=== PATIENT | male | born 1940 | race Caucasian/White ===

== ENCOUNTER → 2016-10-22 | Day surgery (SDC) | payer OTHER, BC ==
[2016-09-18 08:44] VITALS: Ht 175.3 cm; Wt 101.4 kg
[~2016-10-22] VITALS: Ht 175.3 cm; Wt 101.4 kg
[~2016-10-22] MED LIST: AMLO-110 PO; ASPI81TA28 PO; ATEN-173 PO; ATOR-24 PO; CLOP1TAB15 PO; CTP1X PO; DEXAMETHASONE SOD INJ 4 MG/ML VIAL ONE; FINA5TAB PO; FURO-85 PO; LIDOCAINE HCL 1% MPF 5 ML VIAL ONE; LORA-741 PO; LOSA50TA6 PO; NEFA150T PO; QUET1TAB30 PO; VNTHFA/IN INH
--- NOTE | 2016-10-22 10:00 | History & Physical Bridge Note ---
H&P Re-Evaluation Bridge Note: I have examined the patient, reviewed the History & Physical and in the interval since the performance of the History & Physical I have noted the following changes of clinical significance: No changes noted
--- NOTE | 2016-10-22 10:22 | Discharge Instructions-SurgCtr ---
Discharge Instructions Date of Service Oct 22, 2016. Visit Reason for Visit: Lumbosacral Spondylosis Without Myelopathy Discharge Discharge Diagnosis / Problem: same Discharge Goals Goal(s): Improve function Medications Stopped Medications Name(s): Pt. d/c'd ASA and Plavix times 7 days. Activity Recommendations Activity Limitations: as noted below Anesthesia . Post Anesthesia Instructions: If you have had General Anesthesia or IV Sedation: * Do not drive today. * Resume driving when surgeon permits. * Do not make important decisions or sign legal documents today. * Call surgeon for: 1. Temperature elevations greater than 101 degrees F. 2. Uncontrollable pain. 3. Excessive bleeding. 4. Persistent nausea and vomiting. 5. Medication intolerance (nausea, vomiting or rash). * For nausea and vomiting use only clear liquids such as: tea, soda, bouillon until nausea subsides, then gradually increase diet as tolerated. * If you have any concerns or questions, call your surgeon's office. If physician is unavailable and it is an emergency, call 911 or go to the nearest emergency room. . Diet Recommendations Home Diet: no limitations Procedures Procedures Performed: FACET INJECTIONS L4-L5, L5-S1, right side Pending Studies Studies pending at discharge: no Medical Emergencies . Who to Call and When: Medical Emergencies: If at any time you feel your situation is an emergency, please call 911 immediately. . Non-Emergent Contact Non-Emergency issues call your: Primary Care Provider . . "Provider Documentation" section prepared by Alcides Adam. .
--- NOTE | 2016-10-22 10:23 | [facility] Post Operative Brief Note ---
Immediate Operative Summary Operative Date Oct 22, 2016. Pre-Operative Diagnosis SPONDYLOSIS Post-Operative Diagnosis SAME Procedure(s) Performed FACET INJECTIONS L4-L5, L5-S1, right side Surgeon DR. Lisette SMITH [employer] Manager Surgeon(s) 0 Estimated Blood Loss 0 Findings spinal arthritis Specimens 0 Complication(s) None Disposition Recovery Room / PACU
[2016-10-22 10:28] VITALS: TEMP 36.7
[2016-10-22 10:37] VITALS: BP 139/73; PULSE 61; O2SAT 94
--- NOTE | 2016-10-22 10:45 | OPERATIVE REPORT ---
DATE OF OPERATION: 10/22/2016 PREOPERATIVE DIAGNOSES: Facet joint arthrosis lumbar spine, spondylosis L4-L5 and L5-S1. POSTOPERATIVE DIAGNOSES: Same. PROCEDURE: Facet joint injections L4-L5 and L5-S1, right-sided. SURGEON: Dr. Adam. DESCRIPTION OF PROCEDURE: The patient was taken to the minor procedure room and placed prone, prepped and draped sterile. Using biplanar fluoroscopy, we evaluated the L4-L5 and L5-S1 facets. We were able to use a 22-gauge Tuohy needle to get into the facet joint. We injected 1 mL of dexamethasone to each area. The patient tolerated well, to PACU stable. I attest to the content of the Intraoperative Record and any orders documented therein. Any exception s are noted below.
== END | disposition home or self-care (01) ==
LOC: X.SURG 08:28
PROVIDERS: ATTEND Orthopaedic Surgery Orthopaedic Surgery of the Spine
DX: M47.817 Spondylosis without myelopathy or radiculopathy, lumbosacral region (principal); I12.9 Hypertensive chronic kidney disease with stage 1 through stage 4 chronic kidney disease, or unspecified chronic kidney disease; N18.9 Chronic kidney disease, unspecified

== ENCOUNTER 2017-11-21 02:21 | Inpatient (IN) | payer OTHER, BC ==
[2017-11-21] VITALS (14 sets, daily range): BP systolic 113–163; BP diastolic 66–76; PULSE 56–87; TEMP 36.7–37.1; O2SAT 88–96; Ht 175.3 cm; Wt 92.0 kg
[~2017-11-21] VITALS: Ht 175.3 cm; Wt 92.0 kg
[~2017-11-21 02:21] MED LIST changes: -AMLO-110 PO; +AMLO5TAB3 PO; -DEXAMETHASONE SOD INJ 4 MG/ML VIAL ONE; -LIDOCAINE HCL 1% MPF 5 ML VIAL ONE
[2017-11-21] MEDS ORDERED: ALBUT/IPRATROP 3MG/0.5MG NEB 3 ML VIAL ONE ×2 (02:31→03:48)
--- NOTE | 2017-11-21 02:34 | EMERGENCY ROOM VISIT NOTE ---
History Report prepared by Mode: Mayito Carrillo Under the Supervision of: Dr. Ricky Greco M.D. First contact with patient: 02:25 Stated Complaint: SOB History of Present Illness The patient is a 77 year old male who presents to the Emergency Room with complaints of persistent shortness of breath that began two weeks ago. The patient states that for the last two weeks has been short of breath and coughing. He reports he has also been nauseous. The patient states he has been drinking fluids when he can but states he has had a loss of appetite. He denies chest pains and fevers. The patient states he had a recent right lobectomy done a week and a half ago due to lung CA. He denies any chemotherapy. The patient states he does not use oxygen at home. He reports a history of neuropathy Source of History: patient Onset: two weeks ago Position: other (generalized) Quality: other (short of breath) Timing: constant Associated Symptoms: + cough, + nausea, No fevers, No chest pain Review of Systems See HPI for pertinent positives & negatives. A total of 10 systems reviewed and were otherwise negative. Past Medical & Surgical Medical Problems: (1) Heart disease (2) HTN (hypertension) (3) Kidney disease (4) Lung cancer Surgical Problems: (1) History of lobectomy of lung Family History FHx: cancer Social History Smoking Status: Former Smoker Marital Status: Housing Status: lives with significant other Occupation Status: retired Current/Historical Medications Scheduled Amiodarone Hcl (Cordarone), 200 MG PO BID Atenolol (Tenormin), 12.5 MG PO QAM Atorvastatin (Lipitor), 40 MG PO DAILY Clonidine HCl (Clonidine HCl), 0.1 MG PO BID Clopidogrel (Plavix), 75 MG PO QAM Finasteride (Proscar), 5 MG PO QAM Furosemide (Lasix), 40 MG PO QAM Gabapentin (Neurontin), 300 MG PO TID Nefazodone (Serzone), 150 MG PO BID Nitroglycerin (Nitrostat), 0.4 MG UT PRN Polyethylene Glycol 3350 (Miralax), 17 GM PO DAILY Quetiapine Fumarate (Seroquel), 25 MG PO BID Rivaroxaban (Xarelto), 15 MG PO DAILY Scheduled PRN Albuterol Sulfate (Proair Respiclick), 2 PUFFS INH [id number] PRN for SOB/ Wheezing Lorazepam (Ativan), 0.5 MG PO DAILY PRN for Anxiety Oxycodone Ir (Roxicodone Ir), 5 MG PO Q4H PRN for Severe Pain Sennosides-Docusate Sodium (Senna Plus), 1 TAB PO DAILY PRN for Constipation Allergies Coded Allergies: Cephalexin (Verified Allergy, Unknown, RASH, 10/22/16) Lisinopril (Verified Allergy, Unknown, COUGH, 10/22/16) Simvastatin (Verified Allergy, Unknown, [id number] INTERACTION WITH NEFAZODONE, 10/22/16) Physical Exam Vital Signs Date Time Temp Pulse Resp B/P (MAP) Pulse Ox O2 Delivery O2 Flow Rate FiO2 11/21/17 04:16 85 20 88 BiPAP/CPAP 60 11/21/17 04:01 158/84 11/21/17 03:59 83 19 90 BiPAP 11/21/17 03:41 84 94 60 11/21/17 03:29 88 23 85 Oxymask 11/21/17 03:01 193/87 11/21/17 02:59 90 20 187/90 88 Oxymask 11/21/17 02:58 90 24 187/90 88 Oxymask 15.0 11/21/17 02:22 74 Room Air 11/21/17 02:22 36.9 89 20 209/94 74 Room Air Physical Exam GENERAL: Patient is chronically unwell appearing and in moderate acute distress. EYES: No scleral icterus, unremarkable pupils. ENT: Mucous membranes moist, no nasal congestion. NECK: No masses appreciated, no meningismus, trachea is midline. RESPIRATORY: Junky cough. Tachypneic. Mildly dyspneic. Decreased breath sounds throughout right lower lobes. Crackles in the right lobe and left upper lobe. No wheeze, no rhonchi. CARDIOVASCULAR: Regular rate and rhythm. No murmurs, rubs, gallops appreciated. GASTROINTESTINAL: Abdomen soft, nontender, no peritonitis. Bowel sounds positive. No masses appreciated. BACK: No midline tenderness, no CVA tenderness EXTREMITIES: Normal motion all extremities, no cyanosis, no edema. NEUROLOGIC: Alert and oriented, no acute motor or sensory deficits, no focal weakness, cranial nerves grossly intact. SKIN: No rash, no jaundice, no diaphoresis. Bruising of the right flank with multiple port sites from surgery on the right chest. Wound dressing of the right anterior lateral chest. Medical Decision & Procedures ER Provider Diagnostic Interpretation: X ray results are stated below per my interpretation: CHEST X-RAY 1 VIEW AP: Right lung effusion. Diffuse infiltrates bilaterally. No pneumothorax. Enlarged heart. No previous for comparison. Laboratory Results 11/21/17 02:12 Red Blood Count 4.04, Mean Corpuscular Volume 91.3, Mean Corpuscular Hemoglobin 29.0, Mean Corpuscular Hemoglobin Concent 31.7, Mean Platelet Volume 10.3, Neutrophils (%) (Auto) 89.4, Lymphocytes (%) (Auto) 3.0, Monocytes (%) (Auto) 6.4, Eosinophils (%) (Auto) 0.8, Basophils (%) (Auto) 0.0, Neutrophils # (Auto) 21.04, Lymphocytes # (Auto) 0.71, Monocytes # (Auto) 1.51, Eosinophils # (Auto) 0.20, Basophils # (Auto) 0.01 11/21/17 02:12 Test 11/21/17 02:12 11/21/17 02:35 11/21/17 03:03 11/21/17 03:23 White Blood Count 23.56 K/uL (4.8-10.8) Red Blood Count 4.04 M/uL (4.7-6.1) Hemoglobin 11.7 g/dL (14.0-18.0) Hematocrit 36.9 % (42-52) Mean Corpuscular Volume 91.3 fL (80-100) Mean Corpuscular Hemoglobin 29.0 pg (25-34) Mean Corpuscular Hemoglobin Concent 31.7 g/dl (32-36) Platelet Count 391 K/uL (130-400) Mean Platelet Volume 10.3 fL (7.4-10.4) Neutrophils (%) (Auto) 89.4 % Lymphocytes (%) (Auto) 3.0 % Monocytes (%) (Auto) 6.4 % Eosinophils (%) (Auto) 0.8 % Basophils (%) (Auto) 0.0 % Neutrophils # (Auto) 21.04 K/uL (1.4-6.5) Lymphocytes # (Auto) 0.71 K/uL (1.2-3.4) Monocytes # (Auto) 1.51 K/uL (0.11-0.59) Eosinophils # (Auto) 0.20 K/uL (0-0.5) Basophils # (Auto) 0.01 K/uL (0-0.2) RDW Standard Deviation 47.7 fL (36.4-46.3) RDW Coefficient of Variation 14.4 % (11.5-14.5) Immature Granulocyte % (Auto) 0.4 % Immature Granulocyte # (Auto) 0.09 K/uL (0.00-0.02) Red Blood Cell Morphology Unremarkable Activated Partial Thromboplast Time 30.7 SECONDS (21.0-31.0) Partial Thromboplastin Ratio 1.2 Est Creatinine Clear Calc Drug Dose 32.0 ml/min Estimated GFR () 30.9 Estimated GFR (Non- 26.7 BUN/Creatinine Ratio 15.3 (10-20) Calcium Level 8.8 mg/dl (8.5-10.1) Magnesium Level 2.1 mg/dl (1.8-2.4) Total Creatine Kinase 34 U/L (39-308) Creatine Kinase MB 1.5 ng/ml (0.5-3.6) Creatine Kinase MB Ratio 4.4 (0-3.0) Pro-B-Type Natriuretic Peptide 87901 pg/ml (0-1800) Bedside Hemoglobin 12.6 g/dl (14.0-18.0) Bedside Hematocrit 37 % (42-52) Bedside Sodium 141 mEq/L (135-144) Bedside Potassium 3.0 mEq/L (3.3-5.0) Bedside Chloride 92 mEq/L (101-112) Bedside Total CO2 > 40 mEq/l (24-31) Anion Gap 12.0 mmol/L (16-25) Bedside Blood Urea Nitrogen 36 mg/dl (7-18) Bedside Creatinine 2.2 mg/dl (0.6-1.3) Bedside Glucose (other) 122 mg/dl (70-99) Bedside Ionized Calcium (Hansel) 1.10 mmol/l (1.12-1.32) Bedside Lactic Acid Venous 1.34 mmol/L (0.90-1.70) Arterial Blood pH 7.46 (7.35-7.45) Arterial Blood Partial Pressure CO2 56 mmHg (35-46) Arterial Blood Partial Pressure O2 51 mm/Hg (80-95) Arterial Blood HCO3 39 mmol/L (19-24) Arterial Blood Oxygen Saturation 82.5 % (90-95) Arterial Blood Base Excess 13.2 mEq/L (-9-1.8) Arterial Blood Gas Delivery 15L Anthony Test POS (POS) Test 11/21/17 03:59 Laboratory results as reviewed by me. Medications Administered Medications (Trade) Dose Ordered Sig/Vicki Route Start Time Stop Time Status Last Admin Dose Admin Piperacillin Sod/ Tazobactam Sod (Zosyn Iv) 4.5 gm NOW STAT IV 11/21/17 03:23 11/21/17 03:24 DC 11/21/17 03:54 4.5 GM Vancomycin HCl 2000 mg/Sodium Chloride 540 ml @ 200 mls/hr ONE STAT IV 11/21/17 03:23 11/21/17 06:04 11/21/17 03:53 200 MLS/HR Albuterol/ Ipratropium (Duoneb) 12 ml STK-MED ONCE .ROUTE 11/21/17 03:48 11/21/17 03:49 DC 11/21/17 04:15 12 ML Methylprednisolone Sodium Succinate (Solu-Medrol IV) 40 mg STK-MED ONCE .ROUTE 11/21/17 03:49 11/21/17 03:50 DC 11/21/17 03:54 40 MG ECG Per My Interpretation Indication: SOB/dyspnea Rate (beats per minute): 91 Rhythm: normal sinus Findings: PAC (periodic), RBBB, ST depression (Anterior, Lateral) Change: No recent ED Course 0227: The patient was evaluated in room B07. A complete history and physical exam was performed. 0241: The patient is 91% on 10L NC. 0323: Ordered Vancomycin HCl 2000 mg/Sodium Chloride 540 ml @ 200 mls/hr IV, Zosyn 4.5 gm IV. 0329: I reevaluated the patient. His oxygen is 84% on 100% mask. His blood pressure is improving. He is agreeable to BIPAP and respiratory is at bedside. 0338: I discussed the patients case with Dr. Cordoba, [facility] Hospitalist. He understands the patients condition and agrees to accept the patient. The patient will be evaluated for further management and care. 0339: Ordered Duoneb 3 ml INH. 0341: I reevaluated the patient and he is breathing comfortably. His oxygen is 94% on CPAP. His states the patient recent had pneumonia due to aspiration. He goes to [facility]. I updated him on his results and treatment plan. 0345: Ordered Methylprednisolone Sodium Succinate 40 mg/ Syringe 0.64 ml @ 1.5 mls/min IV. Medical Decision Differential: Infectious, Reactive Airway Disease, Pneumonia, Pneumothorax, COPD , CHF, ACS, Pulmonary Embolism, MSK, GI, Dissection, amongst other etiologies entertained. 77 yr old male with known lung CA s/p recent resection arrives for evaluation of cough and shob. He is hypoxic on arrival and placed on 10L venturi mask. CXR done with either bilateral infiltrates vs mass, along with right pleural effusion. BP elevated but slowly improving nd apparently he has long history of hypertension. No fever but given hypoxia and infiltrates blood cultures, LA , and ABG obtained. Not septic shock but does have elevated WBC consistent with sepsis. Persistent hypoxia despite max NC thus switched to bipap with vast improvement in his breathing, comfort and resolution of hypoxia. BNP quite elevated which may repressent some congestive failure, but with renal failure on top of it will hold on Lasix given his improvement on bipap, and concern for sepsis. Sent to CT non con chest for better eval which confirms bilateral infiltrates and right effusion. Zosyn/Vanc and hospital acquired. does not he has aspiration history as well, though unfortunately most of history is in Epic as he usually going to [place]. Dr Nicole in to evaluate patient for further management. Medication Reconcilliation Current Medication List: was personally reviewed by me Blood Pressure Screening Patient's blood pressure: Elevated blood pressure Referred to hospitalist Consults Time Called: [phone] Consulting Physician: Dr. Cordoba [facility] Returned Call: [phone] I discussed the patients case with Dr. Cordoba [facility]. He understands the patients condition and agrees to accept the patient. The patient will be evaluated for further management and care. Impression Primary Impression: Pneumonia Additional Impressions: Hypoxia Respiratory failure Pleural effusion, right Acute renal failure Critical Care I have personally spent greater than 45 minutes of critical care time in the direct management of this patient. This was a life/limb threatening event. This includes time spent evaluating patient, direct bedside care, chart review, placing orders, interpretation of diagnostic studies, discussion with consultants, patient, and family members, as well as other required patient management activities. This 45 minutes is in excess of all separately billable procedures. Scribe Attestation The scribe's documentation has been prepared under my direction and personally reviewed by me in its entirety. I confirm that the note above accurately reflects all work, treatment, procedures, and medical decision making performed by me. Departure Information Dispostion Being Evaluated By Hospitalist Jm Dawson M.D. (PCP) Problem Qualifiers
[2017-11-21 02:37] LABS: HEMATOCRIT 36.9 % (42-52); HEMOGLOBIN 11.7 g/dL (14.0-18.0); MEAN CELL VOLUME 91.3 fL (80-100); MEAN CORPUSCULAR HGB CONC 31.7 g/dl (32-36); MEAN PLATELET VOLUME 10.3 fL (7.4-10.4); PLATELET COUNT 391 K/uL (130-400); RED CELL DISTRIBUTION WIDTH CV 14.4 % (11.5-14.5); RED CELL DISTRIBUTION WIDTH SD 47.7 fL (36.4-46.3); WHITE BLOOD COUNT 23.56 K/uL (4.8-10.8)
[2017-11-21 02:50] LABS: ISTAT CREATININE 2.2 mg/dl (0.6-1.3); ISTAT SODIUM 141 mEq/L (135-144)
[2017-11-21 02:56] LABS: BASO ABS # 0.01 K/uL (0-0.2); EOS % 0.8 %; IG# 0.09 K/uL (0.00-0.02); LYMPH ABS # 0.71 K/uL (1.2-3.4); MONO % 6.4 %; MONO ABS # 1.51 K/uL (0.11-0.59); NEUT % 89.4 %; NEUT ABS # 21.04 K/uL (1.4-6.5)
[2017-11-21 03:01] LABS: CALCIUM 8.8 mg/dl (8.5-10.1); CKMB 1.5 ng/ml (0.5-3.6); CREATININE 2.28 mg/dl (0.60-1.40)
[2017-11-21] MEDS ORDERED: VANCOMYCIN IV 2,000 MG in SODIUM CHLORIDE 0.9% 500ML 500 ML IV STA (03:23)
[2017-11-21] MEDS ORDERED: PIPERACILLIN/TAZOBACTAM 4.5 GM/100ML D5W IV STA (03:23)
[2017-11-21] MEDS ORDERED: VANCOMYCIN CONSULT ACTIVE PRN ×2 (03:30→06:15)
[2017-11-21] MEDS ORDERED: ALBUT/IPRATROP 3MG/0.5MG NEB 3 ML VIAL INH STA (03:39)
[2017-11-21] MEDS ORDERED: METHYLPREDNISOLONE IV 40 MG in SYRINGE 0 ML IV ONE (03:45)
[2017-11-21] MEDS ORDERED: LACTATED RINGER'S 1000ML 1,000 ML IV ONE (04:00)
[2017-11-21] MEDS ORDERED: ALBU18002 INH (04:06)
[2017-11-21] MEDS ORDERED: AMIO200T4 PO (04:07)
[2017-11-21 04:11] LABS: PTT PATIENT 30.7 SECONDS (21.0-31.0)
[2017-11-21] MEDS ORDERED: GABA-113 PO (04:13)
[2017-11-21] MEDS ORDERED: NTRGSL/4 UT (04:15)
[2017-11-21] MEDS ORDERED: OXYC-90 PO (04:16)
[2017-11-21] MEDS ORDERED: POLY335019 PO (04:17)
[2017-11-21] MEDS ORDERED: RIVA1.5T PO (04:20)
[2017-11-21] MEDS ORDERED: SENN1TAB65 PO (04:24)
[2017-11-21] MEDS ORDERED: ACET-1311 PO (04:42)
[2017-11-21] MEDS ORDERED: AMOX875T PO (04:44)
[2017-11-21] MEDS ORDERED: APIX1TAB PO (04:46)
[2017-11-21] MEDS ORDERED: DILT120C51 PO (04:48)
[2017-11-21] MEDS ORDERED: DOCU100C31 PO (04:49)
[2017-11-21] MEDS ORDERED: FAMO20TA11 PO (04:50)
[2017-11-21] MEDS ORDERED: METO5TAB2 PO (04:52)
[2017-11-21] MEDS ORDERED: METO25TA56 PO (04:53)
[2017-11-21] MEDS ORDERED: PARO1TAB27 PO (04:54)
[2017-11-21] MEDS ORDERED: NITROGLYCERIN 0.4 MG SL PER TAB CHARGE SL PRN (05:00)
[2017-11-21] MEDS ORDERED: ACETAMINOPHEN 325 MG TAB PO PRN (05:00)
[2017-11-21] MEDS ORDERED: PROCHLORPERAZINE INJ 5 MG in SYRINGE 4 ML IV PRN (05:00)
[2017-11-21] MEDS ORDERED: LEVALBUTEROL/IPRATROPIUM NEB INH PRN (05:00)
[2017-11-21] MEDS ORDERED: TAMS0.4C38 PO (05:00)
[2017-11-21] MEDS ORDERED: HYDROmorphone INJ 0.5 MG/0.5 ML SYR IV PRN (05:00)
[2017-11-21] MEDS ORDERED: OXYCODONE/ACETAMINOPHEN 5-325 TAB PO PRN (05:00)
[2017-11-21] MEDS ORDERED: INSULIN GLARGINE SOLOSTAR 100 UNITS/ML 3 ML PEN SC ONE (06:00)
[2017-11-21] MEDS ORDERED: IPRATROPIUM BROMIDE NEB SOLN 0.02% 2.5 ML VIAL INH PRN (06:15)
[2017-11-21] MEDS ORDERED: LEVALBUTEROL 1.25MG/0.5ML NEB INH PRN (06:15)
[2017-11-21] MEDS ORDERED: PANTOprazole INJ 40 MG in SYRINGE 0 ML IV ONE (06:15)
[2017-11-21] MEDS ORDERED: POTASSIUM CHLORIDE 10 MEQ TABCR PO ONE (06:30)
[2017-11-21] MEDS: LEVALBUTEROL 1.25MG/0.5ML NEB INH SCH ×3 (07:07→19:19)
[2017-11-21] MEDS: IPRATROPIUM BROMIDE NEB SOLN 0.02% 2.5 ML VIAL INH SCH ×3 (07:08→19:18)
[2017-11-21] MEDS ORDERED: HEPARIN IV LOW DOSE NO BOLUS STA (07:44)
[2017-11-21] MEDS ORDERED: HEPARIN IV LOW DOSE NO BOLUS SCH (08:00)
[2017-11-21] MEDS ORDERED: METOPROLOL TARTRATE 1 MG/ML VIAL IV ONE (08:00)
--- NOTE | 2017-11-21 08:18 | DIAGNOSTIC IMAGING REPORT ---
CT CHEST WITHOUT CONTRAST, ABDOMEN AND PELVIS CT WITHOUT CONTRAST CT DOSE: 1557.14 mGy.cm (accession [id number]), 584.06 mGy.cm (accession [id number]) HISTORY: Acute shortness of breath with generalized abdominal pain, nausea and vomiting. History of prior right lobectomy. Acute renal failure. abd pain, nv TECHNIQUE: Multiaxial CT images of the chest, abdomen and pelvis were performed without contrast. A dose lowering technique was utilized adhering to the principles of ALARA. COMPARISON STUDY: Chest radiograph of same day. FINDINGS: CT CHEST: Study is mildly motion degraded. The thyroid is homogeneous. There are scattered mildly prominent nonenlarged mediastinal lymph nodes are likely reactive with paratracheal lymph nodes measuring up to 8 mm in short axis. Heart is within the upper limits of normal in size. Mural fibrofatty changes of the left ventricular apex suggest prior infarction. Coronary arterial and aortic annular calcifications are noted. No thoracic aortic aneurysm identified. Unopacified pulmonary arterial tree is unremarkable. There is no pneumothorax identified. Postoperative changes from prior right upper lobectomy. Multifocal consolidative and groundglass opacities are noted within all lobes bilaterally within a bibasilar and centrally predominant distribution with air bronchograms. No definite evidence of pulmonary edema. Secretions are noted within the tracheobronchial tree. There is a moderate sized pleural effusion which is mildly loculated. No left-sided pleural effusion. There is circumferential wall thickening of the esophagus. Fluid-filled esophagus is noted containing hyperattenuating material. Mild esophageal distention. No acute process of the imaged upper abdomen. The soft tissues are within normal limits. The bones appear to be intact. Bilateral gynecomastia. Multilevel spondylitic spurring about the spine. CT ABDOMEN/PELVIS: No pneumatosis or pneumoperitoneum identified. Liver appears to be within normal limits. Cholelithiasis without CT evidence of acute cholecystitis. Spleen, pancreas and right adrenal gland are unremarkable. Moderate thickening about the left adrenal gland. Mild nonspecific bilateral perinephric stranding. 7 mm hypodense lesions about the anterior interpolar right kidney suggests proteinaceous or hemorrhagic cyst. Mild cortical thinning about the left kidney. No ureteral calculi or obstructive uropathy. Bladder and prostate appear unremarkable. Extensive calcification of the aorta. Mild ectasia of the infrarenal abdominal aorta, 2.5 x 2.3 cm. No pathologically enlarged lymph nodes. No bowel obstruction. Oral contrast is noted within the colon. Wall thickening of the distal colon is likely secondary to partial distention. Prior appendectomy. The terminal ileum appears unremarkable. No ascites or mesenteric inflammatory changes. 2.2 cm hypodense lesion of the subcutaneous left lower paraspinal tissues is indeterminate however may reflect a sebaceous cyst. The bones appear to be intact. Multilevel facet arthropathy with intervertebral disc space narrowing. IMPRESSION: 1. Multifocal multisegmental consolidative and groundglass opacities within all lobes bilaterally within a bibasilar and centrally predominant distribution with air bronchograms suggests multifocal pneumonia. 2. Moderate sized mildly loculated right pleural effusion. 3. Postoperative changes from prior right upper lobectomy. 4. Fluid-filled and distended esophagus demonstrates circumferential wall thickening. Findings could be correlated with endoscopy. 5. No acute intra-abdominal or intrapelvic abnormality identified. 6. Cholelithiasis without CT evidence of acute cholecystitis. 7. Additional findings as above. Electronically signed by: Eugene Bueno M.D. 11/21/2017 8:17 AM Dictated Date/Time: 11/21/2017 8:00 AM
[2017-11-21 08:22] LABS: HEMOGLOBIN 10.2 g/dL (14.0-18.0); MEAN CELL VOLUME 90.4 fL (80-100); MEAN CORPUSCULAR HEMOGLOBIN 28.8 pg (25-34); MEAN PLATELET VOLUME 9.8 fL (7.4-10.4); PLATELET COUNT 327 K/uL (130-400); RED CELL DISTRIBUTION WIDTH CV 14.3 % (11.5-14.5); RED CELL DISTRIBUTION WIDTH SD 47.2 fL (36.4-46.3); WHITE BLOOD COUNT 24.51 K/uL (4.8-10.8)
--- NOTE | 2017-11-21 08:22 | Pharmacy Progress Note ---
Pharmacy Abx Initial Consult Date of Service Nov 21, 2017. Pharmacy Dosing Scope Date of Consult: 11/21/17 Consultation requested by: Dr. Cordoba Pharmacy is consulted to initiate Vancomycin & Zosyn IV dosing therapy, order appropriate labs and adjust drug dose/frequency. Subjective The patient is a 77 year old male admitted on Nov 21, 2017 at 04:44. Objective Height (Feet): 5 Height (Inches): 9.00 Weight (Kilograms): 102.600 (BMI 33.4) Vital Signs (Past 12Hrs) Vital Signs Past 12 Hours Date Time Temp Pulse Resp B/P (MAP) Pulse Ox O2 Delivery O2 Flow Rate FiO2 11/21/17 06:15 36.9 87 16 163/75 90 CPAP 70 11/21/17 05:16 79 19 146/69 92 11/21/17 05:01 146/69 11/21/17 04:59 81 93 70 11/21/17 04:41 79 19 92 BiPAP 11/21/17 04:36 82 21 94 BiPAP 11/21/17 04:16 85 20 88 BiPAP/CPAP 60 11/21/17 04:06 85 19 86 BiPAP 11/21/17 04:01 158/84 11/21/17 03:59 83 19 90 BiPAP 11/21/17 03:41 84 94 60 11/21/17 03:29 88 23 85 Oxymask 11/21/17 03:01 193/87 11/21/17 02:59 90 20 187/90 88 Oxymask 11/21/17 02:58 90 24 187/90 88 Oxymask 15.0 11/21/17 02:22 74 Room Air 11/21/17 02:22 36.9 89 20 209/94 74 Room Air Lab Results (24Hrs) Laboratory Tests (24 Hours) Test 11/21/17 02:12 11/21/17 08:10 White Blood Count 23.56 K/uL (4.8-10.8) H Red Blood Count 4.04 M/uL (4.7-6.1) L Hemoglobin 11.7 g/dL (14.0-18.0) L Hematocrit 36.9 % (42-52) L Mean Corpuscular Volume 91.3 fL (80-100) Mean Corpuscular Hemoglobin 29.0 pg (25-34) Mean Corpuscular Hemoglobin Concent 31.7 g/dl (32-36) L Platelet Count 391 K/uL (130-400) Mean Platelet Volume 10.3 fL (7.4-10.4) Neutrophils (%) (Auto) 89.4 % Lymphocytes (%) (Auto) 3.0 % Monocytes (%) (Auto) 6.4 % Eosinophils (%) (Auto) 0.8 % Basophils (%) (Auto) 0.0 % Neutrophils # (Auto) 21.04 K/uL (1.4-6.5) H Lymphocytes # (Auto) 0.71 K/uL (1.2-3.4) L Monocytes # (Auto) 1.51 K/uL (0.11-0.59) H Eosinophils # (Auto) 0.20 K/uL (0-0.5) Basophils # (Auto) 0.01 K/uL (0-0.2) Total Creatine Kinase 34 U/L (39-308) L Item Value Date Time Creatinine 2.28 mg/dl H 11/21/17211 Est Creatinine Clear Calc Drug Dose 32.0 ml/min 11/21/17211 Micro Results Date/Time Source Procedure Growth Status 11/21/17 02:58 Blood Blood Culture Pending Received 11/21/17 02:40 Blood Blood Culture Pending Received Risk Factors for Resistance * Hospitalization for 48 hours or more within the past 90 days Assessment & Plan Assessment 77 year old male admitted due to persistent SOB/coughing x 2 weeks. Patient is s /p right lobectomy due to lung CA. Is not receiving chemotherapy per patient. He is having decreased breath sound throughout the right lower lobe and crackles in the R lower lobe and Left upper lobe. CT of chest confirms bilateral infiltrate and right effusion. Breathing improves when patient is placed on bipap. Plan Vancomycin and Zosyn for treatment of pneumonia Vancomycin IV * Estimated Pkinetic parameters: Vd 0.6 L/kg; Ben ~0.031 hr-1; T1/2 ~22.4 hrs; CrCl 32 * Loading dose: 2000 mg (~19.5 mg/kg) * Maintenance dose: 1500 mg IV (~14.7 mg/kg) every 24 hours * Goal trough level for pneumonia : 15 to 20 mcg/mL * Trough level ordered for 11/24/17 * Do not have baseline Cr for patient. Will monitor renal function and make adjustments as necessary Piperacillin/tazobactam * 4.5 g bolus administered over 30 minutes, then 3.375 g IV extended infusion every 8 hours for CrCl greater than 20 mL/min Pharmacy will continue to follow and will adjust dose/frequency as necessary. Thank you.
--- NOTE | 2017-11-21 08:24 | DIAGNOSTIC IMAGING REPORT ---
CHEST ONE VIEW PORTABLE HISTORY: 77 years-old Male Chest Pain acute atypical chest pain with acute shortness of breath COMPARISON: Chest CT of same day, chest radiograph 02/07/2008 TECHNIQUE: Portable AP view of the chest FINDINGS: Cardiac silhouette is mildly enlarged. Coronary arterial stent graft is noted. Postoperative changes about the right lung. Mild pulmonary vascular congestion without overt pulmonary edema. Multifocal bilateral alveolar opacities. Moderate loculated right pleural effusion. No pneumothorax or left pleural effusion. Degenerative changes of the shoulders and spine. IMPRESSION: 1. Multifocal bilateral alveolar opacities suggest multifocal pneumonia. Please see separately dictated CT chest of same day for further details. 2. Loculated moderate right pleural effusion. 3. Cardiomegaly. The above report was generated using voice recognition software. It may contain grammatical, syntax or spelling errors. Electronically signed by: Eugene Bueno M.D. 11/21/2017 8:23 AM Dictated Date/Time: 11/21/2017 8:20 AM
[2017-11-21] MEDS ORDERED: HEPARIN 25,000 UNIT/500ML D5W 500 ML IV SCH (08:30)
[2017-11-21 08:36] LABS: INR 1.2 (0.9-1.1); PTT PATIENT 31.8 SECONDS (21.0-31.0)
[2017-11-21 08:46] LABS: MEAN CORPUSCULAR HGB CONC 31.9 g/dl (32-36)
[2017-11-21] MEDS: POTASSIUM CHLR 10 MEQ / WTR 100 ML IV SCH ×5 (08:54→14:28)
[2017-11-21] MEDS: NEFAZODONE HCL 100 MG PO SCH ×2 (08:56→21:04)
[2017-11-21] MEDS: QUETIAPINE FUMARATE 25 MG TAB PO SCH ×2 (08:56→21:02)
[2017-11-21] MEDS: FAMOTIDINE 20 MG TAB PO SCH (08:56)
[2017-11-21] MEDS: FINASTERIDE 5 MG TAB PO SCH (08:56)
[2017-11-21] MEDS: DILTIAZEM HCL 120 MG CAPCR PO SCH (08:56)
[2017-11-21] MEDS: CLONIDINE HCL 0.1 MG TAB PO SCH ×2 (08:57→21:00)
[2017-11-21] MEDS: DOCUSATE SODIUM/SENNA 50/8.6MG TAB PO PRN (08:57)
[2017-11-21] MEDS: CLOPIDOGREL BISULFATE 75 MG TAB PO SCH (08:57)
[2017-11-21] MEDS: ATORVASTATIN 40 MG TAB PO SCH (08:57)
[2017-11-21] MEDS: AMIODARONE 200 MG TAB PO SCH ×2 (08:57→21:01)
[2017-11-21] MEDS: GABAPENTIN 100 MG CAP PO SCH ×4 (08:57→21:02)
[2017-11-21 08:58] LABS: IG# 0.07 K/uL (0.00-0.02); LYMPH % 1.1 %; LYMPH ABS # 0.26 K/uL (1.2-3.4); MONO % 3.8 %; MONO ABS # 0.94 K/uL (0.11-0.59); NEUT % 94.8 %; NEUT ABS # 23.24 K/uL (1.4-6.5)
[2017-11-21] MEDS: TAMSULOSIN HCL 0.4 MG CAP PO SCH (08:58)
[2017-11-21] MEDS ORDERED: PIPERACILL/TAZOBAC CONSULT ACTIVE PRN (09:00)
[2017-11-21] MEDS ORDERED: METOPROLOL TARTRATE 25 MG TAB PO SCH (09:00)
[2017-11-21] MEDS ORDERED: APIXABAN 2.5 MG TAB PO SCH (09:00)
[2017-11-21] MEDS ORDERED: LEVALBUTEROL/IPRATROPIUM NEB INH SCH (09:00)
--- NOTE | 2017-11-21 11:01 | HISTORY & PHYSICAL EXAMINATION ---
DATE OF ADMISSION: 11/21/2017 PRIMARY CARE PHYSICIAN: Dr. Coronel. CHIEF COMPLAINT: Shortness of breath and hypoxemia. HISTORY OF PRESENT ILLNESS: History obtained from patient, and records. Medical history significant for chronic diastolic heart failure (EF of 55% on TTE 10/2017), CAD status post stenting, PAF on Eliquis, moderate aortic stenosis, HTN COPD, past tobacco abuse, sleep apnea on CPAP, history of seizures as per records, chronic anemia (baseline preop hemoglobin 12 -13), lung mass R (possible malignancy) status post recent lobectomy ([place], 2017), recent bout of aspiration pneumonitis on Augmentin, esophageal achalasia/diverticula as per records. Patient admitted at [facility] from 11/02-01/2018 for a right upper lobe pulmonary nodule (possible malignancy) malignancy and esophageal diverticula sp right video-assisted thorascopic lung resection as well as endoscopy for a possible diverticular resection. Esophageal procedure deferred as per secondary to length of surgery - to be done at a later date as per . Postop, patient went into atrial fibrillation. Discharged on Amiodarone and Xarelto. Patient subsequently discharged home to [place], [place] w/ scheduled follow-up with surgeon last week of the month. Poor appetite upon returning to home from [place]. [facility] ER visit for possible prostatitis/epididymitis sp antibiotic Rx. Patient admitted at [facility] from 11/12- for cough symptoms productive of brown sputum. CT of the chest without contrast showed right upper lobe lobectomy, bilateral consolidation, predominantly each lobe, also right middle lobe, right upper lobe. Seen by Pulmonology. Concern for reflux aspiration. Patient underwent bronchoscopy which showed copious mucopurulent secretions found throughout the tracheobronchial tree, bronchial toileting done. Patient also referred to GI for swallowing/dysphagia -mostly to pills as per records and choking with liquids on occasion. UGI series showed extensive esophageal diverticular disease with absent reverse peristalsis, large diverticulum measuring approximately 5 cm located at junction of middle and lower thirds of the esophagus, appears to be pulsion diverticulum. No esophageal stricture seen on UGI series. Stomach, duodenum, and proximal bowel appeared normal. Ultrasound showed cholelithiasis, intraabdominal sludge. Symptoms attributed by GI to known history of esophageal diverticulum and motility disorder for which patient refused resection in 2007 as per note. Patient encouraged to eat slowly, chew his food well. As per note, patient did not want invasive testing. Surgery not recommended/conservative management of functional swallowing issues as per GI recommendations. Patient discharged to [facility] 2 days ago on Augmentin prescription for aspiration pneumonia. Patient Xarelto for A. fib also switched to Eliquis prior to discharge due to renal function. Poor appetite, loose nonbloody stools, some achy abdominal discomfort, persistent nausea at [facility] . Last night, patient had an episode of emesis, subsequently noted to be hypoxemic, 80s, on nasal cannula, coughing up large amount of clear sputum. Increased shortness of breath. Patient denies chest pain. Patient brought to the Emergency Room. O2 sats noted to be 70s. BiPAP started. Given Vancomycin and Zosyn at the ER. MEDICAL HISTORY: As above. SURGICAL HISTORY: He has had a lung surgery, appendectomy, back surgery. MEDICATIONS: Home medications include Tylenol, Augmentin, docusate sodium, furosemide, lorazepam, Reglan, oxycodone, albuterol, polyethylene glycol, amiodarone, apixaban, atenolol, atorvastatin, clonidine, Plavix, diltiazem, famotidine, finasteride, gabapentin, metoprolol, Serzone, Paxil, quetiapine, tamsulosin ALLERGIES: KEFLEX, LISINOPRIL, SIMVASTATIN. FAMILY HISTORY: Lung cancer, breast cancer. PERSONAL/SOCIAL HISTORY: Past tobacco abuse. No chronic intake of alcoholic beverages. 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 REVIEW OF SYSTEMS: As per HPI. All 10 systems reviewed, all other ROS negative. PHYSICAL EXAMINATION: VITAL SIGNS: Blood pressure 209/94, later 150/84, pulse rate 83, RR 23, temperature 36.9, saturation 70% on room air, later 86%, 90% on BiPAP. GENERAL: Noted to be comfortable, hard of hearing, obese, minimal respiratory distress. SKIN: Pallor, warm. HEENT: Pale palpebral conjunctivae. No ptosis. Dry oral mucosa. BiPAP in place. NECK: Supple, nontender. CHEST: Expiratory wheeze, rhonchi. No chest wall tenderness. HEART: Regular rate and rhythm. Systolic murmur. ABDOMEN: Some distention, central abdominal tenderness. EXTREMITIES: No LE edema/tenderness. No other gross deformity. NEUROLOGIC: No gross focality except for mild hearing impairment. LABORATORY DATA: Hemoglobin was noted to be 11.7, white cell count 20.5, platelets 391. Sodium noted to be 141, potassium 3, chloride 94, CO2 of 40, BUN 30, creatinine 2.28, glucose noted to be 119. Troponin 0.117. ABG shows pH 7.6, PCO2 of 56, PO2 of 51, 82% on [address] of chest initial read multifocal areas of consolidation, right greater than left, representing multifocal pneumonia, aspiration, moderate right loculated pleural effusion. Esophageal wall thickening, mid segment, about the GE junction, may represent esophagitis. CT of abdomen and pelvis, initial read, large right pleural effusion, large right lower lobe consolidation, patchy left lobe infiltrate, cardiomegaly, esophageal wall thickening, esophagitis, cholelithiasis without evidence of cholecystitis. EKG as per my interpretation, normal sinus rhythm, right bundle-branch block, T wave inversion in inferior leads. ASSESSMENT: 1. Acute hypoxemic respiratory failure secondary to COPD exacerbation 2 to health care associated pneumonia likely recurrent aspiration after emesis symptoms. Ongoing course of Augmentin Rx following recent confinement for aspiration pneumonia at [facility] Patient predisposed by esophagitis hx esophageal diverticulum/esophageal motility disorder. possible sepsis. 2. Recent right lung mass surgery (11/02/17, [place]) probable malignancy 3. Chronic diastolic heart failure, EF 55% Patient on the dry side 4. Coronary artery disease status post stenting. 5. hx postop PAF NSR, on Eliquis. 6. HTN, BP elevated 7. hx moderate aortic stenosis on recent TTE 8. diarrhea/loose stools rule out Clostridium difficile. 7. Chronic renal insufficiency. Creatinine at baseline. 8. Anemia. History chronic preop anemia secondary to CKD (Hg 12-13) Hemoglobin better than postop Hg of 9 (11/11/17) 9. past tobacco abuse.GAURANG on home O2 at night. 10. History of seizure disorder, well controlled not on maintenance medications. 11. hx GAURANG on CPAP 12. Hypokalemia secondary to emesis, loose stools PLAN: PCU. Continue BiPAP CS, Zosyn, Vancomycin. Steroid, nebs tx IVF, hold home diuretics for now until patient euvolemic Swallow evaluation. Aspiration precautions. Pulmonary consult, respiratory failure, , complicated pneumonia PPI for esophagitis GI consult RE esophagitis, persistent dysphagia. Stool C. difficile Replace potassium. PT/OT eval DVT prophylaxis. Eliquis. Full code. Patient's requesting for updates from providers. Mrs. Katey Juárez thru [phone]. Total critical care time was 60 minutes. Addendum : Made aware by RN of patient difficulty with swallowing pills upon arrival at the floor. Clear liquids for now. Change oral beta-domingo to IV for now, low dose IV heparin in place of Eliquis until patient swallowing improved. MTDD
[2017-11-21] MEDS: PIPERACILL/TAZOBAC IV 3.375 GM in D5W 100ML IV SCH ×2 (11:09→16:59)
[2017-11-21] MEDS ORDERED: METOPROLOL TARTRATE 1 MG/ML VIAL IV. SCH (12:00)
--- NOTE | 2017-11-21 12:12 | Medical Consult ---
Consultation Note Date of Service Nov 21, 2017. Consultation Note Reason for consult: abnormal appearing esophagus on CT HISTORY OF PRESENT ILLNESS: 77 yo M with PMH sig for advanced COPD on home O2 recent lobectomy for lung cancer, s/p recent admission to [facility] for multilobar pneumonia. He now is admitted to hospital for hypoxia, resp insuff. Initially on BIPAP last night, now on 4 L NC. He has a h/o esophageal dysmotility. EGD and esophagram in 2007 showed mult large esophageal diverticula; he had a motility study in 2007 that was incomplete, but suggestive of achalasia. Outpt notes suggest that he was not very symptomatic from this, and was lost to f/u. More recently, he underwent EGD during his lung cancer surgery which again showed esophageal tics. He also underwent dysphagia w/u during recent hosp at , including CT which largeamount of fluid in esophagus, UGIS which showed dysmotility and large esophageal diverticula with retention of contrast, and speech path eval which showed no cause of oropharyngeal dysphagia. CT on admission here again shows large amt of fluid in esophagus. PAST MEDICAL HISTORY: COPD, sleep apnea, CAD s/p DELMA, aortic stenosis, sz disorder PAST SURGICAL HISTORY: He has had a lung surgery, appendectomy as well as back surgery. MEDICATIONS: Home medications include Tylenol, Augmentin, docusate sodium, furosemide, lorazepam, Reglan, oxycodone, albuterol, polyethylene glycol, amiodarone, apixaban, atenolol, atorvastatin, clonidine, Plavix, diltiazem, famotidine, finasteride, gabapentin, metoprolol, Serzone, Paxil, quetiapine, tamsulosin. ALLERGIES: KEFLEX, LISINOPRIL, SIMVASTATIN. FAMILY HISTORY: Lung cancer, breast cancer. PERSONAL/SOCIAL HISTORY: Past tobacco abuse. No chronic intake of alcoholic beverages. 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 REVIEW OF SYSTEMS: As per HPI. All others negative. PHYSICAL EXAMINATION: Date Time Temp Pulse Resp B/P (MAP) Pulse Ox O2 Delivery O2 Flow Rate FiO2 11/21/17 08:56 87 163/75 11/21/17 08:00 Nasal Cannula 4.0 11/21/17 06:58 81 93 70 11/21/17 06:15 36.9 87 16 163/75 90 CPAP 70 11/21/17 05:16 79 19 146/69 92 11/21/17 05:01 146/69 11/21/17 04:59 81 93 70 11/21/17 04:41 79 19 92 BiPAP 11/21/17 04:36 82 21 94 BiPAP 11/21/17 04:16 85 20 88 BiPAP/CPAP 60 11/21/17 04:06 85 19 86 BiPAP 11/21/17 04:01 158/84 11/21/17 03:59 83 19 90 BiPAP 11/21/17 03:41 84 94 60 11/21/17 03:29 88 23 85 Oxymask 11/21/17 03:01 193/87 11/21/17 02:59 90 20 187/90 88 Oxymask 11/21/17 02:58 90 24 187/90 88 Oxymask 15.0 11/21/17 02:22 74 Room Air 11/21/17 02:22 36.9 89 20 209/94 74 Room Air Appears comfortable. Has eaten his lunch tray of clear liquids, but there are several tissues on the table from where he has spit his lunch up HEENT: no thrush, mmm CV: RRR Resp: Diffuse wheezing. He has mild incr WOB, but is able to comfortably speak Abd: soft NT Extrem: no edema Last 24 Hours Test 11/21/17 02:12 11/21/17 02:35 11/21/17 03:03 11/21/17 03:23 White Blood Count 23.56 K/uL Red Blood Count 4.04 M/uL Hemoglobin 11.7 g/dL Hematocrit 36.9 % Mean Corpuscular Volume 91.3 fL Mean Corpuscular Hemoglobin 29.0 pg Mean Corpuscular Hemoglobin Concent 31.7 g/dl Platelet Count 391 K/uL Mean Platelet Volume 10.3 fL Neutrophils (%) (Auto) 89.4 % Lymphocytes (%) (Auto) 3.0 % Monocytes (%) (Auto) 6.4 % Eosinophils (%) (Auto) 0.8 % Basophils (%) (Auto) 0.0 % Neutrophils # (Auto) 21.04 K/uL Lymphocytes # (Auto) 0.71 K/uL Monocytes # (Auto) 1.51 K/uL Eosinophils # (Auto) 0.20 K/uL Basophils # (Auto) 0.01 K/uL RDW Standard Deviation 47.7 fL RDW Coefficient of Variation 14.4 % Immature Granulocyte % (Auto) 0.4 % Immature Granulocyte # (Auto) 0.09 K/uL Red Blood Cell Morphology Unremarkable Activated Partial Thromboplast Time 30.7 SECONDS Partial Thromboplastin Ratio 1.2 Sodium Level 141 mmol/L Potassium Level 3.0 mmol/L Chloride Level 94 mmol/L Carbon Dioxide Level 40 mmol/L Anion Gap 7.0 mmol/L 12.0 mmol/L Blood Urea Nitrogen 35 mg/dl Creatinine 2.28 mg/dl Est Creatinine Clear Calc Drug Dose 32.0 ml/min Estimated GFR () 30.9 Estimated GFR (Non- 26.7 BUN/Creatinine Ratio 15.3 Random Glucose 119 mg/dl Calcium Level 8.8 mg/dl Magnesium Level 2.1 mg/dl Total Creatine Kinase 34 U/L Creatine Kinase MB 1.5 ng/ml Creatine Kinase MB Ratio 4.4 Troponin I 0.117 ng/ml Pro-B-Type Natriuretic Peptide 03572 pg/ml Bedside Hemoglobin 12.6 g/dl Bedside Hematocrit 37 % Bedside Sodium 141 mEq/L Bedside Potassium 3.0 mEq/L Bedside Chloride 92 mEq/L Bedside Total CO2 > 40 mEq/l Bedside Blood Urea Nitrogen 36 mg/dl Bedside Creatinine 2.2 mg/dl Bedside Glucose (other) 122 mg/dl Bedside Ionized Calcium (Hansel) 1.10 mmol/l Bedside Lactic Acid Venous 1.34 mmol/L Arterial Blood pH 7.46 Arterial Blood Partial Pressure CO2 56 mmHg Arterial Blood Partial Pressure O2 51 mm/Hg Arterial Blood HCO3 39 mmol/L Arterial Blood Oxygen Saturation 82.5 % Arterial Blood Base Excess 13.2 mEq/L Arterial Blood Gas Delivery 15L Anthony Test POS Test 11/21/17 04:48 11/21/17 07:19 11/21/17 07:36 11/21/17 08:10 Troponin I 0.112 ng/ml Arterial Blood pH 7.47 Arterial Blood Partial Pressure CO2 53 mmHg Arterial Blood Partial Pressure O2 73 mm/Hg Arterial Blood HCO3 38 mmol/L Arterial Blood Oxygen Saturation 93.4 % Arterial Blood Base Excess 12.5 mEq/L Arterial Blood Gas Delivery 70% Anthony Test POS Bedside Glucose 134 mg/dl White Blood Count 24.51 K/uL Red Blood Count 3.54 M/uL Hemoglobin 10.2 g/dL Hematocrit 32.0 % Mean Corpuscular Volume 90.4 fL Mean Corpuscular Hemoglobin 28.8 pg Mean Corpuscular Hemoglobin Concent 31.9 g/dl Platelet Count 327 K/uL Mean Platelet Volume 9.8 fL Neutrophils (%) (Auto) 94.8 % Lymphocytes (%) (Auto) 1.1 % Monocytes (%) (Auto) 3.8 % Eosinophils (%) (Auto) 0.0 % Basophils (%) (Auto) 0.0 % Neutrophils # (Auto) 23.24 K/uL Lymphocytes # (Auto) 0.26 K/uL Monocytes # (Auto) 0.94 K/uL Eosinophils # (Auto) 0.00 K/uL Basophils # (Auto) 0.00 K/uL RDW Standard Deviation 47.2 fL RDW Coefficient of Variation 14.3 % Immature Granulocyte % (Auto) 0.3 % Immature Granulocyte # (Auto) 0.07 K/uL Prothrombin Time 12.2 SECONDS Prothromb Time International Ratio 1.2 Activated Partial Thromboplast Time 31.8 SECONDS Partial Thromboplastin Ratio 1.2 ASSESSMENT: H/o esophageal diverticulum and probable esophageal dysmotility Recent hosp for pneumonia now re-admit for resp failure due to pneumonia, possibly aspiration - It seems likely that his esophageal disease is contributing to aspiration - he likely has food retention in diverticulum, as suggested by contrast imaging; he may also, despite his lack of dysphagia, have regurgitation related to possible esopahageal dysmotility. I discussed the possiblity of PEG tube placement, which he adamantly opposed; I have little else to offer him.
[2017-11-21] MEDS: PAROXETINE 20 MG TAB PO SCH (12:25)
--- NOTE | 2017-11-21 12:41 | PULMONARY CONSULTATION ---
DATE OF CONSULTATION: 11/21/2017 TIME: 11:25 a.m. REPORT OF CONSULTATION: The patient was seen in room 239, bed 2. He is a 77-year-old male who was transferred to the ER from [facility]. He presented with severe shortness of breath, coughing and vomiting. His history is that this past winter while in [place], he had cardiac stenting done. An x-ray at that time was abnormal showing a nodule in the lung. He ultimately was referred to [facility] near [place]. He states they initially evaluated him over 3 days. He then had surgery at [facility] several weeks ago. The patient really had no idea when the surgery was done. Apparently, a right upper lobectomy was done. He believes he was in the hospital for 5 or 6 days. He was not exactly certain. He was discharged to his home. Subsequently, he developed increasing breathing problems and was admitted at [facility]. He was told there that he had pneumonia. He could not tell us how many days he was in [place]. From [place], he was transferred to [facility]. He states he has been there only 3 or 4 days. He has had a hard time eating anything. He states he has had persistent vomiting numerous times per day. At [facility], he was told of some type of esophageal problem. They were thinking of perhaps doing a procedure of some type on the esophagus at that time. The patient has no idea if it was a stricture. We did hear that it might have been a diverticulum. These are all one confirmed. The patient was brought to the ER early this morning with quite a bit of respiratory distress. Initial saturation on room air was only 74%. He was placed on a high flow OxyMask. Subsequently, when he was not improving, they put him on BiPAP and he did much better. He feels the BiPAP helped his breathing a lot. Reportedly, the pressures were 15/5. This morning, he is much more comfortable. He is not coughing a lot. He did cough up some discolored sputum earlier today that had a little blood in it. This was sent for Gram stain and culture. He has not had any chest pains. He has had no chills, fevers or sweats. His appetite has been poor. He has not had heartburn. As noted, the patient is not the best historian. I am assuming he may have a history of atrial fibrillation in light of the fact he is on amiodarone. As noted, he does have a history of coronary artery disease and he states he has had a total of 7 stents. His past pulmonary history includes COPD, sleep apnea as noted, and the recent history of lung cancer. I am assuming it was nonsmall cell. He states he was told he does not need any chemo or radiation and that everything was removed. PAST SURGICAL HISTORY: 1. Spermatocele, 2003. 2. Right upper lobectomy done recently. 3. Cardiac stent x7. PAST MEDICAL HISTORY: 1. Hypertension. 2. BPH. 3. Chronic kidney disease. 4. Hearing loss. SOCIAL HISTORY: Tobacco, none for 14 years. Previously 1 pack per day for 45 years. ETOH - none. ALLERGIES: 1. CEPHALEXIN. 2. LISINOPRIL. 3. SIMVASTATIN. FAMILY HISTORY: There is a strong family history for cancer. The patient believes that his mother of lung cancer in her 40s. He believes a brother also of lung cancer. A sister of breast cancer. He does not know what medical illnesses his father had, but he is . 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 He does not have any significant asbestos exposure. REVIEW OF SYSTEMS: In addition to the above-mentioned complaints, the patient has significant hearing loss. He denies visual complaints. Denies headache or dizziness. Denies chest pains. Denies significant urinary complaints even though he gives a history of BPH. The patient may have some psychiatric issues as he is on some psych meds. The remainder of the review of systems is negative except as noted above. Ten systems reviewed. MEDICATIONS AT HOME: 1. Amiodarone 200 mg b.i.d. 2. Tenormin 12.5 mg daily. 3. Lipitor 40 mg daily. 4. Clonidine 0.1 mg b.i.d. 5. Plavix 75 mg daily. 6. Proscar 5 mg daily. 7. Lasix 40 mg daily. 8. Gabapentin 300 mg t.i.d. 9. Serzone 150 mg b.i.d. 10. Nitro p.r.n. 11. MiraLax. 12. Seroquel 25 mg b.i.d. 13. Rivaroxaban 15 mg daily. 14. Albuterol inhaler p.r.n. 15. Ativan 0.5 p.r.n. 16. Oxycodone IR 5 mg q. 4 hours p.r.n. 17. Senna p.r.n. PHYSICAL EXAMINATION: GENERAL: The patient is a 77-year-old male who looks appropriate for his age. He was cooperative, alert and oriented. He was in no distress. He is clearly hard of hearing. HEENT: Eye exam showed cataracts bilaterally. Nares were clear. Mouth exam was unremarkable. NECK: Palpation of the neck reveals no lymph nodes. CHEST: Inspection of the chest reveals some scars on the right side from his prior surgery. There is a large area of ecchymosis posterolaterally. I am assuming this is related to his surgery. He has a dressing over what probably was a chest tube site. Apparently, this has had persistent drainage of liquid as per the patient. The dressings typically happen getting changed every day or so. Cardiac rate is 87 per minute. Rhythm is regular. Blood pressure 163/75. Systolic murmur grade 2/6 heard. Percussion of the chest reveals dullness in the right lower one-third. LUNGS: Auscultation revealed absent breath sounds at the right base. There are mild scattered rhonchi elsewhere. Respiratory rate was 16 and not labored. Saturation was 90%. ABDOMEN: Soft. Bowel sounds are present. There was no tenderness to palpation or mass. EXTREMITIES: Showed no cyanosis, clubbing or edema. The patient does have a prominent sun chavarria. LABORATORY DATA: CAT scan of the chest shows multifocal bilateral consolidation and ground-glass opacities in all lobes. There are air bronchograms bilaterally, mainly central. This would suggest bilateral pneumonia. There is a moderate size somewhat loculated right pleural effusion with some fluid in the fissures. The esophagus is fluid filled and distended. White blood cell count is 24.51. Hemoglobin 10.2. Platelets are 327,000. Differential did show 94.8, neutrophils. INR is 1.2 and PTT is 31.8. Blood gas done at 03:23 a.m. showed a pH of 7.46, pCO2 of 56, and pO2 of 51 done presumably on a 15-liter OxyMask. Blood gas done at 07:19 a.m. showed a pH 7.47, pCO2 of 53, pO2 of 73 done on BiPAP 15/5+70%. Electrolytes show sodium 141, potassium 3.0, chloride 92, bicarbonate 40. The BUN is 35 with a creatinine of 2.28. Troponin was 0.117 and repeat was 0.112. ProBNP was 15,775. EKG showed evidence of a sinus rhythm. PACs were noted. Right bundle-branch block was present. Diffuse nonspecific ST and T-wave changes seen. Cannot entirely exclude ischemia. IMPRESSION: 1. Respiratory failure - acute with hypoxia and hypercarbia. 2. Bilateral pneumonia, most likely secondary to aspiration of GI contents. 3. Lung cancer - status post right upper lobectomy. 4. Chronic obstructive pulmonary disease. 5. Obstructive sleep apnea. 6. Rule out congestive heart failure. 7. Pleural effusion. 8. Chronic kidney disease. COMMENTS AND RECOMMENDATIONS: The patient clinically seems better than expected considering how ill he was in the Emergency Room. It would seem that BiPAP has helped a lot. Unfortunately, we do not know what his exact history is. We do need to obtain records from [facility] and from [place]. I spoke with Dr. Lowe regarding this. The patient is on prednisone 40 mg daily. As long as he is stable, I am fine with that. If he would worsen, would consider Solu-Medrol. He is on vancomycin and Zosyn. I would suggest an echocardiogram. I do not believe we know if he is in congestive heart failure or not. The ProBNP is extremely elevated. I believe liver function tests should be checked. I would suggest a consult with Dr. Cole for an evaluation for possible thoracentesis. This could not be done at present because he has had rivaroxaban fairly recently. We need to verify for sure when his last dosage was. The patient is on levalbuterol and ipratropium every 6 hours and I agree with that. I suspect he will need a thoracentesis ultimately. I did discuss the case with Dr. Cole and Dr. Lowe. A decision about diuretic therapy may be easier to make after the echo was reviewed. Consideration could be given to cardiology consult as well. Thank you very much for asking me to assist in his care. DAYNA
[2017-11-21] MEDS ORDERED: NURSING VERBAL MED ORDER ONE (14:15)
[2017-11-21 15:55] LABS: PTT PATIENT 38.7 SECONDS (21.0-31.0)
[2017-11-21] MEDS ORDERED: FUROSEMIDE INJ 40 MG in SYRINGE 0 ML IV ONE (17:45)
--- NOTE | 2017-11-21 18:49 | Progress Note ---
Subjective Date of Service: Nov 21, 2017. Subjective Pt evaluation today including: conversation w/ patient, physical exam, lab review, review of studies, review of inpatient medication list Saw/examined the patient in room 239 He's doing okay; states he has been in and out of hospitals recently for pneumonia He has esophageal issues and chokes on a lot of his food. States he had diarrhea/vomiting at [facility] - after vomiting, he became hypoxic. Problem List Medical Problems: (1) Acute renal failure Status: Acute (2) Hypoxia Status: Acute (3) Pleural effusion, right Status: Acute (4) Pneumonia Status: Acute (5) Respiratory failure Status: Acute Review of Systems Constitutional: No fever, No chills ENT: + trouble swallowing, No dental problems Respiratory: + cough, + sputum, + wheezing, + shortness of breath, + dyspnea on exertion, + dyspnea at rest, No hemoptysis Cardiac: No chest pain, No edema, No palpitations Abdomen: + nausea, + vomiting, + diarrhea, No pain, No constipation, No GI bleeding Musculoskeletal: No joint pain Male : No dysuria, No urinary frequency Psychiatric: No depression symptoms, No anxiety, No insomnia Heme: No abnormal bleeding/bruising Medications Current Inpatient Medications Medications (Trade) Dose Ordered Sig/Vicki Route Start Time Stop Time Status Last Admin Dose Admin Acetaminophen (Tylenol Tab) 650 mg Q4H PRN PO 11/21/17 05:00 12/21/17 04:59 Nitroglycerin (Nitrostat Tab) 0.4 mg UD PRN SL 11/21/17 05:00 12/21/17 04:59 Hydromorphone HCl (Dilaudid Inj) 0.5 mg Q3H PRN IV 11/21/17 05:00 12/05/17 04:59 Oxycodone/ Acetaminophen (Percocet 5-325mg Tab) 1 tab Q6H PRN PO 11/21/17 05:00 12/05/17 04:59 Prochlorperazine Edisylate 5 mg/ Syringe 5 ml @ 5 mls/min Q6H PRN IV 11/21/17 05:00 12/21/17 04:59 Miscellaneous Information (Consult) 1 ea UD PRN N/A 11/21/17 09:00 12/21/17 08:59 Prednisone (PredniSONE TAB) 40 mg DAILY PO 11/22/17 09:00 11/27/17 08:59 Amiodarone HCl (Cordarone Tab) 200 mg BID PO 11/21/17 09:00 12/21/17 08:59 11/21/17 08:57 200 MG Atenolol (Tenormin Tab) 12.5 mg QAM PO 11/21/17 09:00 12/21/17 08:59 11/21/17 08:57 12.5 MG Atorvastatin Calcium (Lipitor Tab) 40 mg DAILY PO 11/21/17 09:00 12/21/17 08:59 11/21/17 08:57 40 MG Clonidine HCl (Catapres Tab) 0.1 mg BID PO 11/21/17 09:00 12/21/17 08:59 11/21/17 08:57 0.1 MG Diltiazem HCl (Cardizem Cd Cap) 120 mg DAILY PO 11/21/17 09:00 12/21/17 08:59 11/21/17 08:56 120 MG Famotidine (Pepcid Tab) 20 mg DAILY PO 11/21/17 09:00 12/21/17 08:59 11/21/17 08:56 20 MG Finasteride (Proscar Tab) 5 mg QAM PO 11/21/17 09:00 12/21/17 08:59 11/21/17 08:56 5 MG Gabapentin (Neurontin Cap) 200 mg TID PO 11/21/17 09:00 12/21/17 08:59 Nefazodone HCl (serZONE TAB) 150 mg BID PO 11/21/17 09:00 12/21/17 08:59 11/21/17 08:56 150 MG Quetiapine Fumarate (seroQUEL TAB) 25 mg BID PO 11/21/17 09:00 12/21/17 08:59 11/21/17 08:56 25 MG Senna/Docusate Sodium (Senokot S Tab) 1 tab DAILY PRN PO 11/21/17 05:00 12/21/17 04:59 11/21/17 08:57 1 TAB Insulin Glargine (Lantus Solostar Pen) 5 units DAILY SC 11/22/17 09:00 12/22/17 08:59 Pantoprazole Sodium (Protonix Tab) 40 mg QAM PO 11/22/17 09:00 11/25/17 09:01 Clopidogrel Bisulfate (plAVix TAB) 75 mg QAM PO 11/21/17 09:00 12/21/17 08:59 11/21/17 08:57 75 MG Paroxetine HCl (pAXil TAB) 20 mg DAILY PO 11/21/17 09:00 12/21/17 08:59 11/21/17 12:25 20 MG Tamsulosin HCl (Flomax Cap) 0.4 mg DAILY PO 11/21/17 09:00 12/21/17 08:59 11/21/17 08:58 0.4 MG Ipratropium [place] (Atrovent 0.02% 0.5MG/2.5ML Neb) 0.5 mg Q6R INH 11/21/17 09:00 12/21/17 08:59 11/21/17 13:50 0.5 MG Levalbuterol (Xopenex 1.25MG/ 0.5ML Neb) 1.25 mg Q6R INH 11/21/17 09:00 12/21/17 08:59 11/21/17 13:50 1.25 MG Ipratropium [place] (Atrovent 0.02% 0.5MG/2.5ML Neb) 0.5 mg Q4H PRN INH 11/21/17 06:15 12/21/17 06:14 Levalbuterol (Xopenex 1.25MG/ 0.5ML Neb) 1.25 mg Q4H PRN INH 11/21/17 06:15 12/21/17 06:14 Vancomycin HCl (Consult) 1 ea UD PRN N/A 11/21/17 06:15 12/21/17 06:14 Piperacillin Sod/ Tazobactam Sod 3.375 gm/Dextrose 115 ml @ 28.75 mls/ hr Q8H IV 11/21/17 10:00 11/28/17 09:59 11/21/17 16:59 28.75 MLS/HR Heparin Sodium/ Dextrose 500 ml @ 20 mls/hr Q24H IV 11/21/17 08:30 12/21/17 08:14 Future Hold 11/21/17 09:28 20 MLS/HR Vancomycin HCl 1500 mg/Sodium Chloride 530 ml @ 200 mls/hr Q24H IV 11/22/17 04:00 11/29/17 03:59 Objective Vital Signs Date Time Temp Pulse Resp B/P (MAP) Pulse Ox O2 Delivery O2 Flow Rate FiO2 11/21/17 15:19 36.7 68 18 113/68 (83) 94 11/21/17 13:50 64 20 96 Nasal Cannula 6.0 11/21/17 12:03 37.1 71 16 137/76 (96) 95 Nasal Cannula 2.0 11/21/17 08:56 87 163/75 11/21/17 08:00 Nasal Cannula 4.0 11/21/17 08:00 36.9 87 16 163/75 (104) 90 BiPAP 70 11/21/17 06:58 81 93 70 11/21/17 06:55 74 20 95 BiPAP/CPAP 70 11/21/17 06:15 36.9 87 16 163/75 90 CPAP 70 11/21/17 05:16 79 19 146/69 92 11/21/17 05:01 146/69 11/21/17 04:59 81 93 70 11/21/17 04:41 79 19 92 BiPAP 11/21/17 04:36 82 21 94 BiPAP 11/21/17 04:16 85 20 88 BiPAP/CPAP 60 11/21/17 04:06 85 19 86 BiPAP 11/21/17 04:01 158/84 11/21/17 03:59 83 19 90 BiPAP 11/21/17 03:41 84 94 60 11/21/17 03:29 88 23 85 Oxymask 11/21/17 03:01 193/87 11/21/17 02:59 90 20 187/90 88 Oxymask 11/21/17 02:58 90 24 187/90 88 Oxymask 15.0 11/21/17 02:22 74 Room Air 11/21/17 02:22 36.9 89 20 209/94 74 Room Air Physical Exam General Appearance: + mild distress, + pertinent finding (chronically ill appearing) Respiratory/Chest: no respiratory distress, no accessory muscle use Cardiovascular: regular rate, rhythm, no edema, no murmur Extremities: normal inspection, no pedal edema Neurologic/Psychiatric: no motor/sensory deficits, alert, normal mood/affect Laboratory Results Last 24 Hours Test 11/21/17 02:12 11/21/17 02:35 11/21/17 03:03 11/21/17 03:23 White Blood Count 23.56 K/uL Red Blood Count 4.04 M/uL Hemoglobin 11.7 g/dL Hematocrit 36.9 % Mean Corpuscular Volume 91.3 fL Mean Corpuscular Hemoglobin 29.0 pg Mean Corpuscular Hemoglobin Concent 31.7 g/dl Platelet Count 391 K/uL Mean Platelet Volume 10.3 fL Neutrophils (%) (Auto) 89.4 % Lymphocytes (%) (Auto) 3.0 % Monocytes (%) (Auto) 6.4 % Eosinophils (%) (Auto) 0.8 % Basophils (%) (Auto) 0.0 % Neutrophils # (Auto) 21.04 K/uL Lymphocytes # (Auto) 0.71 K/uL Monocytes # (Auto) 1.51 K/uL Eosinophils # (Auto) 0.20 K/uL Basophils # (Auto) 0.01 K/uL RDW Standard Deviation 47.7 fL RDW Coefficient of Variation 14.4 % Immature Granulocyte % (Auto) 0.4 % Immature Granulocyte # (Auto) 0.09 K/uL Red Blood Cell Morphology Unremarkable Activated Partial Thromboplast Time 30.7 SECONDS Partial Thromboplastin Ratio 1.2 Sodium Level 141 mmol/L Potassium Level 3.0 mmol/L Chloride Level 94 mmol/L Carbon Dioxide Level 40 mmol/L Anion Gap 7.0 mmol/L 12.0 mmol/L Blood Urea Nitrogen 35 mg/dl Creatinine 2.28 mg/dl Est Creatinine Clear Calc Drug Dose 32.0 ml/min Estimated GFR () 30.9 Estimated GFR (Non- 26.7 BUN/Creatinine Ratio 15.3 Random Glucose 119 mg/dl Calcium Level 8.8 mg/dl Magnesium Level 2.1 mg/dl Total Creatine Kinase 34 U/L Creatine Kinase MB 1.5 ng/ml Creatine Kinase MB Ratio 4.4 Troponin I 0.117 ng/ml Pro-B-Type Natriuretic Peptide 93197 pg/ml Bedside Hemoglobin 12.6 g/dl Bedside Hematocrit 37 % Bedside Sodium 141 mEq/L Bedside Potassium 3.0 mEq/L Bedside Chloride 92 mEq/L Bedside Total CO2 > 40 mEq/l Bedside Blood Urea Nitrogen 36 mg/dl Bedside Creatinine 2.2 mg/dl Bedside Glucose (other) 122 mg/dl Bedside Ionized Calcium (Hansel) 1.10 mmol/l Bedside Lactic Acid Venous 1.34 mmol/L Arterial Blood pH 7.46 Arterial Blood Partial Pressure CO2 56 mmHg Arterial Blood Partial Pressure O2 51 mm/Hg Arterial Blood HCO3 39 mmol/L Arterial Blood Oxygen Saturation 82.5 % Arterial Blood Base Excess 13.2 mEq/L Arterial Blood Gas Delivery 15L Anthony Test POS Test 11/21/17 04:48 11/21/17 07:19 11/21/17 07:36 11/21/17 08:10 Troponin I 0.112 ng/ml Arterial Blood pH 7.47 Arterial Blood Partial Pressure CO2 53 mmHg Arterial Blood Partial Pressure O2 73 mm/Hg Arterial Blood HCO3 38 mmol/L Arterial Blood Oxygen Saturation 93.4 % Arterial Blood Base Excess 12.5 mEq/L Arterial Blood Gas Delivery 70% Anthony Test POS Bedside Glucose 134 mg/dl White Blood Count 24.51 K/uL Red Blood Count 3.54 M/uL Hemoglobin 10.2 g/dL Hematocrit 32.0 % Mean Corpuscular Volume 90.4 fL Mean Corpuscular Hemoglobin 28.8 pg Mean Corpuscular Hemoglobin Concent 31.9 g/dl Platelet Count 327 K/uL Mean Platelet Volume 9.8 fL Neutrophils (%) (Auto) 94.8 % Lymphocytes (%) (Auto) 1.1 % Monocytes (%) (Auto) 3.8 % Eosinophils (%) (Auto) 0.0 % Basophils (%) (Auto) 0.0 % Neutrophils # (Auto) 23.24 K/uL Lymphocytes # (Auto) 0.26 K/uL Monocytes # (Auto) 0.94 K/uL Eosinophils # (Auto) 0.00 K/uL Basophils # (Auto) 0.00 K/uL RDW Standard Deviation 47.2 fL RDW Coefficient of Variation 14.3 % Immature Granulocyte % (Auto) 0.3 % Immature Granulocyte # (Auto) 0.07 K/uL Prothrombin Time 12.2 SECONDS Prothromb Time International Ratio 1.2 Activated Partial Thromboplast Time 31.8 SECONDS Partial Thromboplastin Ratio 1.2 Test 11/21/17 11:24 11/21/17 15:33 11/21/17 16:05 Bedside Glucose 231 mg/dl 174 mg/dl Activated Partial Thromboplast Time 38.7 SECONDS Partial Thromboplastin Ratio 1.5 Assessment and Plan This is a 77 year old male with a past medical history chronic diastolic CHF, CAD s/p stents (x3 in June 2017), moderate aortic stenosis, HTN, COPD, GAURANG on CPAP, recent lobectomy secondary to adenocarcinoma of the lung, post- operative transient atrial fibrillation on long-term anticoagulation, esophageal diverticulum with recurrent aspiration and aspiration pneumonia, CKD stage 3 - presents with aspiration/hypoxia, pneumonia and pleural effusion. Acute Hypoxic Respiratory Failure secondary to Acute COPD Exacerbation secondary to Acute Aspiration Pneumonia - recurrent aspiration due to esophageal diverticulum - appreciate GI input, unfortunately, no good answer for this - speech evaluation ordered - Vancomycin + Zosyn ordered due to multiple recent hospitalizations - prednisone 40mg ordered for the COPD exacerbation, nebs as needed R Loculated Pleural Effusion - likely secondary to aspiration as well as parapneumonic effusion - thoracic surgery consulted, appreciate input - will hold IV heparin, possible thoracentesis in AM - NPO after midnight GAURANG on CPAP CAD - s/p multiple stents, had three stents placed in June 2017; total of 7 stents - currently on Plavix, which we will attempt to continue uninterrupted for a total of 1 year - thoracic surgery okay with plan to continue medication - continue b-domingo and Lipitor Paroxysmal A. Fib - hold Eliquis - continue Diltiazem, Atenolol, and Amiodarone - currently NSR Recent R Lung Adenocarcinoma - s/p resection of R upper lobe Chronic Diastolic CHF - stopped IVFs - give one dose of IV Lasix, then likely will need to continue oral Lasix in AM CKD stage 3 - creatinine at baseline - hold IV fluids, given one dose of Lasix HTN - clonidine 0.1mg BID DVT ppx - Hold IV heparin, Hold Eliquis - SCDs FULL CODE
[2017-11-22] VITALS (15 sets, daily range): BP systolic 124–157; BP diastolic 64–77; PULSE 57–69; TEMP 36.3–37.3; O2SAT 84–97
[2017-11-22] MEDS: LEVALBUTEROL 1.25MG/0.5ML NEB INH SCH ×4 (02:07→19:47)
[2017-11-22] MEDS: IPRATROPIUM BROMIDE NEB SOLN 0.02% 2.5 ML VIAL INH SCH ×4 (02:07→19:46)
[2017-11-22] MEDS: PIPERACILL/TAZOBAC IV 3.375 GM in D5W 100ML IV SCH ×3 (02:57→17:44)
[2017-11-22] MEDS: VANCOMYCIN IV 1,500 MG in SODIUM CHLORIDE 0.9% 500ML 500 ML IV SCH (04:21)
[2017-11-22 08:04] LABS: HEMATOCRIT 29.7 % (42-52); HEMOGLOBIN 9.4 g/dL (14.0-18.0); MEAN CELL VOLUME 89.7 fL (80-100); MEAN CORPUSCULAR HEMOGLOBIN 28.4 pg (25-34); MEAN CORPUSCULAR HGB CONC 31.6 g/dl (32-36); MEAN PLATELET VOLUME 10.3 fL (7.4-10.4); PLATELET COUNT 306 K/uL (130-400); RED CELL DISTRIBUTION WIDTH CV 14.7 % (11.5-14.5); WHITE BLOOD COUNT 24.08 K/uL (4.8-10.8)
[2017-11-22] MEDS ORDERED: LORAZEPAM 0.5 MG TAB PO STA (08:04)
[2017-11-22 08:13] LABS: PTT PATIENT 34.2 SECONDS (21.0-31.0)
[2017-11-22] MEDS ORDERED: LORAZEPAM 0.5 MG TAB PO PRN (08:15)
[2017-11-22] MEDS: FINASTERIDE 5 MG TAB PO SCH (08:17)
[2017-11-22] MEDS: FAMOTIDINE 20 MG TAB PO SCH (08:17)
[2017-11-22] MEDS: PAROXETINE 20 MG TAB PO SCH (08:20)
[2017-11-22] MEDS: DILTIAZEM HCL 120 MG CAPCR PO SCH (08:20)
[2017-11-22] MEDS: TAMSULOSIN HCL 0.4 MG CAP PO SCH (08:20)
[2017-11-22] MEDS: ATORVASTATIN 40 MG TAB PO SCH (08:20)
[2017-11-22] MEDS: QUETIAPINE FUMARATE 25 MG TAB PO SCH ×2 (08:21→19:41)
[2017-11-22] MEDS: GABAPENTIN 100 MG CAP PO SCH ×3 (08:21→19:41)
[2017-11-22] MEDS: CLOPIDOGREL BISULFATE 75 MG TAB PO SCH (08:22)
[2017-11-22] MEDS: CLONIDINE HCL 0.1 MG TAB PO SCH ×2 (08:22→19:41)
[2017-11-22] MEDS: AMIODARONE 200 MG TAB PO SCH ×2 (08:22→19:41)
[2017-11-22] MEDS: DOCUSATE SODIUM/SENNA 50/8.6MG TAB PO PRN (08:23)
[2017-11-22 08:31] LABS: EOS ABS # 0.01 K/uL (0-0.5); IG# 0.08 K/uL (0.00-0.02); LYMPH % 3.2 %; LYMPH ABS # 0.77 K/uL (1.2-3.4); MONO % 6.1 %; MONO ABS # 1.48 K/uL (0.11-0.59); NEUT % 90.4 %; NEUT ABS # 21.74 K/uL (1.4-6.5)
[2017-11-22 08:37] LABS: CALCIUM 8.5 mg/dl (8.5-10.1); CREATININE 2.45 mg/dl (0.60-1.40); POTASSIUM 3.2 mmol/L (3.5-5.1)
[2017-11-22] MEDS ORDERED: PANTOprazole SOD 40 MG TAB PO SCH (09:00)
[2017-11-22] MEDS: NEFAZODONE HCL 100 MG PO SCH ×2 (09:34→19:41)
[2017-11-22] MEDS: INSULIN GLARGINE SOLOSTAR 100 UNITS/ML 3 ML PEN SC SCH (09:35)
[2017-11-22] MEDS ORDERED: FAMOTIDINE IV INJ 20 MG in DEXTROSE 5% 100ML 100 ML IV SCH (10:45)
[2017-11-22] MEDS: FAMOTIDINE IV INJ 20 MG in SYRINGE 3 ML IV SCH ×2 (11:00→19:41)
[2017-11-22] MEDS: PANTOprazole INJ 40 MG in SYRINGE 0 ML IV SCH (11:00)
--- NOTE | 2017-11-22 11:48 | PULMONARY PROGRESS NOTE ---
DATE: 11/22/2017 TIME: 10:55 a.m. SUBJECTIVE: The patient has had increasing shortness of breath today. His saturations were low on 6 liter nasal cannula. He is now on 10 liter OxyMask. He feels somewhat better. He is coughing up more phlegm. He says he is coughing up a fairly good size amount of phlegm every couple of hours. He denies chest pains. The patient was seen by Dr. Qiu. He offered the patient a PEG tube placement, which the patient has refused. The patient apparently has some degree of achalasia. Clearly, the patient's aspiration seems to be a major contributor to his problem at present. He has not been seen by Dr. Cole yet, but I am anticipating that he may do a thoracentesis later today. The patient's was present during this evaluation. OBJECTIVE: GENERAL: The patient did not appear in distress. VITAL SIGNS: Temperature is 36.5. He has had no significant fevers. Heart rate is 67 per minute. The rhythm is regular. Blood pressure 131/66. CHEST: There are severely diminished breath sounds in the right chest. Mild scattered rhonchi were heard elsewhere. Respiratory rate currently 18 breaths per minute. Saturation on 10 liter OxyMask is 88%. ABDOMEN: Soft. EXTREMITIES: Showed no cyanosis, clubbing or edema. LABORATORY DATA: White count today was 24.08, which is no significant change. Hemoglobin is down to 9.4. It was 11.7 on admission. Platelets are 306,000. Electrolytes show sodium 140, potassium 3.2, chloride 98, bicarbonate 36. BUN is 37 with a creatinine of 2.45. IMPRESSIONS: 1. Respiratory failure - acute - with hypoxia and hypercarbia. 2. Bilateral aspiration pneumonia. 3. Lung cancer - status post left upper lobectomy. 4. Chronic obstructive pulmonary disease. 5. Pleural effusion. 6. Obstructive sleep apnea. 7. Chronic kidney disease. 8. Questionable congestive heart failure. COMMENTS AND RECOMMENDATIONS: The patient is not doing well. We are going to put him back on BiPAP intermittently during the day. He is asking for higher pressures. He has been at 15/5 and we will change that to 15/8. We will await Dr. Cole's thoracentesis. I discussed with the patient that he needs to strongly consider a PEG tube. I explained to him that I am not certain if that would be permanent or not, but perhaps it might not be. He could always have it pulled out if he decides he does not want it. We obviously cannot let him eat at present. He may need to have hyperalimentation at least temporarily until his lungs recover. I explained to him the hope would be that if he got well enough for the esophageal surgery, perhaps fixing the diverticulum might substantially improve his swallowing. We are awaiting the results of echocardiogram.
[2017-11-22] MEDS: METOPROLOL TARTRATE 1 MG/ML VIAL IV. SCH ×2 (12:00→17:49)
[2017-11-22] MEDS: POTASSIUM CHLR 10 MEQ / WTR 100 ML IV SCH ×4 (12:47→17:24)
--- NOTE | 2017-11-22 13:25 | Progress Note ---
Subjective Date of Service: Nov 22, 2017. Subjective Pt evaluation today including: conversation w/ patient, physical exam, lab review, review of studies, review of inpatient medication list Saw/examined the patient in room 239 He has been aspirating on most types of foods becoming more hypoxic today is at bedside and she states that patient is refusing PEG/feeding tube She is okay with the plan for thoracentesis and treating his pneumonia, but unsure of what patient's goals are. Patient wants to breathe better in the short term, but he's unsure what to do in the long-term. Problem List Medical Problems: (1) Acute renal failure Status: Acute (2) Hypoxia Status: Acute (3) Pleural effusion, right Status: Acute (4) Pneumonia Status: Acute (5) Respiratory failure Status: Acute Review of Systems Constitutional: No fever, No chills ENT: + trouble swallowing Respiratory: + cough, + sputum, + wheezing, + shortness of breath, + dyspnea on exertion, + dyspnea at rest, No hemoptysis Cardiac: No chest pain, No edema, No palpitations Medications Current Inpatient Medications Medications (Trade) Dose Ordered Sig/Vicki Route Start Time Stop Time Status Last Admin Dose Admin Acetaminophen (Tylenol Tab) 650 mg Q4H PRN PO 11/21/17 05:00 12/21/17 04:59 Nitroglycerin (Nitrostat Tab) 0.4 mg UD PRN SL 11/21/17 05:00 12/21/17 04:59 Hydromorphone HCl (Dilaudid Inj) 0.5 mg Q3H PRN IV 11/21/17 05:00 12/05/17 04:59 Oxycodone/ Acetaminophen (Percocet 5-325mg Tab) 1 tab Q6H PRN PO 11/21/17 05:00 12/05/17 04:59 Prochlorperazine Edisylate 5 mg/ Syringe 5 ml @ 5 mls/min Q6H PRN IV 11/21/17 05:00 12/21/17 04:59 11/22/17 04:18 5 MLS/MIN Miscellaneous Information (Consult) 1 ea UD PRN N/A 11/21/17 09:00 12/21/17 08:59 Amiodarone HCl (Cordarone Tab) 200 mg BID PO 11/21/17 09:00 8/21/18 08:59 11/22/17 08:22 200 MG Atorvastatin Calcium (Lipitor Tab) 40 mg DAILY PO 11/21/17 09:00 12/21/17 08:59 11/22/17 08:20 40 MG Clonidine HCl (Catapres Tab) 0.1 mg BID PO 11/21/17 09:00 12/21/17 08:59 11/22/17 08:22 0.1 MG Diltiazem HCl (Cardizem Cd Cap) 120 mg DAILY PO 11/21/17 09:00 12/21/17 08:59 11/22/17 08:20 120 MG Finasteride (Proscar Tab) 5 mg QAM PO 11/21/17 09:00 12/21/17 08:59 11/22/17 08:17 5 MG Gabapentin (Neurontin Cap) 200 mg TID PO 11/21/17 09:00 12/21/17 08:59 11/21/17 21:02 200 MG Nefazodone HCl (serZONE TAB) 150 mg BID PO 11/21/17 09:00 12/21/17 08:59 11/22/17 09:34 150 MG Quetiapine Fumarate (seroQUEL TAB) 25 mg BID PO 11/21/17 09:00 12/21/17 08:59 11/22/17 08:21 25 MG Senna/Docusate Sodium (Senokot S Tab) 1 tab DAILY PRN PO 11/21/17 05:00 12/21/17 04:59 11/22/17 08:23 1 TAB Insulin Glargine (Lantus Solostar Pen) 5 units DAILY SC 11/22/17 09:00 12/22/17 08:59 11/22/17 09:35 5 UNITS Clopidogrel Bisulfate (plAVix TAB) 75 mg QAM PO 11/21/17 09:00 12/21/17 08:59 11/22/17 08:22 75 MG Paroxetine HCl (pAXil TAB) 20 mg DAILY PO 11/21/17 09:00 12/21/17 08:59 11/22/17 08:20 20 MG Tamsulosin HCl (Flomax Cap) 0.4 mg DAILY PO 11/21/17 09:00 8/21/18 08:59 11/22/17 08:20 0.4 MG Ipratropium [place] (Atrovent 0.02% 0.5MG/2.5ML Neb) 0.5 mg Q6R INH 11/21/17 09:00 12/21/17 08:59 11/22/17 07:35 0.5 MG Levalbuterol (Xopenex 1.25MG/ 0.5ML Neb) 1.25 mg Q6R INH 11/21/17 09:00 12/21/17 08:59 11/22/17 07:35 1.25 MG Ipratropium [place] (Atrovent 0.02% 0.5MG/2.5ML Neb) 0.5 mg Q4H PRN INH 11/21/17 06:15 12/21/17 06:14 Levalbuterol (Xopenex 1.25MG/ 0.5ML Neb) 1.25 mg Q4H PRN INH 11/21/17 06:15 12/21/17 06:14 Vancomycin HCl (Consult) 1 ea UD PRN N/A 11/21/17 06:15 12/21/17 06:14 Piperacillin Sod/ Tazobactam Sod 3.375 gm/Dextrose 115 ml @ 28.75 mls/ hr Q8H IV 11/21/17 10:00 11/28/17 09:59 11/22/17 09:35 28.75 MLS/HR Heparin Sodium/ Dextrose 500 ml @ 20 mls/hr Q24H IV 11/21/17 08:30 12/21/17 08:14 Future Hold 11/21/17 09:28 20 MLS/HR Vancomycin HCl 1500 mg/Sodium Chloride 530 ml @ 200 mls/hr Q24H IV 11/22/17 04:00 11/29/17 03:59 11/22/17 04:21 200 MLS/HR Lorazepam (Ativan Inj) 1 mg Q4H PRN IV 11/22/17 10:45 12/22/17 10:44 Pantoprazole Sodium 40 mg/ Syringe 10 ml @ 5 mls/min DAILY@11 IV 11/22/17 11:00 12/22/17 10:59 Methylprednisolone Sodium Succinate 40 mg/Syringe 0.64 ml @ 1.5 mls/min DAILY IV 11/23/17 09:00 12/23/17 08:59 Metoprolol Tartrate (Lopressor Iv) 5 mg Q6 IV. 11/22/17 12:00 12/22/17 11:59 Potassium Chloride 100 ml @ 100 mls/hr Q1H IV 11/22/17 11:00 11/22/17 14:59 11/22/17 12:47 100 MLS/HR Famotidine 20 mg/ Syringe 5 ml @ 2.5 mls/min Q12 IV 11/22/17 11:00 12/22/17 10:59 Objective Vital Signs Date Time Temp Pulse Resp B/P (MAP) Pulse Ox O2 Delivery O2 Flow Rate FiO2 11/22/17 12:00 36.3 58 18 124/64 (84) 89 Oxymask 10.0 11/22/17 12:00 58 11/22/17 08:00 Oxymask 10.0 11/22/17 07:44 36.5 67 18 131/66 (87) 87 Oxymask 10.0 11/22/17 07:35 69 20 84 Nasal Cannula 6.0 11/22/17 05:22 61 91 60 11/22/17 03:43 36.4 61 18 128/67 (87) 92 CPAP 60 11/22/17 02:11 59 93 60 11/22/17 02:10 59 22 93 BiPAP/CPAP 60 11/22/17 01:19 93 CPAP 6.0 11/21/17 23:35 36.7 59 16 125/67 (86) 91 CPAP 60 11/21/17 21:29 68 93 60 11/21/17 19:21 56 16 92 Nasal Cannula 6.0 11/21/17 19:16 36.8 58 18 115/66 (82) 93 11/21/17 15:19 36.7 68 18 113/68 (83) 94 11/21/17 13:50 64 20 96 Nasal Cannula 6.0 Physical Exam General Appearance: + mild distress ENT: + pertinent finding (hard of hearing, +hearing aids) Respiratory/Chest: no respiratory distress, no accessory muscle use, + decreased breath sounds, + rhonchi Cardiovascular: regular rate, rhythm, no edema, no murmur Extremities: normal range of motion, non-tender, normal inspection, no pedal edema, no calf tenderness Neurologic/Psychiatric: + depressed affect, + pertinent finding (+anxious, depressed affect, tearful at times) Laboratory Results Last 24 Hours Test 11/21/17 15:33 11/21/17 16:05 11/21/17 20:02 11/22/17 07:26 Activated Partial Thromboplast Time 38.7 SECONDS 34.2 SECONDS Partial Thromboplastin Ratio 1.5 1.3 Bedside Glucose 174 mg/dl 159 mg/dl 128 mg/dl White Blood Count 24.08 K/uL Red Blood Count 3.31 M/uL Hemoglobin 9.4 g/dL Hematocrit 29.7 % Mean Corpuscular Volume 89.7 fL Mean Corpuscular Hemoglobin 28.4 pg Mean Corpuscular Hemoglobin Concent 31.6 g/dl Platelet Count 306 K/uL Mean Platelet Volume 10.3 fL Neutrophils (%) (Auto) 90.4 % Lymphocytes (%) (Auto) 3.2 % Monocytes (%) (Auto) 6.1 % Eosinophils (%) (Auto) 0.0 % Basophils (%) (Auto) 0.0 % Neutrophils # (Auto) 21.74 K/uL Lymphocytes # (Auto) 0.77 K/uL Monocytes # (Auto) 1.48 K/uL Eosinophils # (Auto) 0.01 K/uL Basophils # (Auto) 0.00 K/uL RDW Standard Deviation 48.0 fL RDW Coefficient of Variation 14.7 % Immature Granulocyte % (Auto) 0.3 % Immature Granulocyte # (Auto) 0.08 K/uL Sodium Level 140 mmol/L Potassium Level 3.2 mmol/L Chloride Level 98 mmol/L Carbon Dioxide Level 36 mmol/L Anion Gap 6.0 mmol/L Blood Urea Nitrogen 37 mg/dl Creatinine 2.45 mg/dl Est Creatinine Clear Calc Drug Dose 29.9 ml/min Estimated GFR () 28.4 Estimated GFR (Non- 24.5 BUN/Creatinine Ratio 15.0 Random Glucose 118 mg/dl Calcium Level 8.5 mg/dl Assessment and Plan This is a 77 year old male with a past medical history chronic diastolic CHF, CAD s/p stents (x3 in June 2017), moderate aortic stenosis, HTN, COPD, GAURANG on CPAP, recent lobectomy secondary to adenocarcinoma of the lung, post- operative transient atrial fibrillation on long-term anticoagulation, esophageal diverticulum with recurrent aspiration and aspiration pneumonia, CKD stage 3 - presents with aspiration/hypoxia, pneumonia and pleural effusion. Acute Hypoxic Respiratory Failure secondary to Acute COPD Exacerbation secondary to Acute Aspiration Pneumonia 11/22 - becoming more hypoxic today - will continue prednisone, nebs, O2 support for COPD - will continue Vancomycin + Zosyn for pneumonia - may improve after thoracentesis 11/21 - recurrent aspiration due to esophageal diverticulum - appreciate GI input, unfortunately, no good answer for this - speech evaluation ordered - Vancomycin + Zosyn ordered due to multiple recent hospitalizations - prednisone 40mg ordered for the COPD exacerbation, nebs as needed] Esophageal Diverticulum Esophageal Dysmotility Hiatal Hernia Gross Aspiration - patient with gross aspiration - switching what we can to IV medications - speech consulted - appreciate GI input - options included PEG, which patient is refusing; possible transfer to tertiary care center if they can perform myomectomy of the diverticulum - as of 11/22 - plan is to improve his oxygenation, await thoracentesis -- once he is off of his oxymask, consider NG tube if patient agreeable - will eventually need to discuss with surgical GI at [facility] if there are any surgical options for esophageal diverticulum - spoke with family regarding palliative care and hospice options and they are considering this R Loculated Pleural Effusion 11/22 - thoracentesis this AM (11/22) - may need diuretics - echo ordered and pending 11/21 - likely secondary to aspiration as well as parapneumonic effusion - thoracic surgery consulted, appreciate input - will hold IV heparin, possible thoracentesis in AM - NPO after midnight GAURANG on CPAP CAD - s/p multiple stents, had three stents placed in June 2017; total of 7 stents - currently on Plavix, which we will attempt to continue uninterrupted for a total of 1 year - thoracic surgery okay with plan to continue medication - continue b-domingo and Lipitor Paroxysmal A. Fib - hold Eliquis - continue Diltiazem, Atenolol, and Amiodarone - currently NSR - continue Eliquis after thoracentesis Recent R Lung Adenocarcinoma - s/p resection of R upper lobe Chronic Diastolic CHF - stopped IVFs - give one dose of IV Lasix, then likely will need to continue oral Lasix in AM CKD stage 3 - creatinine at baseline - hold IV fluids, given one dose of Lasix HTN - clonidine 0.1mg BID DVT ppx - Hold IV heparin, Hold Eliquis - SCDs FULL CODE
--- NOTE | 2017-11-22 15:13 | DIAGNOSTIC IMAGING REPORT ---
CHEST ONE VIEW PORTABLE HISTORY: 77 years-old Male effusion acute respirator distress with pleural effusion. Prior right lobectomy with renal failure COMPARISON: Chest CT 11/21/2017, chest radiograph 11/21/2017 TECHNIQUE: Portable AP view of the chest FINDINGS: Postoperative changes with chronic volume loss of the right lung. Loculated right pleural effusion redemonstrated with progressively worsened airspace opacities throughout the right lung. Airspace opacities throughout the left lung are redemonstrated. No pneumothorax. Cardiac silhouette appears enlarged. Degenerative changes of the shoulders and spine. IMPRESSION: 1. Right greater than left bilateral patchy alveolar opacities have progressively worsened on the right. Findings suggest ongoing pneumonia. 2. Loculated right pleural effusion redemonstrated. The above report was generated using voice recognition software. It may contain grammatical, syntax or spelling errors. Electronically signed by: Eugene Buneo M.D. 11/22/2017 3:11 PM Dictated Date/Time: 11/22/2017 3:09 PM
[2017-11-22 16:00] LABS: PLEURAL FLUID TOTAL PROTEIN 2.7 g/dl
--- NOTE | 2017-11-22 17:26 | SURGICAL CONSULTATION ---
DATE OF CONSULTATION: 11/22/2017 Mr. Juárez underwent an apparent robot-assisted thoracoscopic right upper lobectomy at [facility] in [place] 20 days ago on 11/02/2017. The patient and his tell me that this was an early stage cancer. He will require no chemotherapy or radiation. Patient has run into some difficulties postoperatively. He developed an effusion. He is quite short of breath. His biggest problem is he is unable to swallow. He has a long-standing history of apparent achalasia. Patient states he has a large "diverticulum" in his mid esophagus however I reviewed his CT scan very closely and I do not see it. Apparently had a barium swallow that clearly demonstrates it but I do not have access to that. He has evidence of aspiration. He also has a right pleural effusion for which we have been consulted. He has multiple other issues but currently he is short of breath has marked dyspnea and has a loculated effusion on the right but has a large basilar homogenous collection. I been asked to comment on this. He denies fevers or chills. He has not felt well and has been really unable to swallow since his surgery. He had difficulties preoperatively and was told years ago to have surgery done but he refused. Dr. Qiu has seen him today and recommended a PEG tube. This particular juncture I would agree with that. Most important thing is to prevent him from aspiration. Quite concerned about consolidation of the CT scan of the medial right lung and also has some areas of airspace opacities in the left. We are going to address this pleural effusion today. Past Medical History: 1. Right pleural effusion. 2. Status post robot-assisted thoracoscopic right upper lobectomy at [place] earlier this month. 3. Probable achalasia with questionable pulsion diverticulum. 4. Atrial fibrillation postop. 5. Lumbosacral disk disease. 6. Hypercholesterolemia. 7. Diastolic dysfunction. 8. Coronary artery disease. 9. Hypertension. 10. Moderate aortic stenosis. 11. Renal insufficiency. 12. History of cigarette smoking in the past. 13. Obstructive sleep apnea. 14. History of seizure disorder. PAST SURGICAL HISTORY: 1. Coronary artery bypass grafting. 2. Percutaneous transluminal angioplasty and stents. 3. Apparent robot-assisted thoracoscopic right upper lobectomy. 4. Appendectomy. 5. Lumbar diskectomy. MEDICATIONS: (at home): 1. Augmentin. 2. Colace. 3. Flomax. 4. Quetiapine. 5. Paxil. 6. Serzone. 7. Gabapentin. 8. Finasteride. 9. Metoprolol. 10. Pepcid. 11. Diltiazem. 12. Plavix. 13. Clonidine. 14. Atorvastatin. 15. Amiodarone. 16. Apixaban. 17. Atenolol. 18. Albuterol. 19. Reglan. 20. Lorazepam. 21. Lasix. ALLERGIES: 1. KEFLEX. 2. LISINOPRIL. 3. SIMVASTATIN. FAMILY MEDICAL HISTORY: The patient's mother at 40 from "lung cancer." He was not very clear on this and it may have been a breast cancer with metastases to the lung. He also had a sister who at 41 from breast cancer. His children and grandchildren are healthy. SOCIAL HISTORY: The patient smoked for many years. He quit smoking at time of his myocardial infarction in 2002. He does not use alcohol regularly. He lives at home with his . 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 REVIEW OF SYSTEMS: The patient has had quite a hard time since his surgery. On 11/02/2017, the patient underwent an apparent robot-assisted right upper lobectomy for a stage I lung cancer. Apparently, they are going to perform an esophageal diverticulectomy at the same time, but the surgery went longer than expected, so they postponed that. He went into atrial fibrillation after surgery. Discharged home on amiodarone and Xarelto. He has not eaten well and now is having trouble eating at all. He denies nausea or vomiting, but he has had chronic problems with swallowing. He apparently was offered a surgery at [facility] 10 years ago but refused for his esophageal diverticulum. He has chest pain inside of his chest where he had surgery. He denies palpitations. He has had no neurologic events such as amaurosis fugax, transient ischemic attacks. He has diarrhea on occasion associated with antibiotics but his Clostridium difficile colitis is negative. He has healed his incisions well. Has no real skin breakdown. He denies any visual or auditory problems that are new, although he does suffer from decreased hearing acuity. PHYSICAL EXAMINATION: GENERAL: This is a 5 feet 9 inch, 227 pound male who is awake, alert, and oriented. He wears glasses. HEENT: His sclerae are a bit injected. Pupils are small but equally reactive. He has no nasolabial flattening. His tongue is midline. Oral mucosa is dry. He has upper denture plates and no teeth on the bottom. He has no obvious oral mucosal lesions. NECK: I palpated his neck carefully and I detect really no supraclavicular or cervical lymphadenopathy. He has no carotid bruits. He has no neck vein distention. He also has no tracheal deviation or thyroid nodules. CHEST: He has decreased breath sounds on the right. He has a well-healed thoracoscopic port incisions on the right. He has a well-healed sternotomy incision with no click. HEART: Currently, he is in a regular rate and rhythm, the rate in the 60s. ABDOMEN: His abdomen is soft and flat, nontender. He has no evidence of abdominal aortic aneurysm. EXTREMITIES: He has good femoral pulses. I detect no peripheral edema. He has no joint effusions. His feet are warm and well perfused, although it was a bit difficult to palpate his pulses. NEUROLOGIC: He is awake, alert, and oriented. He does not feel well. ASSESSMENT AND PLAN: I reviewed his CT scan. Patient came with a history of a large mid esophageal diverticulum. However, I really do not see that on his CT scan. I will talk to Dr. Qiu. Apparently the barium swallow, which I do not have access to, showed an obvious mid esophageal or distal esophageal diverticulum. More importantly, the patient has a large right pleural effusion. He is quite hypoxic actually. He also has consolidation may well be from aspiration. I am going to perform a thoracentesis of his right basilar pleural effusion later today. DAYNA
[2017-11-22] MEDS: LORAZEPAM 2 MG/ML 1 ML VIAL IV PRN (17:44)
--- NOTE | 2017-11-22 17:53 | OPERATIVE REPORT ---
DATE OF OPERATION: 11/22/2017 PREOPERATIVE DIAGNOSIS: Right pleural effusion status post minimally invasive right upper lobectomy. POSTOPERATIVE DIAGNOSIS: Right pleural effusion status post minimally invasive right upper lobectomy. PROCEDURE: Right thoracentesis under ultrasound guidance. SURGEON: Alec Cole MD [employer] MANAGER: JAMES Jang ANESTHESIA: Local. SPECIFICS OF PROCEDURE: With the patient in a seated position, I evaluated his right chest with an ultrasound and marked in appropriate window. Has a fairly large pleural effusion but most of it is subpulmonic. He has some loculations superiorly. This is homogenous. There is no air. After prepping and draping in usual sterile fashion, calling appropriate timeout, a skin wheal was raised with a 25 gauge needle with 1% Xylocaine. A large bore needle was used to go above the rib into the pleural cavity. We got free flowing rust-colored fluid. A guidewire was inserted from needle and needle removed. Introducer sheath was slid over to enlarge insertion tract, then removed and triple lumen catheter was slid over the guidewire and the guidewire removed. Approximately 1100 mL of a rust-colored fluid was drained. The patient symptomatically felt better but it hurt him when it reexpanded, so we stopped after 1100 mL and I felt like we could have gotten more. The pH is 7.37. LDH is 547. His chest x-ray showed no evidence of pneumothorax, although he still had the upper consolidation and looked like we had some shift of his mediastinum to the right. The patient has infiltrates in both sides. There are patchy infiltrates on the left and more medial consolidation on the right. We will check a chest x-ray and see how he looks in the morning. Pulmonary toilet is going to be extremely important. It should also be noted the patient underwent a bronchoscopy, apparently had a large amount of purulent sputum. I attest to the content of the Intraoperative Record and any orders documented therein. Any exceptions are noted below. BELLED
[2017-11-23] VITALS (13 sets, daily range): BP systolic 151–190; BP diastolic 69–86; PULSE 59–120; TEMP 36.6–37.3; O2SAT 87–98
[2017-11-23] MEDS: METOPROLOL TARTRATE 1 MG/ML VIAL IV. SCH ×5 (00:18→23:41)
[2017-11-23] MEDS: PIPERACILL/TAZOBAC IV 3.375 GM in D5W 100ML IV SCH ×3 (01:40→17:42)
[2017-11-23] MEDS: IPRATROPIUM BROMIDE NEB SOLN 0.02% 2.5 ML VIAL INH SCH ×4 (01:55→19:29)
[2017-11-23] MEDS: LEVALBUTEROL 1.25MG/0.5ML NEB INH SCH ×4 (01:56→19:28)
[2017-11-23] MEDS ORDERED: VANCOMYCIN TROUGH ONE (03:30)
[2017-11-23 04:09] LABS: CREATININE 2.55 mg/dl (0.60-1.40); POTASSIUM 3.4 mmol/L (3.5-5.1)
[2017-11-23] MEDS: VANCOMYCIN IV 1,500 MG in SODIUM CHLORIDE 0.9% 500ML 500 ML IV SCH (04:49)
--- NOTE | 2017-11-23 07:05 | DIAGNOSTIC IMAGING REPORT ---
CHEST ONE VIEW PORTABLE CLINICAL HISTORY: effusion RESPIRATORY FAILURE COMPARISON STUDY: 11/22/2017 FINDINGS: There is progressive opacification of the right hemithorax likely secondary to a combination of right pleural fluid and right lung consolidation/volume loss. Minimal left lower lung zone airspace opacities are suspected as well.[ IMPRESSION: 1. Significant progression in the opacification the right hemithorax, likely secondary to a combination of right pleural fluid and right lung consolidation/volume loss. Minimal left basilar airspace opacities are again suspected. Electronically signed by: Ruben Cox M.D. 11/23/2017 7:04 AM Dictated Date/Time: 11/23/2017 7:01 AM
[2017-11-23 08:22] LABS: HEMATOCRIT 29.3 % (42-52); HEMOGLOBIN 9.2 g/dL (14.0-18.0); MEAN CELL VOLUME 89.6 fL (80-100); MEAN CORPUSCULAR HEMOGLOBIN 28.1 pg (25-34); MEAN CORPUSCULAR HGB CONC 31.4 g/dl (32-36); MEAN PLATELET VOLUME 10.2 fL (7.4-10.4); PLATELET COUNT 283 K/uL (130-400); RED CELL DISTRIBUTION WIDTH CV 14.4 % (11.5-14.5); RED CELL DISTRIBUTION WIDTH SD 47.4 fL (36.4-46.3); WHITE BLOOD COUNT 20.84 K/uL (4.8-10.8)
[2017-11-23] MEDS: METHYLPREDNISOLONE IV 40 MG in SYRINGE 0 ML IV SCH (08:24)
[2017-11-23] MEDS: DILTIAZEM HCL 120 MG CAPCR PO SCH (08:25)
[2017-11-23] MEDS: CLONIDINE HCL 0.1 MG TAB PO SCH (08:26)
[2017-11-23] MEDS: AMIODARONE 200 MG TAB PO SCH (08:26)
[2017-11-23] MEDS: TAMSULOSIN HCL 0.4 MG CAP PO SCH (08:26)
[2017-11-23] MEDS: ATORVASTATIN 40 MG TAB PO SCH (08:26)
[2017-11-23] MEDS: QUETIAPINE FUMARATE 25 MG TAB PO SCH ×2 (08:27→20:06)
[2017-11-23] MEDS: CLOPIDOGREL BISULFATE 75 MG TAB PO SCH (08:27)
[2017-11-23] MEDS: GABAPENTIN 100 MG CAP PO SCH ×3 (08:27→20:06)
[2017-11-23] MEDS: FINASTERIDE 5 MG TAB PO SCH (08:27)
[2017-11-23] MEDS: NEFAZODONE HCL 100 MG PO SCH ×2 (08:27→20:06)
[2017-11-23] MEDS: PAROXETINE 20 MG TAB PO SCH (08:27)
[2017-11-23] MEDS: INSULIN GLARGINE SOLOSTAR 100 UNITS/ML 3 ML PEN SC SCH (08:28)
[2017-11-23] MEDS: FAMOTIDINE IV INJ 20 MG in SYRINGE 3 ML IV SCH ×2 (08:31→20:06)
--- NOTE | 2017-11-23 09:40 | DIAGNOSTIC IMAGING REPORT ---
CT OF THE CHEST WITHOUT IV CONTRAST CLINICAL HISTORY: Acute respiratory failure. Effusion. COMPARISON STUDY: Chest CT November 21, 2017 and chest radiograph performed earlier today. CT DOSE: 539.43 mGy.cm TECHNIQUE: Axial images of the chest were obtained without IV contrast. Images were reviewed in the axial, sagittal, and coronal planes. IV contrast was not administered for this examination. A dose lowering technique was utilized adhering to the principles of ALARA. FINDINGS: No enlarged axillary, mediastinal or hilar lymph nodes are present. The heart is moderately enlarged. Extensive coronary artery calcification is noted. The patient is status post right upper lobectomy. Suspected secretions within the right mainstem bronchus are noted. A moderate sized loculated right pleural effusion is noted has mildly decreased in size since exam of November 21, 2017. A small amount of pleural gas is noted. A small amount of hyperdense material within the right lower hemithorax suggests clot. There is a trace left pleural effusion. Multifocal consolidation within the lungs is similar to exam of November 21, 2017. Bony thorax is unremarkable. Mild esophageal dilatation is noted. The amount of fluid within the esophagus has decreased since exam of November 21, 2017. There are suspected gallstones within the gallbladder. Upper abdomen is otherwise unremarkable. IMPRESSION: 1. Right hydropneumothorax. Mild interval decrease in size of a moderate loculated right pleural effusion with small amount of pleural gas. Small amount of hemorrhage within the right inferior pleural space. Discussed with Lon Hauser at time of dictation. 2. No significant change in extensive multifocal bilateral airspace opacities since prior chest CT. This is consistent with multifocal pneumonia. 3. Probable secretions within the right mainstem bronchus. 4. Moderate cardiomegaly and extensive coronary artery calcification. Electronically signed by: Marcelo Mittal M.D. 11/23/2017 9:38 AM Dictated Date/Time: 11/23/2017 9:01 AM
[2017-11-23] MEDS ORDERED: ACETAMINOPHEN 650 MG SUPP PR PRN (09:45)
[2017-11-23] MEDS: POTASSIUM CHLR 10 MEQ / WTR 100 ML IV SCH ×4 (09:58→15:20)
[2017-11-23 11:03] LABS: HEMOGLOBIN A1C 5.9 % (4.5-5.6)
--- NOTE | 2017-11-23 11:48 | Gastroenterology Progress Note ---
Progress Note Date of Service: Nov 23, 2017 Subjective Pt evaluation today including: conversation w/ patient, physical exam, chart review, lab review, review of inpatient medication list Pt had thoracentesis of R hydrothorax yesterday w 1.1L fluid removed. He is still having cough w phlegm. I was asked to see him again today as he's now agreeable to consider PEG tube placement for feeding. Had been NPO Review of Systems Constitutional: No fever, No chills Respiratory: + cough, + sputum, + shortness of breath Abdomen: No pain, No nausea, No vomiting Medications Current Inpatient Medications Medications (Trade) Dose Ordered Sig/Vicki Route Start Time Stop Time Status Last Admin Dose Admin Nitroglycerin (Nitrostat Tab) 0.4 mg UD PRN SL 11/21/17 05:00 12/21/17 04:59 Hydromorphone HCl (Dilaudid Inj) 0.5 mg Q3H PRN IV 11/21/17 05:00 12/05/17 04:59 Oxycodone/ Acetaminophen (Percocet 5-325mg Tab) 1 tab Q6H PRN PO 11/21/17 05:00 12/05/17 04:59 Prochlorperazine Edisylate 5 mg/ Syringe 5 ml @ 5 mls/min Q6H PRN IV 11/21/17 05:00 12/21/17 04:59 11/22/17 04:18 5 MLS/MIN Miscellaneous Information (Consult) 1 ea UD PRN N/A 11/21/17 09:00 12/21/17 08:59 Atorvastatin Calcium (Lipitor Tab) 40 mg DAILY PO 11/21/17 09:00 12/21/17 08:59 11/22/17 08:20 40 MG Finasteride (Proscar Tab) 5 mg QAM PO 11/21/17 09:00 12/21/17 08:59 11/22/17 08:17 5 MG Gabapentin (Neurontin Cap) 200 mg TID PO 11/21/17 09:00 12/21/17 08:59 11/21/17 21:02 200 MG Nefazodone HCl (serZONE TAB) 150 mg BID PO 11/21/17 09:00 12/21/17 08:59 11/22/17 09:34 150 MG Quetiapine Fumarate (seroQUEL TAB) 25 mg BID PO 11/21/17 09:00 12/21/17 08:59 11/22/17 08:21 25 MG Senna/Docusate Sodium (Senokot S Tab) 1 tab DAILY PRN PO 11/21/17 05:00 12/21/17 04:59 11/22/17 08:23 1 TAB Insulin Glargine (Lantus Solostar Pen) 5 units DAILY SC 11/22/17 09:00 12/22/17 08:59 11/22/17 09:35 5 UNITS Clopidogrel Bisulfate (plAVix TAB) 75 mg QAM PO 11/21/17 09:00 12/21/17 08:59 11/22/17 08:22 75 MG Paroxetine HCl (pAXil TAB) 20 mg DAILY PO 11/21/17 09:00 12/21/17 08:59 11/22/17 08:20 20 MG Tamsulosin HCl (Flomax Cap) 0.4 mg DAILY PO 11/21/17 09:00 12/21/17 08:59 11/22/17 08:20 0.4 MG Ipratropium [place] (Atrovent 0.02% 0.5MG/2.5ML Neb) 0.5 mg Q6R INH 11/21/17 09:00 12/21/17 08:59 11/23/17 06:57 0.5 MG Levalbuterol (Xopenex 1.25MG/ 0.5ML Neb) 1.25 mg Q6R INH 11/21/17 09:00 12/21/17 08:59 11/23/17 06:57 1.25 MG Ipratropium [place] (Atrovent 0.02% 0.5MG/2.5ML Neb) 0.5 mg Q4H PRN INH 11/21/17 06:15 12/21/17 06:14 Levalbuterol (Xopenex 1.25MG/ 0.5ML Neb) 1.25 mg Q4H PRN INH 11/21/17 06:15 12/21/17 06:14 Piperacillin Sod/ Tazobactam Sod 3.375 gm/Dextrose 115 ml @ 28.75 mls/ hr Q8H IV 11/21/17 10:00 11/28/17 09:59 11/23/17 09:40 28.75 MLS/HR Heparin Sodium/ Dextrose 500 ml @ 20 mls/hr Q24H IV 11/21/17 08:30 12/21/17 08:14 Future Hold 11/21/17 09:28 20 MLS/HR Lorazepam (Ativan Inj) 1 mg Q4H PRN IV 11/22/17 10:45 12/22/17 10:44 11/22/17 17:44 1 MG Pantoprazole Sodium 40 mg/ Syringe 10 ml @ 5 mls/min DAILY@11 IV 11/22/17 11:00 12/22/17 10:59 Methylprednisolone Sodium Succinate 40 mg/Syringe 0.64 ml @ 1.5 mls/min DAILY IV 11/23/17 09:00 12/23/17 08:59 11/23/17 08:24 1.5 MLS/MIN Metoprolol Tartrate (Lopressor Iv) 5 mg Q6 IV. 11/22/17 12:00 12/22/17 11:59 11/23/17 05:47 5 MG Famotidine 20 mg/ Syringe 5 ml @ 2.5 mls/min Q12 IV 11/22/17 11:00 12/22/17 10:59 11/23/17 08:31 2.5 MLS/MIN Potassium Chloride 100 ml @ 100 mls/hr Q1H IV 11/23/17 10:00 11/23/17 13:59 11/23/17 09:58 100 MLS/HR Acetaminophen (Tylenol Supp) 650 mg Q4H PRN [place] 11/23/17 09:45 12/23/17 09:44 Clonidine HCl (Tutlobco-Cbw-2 0.2mg/24hr Patch) 1 patch Q7D@0900 TD 11/23/17 12:00 12/23/17 11:59 Miscellaneous (Remove Clonidine Patch) 1 ea Q7D@0859 N/A 11/30/17 08:59 12/30/17 08:58 Miscellaneous Information (Check Clonidine Patch Placement) 1 ea QS N/A 11/23/17 16:00 12/23/17 15:59 Metoprolol Tartrate (Lopressor Iv) 2.5 mg Q6H PRN IV 11/23/17 11:00 12/23/17 10:59 Objective Vital Signs Date Time Temp Pulse Resp B/P (MAP) Pulse Ox O2 Delivery O2 Flow Rate FiO2 11/23/17 08:00 94 Oxymask 5.0 40 11/23/17 07:11 36.9 59 17 183/69 (107) 94 Oxymask 5.0 11/23/17 06:57 68 18 93 Mask 5.0 11/23/17 06:00 Oxymask 5.0 11/23/17 05:47 67 168/75 11/23/17 03:35 37.1 70 18 151/70 (97) 92 Oxymask 5.0 11/23/17 01:58 60 18 95 BiPAP/CPAP 40 11/23/17 01:57 60 95 40 11/23/17 00:18 64 157/77 11/23/17 00:01 BiPAP 40 11/22/17 23:38 36.9 62 16 157/77 (103) 93 CPAP 40 11/22/17 22:12 60 95 50 11/22/17 20:00 BiPAP 60 11/22/17 19:50 57 96 60 11/22/17 19:49 57 21 96 BiPAP/CPAP 60 11/22/17 19:30 36.9 58 20 138/69 (92) 97 BiPAP 11/22/17 17:49 57 11/22/17 16:00 Oxymask 10.0 11/22/17 15:03 37.3 69 18 133/69 (90) 89 Oxymask 10.0 11/22/17 14:10 62 20 93 Mask 9.0 11/22/17 12:00 36.3 58 18 124/64 (84) 89 Oxymask 10.0 11/22/17 12:00 58 Physical Exam General Appearance: WD/WN, no apparent distress Eyes: normal inspection, PERRL, EOMI Neck: supple, no JVD, trachea midline Respiratory/Chest: no respiratory distress, no accessory muscle use, + decreased breath sounds (on R lobes) Cardiovascular: regular rate, rhythm, no gallop, no murmur Abdomen: normal bowel sounds, non tender, soft Extremities: normal inspection, no pedal edema, no calf tenderness Neurologic/Psych: alert, normal mood/affect, oriented x 3 Skin: normal color, no jaundice, no rash Laboratory Results Last 24 Hours Test 11/22/17 14:35 11/23/17 03:25 11/23/17 08:03 Pleural Fluid pH 7.37 Activated Partial Thromboplast Time 33.0 SECONDS Partial Thromboplastin Ratio 1.3 Sodium Level 141 mmol/L Potassium Level 3.4 mmol/L Chloride Level 100 mmol/L Carbon Dioxide Level 34 mmol/L Anion Gap 7.0 mmol/L Blood Urea Nitrogen 37 mg/dl Creatinine 2.55 mg/dl Est Creatinine Clear Calc Drug Dose 28.7 ml/min Estimated GFR () 27.0 Estimated GFR (Non- 23.3 BUN/Creatinine Ratio 14.4 Random Glucose 108 mg/dl Calcium Level 8.0 mg/dl Vancomycin Level Trough 16.2 mcg/ml White Blood Count 20.84 K/uL Red Blood Count 3.27 M/uL Hemoglobin 9.2 g/dL Hematocrit 29.3 % Mean Corpuscular Volume 89.6 fL Mean Corpuscular Hemoglobin 28.1 pg Mean Corpuscular Hemoglobin Concent 31.4 g/dl RDW Standard Deviation 47.4 fL RDW Coefficient of Variation 14.4 % Platelet Count 283 K/uL Mean Platelet Volume 10.2 fL Estimated Average Glucose 123 mg/dl Hemoglobin A1c 5.9 % Phosphorus Level 3.0 mg/dl Magnesium Level 2.2 mg/dl Assessment and Plan Pt is a 77 y/o male admitted currently with respiratory failure due to pneumonia (suspected from aspiration). Hx of COPD, recently R lobectomy on 11/04 for lung cancer, s/p thoracentesis for hydrothorax most recently yesterday w 1.1L fluid removal. GI (Dr. Qiu) had seen him over the weekend for abnormal esophageal appearance in CT. UGI series and CT scan at [facility] when he was admitted there last week showed large amt of fluid in esophagus and large esophageal diverticulum w contrast retention, dysmotility. Repeat CT chest here again showed fluid filled esophagus w circumfrential thickening. He was offered possible PEG placement for nutritional support but he refused. Now he had changed his mind and wants to consider this. I had discussed with him benefits vs risks of PEG tube placement including cardiopulmonary complications which can arise from anesthesia event, bleeding, infection, recurrence of aspiration even when PEG tube is in place, peritonitis. I also reminded him that PEG tube may need to be in place for 12 weeks minimum even if not in use as pulling it out too soon may cause fistula development. I will discuss pt's case with Dr. Samano. Some factors which may hinder us from placing PEG now include him being on Eliquis up till 2 dyas ago, current pneumonia and respiratory issues, and also recurrence of Afib Addendum: Discussed case with Dr. Samano. He has to be off Eliquis for at least 3 days, thus if doing PEG we have to wait till 11/25. Meanwhile we will have anesthesia eval him for risks during PEG placement procedure given his respiratory issues. Pls make sure he's sitting up well instead of laying in bed most of the day. ATTESTATION: I have performed a history and physical examination of this patient and reviewed the electronic record. Specifically on physical examination there are no abdominal findings. I discussed his history of esophageal dysmotility and large diverticulum with Dr. Qiu who had evaluated him in the past. The diagnosis of achalasia is probable, but not fully established as his prior motility study was inadequate. Given his present comorbidity, our judgement is to proceed with PEG placement and evaluate his esophageal dysmotility with consideration of POEM or other definitive treatment after full recovery and restaging of his lung cancer. I have discussed the case with YANA Castañeda. The above note reflects my findings, conclusions, and recommendations. Chadwick Samano MD
[2017-11-23] MEDS: PANTOprazole INJ 40 MG in SYRINGE 0 ML IV SCH (12:25)
--- NOTE | 2017-11-23 13:06 | Hospitalist Progress Note ---
Hospitalist Progress Note Date of Service Nov 23, 2017. (Lizette Escalante PA-C) Subjective Pt evaluation today including: conversation w/ patient, chart review, lab review PO Intake: NPO Patient seen and evaluated at bedside 239-2. "I do not feel well." He complains of continued shortness of breath, productive cough with purulent sputum, diarrhea 1. He elicits that he has decided to have PEG tube placed. Spoke with nursing, Nell, who states he has had decreased O2 requirements in which overnight he required BiPAP, as well as 15 L via mask. Currently he is on 5 L via mask ranging from 87-90%. She also reports, low blood sugar at 110 and held Lantus. He denies f/c/s, light headed, dizziness, chest pain, n/v, abdominal pain. Additional Comments: As noted per HPI, 10 systems reviewed and negative unless noted above. All Other Systems: Reviewed and Negative (Lizette Escalante PA-C) Objective Vital Signs Date Time Temp Pulse Resp B/P (MAP) Pulse Ox O2 Delivery O2 Flow Rate FiO2 11/23/17 08:00 94 Oxymask 5.0 40 11/23/17 07:11 36.9 59 17 183/69 (107) 94 Oxymask 5.0 11/23/17 06:57 68 18 93 Mask 5.0 11/23/17 06:00 Oxymask 5.0 11/23/17 05:47 67 168/75 11/23/17 03:35 37.1 70 18 151/70 (97) 92 Oxymask 5.0 11/23/17 01:58 60 18 95 BiPAP/CPAP 40 11/23/17 01:57 60 95 40 11/23/17 00:18 64 157/77 11/23/17 00:01 BiPAP 40 11/22/17 23:38 36.9 62 16 157/77 (103) 93 CPAP 40 11/22/17 22:12 60 95 50 11/22/17 20:00 BiPAP 60 11/22/17 19:50 57 96 60 11/22/17 19:49 57 21 96 BiPAP/CPAP 60 11/22/17 19:30 36.9 58 20 138/69 (92) 97 BiPAP 11/22/17 17:49 57 11/22/17 16:00 Oxymask 10.0 11/22/17 15:03 37.3 69 18 133/69 (90) 89 Oxymask 10.0 11/22/17 14:10 62 20 93 Mask 9.0 11/22/17 12:00 36.3 58 18 124/64 (84) 89 Oxymask 10.0 11/22/17 12:00 58 (Lizette Escalante PA-C) Physical Exam General Appearance: WD/WN, no apparent distress Eyes: normal inspection, sclerae normal ENT: normal ENT inspection, + pertinent finding (mucus membranes moist) Neck: supple, no adenopathy Respiratory/Chest: chest non-tender, lungs clear, no respiratory distress, + decreased breath sounds (at bases R >L), + pertinent finding (on O2 via Mask 5L) Cardiovascular: regular rate, rhythm, no edema, no JVD, no murmur Abdomen: normal bowel sounds, non tender, soft, no organomegaly Neurologic/Psychiatric: alert, normal mood/affect, oriented x 3 Skin: normal color, no rash (Lizette Escalante, JAMES-C) Laboratory Results Item Value Date Time White Blood Count 20.84 K/uL H 11/23/17 0803 Hemoglobin 9.2 g/dL L 11/23/17 0803 Hematocrit 29.3 % L 11/23/17 0803 Platelet Count 283 K/uL 11/23/17 0803 Sodium Level 141 mmol/L 11/23/17 0325 Potassium Level 3.4 mmol/L L 11/23/17 0325 Chloride Level 100 mmol/L 11/23/17 0325 Blood Urea Nitrogen 37 mg/dl H 11/23/17 0325 Creatinine 2.55 mg/dl H 11/23/17 0325 Random Glucose 108 mg/dl H 11/23/17 0325 Hemoglobin A1c 5.9 % H 11/23/17 0803 Estimated Average Glucose 123 mg/dl 11/23/17 0803 Pleural Fluid Total Protein 2.7 g/dl 11/22/17 0000 Pleural Fluid LDH 547 IU 11/22/17 0000 Pleural Fluid Glucose 103 mg/dl 11/22/17 0000 Pleural Fluid Amylase 76 U/L 11/22/17 0000 Pleural Fluid pH 7.37 11/22/17 1435 Activated Partial Thromboplast Time 33.0 SECONDS H 11/23/17 0325 Partial Thromboplastin Ratio 1.3 11/23/17 0325 (Lizette Escalante PA-C) Diagnostic Results .1. Right hydropneumothorax. Mild interval decrease in size of a moderate loculated right pleural effusion with small amount of pleural gas. Small amount of hemorrhage within the right inferior pleural space. Discussed with Lon Hauser at time of dictation. 2. No significant change in extensive multifocal bilateral airspace opacities since prior chest CT. This is consistent with multifocal pneumonia. 3. Probable secretions within the right mainstem bronchus. 4. Moderate cardiomegaly and extensive coronary artery calcification. (Lizette Escalante PA-C) Assessment and Plan Assessment and Plan 77-year-old male with significant past medical history of CAD status post stents ( x3 in 06/2017), chronic diastolic CHF, moderate aortic stenosis, hypertension, COPD, GAURANG on CPAP, right lung mass status post lobectomy secondary to adenocarcinoma of the lung at [facility], postoperative paroxysmal atrial fibrillation on oral anticoagulation, esophageal diverticulum with recurrent aspiration pneumonia, CKD stage III who presented to [facility] with hypoxia suspicious for bilateral PNA secondary to aspiration , right pleural effusion. Acute Hypoxic Respiratory Failure -[place] to be multifactorial secondary to bilateral PNA, DHF, COPD exacerbation Acute Aspiration Pneumonia - Continue IV Zosyn for broad spectrum/aspiration coverage; Vanco discontinued at this time due to MRSA swab negative and suspicion of MRSA PNA low. - Continue IV solumedrol, nebulizer, O2 - Repeat CXR/ CT Scan Chest reviewed. Mild improvement of pleural effusion; however B/L PNA unchanged. - GI planning PEG placement due to recurrent aspiration and esophageal diverticulum, patient in agreement - Of significance patient did have bronchoscopy of his recent hospitalization in [facility] in which culture grew greater than 100 K yeast. Esophageal Diverticulum with Esophageal Dysmotility -Danial Aspiration -Continue NPO, necessary meds converted to IV. -GI on board, planning for PEG tube as patient now agreeable. R Loculated Pleural Effusion - s/p thoracentesis 11/22 1100cc removed, fluid analysis reviewed appears transudative. - Echo is still pending. - Will hold off on diuretics at this time as patient is NPO. - appreciate thoracic surgery input. COPD Exacerbation - Continue O2, prednisone, nebulizer treatments GAURANG on CPAP CAD - s/p multiple stents, most recent 05/2017 had three stents placed; total of 7 stents. - continue medical management of plavix, metoprolol, lipitor. Plavix to continue 1 year uninterrupted. - Given NPO status plavix and lipitor on hold until peg placed. - thoracic surgery okay with plan to continue medication Paroxysmal A. Fib Patient developed PAF status post right lung lobectomy at [facility] in which he was placed on amiodarone and Xarelto. He then presented to [facility] in which cardiology was consulted, Dr. Madrid, who recommended continuing amiodarone; however decreasing to daily at discharge. Further she recommended discontinuing atenolol and switching it to metoprolol as well as continuing CCB. Xarelto was transitioned to Eliquis secondary to renal dysfunction. -Currently in Afibb. on IV Lopressor. Diltiazem, Amio, eliquis on hold due to NPO status. Once NPO status lifted will need to re-initate amiodarone, diltiazem. -Will consult cardiology for further management, and to determine if patient requires IV heparin for bridging while n.p.o. Recent R Lung Adenocarcinoma - s/p resection of R upper lobe at [facility] Chronic Diastolic CHF -Currently patient appears euvolemic. Continue IV metoprolol. Will hold off on further diuretics at this time due to n.p.o. status. CKD stage 3 - creatinine at baseline, 2.55, repeat BMP in a.m. and monitor Hypokalemia -Replete with 10 mEq IV 4, repeat BMP in a.m. Hyperglycemia due to steroids - A1c 5.9 - Continue Levemir 5 units subq daily - Monitor blood sugars HTN -Patient's blood pressure is uncontrolled today most likely secondary to n.p.o. status and unable to take meds -We will hold clonidine, Cardizem. * note patient is to be on losartan 50mg 2 tabs po daily. Will add to home med list as this was not on current list. -Continue IV Lopressor -Place on clonidine patch 0.2 mg, discussed with pharmacy -We will continue to monitor patient's blood pressure closely Anemia -Hemoglobin hematocrit 9.4, 29.7 respectively today. H&H on 11/22 was 11.7/ 36.9. - s/p thoracentesis. Will repeat CBC in the a.m. and monitor H&H closely DVT ppx - Hold IV heparin, Hold Eliquis, await cardiology input - SCDs FULL CODE (Lizette Escalante, PABriannaC)
--- NOTE | 2017-11-23 14:01 | Cardiology Consultation ---
Cardiology Consultation Date of Service Nov 23, 2017. Cardiology Consultation Indication: Consultation for preoperative risk assessment History: This is a 77-year-old male patient who has a recent complex past medical history. The patient spends his time split between [place] in [place]. He has a history of coronary artery disease with multiple coronary interventions both at [facility] in [place] and more recently at a hospital in [place] in May of this year. He has multiple drug-eluting stents and I believe he may have presented to the [facility] with a non-STEMI. Sometime either during or after that admission he was noted to have an abnormal chest x-ray followed by a CT of the chest which was very suggestive of a right upper lobe malignancy. He was referred to [facility] in [place] where he underwent a right upper lobe resection. He had been seen by [place] cardiology who provided preoperative cardiovascular exam and risk stratification. Sometime between that office visit and his surgery, most likely immediately postop, he developed atrial fibrillation which was treated with amiodarone and diltiazem. From [place] he was discharged home where he developed respiratory distress and was transferred to [facility] emergency department where he was eventually admitted with pneumonia. Patient eventually was sent to [facility]. While at [facility] he developed respiratory distress and was transferred to this hospital. He was found to have a large right loculated effusion and has been tapped by thoracic surgery. Apparently the patient has a diverticulum of the esophagus which may be causing him to have chronic aspiration. The GI service has seen him and recommended a PEG tube. Earlier during this admission he had atrial fibrillation but he has since converted to normal sinus after restarting his medications. He has no current cardiac complaints. He is comfortable after his thoracentesis and less short of breath. He has had no chest pain. Allergies: Cephalexin, lisinopril and simvastatin Reported Home Medications Medications Dose Route/Sig Max Daily Dose Days Date Category Dose Instructions Flomax (Tamsulosin Hcl) 0.4 Mg Cap 0.4 Mg PO DAILY 11/21/17 Reported Paxil (Paroxetine HCl) 20 Mg Tab 20 Mg PO DAILY 11/21/17 Reported Lopressor (Metoprolol Tartrate) 25 Mg Tab 25 Mg PO BID 11/21/17 Reported Metoclopramide Hcl 5 Mg Tab 5 Mg PO ACHS 11/21/17 Reported Pepcid (Famotidine) 20 Mg Tab 20 Mg PO DAILY 11/21/17 Reported Docusate Sodium 100 Mg Cap 100 Mg PO BID 11/21/17 Reported Cardizem Cd (Diltiazem Hcl Coated Beads) 120 Mg Cap 120 Mg PO DAILY 11/21/17 Reported Eliquis (Apixaban) 2.5 Mg Tab 2.5 Mg PO BID 11/21/17 Reported Augmentin 875-125 mg (Amoxicillin & Pot Clavulanate) 1 Tab Tab 1 Tab PO BID 5 11/21/17 Reported BEGIN 11/18/17, END 11/23/17. Tylenol (Acetaminophen) 325 Mg Tab 650 Mg PO Q6H PRN 11/21/17 Reported Senna Plus (Sennosides-Docusate Sodium) 1 Tab Tab 1 Tab PO DAILY PRN 11/21/17 Reported Miralax (Polyethylene Glycol 3350) 1 Pow Pow 17 Gm PO DAILY 11/21/17 Reported Roxicodone Ir (Oxycodone HCl) 5 Mg Tab 5 Mg PO Q4H PRN 11/21/17 Reported Nitrostat (Nitroglycerin) 0.4 Mg Tab 0.4 Mg UT PRN 11/21/17 Reported NEEDED FOR CHEST PAIN : ONE TABLET UNDER THE TONGUE EVERY 5 MINUTES UP TO 3 DOSES. Neurontin (Gabapentin) 300 Mg Cap 300 Mg PO TID 11/21/17 Reported Cordarone (Amiodarone Hcl) 200 Mg Tab 200 Mg PO BID 11/21/17 Reported Proair Respiclick (Albuterol Sulfate) 108 Mcg/Act Aer 2 Puffs INH [id number] PRN 11/21/17 Reported Plavix (Clopidogrel Bisulfate) 75 Mg Tab 75 Mg PO QAM 09/18/16 Reported Proscar (Finasteride) 5 Mg Tab 5 Mg PO QAM 09/18/16 Reported Lipitor (Atorvastatin Calcium) 40 Mg Tab 40 Mg PO DAILY 09/18/16 Reported Clonidine HCl 0.1 Mg Tab 0.1 Mg PO BID 09/18/16 Reported Lasix (Furosemide) 20 Mg Tab 40 Mg PO QAM 09/18/16 Reported Tenormin (Atenolol) 25 Mg Tab 12.5 Mg PO QAM 09/18/16 Reported 1/2 TABLET DOSE Ativan (Lorazepam) 0.5 Mg Tab 0.5 Mg PO BID PRN 09/18/16 Reported Serzone (Nefazodone HCl) 150 Mg Tab 150 Mg PO BID 02/07/08 Reported Seroquel (Quetiapine Fumarate) 25 Mg Tab 25 Mg PO BID 02/07/08 Reported Past medical history: As outlined in history of chief complaint. Social history: Patient is currently and lives with his . He is a current non-smoker. Family history: Noncontributory Review of systems: The 10 point review of systems is negative except for the history of chief complaint Vital Signs Past 12 Hours Date Time Temp Pulse Resp B/P (MAP) Pulse Ox O2 Delivery O2 Flow Rate FiO2 11/23/17 12:49 Oxyhood 5.0 11/23/17 12:26 120 11/23/17 10:52 37.3 120 20 160/69 (99) 87 Oxymask 5.0 11/23/17 08:00 94 Oxymask 5.0 40 11/23/17 07:11 36.9 59 17 183/69 (107) 94 Oxymask 5.0 11/23/17 06:57 68 18 93 Mask 5.0 11/23/17 06:00 Oxymask 5.0 11/23/17 05:47 67 168/75 11/23/17 03:35 37.1 70 18 151/70 (97) 92 Oxymask 5.0 11/23/17 01:58 60 18 95 BiPAP/CPAP 40 11/23/17 01:57 60 95 40 General Appearance: Alert and Oriented x3. NAD. Head: Normocephalic Atraumatic. Eyes: PERRLA, EOMI, conjunctiva and sclera clear Neck: Supple. No carotid bruits noted. No JVD. No HJD. Respiratory: Breath sounds clear to auscultation bilaterally. No w/r/r. Cardiovascular: Reg rate and rhythm. S1 and S2 noted. No murmurs, rubs, gallops. PMI non displace. Abdomen: Normal bowel sounds, soft nontender. no abdominal bruits. Extremities: No edema, no clubbing or cyanosis. distal pulses 2/4 bilaterally. Neuro: No focal deficits. Psychiatric: Normal affect. Last 24 Hours Test 11/22/17 14:35 11/23/17 03:25 11/23/17 08:03 11/23/17 11:28 Pleural Fluid pH 7.37 Activated Partial Thromboplast Time 33.0 SECONDS Partial Thromboplastin Ratio 1.3 Sodium Level 141 mmol/L Potassium Level 3.4 mmol/L Chloride Level 100 mmol/L Carbon Dioxide Level 34 mmol/L Anion Gap 7.0 mmol/L Blood Urea Nitrogen 37 mg/dl Creatinine 2.55 mg/dl Est Creatinine Clear Calc Drug Dose 28.7 ml/min Estimated GFR () 27.0 Estimated GFR (Non- 23.3 BUN/Creatinine Ratio 14.4 Random Glucose 108 mg/dl Calcium Level 8.0 mg/dl Vancomycin Level Trough 16.2 mcg/ml White Blood Count 20.84 K/uL Red Blood Count 3.27 M/uL Hemoglobin 9.2 g/dL Hematocrit 29.3 % Mean Corpuscular Volume 89.6 fL Mean Corpuscular Hemoglobin 28.1 pg Mean Corpuscular Hemoglobin Concent 31.4 g/dl RDW Standard Deviation 47.4 fL RDW Coefficient of Variation 14.4 % Platelet Count 283 K/uL Mean Platelet Volume 10.2 fL Estimated Average Glucose 123 mg/dl Hemoglobin A1c 5.9 % Phosphorus Level 3.0 mg/dl Magnesium Level 2.2 mg/dl Bedside Glucose 116 mg/dl Impression: 1. Paroxysmal atrial fibrillation 2. Coronary artery disease with multiple previous coronary interventions with the last being in May of this year when he received coronary stents. 3. Lung cancer status post right upper lobe resection 4. Esophageal diverticulum 5. Chronic aspiration with right pleural effusion Recommendations: The patient is currently in sinus rhythm. He converted after he was started on IV Lopressor. He has not been receiving his amiodarone, if he continues to have recurrence of atrial fibrillation, he can be placed on intravenous amiodarone. Due to upcoming procedures he is not fully anticoagulated. He is currently hemodynamically stable and should be able to tolerate a PEG tube placement.
[2017-11-23] MEDS: CLONIDINE HCL 0.2 MG/24 HR TRANSDERM SYS TD SCH (14:21)
[2017-11-23] MEDS ORDERED: LOSA50TA6 PO (14:21)
--- NOTE | 2017-11-23 15:55 | SURGERY PROGRESS NOTE ---
DATE: 11/23/2017 Mr. Juárez was seen today. I am concerned about him. He has a lot of issues. We repeated a CT scan today. He is still requiring a lot of oxygen. He states he feels better. He would atrial fibrillation today but was converted back. I reviewed a CT scan and I had to disagree a bit with the interpretation. The subpulmonic component of the pleural fluid has diminished noticeably. He also has a dense infiltrate on both sides. This may be due to aspiration. He actually sounds a bit better even though his x-ray is concerning. At this point, I have discussed his case with Sharron Richter from gastroenterology. The patient should be held strictly n.p.o. now. His aspiration is his biggest problem. He also needs nutrition. I agree wholeheartedly with a PEG tube. We will be glad to address his esophageal issues after this is done. I would not do anything further in his right chest at this point. We will continue to follow him up.
[2017-11-23] MEDS: CHECK CLONIDINE PATCH PLACEMENT SCH ×2 (16:00→23:44)
--- NOTE | 2017-11-23 17:16 | PULMONARY PROGRESS NOTE ---
DATE: 11/23/2017 PULMONARY PROGRESS NOTE TIME: 4:45 p.m. SUBJECTIVE: The patient feels less short of breath since he has had his thoracentesis yesterday. There was 1100 mL of fluid removed. The fluid reportedly was rust colored. He does have residual fluid, some of which is certainly loculated. He still has some fluid at the base. He persists with infiltrates that are significant in the mid and lower lung peck especially and to a lesser degree in the upper lung peck. These are likely related to aspiration. The patient does complain of back pain. He was inquiring about medications. I told him he would need to speak to his hospitalist for this. OBJECTIVE: GENERAL: The patient looked definitely more comfortable than prior. VITAL SIGNS: Temperature is 36.7. This morning, he had a temperature of 37.3. CARDIOVASCULAR: The cardiac rate is 73 per minute. The rhythm is regular. Blood pressure is elevated at 183/79. Oxygen saturation is 94% on OxyMask with 5 liters. LABORATORY DATA: Patient's white count today was 20.84. Yesterday it had been 24.08. Hemoglobin is 9.2. Platelets are 283,000. Pleural fluid analysis showed the pleural LDH at 547. This would be an exudate by Light's criteria. Pleural fluid protein was 2.7. Pleural pH was 7.37. RBC count was 79,000. Electrolytes showed sodium 141, potassium 3.4, chloride 100, bicarbonate 34. BUN is 37 with a creatinine of 2.55. IMPRESSIONS: 1. Respiratory failure -- acute with hypercarbia and hypoxia. 2. Bilateral pneumonia secondary to aspiration. 3. Lung cancer -- status post left upper lobectomy. 4. Chronic obstructive pulmonary disease. 5. Obstructive sleep apnea. 6. Pleural effusion - exudative. 7. Chronic kidney disease. COMMENTS AND RECOMMENDATIONS: The patient is improved. He is now reconsidered and is agreeable to a PEG tube. We will do a blood gas tomorrow morning to reassess his breathing status with the thought that he may be getting a PEG tube. Would continue other medications as present.
--- NOTE | 2017-11-23 18:20 | Progress Note ---
Progress Note Date of Service Nov 23, 2017. Progress Note ATTENDING ADDENDUM care coordinated with JAMES Yadav and YANA Pandey please refer to her notes for full details, I agree with her notes patient seen and examined, records reviewed by myself as well on exam, patient seen resting in bed, on 3L face mask, comfortable, not in distress states he feels improved after the thoracentesis denies chest pain no other symptoms VS noted and reviewed oriented x 2, not in distress, speaks in sentences with no effort nor accessory muscle use normal rate, regular rhythm, no murmurs diminished breath sounds bilaterally non distended, soft, nontender no bipedal edema, erythema, warmth no neuro deficits Hg 9.2 Crea 2.55 ASSESSMENT/PLAN> ACUTE HYPOXIC RESPIRATORY FAILURE MULTIFACTORIAL: Pleural effusion, recurrent aspiration pneumonia, COPD exacerbation Status post thoracentesis, follow-up pleural fluid studies and cultures continue empiric Zosyn, nebs, steroids Appreciate pulmonary and thoracic surgery input RECURRENT ASPIRATION IN THE SETTING OF ESOPHAGEAL DIVERTICULUM AND DYSFUNCTION GI consulted Patient agreeable with PEG tube until definitive treatment of esophageal diverticulum and dysfunction patient has taken Eliquis, will need to wait until before the procedure PAROXYSMAL ATRIAL FIBRILLATION Usual amiodarone, diltiazem on hold Metoprolol IV Eliquis on hold for possible procedures Cardiology consulted other diagnoses and plan of care as per JAMES Bauer and MIGUEL Forman MD
--- NOTE | 2017-11-23 18:47 | Anesthesiology Progress Note ---
Anesthesia Progress Note Date of Service Nov 23, 2017. Progress Notes The patient is a 77M scheduled for PEG tube placement on 11/25/17. The patient has a complicated medical history which includes [place] x 3, stents x 7, mod , chronic heart failure, COPD, aspiration PNA on antibiotics, GAURANG with CPAP, esophageal motility disorder, h/o seizures, chronic back pain, CKD, lung cancer , anemia, anxiety, depression, obesity, and a former smoker. The patient recently underwent a right upper lobe lung resection on 11/02/17. The patient subsequently developed worsening aspiration PNA. The patient has received antibiotics and underwent a thoracentesis. The patient states improved breathing. I spoke to the patient about receiving MAC anesthesia vs. general anesthesia due to his compromised respiratory status. The patient and agreed. The patient's procedure will be on 11/25/17 due to his eliquis, so the patient will need to be re-assessed prior to receiving anesthesia. All questions and concerns were addressed.
[2017-11-24] VITALS (18 sets, daily range): BP systolic 145–204; BP diastolic 78–127; PULSE 67–131; TEMP 36.6–37.2; O2SAT 84–99
[2017-11-24] MEDS: IPRATROPIUM BROMIDE NEB SOLN 0.02% 2.5 ML VIAL INH SCH ×4 (01:50→19:30)
[2017-11-24] MEDS: LEVALBUTEROL 1.25MG/0.5ML NEB INH SCH ×4 (01:50→19:30)
[2017-11-24] MEDS: PIPERACILL/TAZOBAC IV 3.375 GM in D5W 100ML IV SCH ×3 (02:33→17:36)
[2017-11-24] MEDS ORDERED: HydrALAZINE HCL 20 MG/ML VIAL IV. PRN (03:30)
[2017-11-24] MEDS ORDERED: VANCOMYCIN TROUGH ONE (03:30)
[2017-11-24] MEDS: METOPROLOL TARTRATE 1 MG/ML VIAL IV. SCH ×4 (06:18→23:18)
[2017-11-24 06:59] LABS: HEMOGLOBIN 10.2 g/dL (14.0-18.0); MEAN CELL VOLUME 90.1 fL (80-100); MEAN CORPUSCULAR HEMOGLOBIN 28.7 pg (25-34); MEAN CORPUSCULAR HGB CONC 31.9 g/dl (32-36); MEAN PLATELET VOLUME 10.8 fL (7.4-10.4); PLATELET COUNT 302 K/uL (130-400); RED CELL DISTRIBUTION WIDTH CV 14.5 % (11.5-14.5); RED CELL DISTRIBUTION WIDTH SD 47.6 fL (36.4-46.3); WHITE BLOOD COUNT 20.65 K/uL (4.8-10.8)
[2017-11-24 07:13] LABS: PTT PATIENT 35.9 SECONDS (21.0-31.0)
[2017-11-24] MEDS: TAMSULOSIN HCL 0.4 MG CAP PO SCH (07:21)
[2017-11-24] MEDS: ATORVASTATIN 40 MG TAB PO SCH (07:22)
[2017-11-24] MEDS: FINASTERIDE 5 MG TAB PO SCH (07:22)
[2017-11-24] MEDS: GABAPENTIN 100 MG CAP PO SCH ×3 (07:22→21:00)
[2017-11-24] MEDS: CLOPIDOGREL BISULFATE 75 MG TAB PO SCH (07:22)
[2017-11-24] MEDS: NEFAZODONE HCL 100 MG PO SCH ×2 (07:22→21:00)
[2017-11-24] MEDS: PAROXETINE 20 MG TAB PO SCH (07:22)
[2017-11-24] MEDS: QUETIAPINE FUMARATE 25 MG TAB PO SCH ×2 (07:22→21:00)
[2017-11-24 07:33] LABS: CALCIUM 8.4 mg/dl (8.5-10.1); CREATININE 2.34 mg/dl (0.60-1.40); PHOSPHORUS 2.9 mg/dl (2.5-4.9); POTASSIUM 3.7 mmol/L (3.5-5.1)
[2017-11-24] MEDS ORDERED: LIDOCAINE HCL 1% 20 ML VIAL ONE (07:37)
[2017-11-24] MEDS: CHECK CLONIDINE PATCH PLACEMENT SCH ×3 (07:38→23:18)
[2017-11-24] MEDS: METOPROLOL TARTRATE 1 MG/ML VIAL IV PRN ×2 (07:39→18:24)
--- NOTE | 2017-11-24 07:41 | DIAGNOSTIC IMAGING REPORT ---
CHEST ONE VIEW PORTABLE CLINICAL HISTORY: hypoxia COMPARISON STUDY: 11/23/2017 FINDINGS: There is complete opacification of the right hemithorax. There is minor tracheal shift to the right. Minor left basilar airspace opacities persist.[ IMPRESSION: 1. Complete opacification right hemithorax, likely secondary to a combination of right pleural fluid and right lung atelectasis/consolidation 2. Persistent minimal left basilar airspace opacities Electronically signed by: Ruben Cox M.D. 11/24/2017 7:40 AM Dictated Date/Time: 11/24/2017 7:32 AM
[2017-11-24] MEDS: METHYLPREDNISOLONE IV 40 MG in SYRINGE 0 ML IV SCH (07:45)
[2017-11-24] MEDS: INSULIN GLARGINE SOLOSTAR 100 UNITS/ML 3 ML PEN SC SCH (07:46)
[2017-11-24] MEDS ORDERED: NURSING VERBAL MED ORDER ONE (08:30)
[2017-11-24] MEDS: LORAZEPAM 2 MG/ML 1 ML VIAL IV PRN ×2 (08:32→16:29)
[2017-11-24] MEDS: FAMOTIDINE IV INJ 20 MG in SYRINGE 3 ML IV SCH ×2 (09:00→21:26)
[2017-11-24] MEDS ORDERED: DIGOXIN IV ONE (09:00)
--- NOTE | 2017-11-24 09:05 | ECHOCARDIOGRAM REPORT ---
*NOTICE TO RECEIVING CONSTITUTION PARTY AGENCY This information is strictly Confidential and protected under [place] law. [place] law prohibits you from making any further disclosure of this information unless further disclosure is expressly permitted by the written consent of the person to whom it pertains or is authorized by law. A general authorization for the release of medical or other information is not sufficient for this purpose. Hospital accepts no responsibility if the information is made available to any other person, INCLUDING THE PATIENT. Interpretation Summary * Name: JED ZHENG Study Date: 11/22/2017 10:48 AM BP: 124/64 mmHg * Patient Location: C.2T\S\S239\S\2 HR: 62 * : 1940 (M/d/yyyy) Gender: Male Height: 69 in * Age: 77 yrs Ethnicity: [place] Weight: 226 lb * Ordering Physician: Jayne Lowe * Referring Physician: Kirby Mayberry * Performed By: Bartolo Burkett [facility] * * Reason For Study: CHF * BSA: 2.2 m2 * -- Conclusions -- * The aortic valve is moderately calcified. * Moderate valvular aortic stenosis. * Mild aortic regurgitation. * There is moderate concentric left ventricular hypertrophy. * Ejection Fraction = 50-55%. * The left ventricular wall motion is normal. * The right ventricular systolic function is normal. * There is trace mitral regurgitation. * There is mild to moderate tricuspid regurgitation. Procedure Details * A complete two-dimensional transthoracic echocardiogram was performed (2D, M-mode, Doppler and color flow Doppler). Left Ventricle * The left ventricle is normal in size. * There is moderate concentric left ventricular hypertrophy. * Ejection Fraction = 50-55%. * The left ventricular wall motion is normal. Right Ventricle * The right ventricle is grossly normal size. * The right ventricular systolic function is normal. Atria * The left atrial size is normal. * Right atrial size is normal. Mitral Valve * The mitral valve is grossly normal. * There is trace mitral regurgitation. Tricuspid Valve * The tricuspid valve is not well visualized, but is grossly normal. * There is mild to moderate tricuspid regurgitation. Aortic Valve * The aortic valve is moderately calcified. * Moderate valvular aortic stenosis. * Mild aortic regurgitation. Pulmonic Valve * The pulmonic valve is not well visualized. * Trace pulmonic valvular regurgitation. Great Vessels * The aortic root is not well visualized. Pericardium/Pleural * There is no pericardial effusion. MMode 2D Measurements and Calculations IVSd 1.1 cm IVSs 1.5 cm LVIDd 5.3 cm LVIDs 3.7 cm LVPWd 1.0 cm LVPWs 1.5 cm IVS/LVPW 1.1 FS 30.8 % EDV(Teich) 136.0 ml ESV(Teich) 57.3 ml EF(Teich) 57.9 % EDV(cubed) 149.8 ml ESV(cubed) 49.7 ml EF(cubed) 66.8 % % IVS thick 31.3 % % LVPW thick 41.7 % LV mass(C)d 223.5 grams LV mass(C)dI 102.7 grams/m\S\2 LV mass(C)s 201.5 grams LV mass(C)sI 92.6 grams/m\S\2 SV(Teich) 78.7 ml SI(Teich) 36.2 ml/m\S\2 SV(cubed) 100.1 ml SI(cubed) 46.0 ml/m\S\2 Ao root diam 3.6 cm Ao root area 10.2 cm\S\2 LA dimension 3.7 cm asc Aorta Diam 2.8 cm LA/Ao 1.0 LVOT diam 2.1 cm LVOT area 3.6 cm\S\2 EDV(MOD-sp4) 75.0 ml ESV(MOD-sp4) 38.6 ml EF(MOD-sp4) 48.6 % EDV(MOD-sp2) 80.6 ml ESV(MOD-sp2) 40.0 ml EF(MOD-sp2) 50.4 % SV(MOD-sp4) 36.5 ml SI(MOD-sp4) 16.8 ml/m\S\2 SV(MOD-sp2) 40.6 ml SI(MOD-sp2) 18.7 ml/m\S\2 Doppler Measurements and Calculations MV E max will 91.4 cm/sec MV A max will 80.6 cm/sec MV E/A 1.1 MV P1/2t max will 111.6 cm/sec MV P1/2t 69.1 msec MVA(P1/2t) 3.2 cm\S\2 MV dec slope 472.9 cm/sec\S\2 MV dec time 0.25 sec Ao V2 max 332.2 cm/sec Ao max PG 44.1 mmHg Ao max PG (full) 38.4 mmHg Ao V2 mean 211.5 cm/sec Ao mean PG 21.2 mmHg Ao mean PG (full) 18.1 mmHg Ao V2 VTI 68.5 cm CL(I,A) 1.5 cm\S\2 CL(I,D) 1.5 cm\S\2 CL(V,A) 1.3 cm\S\2 CL(V,D) 1.3 cm\S\2 LV V1 max PG 5.8 mmHg LV V1 mean PG 3.1 mmHg LV V1 max 120.0 cm/sec LV V1 mean 82.6 cm/sec LV V1 VTI 29.1 cm SV(Ao) 697.6 ml SI(Ao) 320.6 ml/m\S\2 SV(LVOT) 104.3 ml SI(LVOT) 47.9 ml/m\S\2 PA V2 max 121.9 cm/sec PA max PG 6.2 mmHg PI max will 291.6 cm/sec PI max PG 38.4 mmHg PI dec slope 238.9 cm/sec\S\2 PI P1/2t 357.5 msec TR max will 345.8 cm/sec
[2017-11-24] MEDS: PANTOprazole INJ 40 MG in SYRINGE 0 ML IV SCH (09:24)
--- NOTE | 2017-11-24 12:26 | Hospitalist Progress Note ---
Hospitalist Progress Note Date of Service Nov 24, 2017 at ~ 8:45am (Lizette Escalante, JOSE ALBERTO) Subjective Pt evaluation today including: conversation w/ patient, chart review, lab review Patient seen and evaluated at bedside in room 239-2 They are going to put a catheter in me. Patient currently on bipap, complains of SOB, dry cough. Denies f/c/s, chest pain, n/v/d. No BM today, but I havent eaten anything. Spoke with RN Ruth, states patient now requiring bipap 50% to main oxygenation, Afibb with RVR rates in 110s 130s with occasional spikes to 150s. Per RN plan is for patient to receive pleurx cath secondary to recurrent pleural effusion, also IV dig for Afibb with RVR. Additional Comments: As noted per HPI, 10 systems reviewed and negative unless noted above. (Lizette Escalante PA-C) Medications Medications (Trade) Dose Ordered Sig/Vicki Route Start Time Stop Time Status Last Admin Dose Admin Miscellaneous Information (Check Clonidine Patch Placement) 1 ea QS N/A 11/23/17 16:00 12/23/17 15:59 11/24/17 07:38 1 EA Hydralazine HCl (HydrALAZINE INJ) 10 mg Q6 PRN IV. 11/24/17 03:30 11/24/17 06:21 DC 11/24/17 03:42 10 MG Digoxin 500 mcg/ Syringe 20 ml @ 2 mls/min NOW ONCE IV 11/24/17 09:00 11/24/17 09:09 DC 11/24/17 09:00 2 MLS/MIN (Lizette Escalante, HOLLIEC) Objective Vital Signs Date Time Temp Pulse Resp B/P (MAP) Pulse Ox O2 Delivery O2 Flow Rate FiO2 11/24/17 09:00 135 11/24/17 08:00 90 BiPAP 50 11/24/17 07:39 132 11/24/17 07:15 36.6 80 20 145/83 (103) 91 BiPAP 50.0 11/24/17 07:11 120 84 40 11/24/17 07:09 120 20 84 Mask 4.0 11/24/17 06:18 137 174/92 11/24/17 04:35 178/78 (111) 11/24/17 03:59 36.8 71 23 204/82 (122) 91 Oxymask 5.0 11/24/17 01:50 67 18 93 Mask 5.0 11/23/17 23:59 Oxymask 5.0 11/23/17 23:41 69 190/84 11/23/17 23:38 36.6 69 22 189/85 (119) 98 Oxymask 5.0 190/84 (119) 11/23/17 20:23 67 95 40 11/23/17 20:00 BiPAP 40 11/23/17 19:29 74 18 93 Mask 5.0 11/23/17 19:07 37.1 69 18 179/86 (117) 96 Oxymask 5.0 11/23/17 17:43 78 11/23/17 15:27 36.7 73 18 183/79 (113) 94 Oxymask 5.0 11/23/17 14:12 72 18 91 Mask 5.0 11/23/17 12:49 Oxyhood 5.0 11/23/17 12:26 120 (Lizette Escalante, PA-C) Physical Exam Notes: Gen: Chronically ill-appearing male, lying in bed, well-developed, NAD, A&O x3 HEENT: Normocephalic, atraumatic, conjunctivae moist, sclera anicteric, mucous membranes moist Lung: Currently on BiPAP 50%, no respiratory distress, no accessory muscle use, absent breath sounds on the right throughout, breath sounds diminished on the left without rales or rhonchi Heart: Irregularly, irregular rhythm, soft 1/6 MIYA or RUSB, no rubs, or gallops. Abdomen: Soft, NT, ND +BS x 4 Extremities: No edema Skin: Warm, no rash, negative turgor (Lizette Escalante, PA-C) Laboratory Results Item Value Date Time White Blood Count 20.65 K/uL H 11/24/17 0625 Hemoglobin 10.2 g/dL L 11/24/17 0625 Hematocrit 32.0 % L 11/24/17 0625 Platelet Count 302 K/uL 11/24/17 0625 Sodium Level 141 mmol/L 11/24/17 0625 Potassium Level 3.7 mmol/L 11/24/17 0625 Carbon Dioxide Level 33 mmol/L H 11/24/17624 Chloride Level 101 mmol/L 11/24/17624 Blood Urea Nitrogen 36 mg/dl H 11/24/17624 Creatinine 2.34 mg/dl H 11/24/17624 Random Glucose 100 mg/dl H 11/24/17624 Pro-B-Type Natriuretic Peptide 79060 pg/ml H 11/24/17624 Activated Partial Thromboplast Time 35.9 SECONDS H 11/24/17624 Partial Thromboplastin Ratio 1.4 11/24/17624 Item Value Date Time Arterial Blood pH 7.50 H 11/24/17818 Arterial Blood Partial Pressure CO2 41 mmHg 11/24/17818 Arterial Blood Partial Pressure O2 65 mm/Hg L 11/24/17818 Arterial Blood HCO3 31 mmol/L H 11/24/17 08 (Lizette Escalante, PA-C) Diagnostic Results CXR: 1. Complete opacification right hemithorax, likely secondary to a combination of right pleural fluid and right lung atelectasis/consolidation 2. Persistent minimal left basilar airspace opacities Echo 2D The aortic valve is moderately calcified. * Moderate valvular aortic stenosis. * Mild aortic regurgitation. * There is moderate concentric left ventricular hypertrophy. * Ejection Fraction = 50-55%. * The left ventricular wall motion is normal. * The right ventricular systolic function is normal. * There is trace mitral regurgitation. * There is mild to moderate tricuspid regurgitation. (Lizette Escalante, PA-C) Assessment and Plan Assessment and Plan 77-year-old male with significant past medical history of CAD status post stents ( x3 in 05/2017), chronic diastolic CHF, moderate aortic stenosis, hypertension, COPD, GAURANG on CPAP, right lung mass status post lobectomy secondary to adenocarcinoma of the lung at [facility], postoperative paroxysmal atrial fibrillation, esophageal diverticulum with recurrent aspiration pneumonia , CKD stage III who presented to [facility] with hypoxia suspicious for bilateral PNA secondary to aspiration, right pleural effusion. Acute Hypoxic Respiratory Failure with respiratory Alkalosis -[place] to be multifactorial secondary to bilateral PNA, DHF, COPD exacerbation Acute Aspiration Pneumonia - Continue IV Zosyn for broad spectrum/aspiration coverage; Vanco discontinued on 11/23 due to MRSA swab negative and suspicion of MRSA PNA low. - Continue IV solumedrol, nebulizer, O2 - Repeat CXR showed complete opacifacation of R. lobe, per nursing Pleurx cath to be placed today, will await further recommendations from Dr. Cole. - GI planning PEG placement due to recurrent aspiration and esophageal diverticulum, patient in agreement - Of significance patient did have bronchoscopy of his recent hospitalization in [facility] in which culture grew greater than 100 K yeast. Esophageal Diverticulum with Esophageal Dysmotility -Danial Aspiration -Continue NPO, necessary meds converted to IV. -GI on board, planning for PEG tube as patient now agreeable. R Loculated Pleural Effusion - s/p thoracentesis 11/22 1100cc removed, fluid analysis reviewed appears transudative. - Echo reviewed - Will hold off on diuretics at this time as patient is NPO. - appreciate thoracic surgery input. COPD Exacerbation - Continue O2, prednisone, nebulizer treatments GAURANG on CPAP CAD - s/p multiple stents, most recent 05/2017 had three stents placed; total of 7 stents. - continue medical management of plavix, metoprolol, lipitor. Plavix to continue 1 year uninterrupted. - Given NPO status plavix and lipitor on hold until peg placed. - thoracic surgery okay with plan to continue medication Paroxysmal A. Fib Patient developed PAF status post right lung lobectomy at [facility] in which he was placed on amiodarone and Xarelto. He then presented to [facility] in which cardiology was consulted, Dr. Madrid, who recommended continuing amiodarone; however decreasing to daily at discharge. Further she recommended discontinuing atenolol and switching it to metoprolol as well as continuing CCB. Xarelto was transitioned to Eliquis secondary to renal dysfunction. -Currently in Afibb. on IV Lopressor. Cardiology ordered IV digoxin this a.m, now placed on Amio gtt. (Diltiazem, Amio, eliquis on hold due to NPO status.) Once NPO status lifted will need to re-initiate amiodarone, diltiazem. -Currently not on IV heparin due to planned procedures Recent R Lung Adenocarcinoma - s/p resection of R upper lobe at [facility] Chronic Diastolic CHF -Currently patient appears euvolemic. Continue IV metoprolol. Will hold off on further diuretics at this time due to n.p.o. status. -Echo done and noted EF 50-55% -Weight 102kg CKD stage 3 - creatinine appears to be at baseline, 36/2.34, repeat BMP in a.m. and monitor Hypokalemia -patient received 10 mEq IV 4, K now with in range. Hyperglycemia due to steroids - A1c 5.9 - Continue Levemir 5 units subq daily - Monitor blood sugars HTN -Patient's blood pressure is better this morning, he did require IV hydralazine 10mg over night with SBP Max 204/82, currently 145/82 -Continue to hold oral clonidine, Cardizem. * note patient is to be on losartan 50mg 2 tabs po daily. Will add to home med list as this was not on current list. -Continue IV Lopressor -Clonidine patch 0.2 mg -We will continue to monitor patient's blood pressure closely addendum: Patient with elevated bp this afternoon. Spoke with Dr. Rhoades. Will go ahead and give dose of lopressor now. If elevated bp continues he recommends nitropaste. Anemia -Hemoglobin hematocrit 10.2/32.0 respectively today. -Currently stable DVT ppx - Hold IV heparin, Hold Eliquis - SCDs FULL CODE (Lizette Escalante, JOSE ALBERTO) ATTENDING ADDENDUM care coordinated with JAMES but need PT notes please refer to her notes for full details, I agree with her notes patient seen and examined, records reviewed by myself as well on exam, patient seen with at the bedside Has mild dyspnea, but not in distress on the facemask Denies chest pain No abdominal pain no other symptoms VS noted and reviewed oriented 2, not in distress, speaks in sentences with no effort nor accessory muscle use normal rate, regular rhythm, no murmurs Decreased breath sounds on the right, clear on the left, no wheezing non distended, soft, nontender no bipedal edema, erythema, warmth no neuro deficits Labs noted as well as repeat chest x-ray ASSESSMENT/PLAN> Acute Hypoxic Respiratory Failure with respiratory Alkalosis -[place] to be multifactorial secondary to bilateral PNA, pleural effusion, COPD exacerbation Acute Aspiration Pneumonia Continue Zosyn follow-up follow-up cultures For PEG tube placement is actively on Wednesday R Loculated Pleural Effusion - s/p thoracentesis 11/22 1100cc removed, fluid analysis reviewed appears transudative. - Echo reviewed -Repeat chest x-ray showing recurrence of pleural effusion Pleurx cath placed Patient may need bronchoscopy -Lasix 20 mg IV daily started COPD Exacerbation - Continue O2, prednisone, nebulizer treatments Paroxysmal A. Fib On metoprolol IV Heart rate uncontrolled, amiodarone started HTN IV Lopressor increased Nitropaste ordered Continue to monitor other diagnoses and plan of care as per JAMES Yadav notes New Forman MD (New Forman MD)
--- NOTE | 2017-11-24 13:10 | DIAGNOSTIC IMAGING REPORT ---
CHEST ONE VIEW PORTABLE CLINICAL HISTORY: pleurex insertion tube position COMPARISON STUDY: 11/24/2017 7:24 AM FINDINGS: Improved aeration right mid to lower lung posterior right basilar Pleurx drainage catheter placement. Residual apical pleural thickening. Left lung is clear. IMPRESSION: Improved aeration right mid to lower lung post Pleurx catheter insertion. No evidence for pneumothorax. The above report was generated using voice recognition software. It may contain grammatical, syntax or spelling errors. Electronically signed by: Jam Calabrese M.D. 11/24/2017 1:09 PM Dictated Date/Time: 11/24/2017 1:08 PM
--- NOTE | 2017-11-24 14:03 | PULMONARY PROGRESS NOTE ---
DATE: 11/24/2017 TIME: 1:30 p.m. SUBJECTIVE: The patient denies complaints. He states he is not noticing any significant shortness of breath. He did have some chest pain on the right. Within the past hour, Dr. Cole was in and inserted a PleurX catheter. This apparently was done because this morning's chest x-ray showed a dramatic worsening of his x-ray with a complete opacification on the right. Reportedly, 1.9 liters of fluid was removed. The patient is not having any problems post procedure. OBJECTIVE: GENERAL: The patient appears comfortable. VITAL SIGNS: His temperature is 36.7. He has not had any significant fevers. His heart rate today has been elevated. Current heart rate is 132. I cannot exclude flutter. It does look regular. P waves are not obvious. Blood pressure was 187/94. CHEST: Auscultation of the lung peck reveals decreased aeration on the right compared with the left. Mild rhonchi were heard. Saturation is 92% on 7-liter OxyMask. EXTREMITIES: Revealed mild edema bilaterally. LABORATORY DATA: White count today is 20.65. Hemoglobin 10.2. Platelets 302,000. Blood gas this morning showed a pH of 7.50 with a pCO2 of 41 and a pO2 of 65. This was done reportedly on 50% oxygen, but we do not know if he had BiPAP on or not. The pCO2 level has decreased. Initially, it had been 56 and it is down to 41. Electrolytes show sodium 141, potassium 3.7, chloride 101, bicarbonate 33. BUN is 36 with a creatinine of 2.34. ProBNP today is 20,723. Prior on the , it had been 15,775. Pleural fluid cytology from the 1st tap done 11/22 showed no malignant cells. Echocardiogram done today shows ejection fraction 50-55%. There was moderate concentric LVH. Right ventricular systolic function was normal. There was moderate aortic stenosis. IMPRESSIONS: 1. Respiratory failure - acute - with hypoxia and hypercarbia. 2. Bilateral pneumonia secondary to aspiration. 3. Lung CA - status post right upper lobectomy. 4. Chronic obstructive pulmonary disease. 5. Obstructive sleep apnea. 6. Recurrent exudative pleural effusion. 7. Chronic kidney disease. 8. Questionable congestive heart failure. COMMENTS: The patient now has a PleurX catheter in place. He has been having large quantities of output as noted. The case was discussed with the GI team. They are planning on doing a PEG tube on Wednesday. He currently is tachycardic. The reason for that is not clear. He will need to have regular removal of fluid through the PleurX which I am sure Dr. Cole and his team will take care of. He remains on methylprednisolone, which has been decreased to 40 mg daily and I believe we can decrease that further down to 20 mg per day. He remains on Zosyn. He is on levalbuterol and ipratropium. He is receiving IV metoprolol. He is a very complex case. We will continue to follow closely.
[2017-11-24] MEDS ORDERED: AMIODARONE IV BOLUS / DRIP IV STA (14:15)
[2017-11-24] MEDS ORDERED: AMIODARONE 150MG / 100ML D5W ONE (14:23)
[2017-11-24] MEDS ORDERED: AMIODARONE 360MG / 200ML D5W ONE (14:23)
--- NOTE | 2017-11-24 14:24 | Cardiology Follow-Up ---
Subjective Subjective Date of Service: Nov 24, 2017. Pt evaluation today including: conversation w/ patient, physical exam, chart review, lab review, review of studies, review of inpatient medication list Problem List The patient is currently sitting in a chair. He has been in atrial fibrillation with RVR through most of the day. He was given 1 dose of IV digoxin which broke him for short period of time. His home amiodarone was not started at admission. Review of Systems Constitutional: No fever, No chills ENT: + trouble swallowing Respiratory: + cough, + sputum, + shortness of breath Cardiac: No chest pain, No edema, No palpitations Abdomen: + nausea, + vomiting, + diarrhea, No pain, No constipation, No GI bleeding Musculoskeletal: No joint pain Male : No dysuria, No urinary frequency Psychiatric: No depression symptoms, No anxiety, No insomnia Heme: No abnormal bleeding/bruising Objective Vital Signs Last Vital Signs Documentation Date Time Temp Pulse Resp B/P (MAP) Pulse Ox O2 Delivery O2 Flow Rate FiO2 11/24/17 12:00 92 Oxymask 7.0 11/24/17 11:59 128 11/24/17 11:52 36.7 20 187/94 (125) 11/24/17 08:00 50 Physical Exam: General Appearance: WD/WN, no apparent distress ENT: normal ENT inspection, + pertinent finding (mucus membranes moist) Neck: supple, no adenopathy Respiratory/Chest: chest non-tender, lungs clear, no respiratory distress, + decreased breath sounds (at bases R >L), + pertinent finding (on O2 via Mask 5L) Cardiovascular: regular rate, rhythm, no edema, no JVD, no murmur Abdomen: normal bowel sounds, non tender, soft, no organomegaly Extremities: normal range of motion, non-tender, normal inspection, no pedal edema, no calf tenderness Neurologic/Psychiatric: alert, normal mood/affect, oriented x 3 Skin: normal color, no rash Assessment and Plan Impression: 1. Paroxysmal atrial fibrillation 2. Coronary artery disease with multiple previous coronary interventions with the last being in May of this year when he received coronary stents. 3. Lung cancer status post right upper lobe resection 4. Esophageal diverticulum 5. Chronic aspiration with right pleural effusion Recommendations: I will restart the patient on amiodarone intravenously to control his atrial fibrillation. I would recommend also daily diuretic. Uncertain as to when he may receive his PEG tube. The patient's heparin has been on hold in anticipation of procedures. At some point the patient will have to be re- anticoagulated. Medications: Current Inpatient Medications Medications (Trade) Dose Ordered Sig/Vicki Route Start Time Stop Time Status Last Admin Dose Admin Nitroglycerin (Nitrostat Tab) 0.4 mg UD PRN SL 11/21/17 05:00 12/21/17 04:59 Hydromorphone HCl (Dilaudid Inj) 0.5 mg Q3H PRN IV 11/21/17 05:00 12/05/17 04:59 11/23/17 17:42 0.5 MG Oxycodone/ Acetaminophen (Percocet 5-325mg Tab) 1 tab Q6H PRN PO 11/21/17 05:00 12/05/17 04:59 Prochlorperazine Edisylate 5 mg/ Syringe 5 ml @ 5 mls/min Q6H PRN IV 11/21/17 05:00 12/21/17 04:59 11/22/17 04:18 5 MLS/MIN Miscellaneous Information (Consult) 1 ea UD PRN N/A 11/21/17 09:00 12/21/17 08:59 Atorvastatin Calcium (Lipitor Tab) 40 mg DAILY PO 11/21/17 09:00 12/21/17 08:59 11/22/17 08:20 40 MG Finasteride (Proscar Tab) 5 mg QAM PO 11/21/17 09:00 12/21/17 08:59 11/22/17 08:17 5 MG Gabapentin (Neurontin Cap) 200 mg TID PO 11/21/17 09:00 12/21/17 08:59 11/21/17 21:02 200 MG Nefazodone HCl (serZONE TAB) 150 mg BID PO 11/21/17 09:00 12/21/17 08:59 11/22/17 09:34 150 MG Quetiapine Fumarate (seroQUEL TAB) 25 mg BID PO 11/21/17 09:00 12/21/17 08:59 11/22/17 08:21 25 MG Senna/Docusate Sodium (Senokot S Tab) 1 tab DAILY PRN PO 11/21/17 05:00 12/21/17 04:59 7/23/18 08:23 1 TAB Insulin Glargine (Lantus Solostar Pen) 5 units DAILY SC 11/22/17 09:00 12/22/17 08:59 11/22/17 09:35 5 UNITS Clopidogrel Bisulfate (plAVix TAB) 75 mg QAM PO 11/21/17 09:00 12/21/17 08:59 11/22/17 08:22 75 MG Paroxetine HCl (pAXil TAB) 20 mg DAILY PO 11/21/17 09:00 12/21/17 08:59 11/22/17 08:20 20 MG Tamsulosin HCl (Flomax Cap) 0.4 mg DAILY PO 11/21/17 09:00 12/21/17 08:59 11/22/17 08:20 0.4 MG Ipratropium [place] (Atrovent 0.02% 0.5MG/2.5ML Neb) 0.5 mg Q6R INH 11/21/17 09:00 12/21/17 08:59 11/24/17 07:07 0.5 MG Levalbuterol (Xopenex 1.25MG/ 0.5ML Neb) 1.25 mg Q6R INH 11/21/17 09:00 12/21/17 08:59 11/24/17 07:07 1.25 MG Ipratropium [place] (Atrovent 0.02% 0.5MG/2.5ML Neb) 0.5 mg Q4H PRN INH 11/21/17 06:15 12/21/17 06:14 Levalbuterol (Xopenex 1.25MG/ 0.5ML Neb) 1.25 mg Q4H PRN INH 11/21/17 06:15 12/21/17 06:14 Piperacillin Sod/ Tazobactam Sod 3.375 gm/Dextrose 115 ml @ 28.75 mls/ hr Q8H IV 11/21/17 10:00 11/28/17 09:59 11/24/17 09:00 28.75 MLS/HR Heparin Sodium/ Dextrose 500 ml @ 20 mls/hr Q24H IV 11/21/17 08:30 12/21/17 08:14 Future Hold 11/21/17 09:28 20 MLS/HR Lorazepam (Ativan Inj) 1 mg Q4H PRN IV 11/22/17 10:45 12/22/17 10:44 11/24/17 08:32 1 MG Pantoprazole Sodium 40 mg/ Syringe 10 ml @ 5 mls/min DAILY@11 IV 11/22/17 11:00 12/22/17 10:59 11/24/17 09:24 5 MLS/MIN Methylprednisolone Sodium Succinate 40 mg/Syringe 0.64 ml @ 1.5 mls/min DAILY IV 11/23/17 09:00 12/23/17 08:59 11/24/17 07:45 1.5 MLS/MIN Metoprolol Tartrate (Lopressor Iv) 5 mg Q6 IV. 11/22/17 12:00 12/22/17 11:59 11/24/17 11:59 5 MG Famotidine 20 mg/ Syringe 5 ml @ 2.5 mls/min Q12 IV 11/22/17 11:00 12/22/17 10:59 11/24/17 09:00 2.5 MLS/MIN Acetaminophen (Tylenol Supp) 650 mg Q4H PRN [place] 11/23/17 09:45 12/23/17 09:44 Clonidine HCl (Cpbiofyc-Vha-7 0.2mg/24hr Patch) 1 patch Q7D@0900 TD 11/23/17 12:00 12/23/17 11:59 11/23/17 14:21 1 PATCH Miscellaneous (Remove Clonidine Patch) 1 ea Q7D@0859 N/A 11/30/17 08:59 12/30/17 08:58 Miscellaneous Information (Check Clonidine Patch Placement) 1 ea QS N/A 11/23/17 16:00 12/23/17 15:59 11/24/17 07:38 1 EA Metoprolol Tartrate (Lopressor Iv) 2.5 mg Q6H PRN IV 11/23/17 11:00 12/23/17 10:59 11/24/17 07:39 2.5 MG Amiodarone HCl (Cordarone IV Bolus / Drip) 1 ea NOW STAT IV 11/24/17 14:15 11/24/17 14:16 UNV Lab Results: Last 24 Hours Test 11/23/17 16:46 11/23/17 17:26 11/23/17 20:24 11/24/17 00:00 Bedside Glucose 129 mg/dl 133 mg/dl Potassium Level 4.0 mmol/L Pleural Fluid Glucose 80 mg/dl Test 11/24/17 06:25 11/24/17 07:04 11/24/17 08:19 11/24/17 11:26 White Blood Count 20.65 K/uL Red Blood Count 3.55 M/uL Hemoglobin 10.2 g/dL Hematocrit 32.0 % Mean Corpuscular Volume 90.1 fL Mean Corpuscular Hemoglobin 28.7 pg Mean Corpuscular Hemoglobin Concent 31.9 g/dl RDW Standard Deviation 47.6 fL RDW Coefficient of Variation 14.5 % Platelet Count 302 K/uL Mean Platelet Volume 10.8 fL Activated Partial Thromboplast Time 35.9 SECONDS Partial Thromboplastin Ratio 1.4 Sodium Level 141 mmol/L Potassium Level 3.7 mmol/L Chloride Level 101 mmol/L Carbon Dioxide Level 33 mmol/L Anion Gap 7.0 mmol/L Blood Urea Nitrogen 36 mg/dl Creatinine 2.34 mg/dl Est Creatinine Clear Calc Drug Dose 31.1 ml/min Estimated GFR () 30.0 Estimated GFR (Non- 25.9 BUN/Creatinine Ratio 15.4 Random Glucose 100 mg/dl Calcium Level 8.4 mg/dl Phosphorus Level 2.9 mg/dl Magnesium Level 2.4 mg/dl Pro-B-Type Natriuretic Peptide 08681 pg/ml Bedside Glucose 103 mg/dl 125 mg/dl Arterial Blood pH 7.50 Arterial Blood Partial Pressure CO2 41 mmHg Arterial Blood Partial Pressure O2 65 mm/Hg Arterial Blood HCO3 31 mmol/L Arterial Blood Oxygen Saturation 91.8 % Arterial Blood Base Excess 7.3 mEq/L Arterial Blood Gas Delivery 50% Anthony Test POS
[2017-11-24] MEDS ORDERED: FUROSEMIDE INJ 20 MG in SYRINGE 0 ML IV ONE (14:30)
[2017-11-24] MEDS ORDERED: 0.2 MICRON FILTER SET 1 EA IV STA (14:36)
--- NOTE | 2017-11-24 15:00 | Progress Note ---
Progress Note Date of Service Nov 24, 2017. Progress Note GI short note: Pt going to have Pleurex catheter placement on R lung today. He is still NPO. We will plan on PEG tube placement endoscopically done by Dr. Samano on 11/26/17. Case were discussed with Dr. Linton who initially had seen pt over the weekend. ? achalasia, his prior motility study was inadequate. We will proceed with PEG placement and after he's stable pulmonary standpoint we can plan on f/ u with Dr. Qiu for evaluation to have motility study done (may need manometry catheter placed endoscopically); and for future consideration for POEM procedure.
--- NOTE | 2017-11-24 16:44 | SURGERY PROGRESS NOTE ---
DATE: 11/24/2017 SUBJECTIVE: Mr. Juárez was seen today. I am quite concerned about him. He is requiring more oxygen. He has decreased breath sounds on the left. A chest x-ray was obtained and he has complete opacification of the right pleural cavity. Needless to say, I am quite concerned about him. We had a long talk about this. He has multiple problems including the followin. Status post right upper lobectomy 3 weeks ago for an early stage lung cancer: 2. Renal insufficiency. 3. Atrial fibrillation (acute). 4. Probable achalasia with aspiration. 5. Increasing hypoxemia. After a long talk, I have elected to proceed with a PleurX catheter. We are going to do this under ultrasound guidance. I had a long talk with the patient and his . I am quite concerned about him. I have explained that we are also probably going to need to do a bronchoscopy on him. I see how he responds to the PleurX first.
[2017-11-24] MEDS ORDERED: NITROGLYCERIN 2% OINTMENT 30GM TUBE EXT SCH (18:15)
--- NOTE | 2017-11-24 18:24 | OPERATIVE REPORT ---
DATE OF OPERATION: 11/24/2017 PROCEDURE: Insertion of a right PleurX catheter. SURGEON: Alec Cole MD PUBLIC [employer]OUSING MANAGER: JAMES Jang ANESTHESIA: Local. SPECIFICS OF PROCEDURE: Mr. Juárez and I had a long discussion of his opacification of his right hemithorax. I am quite concerned about it. We elected to proceed with an ultrasound-guided insertion of a PleurX catheter. On 11/24/2017, the patient was placed in the left lateral decubitus position and the right chest was prepped and draped in usual sterile fashion. Under the use of ultrasound guidance, we were able to find a window which was a bit posterior to the midaxillary line and at the eighth interspace. A skin wheal was raised with 25 gauge needle with 1% Xylocaine. A large bore needle was used to anesthetize the deeper tissues and pleura. We got free flowing rust-colored fluid. A guidewire was inserted through the needle and needle removed. The 1 cm incision was made and about 10 cm anterior to this, another skin wheal was raised with a 25 gauge needle with 1% Xylocaine and a #11 blade was used to create a 1 cm incision. Subcutaneous tissues between the 2 was anesthetized with a long needle and 1% Xylocaine. A tunneler was attached to PleurX catheter and dragged from the anterior to the posterior incision. Tunneler was then removed. The introducer sheath with the inner cannula was slid over the guidewire in the posterior incision and the inner cannula guidewire removed and PleurX catheter was able to be inserted through the peel away sheath which was removed. Sutured in place with 2 separate 3-0 silk sutures distally and 3-0 silk suture was used to anchor the catheter to the patient's skin at the insertion site. About 900 mL of a rust-colored fluid was drained. He had no air leak. He tolerated it well. His x-ray was greatly improved. It appeared that his A-a gradient appears to be improved. I attest to the content of the Intraoperative Record and any orders documented therein. Any exceptions are noted below. MTDD
--- NOTE | 2017-11-24 19:02 | DIAGNOSTIC IMAGING REPORT ---
HEAD WITHOUT CONTRAST (CT) CLINICAL HISTORY: 77 years-old Male with r/o cva. Acute strokelike symptoms TECHNIQUE: Multiple axial CT images of the head were obtained without contrast. A dose lowering technique was utilized adhering to the principles of ALARA. CT DOSE: 537.48 mGy.cm COMPARISON: None. FINDINGS: No acute intracranial hemorrhage, midline shift, intracranial mass, hydrocephalus, territorial ischemia or abnormal extra-axial collection. Age-related atrophy with ex vacuo ventriculomegaly. Ill-defined low-attenuation about the white matter suggests chronic microvascular ischemic changes. Cerebral vascular calcifications are noted. The calvarium is intact. The paranasal sinuses, mastoid air cells, and middle ear cavities are clear. IMPRESSION: No acute intracranial abnormality. The above report was generated using voice recognition software. It may contain grammatical, syntax or spelling errors. Electronically signed by: Eugene Bueno M.D. 11/24/2017 7:00 PM Dictated Date/Time: 11/24/2017 6:58 PM
[2017-11-24] MEDS: AMIODARONE / D5W 200 ML IV SCH (20:46)
[2017-11-24] MEDS ORDERED: HydrALAZINE HCL 20 MG/ML VIAL IV. ONE (21:00)
[2017-11-24] MEDS: NITROGLYCERIN 2% OINTMENT 30GM TUBE EXT SCH ×2 (21:21→23:17)
[2017-11-25] VITALS (16 sets, daily range): BP systolic 158–198; BP diastolic 76–99; PULSE 69–110; TEMP 36.5–37; O2SAT 94–99
[2017-11-25] MEDS: PIPERACILL/TAZOBAC IV 3.375 GM in D5W 100ML IV SCH ×3 (01:51→17:29)
[2017-11-25] MEDS: LEVALBUTEROL 1.25MG/0.5ML NEB INH SCH ×4 (02:07→19:28)
[2017-11-25] MEDS: IPRATROPIUM BROMIDE NEB SOLN 0.02% 2.5 ML VIAL INH SCH ×4 (02:07→19:30)
[2017-11-25] MEDS: METOPROLOL TARTRATE 1 MG/ML VIAL IV. SCH ×3 (05:49→17:24)
[2017-11-25] MEDS: NITROGLYCERIN 2% OINTMENT 30GM TUBE EXT SCH ×4 (05:50→23:56)
[2017-11-25 06:43] LABS: HEMATOCRIT 33.1 % (42-52); HEMOGLOBIN 10.5 g/dL (14.0-18.0); MEAN CELL VOLUME 89.5 fL (80-100); MEAN CORPUSCULAR HEMOGLOBIN 28.4 pg (25-34); MEAN CORPUSCULAR HGB CONC 31.7 g/dl (32-36); MEAN PLATELET VOLUME 10.4 fL (7.4-10.4); PLATELET COUNT 298 K/uL (130-400); RED CELL DISTRIBUTION WIDTH CV 14.6 % (11.5-14.5); RED CELL DISTRIBUTION WIDTH SD 47.4 fL (36.4-46.3); WHITE BLOOD COUNT 16.62 K/uL (4.8-10.8)
[2017-11-25 06:54] LABS: PTT PATIENT 36.7 SECONDS (21.0-31.0)
[2017-11-25 07:11] LABS: CALCIUM 8.6 mg/dl (8.5-10.1); CREATININE 2.39 mg/dl (0.60-1.40); POTASSIUM 3.5 mmol/L (3.5-5.1)
[2017-11-25 07:21] LABS: BASO % 0.1 %; BASO ABS # 0.01 K/uL (0-0.2); EOS % 0.1 %; EOS ABS # 0.01 K/uL (0-0.5); IG# 0.05 K/uL (0.00-0.02); LYMPH % 12.2 %; LYMPH ABS # 2.02 K/uL (1.2-3.4); MONO % 4.3 %; MONO ABS # 0.71 K/uL (0.11-0.59); NEUT ABS # 13.82 K/uL (1.4-6.5)
[2017-11-25] MEDS: ATORVASTATIN 40 MG TAB PO SCH (07:30)
[2017-11-25] MEDS: NEFAZODONE HCL 100 MG PO SCH ×3 (07:30→21:25)
[2017-11-25] MEDS: PAROXETINE 20 MG TAB PO SCH (07:30)
[2017-11-25] MEDS: CLOPIDOGREL BISULFATE 75 MG TAB PO SCH (07:30)
[2017-11-25] MEDS: FINASTERIDE 5 MG TAB PO SCH (07:30)
[2017-11-25] MEDS: QUETIAPINE FUMARATE 25 MG TAB PO SCH ×3 (07:30→21:24)
[2017-11-25] MEDS: GABAPENTIN 100 MG CAP PO SCH ×3 (07:30→21:00)
[2017-11-25] MEDS: TAMSULOSIN HCL 0.4 MG CAP PO SCH (07:30)
[2017-11-25] MEDS: INSULIN GLARGINE SOLOSTAR 100 UNITS/ML 3 ML PEN SC SCH (07:31)
[2017-11-25] MEDS: FAMOTIDINE IV INJ 20 MG in SYRINGE 3 ML IV SCH ×2 (07:53→21:24)
[2017-11-25] MEDS: AMIODARONE / D5W 200 ML IV SCH ×2 (07:55→21:04)
[2017-11-25] MEDS: METHYLPREDNISOLONE IV 40 MG in SYRINGE 0 ML IV SCH (07:55)
[2017-11-25] MEDS: FUROSEMIDE INJ 20 MG in SYRINGE 0 ML IV SCH (07:56)
[2017-11-25] MEDS: PANTOprazole INJ 40 MG in SYRINGE 0 ML IV SCH (07:56)
[2017-11-25] MEDS: CHECK CLONIDINE PATCH PLACEMENT SCH ×2 (07:57→15:03)
[2017-11-25] MEDS: LORAZEPAM 2 MG/ML 1 ML VIAL IV PRN ×2 (08:00→21:24)
--- NOTE | 2017-11-25 09:03 | DIAGNOSTIC IMAGING REPORT ---
CHEST ONE VIEW PORTABLE CLINICAL HISTORY: effusion catheter placement COMPARISON STUDY: 11/24/2017 FINDINGS: Mildly progressive improvement in aeration right hemithorax. Volume of right effusion is diminished. Right basilar drainage catheter is unchanged in position. No evidence pneumothorax. Unchanging opacification right pulmonary apex. Left lung remains grossly clear. IMPRESSION: Improved exam with improved aeration right mid to lower lung. No evidence for pneumothorax. The above report was generated using voice recognition software. It may contain grammatical, syntax or spelling errors. Electronically signed by: Jam Calabrese M.D. 11/25/2017 7:20 AM Dictated Date/Time: 11/25/2017 7:19 AM
--- NOTE | 2017-11-25 09:13 | Cardiology Follow-Up ---
Subjective Subjective Date of Service: Nov 25, 2017. Pt evaluation today including: conversation w/ patient, conversation w/ family , physical exam, chart review, lab review, review of studies, review of inpatient medication list Additional Details: The patient converted to normal sinus rhythm. He also had a large diuresis after given Lasix yesterday and actually feels improved. Review of Systems Constitutional: No fever, No chills ENT: + trouble swallowing Respiratory: + cough, + sputum, + shortness of breath Cardiac: No chest pain, No edema, No palpitations Abdomen: + nausea, + vomiting, + diarrhea, No pain, No constipation, No GI bleeding Musculoskeletal: No joint pain Male : No dysuria, No urinary frequency Psychiatric: No depression symptoms, No anxiety, No insomnia Heme: No abnormal bleeding/bruising Objective Vital Signs Last Vital Signs Documentation Date Time Temp Pulse Resp B/P (MAP) Pulse Ox O2 Delivery O2 Flow Rate FiO2 11/25/17 07:23 75 16 98 Mask 8.0 11/25/17 07:10 36.5 177/92 (120) 11/24/17 23:41 40 Physical Exam: General Appearance: WD/WN, no apparent distress ENT: normal ENT inspection, + pertinent finding (mucus membranes moist) Neck: supple, no adenopathy Respiratory/Chest: chest non-tender, lungs clear, no respiratory distress, + decreased breath sounds (at bases R >L), + pertinent finding (on O2 via Mask 5L) Cardiovascular: regular rate, rhythm, no edema, no JVD, no murmur Abdomen: normal bowel sounds, non tender, soft, no organomegaly Extremities: normal range of motion, non-tender, normal inspection, no pedal edema, no calf tenderness Neurologic/Psychiatric: alert, normal mood/affect, oriented x 3 Skin: normal color, no rash Assessment and Plan Impression: 1. Paroxysmal atrial fibrillation 2. Coronary artery disease with multiple previous coronary interventions with the last being in May of this year when he received coronary stents. 3. Lung cancer status post right upper lobe resection 4. Esophageal diverticulum 5. Chronic aspiration with right pleural effusion Recommendations: I the patient will have a PEG tube placed tomorrow. In the meantime he needs to be anticoagulated not only for the atrial fibrillation but also for deep laxatives. I will start IV heparin without bolus. The GI service can discontinue the heparin after midnight for the procedure. Otherwise the patient seems to be doing well. I believe he is clinically stable enough to undergo the PEG tube placement. Medications: Current Inpatient Medications Medications (Trade) Dose Ordered Sig/Vicki Route Start Time Stop Time Status Last Admin Dose Admin Nitroglycerin (Nitrostat Tab) 0.4 mg UD PRN SL 11/21/17 05:00 12/21/17 04:59 Hydromorphone HCl (Dilaudid Inj) 0.5 mg Q3H PRN IV 11/21/17 05:00 12/05/17 04:59 11/23/17 17:42 0.5 MG Oxycodone/ Acetaminophen (Percocet 5-325mg Tab) 1 tab Q6H PRN PO 11/21/17 05:00 12/05/17 04:59 Prochlorperazine Edisylate 5 mg/ Syringe 5 ml @ 5 mls/min Q6H PRN IV 11/21/17 05:00 12/21/17 04:59 11/22/17 04:18 5 MLS/MIN Miscellaneous Information (Consult) 1 ea UD PRN N/A 11/21/17 09:00 12/21/17 08:59 Atorvastatin Calcium (Lipitor Tab) 40 mg DAILY PO 11/21/17 09:00 12/21/17 08:59 11/22/17 08:20 40 MG Finasteride (Proscar Tab) 5 mg QAM PO 11/21/17 09:00 12/21/17 08:59 11/22/17 08:17 5 MG Gabapentin (Neurontin Cap) 200 mg TID PO 11/21/17 09:00 12/21/17 08:59 11/21/17 21:02 200 MG Nefazodone HCl (serZONE TAB) 150 mg BID PO 11/21/17 09:00 12/21/17 08:59 11/22/17 09:34 150 MG Quetiapine Fumarate (seroQUEL TAB) 25 mg BID PO 11/21/17 09:00 12/21/17 08:59 11/22/17 08:21 25 MG Senna/Docusate Sodium (Senokot S Tab) 1 tab DAILY PRN PO 11/21/17 05:00 12/21/17 04:59 11/22/17 08:23 1 TAB Insulin Glargine (Lantus Solostar Pen) 5 units DAILY SC 11/22/17 09:00 12/22/17 08:59 11/22/17 09:35 5 UNITS Clopidogrel Bisulfate (plAVix TAB) 75 mg QAM PO 11/21/17 09:00 12/21/17 08:59 11/22/17 08:22 75 MG Paroxetine HCl (pAXil TAB) 20 mg DAILY PO 11/21/17 09:00 12/21/17 08:59 11/22/17 08:20 20 MG Tamsulosin HCl (Flomax Cap) 0.4 mg DAILY PO 11/21/17 09:00 12/21/17 08:59 11/22/17 08:20 0.4 MG Ipratropium [place] (Atrovent 0.02% 0.5MG/2.5ML Neb) 0.5 mg Q6R INH 11/21/17 09:00 12/21/17 08:59 11/25/17 07:02 0.5 MG Levalbuterol (Xopenex 1.25MG/ 0.5ML Neb) 1.25 mg Q6R INH 11/21/17 09:00 12/21/17 08:59 11/25/17 07:02 1.25 MG Ipratropium [place] (Atrovent 0.02% 0.5MG/2.5ML Neb) 0.5 mg Q4H PRN INH 11/21/17 06:15 12/21/17 06:14 Levalbuterol (Xopenex 1.25MG/ 0.5ML Neb) 1.25 mg Q4H PRN INH 11/21/17 06:15 12/21/17 06:14 Piperacillin Sod/ Tazobactam Sod 3.375 gm/Dextrose 115 ml @ 28.75 mls/ hr Q8H IV 11/21/17 10:00 11/28/17 09:59 11/25/17 07:55 28.75 MLS/HR Heparin Sodium/ Dextrose 500 ml @ 20 mls/hr Q24H IV 11/21/17 08:30 12/21/17 08:14 Future Hold 11/21/17 09:28 20 MLS/HR Lorazepam (Ativan Inj) 1 mg Q4H PRN IV 11/22/17 10:45 12/22/17 10:44 11/25/17 08:00 0.5 MG Pantoprazole Sodium 40 mg/ Syringe 10 ml @ 5 mls/min DAILY@11 IV 11/22/17 11:00 12/22/17 10:59 11/25/17 07:56 5 MLS/MIN Methylprednisolone Sodium Succinate 40 mg/Syringe 0.64 ml @ 1.5 mls/min DAILY IV 11/23/17 09:00 12/23/17 08:59 11/25/17 07:55 1.5 MLS/MIN Famotidine 20 mg/ Syringe 5 ml @ 2.5 mls/min Q12 IV 11/22/17 11:00 12/22/17 10:59 11/25/17 07:53 2.5 MLS/MIN Acetaminophen (Tylenol Supp) 650 mg Q4H PRN [place] 11/23/17 09:45 12/23/17 09:44 Clonidine HCl (Olzjmufz-Spd-5 0.2mg/24hr Patch) 1 patch Q7D@0900 TD 11/23/17 12:00 12/23/17 11:59 11/23/17 14:21 1 PATCH Miscellaneous (Remove Clonidine Patch) 1 ea Q7D@0859 N/A 11/30/17 08:59 12/30/17 08:58 Miscellaneous Information (Check Clonidine Patch Placement) 1 ea QS N/A 11/23/17 16:00 12/23/17 15:59 11/25/17 07:57 1 EA Metoprolol Tartrate (Lopressor Iv) 2.5 mg Q6H PRN IV 11/23/17 11:00 12/23/17 10:59 11/24/17 18:24 2.5 MG Furosemide 20 mg/ Syringe 2 ml @ 4 mls/min DAILY IV 11/25/17 09:00 12/25/17 08:59 11/25/17 07:56 4 MLS/MIN Amiodarone HCL/ Dextrose 200 ml @ 16.7 mls/hr [id number] IV 11/24/17 20:43 12/24/17 20:42 11/25/17 07:55 16.7 MLS/HR Metoprolol Tartrate (Lopressor Iv) 7.5 mg Q6 IV. 11/24/17 16:00 12/24/17 15:59 11/25/17 05:49 7.5 MG Nitroglycerin (Nitroglycerin 2% Oint) 1 inch Q6H EXT 11/25/17 00:00 12/25/17 00:00 11/25/17 05:50 1 INCH Lab Results: Last 24 Hours Test 11/24/17 11:26 11/24/17 18:37 11/24/17 23:55 11/25/17 06:31 Bedside Glucose 125 mg/dl 127 mg/dl 111 mg/dl White Blood Count 16.62 K/uL Red Blood Count 3.70 M/uL Hemoglobin 10.5 g/dL Hematocrit 33.1 % Mean Corpuscular Volume 89.5 fL Mean Corpuscular Hemoglobin 28.4 pg Mean Corpuscular Hemoglobin Concent 31.7 g/dl Platelet Count 298 K/uL Mean Platelet Volume 10.4 fL Neutrophils (%) (Auto) 83.0 % Lymphocytes (%) (Auto) 12.2 % Monocytes (%) (Auto) 4.3 % Eosinophils (%) (Auto) 0.1 % Basophils (%) (Auto) 0.1 % Neutrophils # (Auto) 13.82 K/uL Lymphocytes # (Auto) 2.02 K/uL Monocytes # (Auto) 0.71 K/uL Eosinophils # (Auto) 0.01 K/uL Basophils # (Auto) 0.01 K/uL RDW Standard Deviation 47.4 fL RDW Coefficient of Variation 14.6 % Immature Granulocyte % (Auto) 0.3 % Immature Granulocyte # (Auto) 0.05 K/uL Activated Partial Thromboplast Time 36.7 SECONDS Partial Thromboplastin Ratio 1.4 Sodium Level 142 mmol/L Potassium Level 3.5 mmol/L Chloride Level 101 mmol/L Carbon Dioxide Level 34 mmol/L Anion Gap 7.0 mmol/L Blood Urea Nitrogen 37 mg/dl Creatinine 2.39 mg/dl Est Creatinine Clear Calc Drug Dose 29.2 ml/min Estimated GFR () 29.2 Estimated GFR (Non- 25.2 BUN/Creatinine Ratio 15.6 Random Glucose 108 mg/dl Calcium Level 8.6 mg/dl
[2017-11-25] MEDS ORDERED: POTASSIUM CHLORIDE 10 MEQ TABCR PO ONE (09:30)
[2017-11-25] MEDS ORDERED: FUROSEMIDE INJ 20 MG in SYRINGE 0 ML IV ONE (09:30)
--- NOTE | 2017-11-25 09:39 | Hospitalist Progress Note ---
Hospitalist Progress Note Date of Service Nov 25, 2017 ~8:00. (Lizette Escalante PA-C) Subjective Pt evaluation today including: conversation w/ patient, chart review Patient was seen and evaluated sitting up in chair in room 239-2 with RN present. He continues n.p.o. status. "I feel pretty good today." "My breathing is much better." Patient continues to have mild shortness of breath, much improved, productive cough, purulent sputum. Overall he slept well last night. He denies headache, lightheadedness , dizziness, fever, chills, sweats, nausea, vomiting, abdominal pain. He is urinating adequately. "He is tearful during history, stating he gets work up easily over his current condition." Per nursing patient converted to normal sinus rhythm around 5 AM, 350 cc of brown pleural fluid was drained from Pleurx cath, and blood pressure continues to be elevated; however seems to be improving with new order Nitropaste, increased Lopressor. Additional Comments: As noted per HPI, 10 systems reviewed and negative unless noted above. (Lizette Escalante, HOLLIEC) Medications Medications (Trade) Dose Ordered Sig/Vicki Route Start Time Stop Time Status Last Admin Dose Admin Furosemide 20 mg/ Syringe 2 ml @ 4 mls/min NOW ONCE IV 11/24/17 14:30 11/24/17 14:38 DC 11/24/17 14:51 4 MLS/MIN Furosemide 20 mg/ Syringe 2 ml @ 4 mls/min DAILY IV 11/25/17 09:00 12/25/17 08:59 11/25/17 07:56 4 MLS/MIN Amiodarone HCL/ Dextrose (Nexterone / D5w) 150 mg STK-MED ONCE .ROUTE 11/24/17 14:23 11/24/17 14:24 DC 11/24/17 14:49 150 MG Amiodarone HCL/ Dextrose (Nexterone / D5w) 360 mg STK-MED ONCE .ROUTE 11/24/17 14:23 11/24/17 14:24 DC 11/24/17 14:50 360 MG Amiodarone HCL/ Dextrose 200 ml @ 16.7 mls/hr [id number] IV 11/24/17 20:43 12/24/17 20:42 11/25/17 07:55 16.7 MLS/HR Metoprolol Tartrate (Lopressor Iv) 7.5 mg Q6 IV. 11/24/17 16:00 12/24/17 15:59 11/25/17 05:49 7.5 MG Nitroglycerin (Nitroglycerin 2% Oint) 0.5 inch Q6H EXT 11/24/17 18:15 11/24/17 20:59 DC 11/24/17 18:24 0.5 INCH Nitroglycerin (Nitroglycerin 2% Oint) 1 inch Q6H EXT 11/25/17 00:00 12/25/17 00:00 11/25/17 05:50 1 INCH Hydralazine HCl (HydrALAZINE INJ) 5 mg NOW ONCE IV. 11/24/17 21:00 11/24/17 21:04 DC 11/24/17 21:27 5 MG (Lizette Escalante, PA-C) Objective Vital Signs Vital Signs Label Value Date Time Patient Temperature 36.5 C. 11/25/17 0710 Temperature Source Oral 11/25/17 0710 Pulse 74 11/25/17 0710 Location Apical Blood Pressure Assessment 177/92 (120) 11/25/17 0710 Location Right Arm Source NIBP Position Supine Bedside Pulse Oximetry 98 % 11/25/17 0710 Blood Pressure Assessment 158/88 11/25/17 0549 Blood Pressure Assessment 158/88 (111) 11/25/17 0527 Location Left Arm Source NIBP Position Supine Item Value Date Time Oxygen Delivery Method Oxymask 11/25/17 0710 Oxygen Flow Rate 8.0 L/min 11/25/17 0710 (Lizette Escalante PA-C) Physical Exam General Appearance: WD/WN, no apparent distress, + pertinent finding (Sitting up in chair with oxygen mask in place, able to converse at ease) Eyes: normal inspection, PERRL, sclerae normal ENT: normal ENT inspection, hearing grossly normal, + pertinent finding ( Mucous membranes moist) Neck: supple, no adenopathy, no JVD Respiratory/Chest: chest non-tender, lungs clear, + decreased breath sounds (R> L), + pertinent finding (Pleurx cath noted on right posterior thorax, dressing clean dry and intact, O2 mask 5L) Cardiovascular: regular rate, rhythm, + systolic murmur (2/6 MIYA RUSB) Abdomen: normal bowel sounds, non tender, soft Neurologic/Psychiatric: alert, normal mood/affect, oriented x 3 Skin: normal color, no rash (Lizette Escalante, HOLLIEC) Laboratory Results Last 24 Hours Item Value Date Time White Blood Count 16.62 K/uL H 11/25/17630 Hemoglobin 10.5 g/dL L 11/25/17630 Hematocrit 33.1 % L 11/25/17630 Platelet Count 298 K/uL 11/25/17630 Sodium Level 142 mmol/L 11/25/17630 Potassium Level 3.5 mmol/L 11/25/17630 Chloride Level 101 mmol/L 11/25/17630 Blood Urea Nitrogen 37 mg/dl H 11/25/17630 Creatinine 2.39 mg/dl H 11/25/17630 Random Glucose 108 mg/dl H 11/25/17630 (Lizette Escalante, JAMES-C) Diagnostic Results CXR: IMPRESSION: Improved exam with improved aeration right mid to lower lung. No evidence for pneumothorax. CT Scan: FINDINGS: No acute intracranial hemorrhage, midline shift, intracranial mass, hydrocephalus, territorial ischemia or abnormal extra-axial collection. Age-related atrophy with ex vacuo ventriculomegaly. Ill-defined low-attenuation about the white matter suggests chronic microvascular ischemic changes. Cerebral vascular calcifications are noted. The calvarium is intact. The paranasal sinuses, mastoid air cells, and middle ear cavities are clear. IMPRESSION: No acute intracranial abnormality. (Lizette Escalante, JAMES-C) Assessment and Plan Assessment and Plan 77-year-old male with significant past medical history of CAD status post stents ( x3 in 05/2017), chronic diastolic CHF, moderate aortic stenosis, hypertension, COPD, GAURANG on CPAP, right lung mass status post lobectomy secondary to adenocarcinoma of the lung at [place], postoperative paroxysmal atrial fibrillation, esophageal diverticulum with recurrent aspiration pneumonia , CKD stage III who presented to [facility] with hypoxia suspicious for bilateral PNA secondary to aspiration, right pleural effusion. Acute Hypoxic Respiratory Failure with respiratory Alkalosis -[place] to be multifactorial secondary to bilateral PNA, DHF, COPD exacerbation Acute Aspiration Pneumonia - Continue IV Zosyn for broad spectrum/aspiration coverage - Continue IV solumedrol, nebulizer, O2 - GI planning PEG placement tomorrow - WBC trending down to 16.6k Esophageal Diverticulum with Esophageal Dysmotility -Danial Aspiration -Continue NPO, necessary meds converted to IV. -GI on board, planning for PEG tube tomorrow. R Loculated Pleural Effusion - s/p thoracentesis 11/22 1100cc removed, fluid analysis reviewed appears transudative. - Echo reviewed -s/p PleurX cath placed on 11/24 due to recurrent effusion, 350cc drained this a.m. - appreciate thoracic surgery input. COPD Exacerbation - Continue O2, prednisone, nebulizer treatments GAURANG on CPAP CAD - s/p multiple stents, most recent 05/2017 had three stents placed; total of 7 stents. - continue medical management of plavix, metoprolol, lipitor. Plavix to continue 1 year uninterrupted. - Given NPO status plavix and lipitor on hold until peg placed. Paroxysmal A. Fib Patient developed PAF status post right lung lobectomy at [facility] in which he was placed on amiodarone and Xarelto. He then presented to [facility] in which cardiology was consulted, Dr. Madrid, who recommended continuing amiodarone; however decreasing to daily at discharge. Further she recommended discontinuing atenolol and switching it to metoprolol as well as continuing CCB. Xarelto was transitioned to Eliquis secondary to renal dysfunction. -Converted to NSR this a.m. On Amio gtt, IV lopressor -IV heparin initiated. To be d/c after midnight due to upcoming procedure. Recent R Lung Adenocarcinoma - s/p resection of R upper lobe at [facility] Chronic Diastolic CHF -Currently patient appears euvolemic. Continue IV metoprolol. IV Lasix initated. Will monitor renal function while n.p.o. -Echo done and noted EF 50-55% -Weight 93.3kg today CKD stage 3 -Renal function at baseline Hypokalemia -Repleted, K 3.5 today, Potassium 40meq ordered by Dr. Rhoades for today. -repeat bmp in am. Hyperglycemia due to steroids - A1c 5.9 - Continue Levemir 5 units subq daily - Monitor blood sugars HTN -Patient's blood pressure still elevated. -Started on Nitropaste, continue IV Lopressor, clonidine patch, Lasix, received additional dose of hydralazine overnight. -Hold oral clonidine, Cardizem. * note patient is to be on losartan 50mg 2 tabs po daily. Will add to home med list as this was not on current list. -Monitor patient's blood pressure closely Anemia -Hemoglobin hematocrit 10.5/33.1 respectively today. Anxiety -prn lorazepam DVT ppx - IV Heparin - SCDs FULL CODE (Lizette Escalante, JOSE ALBERTO) ATTENDING ADDENDUM delayed entry, date of service noted above care coordinated with PA but need PT notes please refer to her notes for full details, I agree with her notes patient seen and examined, records reviewed by myself as well on exam,patient comfortable, breathing is improving no other complaints VS noted and reviewed oriented 2, not in distress, speaks in sentences with no effort nor accessory muscle use normal rate, regular rhythm, no murmurs mild rales on the right base, clear on the right non distended, soft, nontender no bipedal edema, erythema, warmth no neuro deficits Labs noted as well as repeat chest x-ray ASSESSMENT/PLAN> Acute Hypoxic Respiratory Failure with respiratory Alkalosis -[place] to be multifactorial secondary to bilateral PNA, pleural effusion, COPD exacerbation Acute Aspiration Pneumonia Continue Zosyn follow-up follow-up cultures For PEG tube placement R Loculated Pleural Effusion - s/p thoracentesis 11/22 1100cc removed, fluid analysis reviewed appears transudative. -Lasix 20 mg IV daily started COPD Exacerbation - Continue O2, prednisone, nebulizer treatments Paroxysmal A. Fib On metoprolol IV Amiodarone IV other diagnoses and plan of care as per JAMES Yadav notes New Forman MD (New Forman MD) (New Forman MD)
[2017-11-25] MEDS ORDERED: POTASSIUM CHLR 20 MEQ / WTR 20 MEQ IV STA (09:45)
--- NOTE | 2017-11-25 09:46 | PULMONARY PROGRESS NOTE ---
DATE: 11/25/2017 TIME: 9:00 a.m. SUBJECTIVE: The patient denies shortness of breath. He states he had a good night sleep. His cough is loose. He states about 6 times he has coughed up some thick yellow sputum, about the size of a quarter. The patient states that his PleurX was drained this morning for over 400 mL of fluid. I could not find that documented as yet, however. OBJECTIVE: GENERAL: The patient appears very comfortable. He is sitting in a chair. VITAL SIGNS: Temperature is 36.5. Current heart rate is 82 per minute. The rhythm is regular and it is normal sinus on the telemetry. This is much better controlled than yesterday. Systolic murmur grade 2/6 is heard. Blood pressure is elevated at 177/92. RESPIRATORY: Auscultation of the lung peck reveals generally improved aeration on the right. He also has less rhonchi and rales. This is the best he has sounded. Saturation is 98% on 8 L Oxymask. MUSCULOSKELETAL: Extremities showed no edema. There was no cyanosis or clubbing. Yesterday, the patient had a urine output of 1775 mL, most of which came after receiving Lasix. Today thus far he has had 1000 mL of output. He was started on furosemide. LABORATORY DATA: White count today is 16.62, which is the lowest since admission. Hemoglobin is 10.5. Platelets 298,000. Electrolytes show sodium 142, potassium 3.5, chloride 101, bicarbonate 34. BUN is 37, with a creatinine of 2.39. These are similar to yesterday. Pleural fluid study from yesterday reported bloody fluid with 266,000 RBCs. It appears there was no LDH done. A pleural fluid cytology was ordered and is pending. IMAGING: Chest x-ray done today shows overall improved aeration of both the right and left lungs compared with x-rays done earlier in this hospital stay. IMPRESSION: 1. Respiratory failure, acute, with hypoxia and hypercarbia. 2. Bilateral pneumonia, likely secondary to aspiration. 3. Lung carcinoma, status post right upper lobectomy. 4. Chronic obstructive pulmonary disease. 5. Sleep apnea. 6. Massive right pleural effusion. 7. Chronic kidney disease. 8. Paroxysmal atrial fibrillation/flutter. COMMENTS AND RECOMMENDATIONS: The patient is much improved. GI apparently is planning to do a PEG tube tomorrow. Case was discussed with Dr. Rhoades. He is concerned about the patient being off anticoagulation. He indicated if the scope would be done tomorrow, he thought that IV heparin may need to be started today. From a pulmonary perspective, would decrease the methylprednisolone to 20 mg daily. Would continue with his breathing treatments including levalbuterol and ipratropium. Would continue with the Zosyn.
[2017-11-25] MEDS: HEPARIN 25,000 UNIT/500ML D5W 500 ML IV SCH (09:54)
[2017-11-25] MEDS ORDERED: NURSING VERBAL MED ORDER ONE (10:00)
[2017-11-25 10:08] LABS: INR 2.1 (0.9-1.1)
--- NOTE | 2017-11-25 10:23 | SURGERY PROGRESS NOTE ---
DATE: 11/25/2017 Mr. Juárez looks great. His oxygen saturation has greatly improved. At 6 L this morning on the OxyMask, he has 100% saturation while I was talking to him. He was sitting up in bed. He has been kept n.p.o. His x-ray today I think looks very good from a pleural fluid standpoint on the right. He is improving his aeration on both sides actually I think. He does have some pleural fluid as a cap on the right, but I would not address that at this point. Mr. Juárez is most immediate problem currently. He is scheduled to undergo PEG placement tomorrow by Dr. Samano.
[2017-11-25] MEDS: POTASSIUM CHLR 10 MEQ / WTR 100 ML IV SCH ×4 (10:29→13:42)
--- NOTE | 2017-11-25 13:13 | Progress Note ---
Progress Note Date of Service Nov 25, 2017. Progress Note GI note: Pt scheduled to undergo PEG placement tomorrow. Chart reviewed. INR 2.1. Will give him Vit K 10mg IV x 1 dose, recheck PT/INR tomorrow AM. He is on Heparin gtt for DVT prophylaxis. Heparin gtt should be stopped at midnight. Keep pt NPO.
[2017-11-25] MEDS ORDERED: PHYTONADIONE INJ 10 MG in SODIUM CHLORIDE 0.9% 50ML 50 ML IV ONE (13:30)
[2017-11-25] MEDS ORDERED: LORAZEPAM INJ 0.5 MG in SYRINGE 0.75 ML IV PRN (20:15)
[2017-11-25 21:28] LABS: INR 1.2 (0.9-1.1)
[2017-11-26] VITALS (17 sets, daily range): BP systolic 132–211; BP diastolic 67–88; PULSE 65–120; TEMP 36.3–36.9; O2SAT 91–98
[2017-11-26] MEDS: CHECK CLONIDINE PATCH PLACEMENT SCH ×3 (00:01→15:27)
[2017-11-26] MEDS: METOPROLOL TARTRATE 1 MG/ML VIAL IV. SCH ×4 (00:01→17:47)
[2017-11-26] MEDS ORDERED: NURSING VERBAL MED ORDER ONE (00:15)
[2017-11-26] MEDS: LEVALBUTEROL 1.25MG/0.5ML NEB INH SCH ×4 (02:08→19:09)
[2017-11-26] MEDS: IPRATROPIUM BROMIDE NEB SOLN 0.02% 2.5 ML VIAL INH SCH ×4 (02:08→19:09)
[2017-11-26] MEDS: PIPERACILL/TAZOBAC IV 3.375 GM in D5W 100ML IV SCH ×3 (02:27→17:43)
[2017-11-26] MEDS: METOPROLOL TARTRATE 1 MG/ML VIAL IV PRN (03:57)
[2017-11-26] MEDS: NITROGLYCERIN 2% OINTMENT 30GM TUBE EXT SCH ×3 (06:09→17:43)
[2017-11-26 07:12] LABS: HEMATOCRIT 31.3 % (42-52); HEMOGLOBIN 9.7 g/dL (14.0-18.0); MEAN CELL VOLUME 88.7 fL (80-100); MEAN CORPUSCULAR HEMOGLOBIN 27.5 pg (25-34); MEAN PLATELET VOLUME 10.9 fL (7.4-10.4); PLATELET COUNT 247 K/uL (130-400); RED CELL DISTRIBUTION WIDTH CV 14.4 % (11.5-14.5); RED CELL DISTRIBUTION WIDTH SD 46.5 fL (36.4-46.3); WHITE BLOOD COUNT 12.46 K/uL (4.8-10.8)
[2017-11-26 07:21] LABS: INR 1.1 (0.9-1.1); PTT PATIENT 28.1 SECONDS (21.0-31.0)
[2017-11-26] MEDS: AMIODARONE / D5W 200 ML IV SCH ×2 (07:46→21:05)
[2017-11-26 07:48] LABS: CALCIUM 8.3 mg/dl (8.5-10.1); CREATININE 2.38 mg/dl (0.60-1.40); POTASSIUM 3.1 mmol/L (3.5-5.1)
[2017-11-26] MEDS: FAMOTIDINE IV INJ 20 MG in SYRINGE 3 ML IV SCH ×2 (07:49→21:30)
[2017-11-26] MEDS: FUROSEMIDE INJ 20 MG in SYRINGE 0 ML IV SCH (07:49)
[2017-11-26] MEDS: METHYLPREDNISOLONE IV 40 MG in SYRINGE 0 ML IV SCH (07:50)
[2017-11-26] MEDS: INSULIN GLARGINE SOLOSTAR 100 UNITS/ML 3 ML PEN SC SCH (08:04)
[2017-11-26] MEDS: LORAZEPAM 2 MG/ML 1 ML VIAL IV PRN ×2 (08:56→21:29)
[2017-11-26] MEDS: ATORVASTATIN 40 MG TAB PO SCH (09:00)
[2017-11-26] MEDS: GABAPENTIN 100 MG CAP PO SCH ×3 (09:00→21:00)
[2017-11-26] MEDS: PAROXETINE 20 MG TAB PO SCH (09:00)
[2017-11-26] MEDS: NEFAZODONE HCL 100 MG PO SCH ×2 (09:00→21:00)
[2017-11-26] MEDS: TAMSULOSIN HCL 0.4 MG CAP PO SCH (09:00)
[2017-11-26] MEDS: CLOPIDOGREL BISULFATE 75 MG TAB PO SCH (09:00)
--- NOTE | 2017-11-26 09:44 | Cardiology Follow-Up ---
Subjective Subjective Date of Service: Nov 26, 2017. Pt evaluation today including: conversation w/ patient, conversation w/ family , physical exam, chart review, lab review, review of studies, review of inpatient medication list Additional Details: The patient has had an uneventful night except that he remains markedly hypertensive. His is in the room during my exam and indicates that he has had difficult to control hypertension as an outpatient. He typically takes 4 antihypertensives. He is still n.p.o. the PEG tube will be placed today. Review of Systems Constitutional: No fever, No chills ENT: + trouble swallowing Respiratory: + cough, + sputum, + shortness of breath Cardiac: No chest pain, No edema, No palpitations Abdomen: + nausea, + vomiting, + diarrhea, No pain, No constipation, No GI bleeding Musculoskeletal: No joint pain Male : No dysuria, No urinary frequency Psychiatric: No depression symptoms, No anxiety, No insomnia Heme: No abnormal bleeding/bruising Objective Vital Signs Last Vital Signs Documentation Date Time Temp Pulse Resp B/P (MAP) Pulse Ox O2 Delivery O2 Flow Rate FiO2 11/26/17 09:24 211/88 (129) 191/84 (119) 11/26/17 07:14 36.3 66 18 94 Nasal Cannula 2.0 11/25/17 17:30 40 Physical Exam: General Appearance: WD/WN, no apparent distress, + pertinent finding (Sitting up in chair with oxygen mask in place, able to converse at ease) ENT: normal ENT inspection, hearing grossly normal, + pertinent finding ( Mucous membranes moist) Neck: supple, no adenopathy, no JVD Respiratory/Chest: chest non-tender, lungs clear, + decreased breath sounds (R> L), + pertinent finding (Pleurx cath noted on right posterior thorax, dressing clean dry and intact, O2 mask 5L) Cardiovascular: regular rate, rhythm, + systolic murmur (2/6 MIYA RUSB) Abdomen: normal bowel sounds, non tender, soft Extremities: normal range of motion, non-tender, normal inspection, no pedal edema, no calf tenderness Neurologic/Psychiatric: alert, normal mood/affect, oriented x 3 Skin: normal color, no rash Assessment and Plan Impression: 1. Paroxysmal atrial fibrillation 2. Coronary artery disease with multiple previous coronary interventions with the last being in May of this year when he received coronary stents. 3. Lung cancer status post right upper lobe resection 4. Esophageal diverticulum 5. Chronic aspiration with right pleural effusion Recommendations: I will increase the patient's Lopressor and add hydralazine to better control his hypertension. After he has a PEG tube placed will have more options to treat his hypertension. He remains in sinus rhythm Medications: Current Inpatient Medications Medications (Trade) Dose Ordered Sig/Vicki Route Start Time Stop Time Status Last Admin Dose Admin Nitroglycerin (Nitrostat Tab) 0.4 mg UD PRN SL 11/21/17 05:00 12/21/17 04:59 Hydromorphone HCl (Dilaudid Inj) 0.5 mg Q3H PRN IV 11/21/17 05:00 12/05/17 04:59 11/23/17 17:42 0.5 MG Oxycodone/ Acetaminophen (Percocet 5-325mg Tab) 1 tab Q6H PRN PO 11/21/17 05:00 12/05/17 04:59 Prochlorperazine Edisylate 5 mg/ Syringe 5 ml @ 5 mls/min Q6H PRN IV 11/21/17 05:00 12/21/17 04:59 11/22/17 04:18 5 MLS/MIN Miscellaneous Information (Consult) 1 ea UD PRN N/A 11/21/17 09:00 12/21/17 08:59 Atorvastatin Calcium (Lipitor Tab) 40 mg DAILY PO 11/21/17 09:00 12/21/17 08:59 11/22/17 08:20 40 MG Finasteride (Proscar Tab) 5 mg QAM PO 11/21/17 09:00 12/21/17 08:59 11/22/17 08:17 5 MG Gabapentin (Neurontin Cap) 200 mg TID PO 11/21/17 09:00 12/21/17 08:59 11/21/17 21:02 200 MG Nefazodone HCl (serZONE TAB) 150 mg BID PO 11/21/17 09:00 12/21/17 08:59 11/22/17 09:34 150 MG Quetiapine Fumarate (seroQUEL TAB) 25 mg BID PO 11/21/17 09:00 12/21/17 08:59 11/22/17 08:21 25 MG Senna/Docusate Sodium (Senokot S Tab) 1 tab DAILY PRN PO 11/21/17 05:00 12/21/17 04:59 11/22/17 08:23 1 TAB Insulin Glargine (Lantus Solostar Pen) 5 units DAILY SC 11/22/17 09:00 12/22/17 08:59 11/22/17 09:35 5 UNITS Clopidogrel Bisulfate (plAVix TAB) 75 mg QAM PO 11/21/17 09:00 12/21/17 08:59 11/22/17 08:22 75 MG Paroxetine HCl (pAXil TAB) 20 mg DAILY PO 11/21/17 09:00 12/21/17 08:59 11/22/17 08:20 20 MG Tamsulosin HCl (Flomax Cap) 0.4 mg DAILY PO 11/21/17 09:00 12/21/17 08:59 11/22/17 08:20 0.4 MG Ipratropium [place] (Atrovent 0.02% 0.5MG/2.5ML Neb) 0.5 mg Q6R INH 11/21/17 09:00 12/21/17 08:59 11/26/17 07:05 0.5 MG Levalbuterol (Xopenex 1.25MG/ 0.5ML Neb) 1.25 mg Q6R INH 11/21/17 09:00 12/21/17 08:59 11/26/17 07:05 1.25 MG Ipratropium [place] (Atrovent 0.02% 0.5MG/2.5ML Neb) 0.5 mg Q4H PRN INH 11/21/17 06:15 12/21/17 06:14 Levalbuterol (Xopenex 1.25MG/ 0.5ML Neb) 1.25 mg Q4H PRN INH 11/21/17 06:15 12/21/17 06:14 Piperacillin Sod/ Tazobactam Sod 3.375 gm/Dextrose 115 ml @ 28.75 mls/ hr Q8H IV 11/21/17 10:00 11/28/17 09:59 11/26/17 02:27 28.75 MLS/HR Pantoprazole Sodium 40 mg/ Syringe 10 ml @ 5 mls/min DAILY@11 IV 11/22/17 11:00 12/22/17 10:59 11/25/17 07:56 5 MLS/MIN Methylprednisolone Sodium Succinate 40 mg/Syringe 0.64 ml @ 1.5 mls/min DAILY IV 11/23/17 09:00 12/23/17 08:59 11/26/17 07:50 1.5 MLS/MIN Famotidine 20 mg/ Syringe 5 ml @ 2.5 mls/min Q12 IV 11/22/17 11:00 12/22/17 10:59 11/26/17 07:49 2.5 MLS/MIN Acetaminophen (Tylenol Supp) 650 mg Q4H PRN OK 11/23/17 09:45 12/23/17 09:44 Clonidine HCl (Vhbyeoll-Gny-9 0.2mg/24hr Patch) 1 patch Q7D@0900 TD 11/23/17 12:00 12/23/17 11:59 11/23/17 14:21 1 PATCH Miscellaneous (Remove Clonidine Patch) 1 ea Q7D@0859 N/A 11/30/17 08:59 12/30/17 08:58 Miscellaneous Information (Check Clonidine Patch Placement) 1 ea QS N/A 11/23/17 16:00 12/23/17 15:59 11/26/17 07:54 1 EA Metoprolol Tartrate (Lopressor Iv) 2.5 mg Q6H PRN IV 11/23/17 11:00 12/23/17 10:59 11/26/17 03:57 2.5 MG Furosemide 20 mg/ Syringe 2 ml @ 4 mls/min DAILY IV 11/25/17 09:00 12/25/17 08:59 11/26/17 07:49 4 MLS/MIN Amiodarone HCL/ Dextrose 200 ml @ 16.7 mls/hr [id number] IV 11/24/17 20:43 12/24/17 20:42 11/26/17 07:46 16.7 MLS/HR Nitroglycerin (Nitroglycerin 2% Oint) 1 inch Q6H EXT 11/25/17 00:00 12/25/17 00:00 11/26/17 06:09 1 INCH Heparin Sodium/ Dextrose 500 ml @ 29 mls/hr [id number] IV 11/25/17 09:45 12/25/17 09:44 Future Hold 11/25/17 09:54 29 MLS/HR Lorazepam (Ativan Inj) 0.5 mg Q12H PRN IV 11/25/17 20:00 12/22/17 10:44 11/26/17 08:56 0.5 MG Lorazepam 0.5 mg/ Syringe 1 ml @ 1 mls/min Q12H PRN IV 11/25/17 20:15 12/25/17 20:14 Metoprolol Tartrate (Lopressor Iv) 10 mg Q6 IV. 11/26/17 12:00 12/24/17 15:59 UNV Hydralazine HCl (HydrALAZINE INJ) 10 mg NOW ONCE IV. 11/26/17 09:45 11/26/17 09:46 UNV Lab Results: Last 24 Hours Test 11/25/17 09:43 11/25/17 16:12 11/25/17 16:36 11/25/17 20:58 Prothrombin Time 21.5 SECONDS Prothromb Time International Ratio 2.1 Activated Partial Thromboplast Time 55.0 SECONDS Partial Thromboplastin Ratio 2.1 Bedside Glucose 146 mg/dl 137 mg/dl Test 11/25/17 21:00 11/25/17 23:50 11/26/17 06:04 11/26/17 06:44 Prothrombin Time 12.7 SECONDS 11.5 SECONDS Prothromb Time International Ratio 1.2 1.1 Bedside Glucose 109 mg/dl 102 mg/dl White Blood Count 12.46 K/uL Red Blood Count 3.53 M/uL Hemoglobin 9.7 g/dL Hematocrit 31.3 % Mean Corpuscular Volume 88.7 fL Mean Corpuscular Hemoglobin 27.5 pg Mean Corpuscular Hemoglobin Concent 31.0 g/dl RDW Standard Deviation 46.5 fL RDW Coefficient of Variation 14.4 % Platelet Count 247 K/uL Mean Platelet Volume 10.9 fL Activated Partial Thromboplast Time 28.1 SECONDS Partial Thromboplastin Ratio 1.1 Sodium Level 141 mmol/L Potassium Level 3.1 mmol/L Chloride Level 101 mmol/L Carbon Dioxide Level 33 mmol/L Anion Gap 7.0 mmol/L Blood Urea Nitrogen 35 mg/dl Creatinine 2.38 mg/dl Est Creatinine Clear Calc Drug Dose 29.4 ml/min Estimated GFR () 29.4 Estimated GFR (Non- 25.3 BUN/Creatinine Ratio 14.7 Random Glucose 94 mg/dl Calcium Level 8.3 mg/dl
[2017-11-26] MEDS ORDERED: HydrALAZINE HCL 20 MG/ML VIAL IV. ONE (09:45)
[2017-11-26] MEDS ORDERED: POTASSIUM CHLR 20 MEQ / WTR 20 MEQ IV STA (09:49)
--- NOTE | 2017-11-26 09:52 | DIAGNOSTIC IMAGING REPORT ---
CHEST ONE VIEW PORTABLE HISTORY: effusion COMPARISON: Chest 11/25/2017. FINDINGS: Right basilar pleural catheter is unchanged in position. Small to moderate partially loculated right pleural effusion remains unchanged in size. No definite pneumothorax. Suture material within the right hilum. Mild interstitial thickening within the right lung persists. The heart remains mildly enlarged. No new focal lung consolidations. IMPRESSION: No change compared to the prior study. The right basilar pleural catheter is unchanged in position. [id number] partially loculated right pleural effusion persists. Electronically signed by: Nilesh Horvath M.D. 11/26/2017 9:51 AM Dictated Date/Time: 11/26/2017 9:45 AM
--- NOTE | 2017-11-26 10:01 | PULMONARY PROGRESS NOTE ---
DATE: 11/26/2017 TIME: 9:30 a.m. SUBJECTIVE: The patient feels well. He denies shortness of breath. He is anxious to get his PEG tube done. The patient did not wear his BiPAP last night. He complains about the mask being on too tight. I explained to him we need him to wear it nightly. I suggested that he have his family bring in his own mask from home. I explained to him that when he does not wear it, he has sleep apnea which is not good. He also needs it for his respiratory status. He did have his fluid drained this morning by thoracic surgery through the PleurX catheter. The volume was close to 200 mL and it was very bloody. The exact etiology of this bloody effusion is not clear. OBJECTIVE: GENERAL: The patient is comfortable. VITAL SIGNS: Temperature is 36.3. CARDIAC: Rate is 71 per minute. Rhythm is regular. Blood pressure is elevated at 211/88. LUNGS: Auscultation of the lung peck reveals some inspiratory wheeze on the right greater than the left. Respiratory rate was 18 and not labored. There was no accessory muscle use. Saturation was 94% on 2 liters. EXTREMITIES: Showed no edema. LABORATORY DATA: Electrolytes show sodium 141, potassium 3.1, chloride 101, bicarbonate 33. BUN is 35 with a creatinine of 2.38. White count is down to 12.46. Four days ago, it had been 24. Hemoglobin is 9.7. Platelets are 247,000. IMPRESSIONS: 1. Respiratory failure -- acute with hypoxia and hypercarbia -- improved. 2. Bilateral aspiration pneumonia. 3. Lung carcinoma -- status post right upper lobectomy. 4. Chronic obstructive pulmonary disease. 5. Sleep apnea. 6. Massive pleural effusion. 7. Chronic kidney disease. COMMENTS: The patient has been fairly stable the last few days from a pulmonary perspective. I encouraged him to wear the BiPAP every night and if our mask is uncomfortable, his family should bring in his own mask from home. I am concerned about the rapidly recurring pleural effusions. This is currently being managed with a PleurX. The etiology of that is unclear. I did review the records from [facility]. There was no evidence of any spread of tumor as best as I could see. All lymph nodes were negative and the margins were clear. I am going to decrease the methylprednisolone to 20 mg daily. He remains on the Zosyn. He remains on the nebulizer treatments. Dr. Schultz will be picking up the pulmonary followup as of tomorrow.
[2017-11-26] MEDS: POTASSIUM CHLR 10 MEQ / WTR 100 ML IV SCH ×2 (10:21→11:48)
[2017-11-26] MEDS: PANTOprazole INJ 40 MG in SYRINGE 0 ML IV SCH (10:22)
--- NOTE | 2017-11-26 10:56 | Hospitalist Progress Note ---
Hospitalist Progress Note Date of Service Nov 26, 2017. (Lizette Escalante, JOSE ALBERTO) ATTENDING ADDENDUM care coordinated with PA but need PT notes please refer to her notes for full details, I agree with her notes patient seen and examined, records reviewed by myself as well on exam, patient seen comfortable states he feels better denies dyspnea, chest pain no other symptoms VS noted and reviewed oriented 2, not in distress, speaks in sentences with no effort nor accessory muscle use normal rate, regular rhythm, no murmurs clear BS BL non distended, soft, nontender no bipedal edema, erythema, warmth no neuro deficits Labs noted ASSESSMENT/PLAN> Acute Hypoxic Respiratory Failure with respiratory Alkalosis -[place] to be multifactorial secondary to bilateral PNA, pleural effusion, COPD exacerbation Acute Aspiration Pneumonia Continue Zosyn For PEG tube placement on Wednesday Will need PPN starting tomorrow R Loculated Pleural Effusion - s/p thoracentesis 11/22 1100cc removed, fluid analysis reviewed appears transudative. - Echo reviewed -Repeat chest x-ray showing recurrence of pleural effusion Pleurx cath placed -Lasix 20 mg IV daily COPD Exacerbation - Continue O2, tapering Solu-Medrol, nebulizer treatments Paroxysmal A. Fib On metoprolol IV and amiodarone, heparin drip HTN IV Lopressor , Hydralazine, Nitropaste Continue to monitor other diagnoses and plan of care as per JAMES Yadav notes New Forman MD (New Forman MD) Subjective Pt evaluation today including: conversation w/ patient, chart review Patient was seen and evaluated at bedside in room 239-2 He is anxiously awaiting his PEG tube, "can't they just come and do it already. " Overall he is feeling much better. Currently on O2 via nasal cannula, denies active shortness of breath, fever, chills, sweats, chest pain, headache, dizziness, lightheadedness, change in vision or hearing, chest pain, nausea, vomiting, diarrhea. He continues to have productive cough with purulent sputum but feel this has improved. Remains n.p.o. for upcoming PEG procedure today. Nursing was at bedside, reports markedly elevated blood pressure overnight and this morning at 204/88, attending notified, Dr. Rhoades notified and new orders were given. Additional Comments: As noted per HPI, 10 systems reviewed and negative unless noted above. (Lizette Escalante PA-C) Medications Medications reviewed (Lizette Escalante PA-C) Objective Vital Signs Date Time Temp Pulse Resp B/P (MAP) Pulse Ox O2 Delivery O2 Flow Rate FiO2 11/26/17 10:20 152/72 (98) 11/26/17 09:24 211/88 (129) 191/84 (119) 11/26/17 07:14 36.3 66 18 204/88 (126) 94 Nasal Cannula 2.0 11/26/17 07:05 65 18 97 Nasal Cannula 2.0 11/26/17 06:10 69 191/71 11/26/17 06:07 69 191/71 (111) 11/26/17 03:57 73 183/78 11/26/17 03:55 73 183/78 (113) 11/26/17 03:40 36.7 76 20 92 Nasal Cannula 2.0 11/26/17 02:08 68 18 98 Nasal Cannula 2.0 11/26/17 00:01 70 165/85 11/25/17 23:35 37.0 73 17 162/76 (104) 94 Nasal Cannula 2.0 11/25/17 20:13 36.9 69 21 165/85 (111) 94 Nasal Cannula 3.0 11/25/17 20:00 94 Nasal Cannula 2.0 11/25/17 19:30 70 18 94 Nasal Cannula 2.0 11/25/17 17:30 75 16 196/94 (128) 95 Nasal Cannula 2.0 40 11/25/17 17:24 76 196/94 11/25/17 16:00 98 Nasal Cannula 2.0 11/25/17 16:00 36.7 77 19 198/91 (126) 95 Nasal Cannula 2.0 11/25/17 14:14 75 16 94 Nasal Cannula 2.0 11/25/17 12:00 96 Nasal Cannula 3.0 11/25/17 11:54 36.5 80 16 194/84 (120) 96 Nasal Cannula 3.0 80 11/25/17 11:49 80 194/ (Lizette Escalante PA-C) Physical Exam Notes: Gen: WD/WN, male, lying in bed, NAD, A&O x3 HEENT: Normocephalic, atraumatic, conjunctivae moist, sclerae anicteric, mucous membranes moist. Lung: Clear to Auscultation bilaterally with decreased breath sounds at bases right greater than left, bilateral expiratory wheezes noted, no rales/rhonchi. On 2 L O2 via NC. Pleurx cath in place draining approximately 200 mL's of bloody pleural fluid this a.m. Heart: Regular rate, regular rhythm,2/6SEM best RUSB, no rubs, or gallops Abdomen: Soft, NT, ND +BS x 4 Extremities: No edema Skin: Warm, no rash, negative turgor. (Lizette Escalante, JAMES-C) Laboratory Results Last 24 Hours Item Value Date Time White Blood Count 12.46 K/uL H 11/26/17643 Hemoglobin 9.7 g/dL L 11/26/17643 Hematocrit 31.3 % L 11/26/17643 Platelet Count 247 K/uL 11/26/1744 Sodium Level 141 mmol/L 11/26/1744 Potassium Level 3.1 mmol/L L 11/26/1744 Carbon Dioxide Level 33 mmol/L H 11/26/17 0644 Blood Urea Nitrogen 35 mg/dl H 11/26/17 0644 Creatinine 2.38 mg/dl H 11/26/1744 Random Glucose 94 mg/dl 11/26/17 06 (Lizette Escalante, PA-C) Diagnostic Results CXR 11/26: No change compared to the prior study. The right basilar pleural catheter is unchanged in position. [id number] partially loculated right pleural effusion persists. (Lizette Escalante, PA-C) Assessment and Plan Assessment and Plan 77-year-old male with significant past medical history of CAD status post stents ( x3 in 05/2017), chronic diastolic CHF, moderate aortic stenosis, hypertension, COPD, GAURANG on CPAP, right lung mass status post lobectomy secondary to adenocarcinoma of the lung at [place], postoperative paroxysmal atrial fibrillation, esophageal diverticulum with recurrent aspiration pneumonia , CKD stage III who presented to [facility] with hypoxia suspicious for bilateral PNA secondary to aspiration, right pleural effusion. Acute Hypoxic Respiratory Failure with respiratory Alkalosis -[place] to be multifactorial secondary to bilateral PNA, DHF, COPD exacerbation -Encouraged use of BiPAP at at bedtime, patient did not use last evening Acute Aspiration Pneumonia - Continue IV Zosyn for broad spectrum/aspiration coverage - IV solumedrol decreased to 20mg, nebulizer, O2 - GI planning PEG today. - WBC trending down to 12.46k Esophageal Diverticulum with Esophageal Dysmotility -Danial Aspiration -Continue NPO, necessary meds converted to IV. -To have PEG placed today, at that time will be able to reinitiate meds via PEG. R Loculated Pleural Effusion - s/p thoracentesis 11/22 1100cc removed, fluid analysis reviewed appears transudative. - Pulmonary uncertain as to source of recurrent effusion - Echo reviewed -s/p PleurX cath placed on 11/24 due to recurrent effusion, 200 bloody pleural fluid drained this a.m. - appreciate thoracic surgery/pulm input. COPD Exacerbation - Continue O2, IV methylprednisone decreased today, nebulizer treatments GAURANG on CPAP CAD - s/p multiple stents, most recent 05/2017 had three stents placed; total of 7 stents. - continue medical management of plavix, metoprolol, lipitor. Plavix to continue 1 year uninterrupted. - Given NPO status plavix and lipitor on hold until peg placed. Paroxysmal A. Fib Patient developed PAF status post right lung lobectomy at [facility] in which he was placed on amiodarone and Xarelto. He then presented to [facility] in which cardiology was consulted, Dr. Madrid, who recommended continuing amiodarone; however decreasing to daily at discharge. Further she recommended discontinuing atenolol and switching it to metoprolol as well as continuing CCB. Xarelto was transitioned to Eliquis secondary to renal dysfunction. - On Amio gtt, IV lopressor increased secondary to hypertension - IV heparin stopped at midnight due to upcoming procedure. Recent R Lung Adenocarcinoma - s/p resection of R upper lobe at [facility] Chronic Diastolic CHF -Currently patient appears euvolemic. Continue IV metoprolol, lasix. Will monitor renal function while n.p.o. -Echo done and noted EF 50-55% CKD stage 3 -Renal function at baseline Hypokalemia -K 3.1 this a.m. -IV K 20 meq ordered by GI. -Repeat K at 1400 and replete as needed Hyperglycemia due to steroids - A1c 5.9 - Continue Levemir 5 units subq daily - Monitor blood sugars HTN -Patient's blood pressure still markedly elevated. -This morning cardiology increased IV Lopressor to 10 mg every 6, initiated IV hydralazine 10 mg every 6. -Continue Nitropaste and clonidine patch -Hold oral clonidine, Cardizem. * note patient is to be on losartan 50mg 2 tabs po daily. -Monitor patient's blood pressure closely -After PEG is placed consider reinitiating p.o. meds via PEG Anemia -Hemoglobin hematocrit 9.7/31.3 respectively today. Anxiety -prn lorazepam DVT ppx - IV Heparin on hold due to PEG procedure - SCDs FULL CODE ADDENDUM: Patient developed rapid A. fib therefore PEG placement was canceled until 11/29/17. He is now n.p.o. day 5. Spoke with [facility] dietitian and we agreed to initiate PPN until PEG is placed. She recommends checking mag , phosphorus now. Potassium needs to be within range prior to starting. Will repeat potassium in a.m. (Lizette Escalante PA-C)
[2017-11-26] MEDS: HydrALAZINE HCL 20 MG/ML VIAL IV. SCH ×2 (11:48→16:21)
[2017-11-26] MEDS: QUETIAPINE FUMARATE 25 MG TAB PO SCH ×2 (12:01→21:00)
[2017-11-26] MEDS: FINASTERIDE 5 MG TAB PO SCH (12:01)
--- NOTE | 2017-11-26 13:37 | Progress Note ---
Progress Note Date of Service Nov 26, 2017. Progress Note Patient was on heparin drip in anticipation of a PEG tube placement today. Overnight, the patient was markedly hypertensive and this was managed with IV medication. However, later this morning, he resumed AFib with RVR, most recent recorded HRs were 120s-130s. Given his numerous risk factors, I spoke with Dr Rhoadse to see if he felt we could achieve better HR control by medically managing this over the weekend. He agreed to assist with this and we will plan to delay his procedure until most likely Wednesday.
--- NOTE | 2017-11-26 14:09 | Progress Note ---
Progress Note Date of Service Nov 26, 2017. Progress Note Pt was scheduled for PEG placement today but developed Afib. Evaluated by Anesthesia (Dr. Wallis); PEG placement cancelled. We will tenatively placed on our scheduled for PEG placement on Wednesday. Pls keep him NPO, and if Heparin is restarted, please hold at midnight (0000 11/29)
[2017-11-26] MEDS ORDERED: HEPARIN IV BOLUS 6,000 UNIT in SYRINGE 0 ML IV ONE (14:45)
[2017-11-26] MEDS: HEPARIN 25,000 UNIT/500ML D5W 500 ML IV SCH (15:24)
[2017-11-26 16:14] LABS: PHOSPHORUS 3.2 mg/dl (2.5-4.9)
[2017-11-26] MEDS ORDERED: LORAZEPAM INJ 0.5 MG in SYRINGE 0.75 ML IV PRN (16:30)
--- NOTE | 2017-11-26 17:06 | SURGERY PROGRESS NOTE ---
DATE: 11/26/2017 Mr. Juárez was seen today on 11/26/2017. His white count continued to come down, is now 12,460. In addition, his creatinine is stable at approximately 2.38. PleurX catheter drained about 200 mL of bloody fluid. Urine output has been good. We have grown no organisms out of our fluid. It is also not malignant. Unfortunately, he has developed atrial fibrillation and was canceled for his PEG tube today. I am hopeful, Wednesday, we will get that done.
[2017-11-26 22:13] LABS: PTT PATIENT 89.8 SECONDS (21.0-31.0)
[2017-11-27] VITALS (13 sets, daily range): BP systolic 155–177; BP diastolic 70–77; PULSE 64–72; TEMP 36.4–36.9; O2SAT 92–99
[2017-11-27] MEDS: METOPROLOL TARTRATE 1 MG/ML VIAL IV. SCH ×4 (00:33→18:18)
[2017-11-27] MEDS: NITROGLYCERIN 2% OINTMENT 30GM TUBE EXT SCH ×4 (00:33→18:16)
[2017-11-27] MEDS: HydrALAZINE HCL 20 MG/ML VIAL IV. SCH ×4 (00:34→18:17)
[2017-11-27] MEDS: LEVALBUTEROL 1.25MG/0.5ML NEB INH SCH ×4 (01:35→19:01)
[2017-11-27] MEDS: IPRATROPIUM BROMIDE NEB SOLN 0.02% 2.5 ML VIAL INH SCH ×4 (01:35→19:02)
[2017-11-27] MEDS: PIPERACILL/TAZOBAC IV 3.375 GM in D5W 100ML IV SCH ×3 (02:10→18:16)
[2017-11-27 05:41] LABS: PTT PATIENT 77.6 SECONDS (21.0-31.0)
[2017-11-27 05:45] LABS: ALBUMIN 2.4 gm/dl (3.4-5.0); CALCIUM 8.3 mg/dl (8.5-10.1); CREATININE 2.49 mg/dl (0.60-1.40); POTASSIUM 2.9 mmol/L (3.5-5.1)
[2017-11-27 05:47] LABS: PHOSPHORUS 3.2 mg/dl (2.5-4.9)
--- NOTE | 2017-11-27 07:14 | DIAGNOSTIC IMAGING REPORT ---
CHEST ONE VIEW PORTABLE CLINICAL HISTORY: effusion COMPARISON STUDY: 11/26/2017 FINDINGS: The heart remains mildly enlarged. There is tenting right hemidiaphragm. A right basilar chest tube is again visualized. There is right apical pleural capping unchanged the prior study. There is no lobar consolidation.[ There is scattered bilateral interstitial opacities which remain stable. IMPRESSION: No change in the position of the right-sided chest tube. Stable loculated right pleural effusion. Electronically signed by: Ruben Cox M.D. 11/27/2017 7:12 AM Dictated Date/Time: 11/27/2017 7:11 AM
--- NOTE | 2017-11-27 08:09 | Surgery Progress Note ---
Subjective Date of Service: Nov 27, 2017. Pt. resting in bed. He denies worsening SOB. No N/V. Objective Vitals Date Time Temp Pulse Resp B/P (MAP) Pulse Ox O2 Delivery O2 Flow Rate FiO2 11/27/17 07:07 68 14 96 Nasal Cannula 2.0 11/27/17 06:30 71 175/77 11/27/17 03:50 36.5 69 20 162/70 (100) 95 Nasal Cannula 2.0 11/27/17 01:40 68 99 40 11/27/17 01:39 68 14 99 BiPAP/CPAP 40.0 11/27/17 00:33 76 159/67 11/26/17 23:40 36.9 75 20 157/68 (97) 95 Room Air 11/26/17 20:00 Nasal Cannula 2.0 11/26/17 19:57 36.8 76 18 159/67 (97) 93 Room Air 11/26/17 19:09 73 18 95 Nasal Cannula 2.0 11/26/17 17:47 78 11/26/17 17:23 68 18 97 Nasal Cannula 2.0 11/26/17 16:58 83 132/72 (92) 11/26/17 16:14 36.6 76 21 180/76 (110) 95 Nasal Cannula 2.0 11/26/17 14:15 79 97 Nasal Cannula 2.0 11/26/17 13:43 85 153/75 (101) 11/26/17 12:12 36.5 120 20 156/82 (106) 91 Nasal Cannula 2.0 11/26/17 11:47 132 11/26/17 10:20 152/72 (98) 11/26/17 09:24 211/88 (129) 191/84 (119) Physical Exam General: + well developed, + well nourished CV: + RRR Pulmonary: + accessory muscle use, + respiratory distress, + pertinent finding (BS have slight decrease, but air movemetn has improved since pleural fluid drained) Abdomen: + non tender, + soft Extremities: No calf tenderness Neurologic: + alert & oriented x 3 Assessment & Plan 77 year old male with right pleural effusion -pt. has undergone thoracentesis followed by pleurex catheter placement: -all culture are (-) -cytology (-) for malignancy -continue daily drainage of pleurex catheter -concern noted for aspiration with esophageal diverticulum as a potential contributing factor: -pt. to have PEG placed (was not done yesterday due to rapid a-fib -will address esophageal issues after PEG placed and pt. has improved from current issues (a-fib, pneumonia)
[2017-11-27] MEDS: AMIODARONE / D5W 200 ML IV SCH ×2 (08:30→18:35)
[2017-11-27] MEDS: CHECK CLONIDINE PATCH PLACEMENT SCH ×3 (08:34→15:19)
[2017-11-27] MEDS: FAMOTIDINE IV INJ 20 MG in SYRINGE 3 ML IV SCH ×2 (08:34→20:53)
[2017-11-27] MEDS: TAMSULOSIN HCL 0.4 MG CAP PO SCH (08:35)
[2017-11-27] MEDS: FUROSEMIDE INJ 20 MG in SYRINGE 0 ML IV SCH (08:35)
[2017-11-27] MEDS: METHYLPREDNISOLONE IV 20 MG in SYRINGE 0 ML IV SCH (08:35)
[2017-11-27] MEDS: ATORVASTATIN 40 MG TAB PO SCH (08:35)
[2017-11-27] MEDS: FINASTERIDE 5 MG TAB PO SCH (08:36)
[2017-11-27] MEDS: QUETIAPINE FUMARATE 25 MG TAB PO SCH ×2 (08:36→20:51)
[2017-11-27] MEDS: NEFAZODONE HCL 100 MG PO SCH ×2 (08:36→20:51)
[2017-11-27] MEDS: GABAPENTIN 100 MG CAP PO SCH ×3 (08:36→20:51)
[2017-11-27] MEDS: CLOPIDOGREL BISULFATE 75 MG TAB PO SCH (08:36)
[2017-11-27] MEDS: PAROXETINE 20 MG TAB PO SCH (08:36)
[2017-11-27] MEDS: INSULIN GLARGINE SOLOSTAR 100 UNITS/ML 3 ML PEN SC SCH (09:00)
[2017-11-27] MEDS: POTASSIUM CHLR 10 MEQ / WTR 100 ML IV SCH ×4 (10:01→15:19)
[2017-11-27] MEDS: PANTOprazole INJ 40 MG in SYRINGE 0 ML IV SCH (11:34)
[2017-11-27] MEDS: LORAZEPAM 2 MG/ML 1 ML VIAL IV PRN ×2 (11:49→21:02)
[2017-11-27 12:26] LABS: PTT PATIENT 54.8 SECONDS (21.0-31.0)
[2017-11-27] MEDS ORDERED: TPN/PPN CONSULT PHARMACY PRN (16:00)
[2017-11-27] MEDS ORDERED: CUSTOM PERIPHERAL PN 1 BAG IV SCH (16:00)
[2017-11-27] MEDS ORDERED: DEXTROSE 10% 1,000 ML IV PRN (16:00)
[2017-11-27] MEDS ORDERED: DEXTROSE 50% 50 ML SYR IV PRN (16:15)
[2017-11-27] MEDS ORDERED: GLUCAGON FOR INJ 1 MG VIAL SQ PRN (16:15)
[2017-11-27] MEDS ORDERED: GLUCOSE 10 TABS/TUBE PO PRN (16:15)
[2017-11-27] MEDS ORDERED: CARBOHYDRATES FOR HYPOGLYCEMIA PO PRN (16:15)
[2017-11-27] MEDS ORDERED: GLUCOSE 40% GEL 15 GM TUBE PO PRN (16:15)
--- NOTE | 2017-11-27 16:16 | Cardiology Follow-Up ---
Subjective General Date of Service: Nov 27, 2017. Chief Complaint: Follow-up, atrial fibrillation Pt evaluation today including: conversation w/ patient, conversation w/ family , physical exam History of Present Illness The patient is a 77 year old male seen in cardiology follow-up having been followed by Dr. Rhoades earlier this hospital stay. Patient is comfortable. Amiodarone is infusing. He remains in sinus rhythm overnight last night and today on an amiodarone infusion. Allergies Coded Allergies: Cephalexin (Verified Allergy, Intermediate, RASH, 11/25/17) Simvastatin (Verified Allergy, Unknown, [id number] INTERACTION WITH NEFAZODONE, 10/22/16) Lisinopril (Verified Adverse Reaction, Mild, COUGH, 11/25/17) Social History Smoking Status: Former Smoker Hx Tobacco Use In Past Year?: No (QUIT 10 YEARS AGO) Hx Alcohol Use - Type And Amou: No Hx Substance Use - Type And Am: No Physical Exam Vital Signs Last Vital Signs Documentation Date Time Temp Pulse Resp B/P (MAP) Pulse Ox O2 Delivery O2 Flow Rate FiO2 11/27/17 15:33 36.8 66 16 173/77 (109) 93 Room Air 11/27/17 15:10 1.0 11/27/17 01:40 40 Physical Exam Constitutional: Level of Distress: chronically ill ENMT: normal ENT inspection Neck: supple, trachea midline Lungs: Auscultation: pertinent finding (Lungs clear to auscultation) Cardiovascular: Heart Auscultation: RRR, II/ MIYA Abdomen: Inspection & Palpation: soft, non-distended Extremities: no edema Neurologic: Gait & Station: pertinent finding (No focal deficit) Assessment and Plan Assessment and Plan Impression: 77-year-old male 1. Paroxysmal atrial fibrillation with rapid ventricular response 2. Coronary heart disease, multiple percutaneous coronary interventions with at [facility] more recently in [place] within the last year 3. Stage IV chronic kidney disease, GFR in the range of 20 mL/min/m 4. Lung carcinoma status post right upper lobectomy, postop pleural effusion for which patient underwent thoracentesis and chest tube placement this admission 5. Bilateral aspiration pneumonia 6. Difficult to control hypertension 7. Moderate aortic valve stenosis Plan: At baseline, the patient appears to be on metoprolol 25 mg twice daily and amiodarone 200 mg twice daily for rhythm control. He is also on Eliquis 2.5 mg twice daily for stroke prophylaxis. His GFR of course is in the range where it needs to be followed closely to allow ongoing Eliquis administration in the future. Heparin bridge is on board for now pending procedure of anticipated PEG tube placement early next week. He is being bridged with an IV amiodarone infusion to help maintain sinus rhythm. Given the cardiac strain post by his pleural effusion, I think ongoing amiodarone treatment IV is a good prophylactic strategy in order to maintain sinus rhythm and allow endoscopy, PEG tube placement. Regarding his refractory hypertension. His systolic blood pressure readings have been in the range of 177 mmHg. At baseline he is on diltiazem CD 120 mg daily, metoprolol tartrate 25 mg twice daily, losartan 50 mg daily, clonidine 0.1 mg twice daily. At present he is receiving a clonidine patch and IV metoprolol and IV hydralazine, IV furosemide 20 mg daily, and topical nitroglycerin ointment. He is not receiving any of his oral medications to aspiration. Plavix as noted is on hold. We will increase hydralazine to 20 mg IV every 6 hours. Laboratory Results Last 24 Hours Test 11/26/17 18:30 11/26/17 21:33 11/27/17 00:10 11/27/17 04:28 Bedside Glucose 140 mg/dl 111 mg/dl Activated Partial Thromboplast Time 89.8 SECONDS 77.6 SECONDS Partial Thromboplastin Ratio 3.5 3.0 Sodium Level 141 mmol/L Potassium Level 2.9 mmol/L Chloride Level 101 mmol/L Carbon Dioxide Level 34 mmol/L Anion Gap 6.0 mmol/L Blood Urea Nitrogen 31 mg/dl Creatinine 2.49 mg/dl Est Creatinine Clear Calc Drug Dose 28.1 ml/min Estimated GFR () 27.8 Estimated GFR (Non- 24.0 BUN/Creatinine Ratio 12.5 Random Glucose 103 mg/dl Calcium Level 8.3 mg/dl Phosphorus Level 3.2 mg/dl Magnesium Level 2.3 mg/dl Total Bilirubin 0.6 mg/dl Aspartate Amino Transf (AST/SGOT) 37 U/L Alanine Aminotransferase (ALT/SGPT) 76 U/L Alkaline Phosphatase 62 U/L C-Reactive Protein 4.10 mg/dl Albumin 2.4 gm/dl Prealbumin 25.6 mg/dl Triglycerides Level 132 mg/dl Test 7/28/18 06:29 11/27/17 11:26 11/27/17 11:55 11/27/17 13:55 Bedside Glucose 107 mg/dl 138 mg/dl Activated Partial Thromboplast Time 54.8 SECONDS Partial Thromboplastin Ratio 2.1 Potassium Level 3.3 mmol/L
--- NOTE | 2017-11-27 16:56 | Progress Note ---
Medicine Progress Note Date & Time of Visit: Nov 27, 2017 at 16:46. Subjective resting in bedside chair, comfortable on 3 liters of nasal cannula denies shortness of breath, chest pain, palpitations no abdominal pain, nausea reports pain on the lower back, buttock area no other symptoms Objective Last 8 Hrs Date Time Temp Pulse Resp B/P (MAP) Pulse Ox O2 Delivery O2 Flow Rate FiO2 11/27/17 15:33 36.8 66 16 173/77 (109) 93 Room Air 11/27/17 15:10 36.5 72 19 169/75 (106) 92 Nasal Cannula 1.0 11/27/17 14:14 66 14 95 Nasal Cannula 2.0 11/27/17 12:13 36.6 70 19 177/76 (109) 94 Nasal Cannula 1.0 11/27/17 11:40 83 11/27/17 10:08 70 177/77 (110) Physical Exam: General- oriented x 3, not in distress, speaks in sentences, no effort Eyes- anicteric Neck- supple, no JVD Lungs- mild rales right base, clear on the left, no wheezing Heart- normal rate, irregularly irregular rhythm; no murmurs Abdomen- normal bowel sounds, soft, nontender Extremities- no pretibial edema, no calf tenderness; peripheral pulses intact Neuro- alert, oriented x 3; no gross focal deficits Skin- warm & dry Laboratory Results: Last 24 Hours Test 11/26/17 18:30 11/26/17 21:33 11/27/17 00:10 11/27/17 04:28 Bedside Glucose 140 mg/dl 111 mg/dl Activated Partial Thromboplast Time 89.8 SECONDS 77.6 SECONDS Partial Thromboplastin Ratio 3.5 3.0 Sodium Level 141 mmol/L Potassium Level 2.9 mmol/L Chloride Level 101 mmol/L Carbon Dioxide Level 34 mmol/L Anion Gap 6.0 mmol/L Blood Urea Nitrogen 31 mg/dl Creatinine 2.49 mg/dl Est Creatinine Clear Calc Drug Dose 28.1 ml/min Estimated GFR () 27.8 Estimated GFR (Non- 24.0 BUN/Creatinine Ratio 12.5 Random Glucose 103 mg/dl Calcium Level 8.3 mg/dl Phosphorus Level 3.2 mg/dl Magnesium Level 2.3 mg/dl Total Bilirubin 0.6 mg/dl Aspartate Amino Transf (AST/SGOT) 37 U/L Alanine Aminotransferase (ALT/SGPT) 76 U/L Alkaline Phosphatase 62 U/L C-Reactive Protein 4.10 mg/dl Albumin 2.4 gm/dl Prealbumin 25.6 mg/dl Triglycerides Level 132 mg/dl Test 11/27/17 06:29 11/27/17 11:26 11/27/17 11:55 11/27/17 13:55 Bedside Glucose 107 mg/dl 138 mg/dl Activated Partial Thromboplast Time 54.8 SECONDS Partial Thromboplastin Ratio 2.1 Potassium Level 3.3 mmol/L Assessment & Plan Assessment and Plan 77-year-old male with significant past medical history of CAD status post stents ( x3 in 05/2017), chronic diastolic CHF, moderate aortic stenosis, hypertension, COPD, GAURANG on CPAP, right lung mass status post lobectomy secondary to adenocarcinoma of the lung at [place], postoperative paroxysmal atrial fibrillation, esophageal diverticulum with recurrent aspiration pneumonia , CKD stage III who presented to [facility] with hypoxia suspicious for bilateral PNA secondary to aspiration, right pleural effusion. Acute Hypoxic Respiratory Failure multifactorial secondary to bilateral PNA,Pleural Effusion, DHF, COPD exacerbation - Continue IV Zosyn - IV solumedrol decreased to 20mg, nebulizer, O2 - Lasix 20mg iV daily Esophageal Diverticulum with Esophageal Dysmotility -Danial Aspiration -Continue NPO, necessary meds converted to IV. -To have PEG placed on Wednesday - PPN ordered R Loculated Pleural Effusion - s/p thoracentesis 11/22 1100cc removed, fluid analysis reviewed appears transudative. - Echo reviewed -s/p PleurX cath placed on 11/24 due to recurrent effusion - appreciate thoracic surgery/pulm input. COPD Exacerbation - Continue O2, IV methylprednisone, nebulizer treatments GAURANG on CPAP CAD - s/p multiple stents, most recent 05/2017 had three stents placed; total of 7 stents. - Given NPO status plavix and lipitor on hold until peg placed. - continue medical management of plavix, metoprolol, lipitor. Plavix to continue 1 year uninterrupted. Paroxysmal A. Fib Patient developed PAF status post right lung lobectomy at [facility] in which he was placed on amiodarone and Xarelto. He then presented to [facility] in which cardiology was consulted, Dr. Madrid, who recommended continuing amiodarone; however decreasing to daily at discharge. Further she recommended discontinuing atenolol and switching it to metoprolol as well as continuing CCB. Xarelto was transitioned to Eliquis secondary to renal dysfunction. - On Amio gtt, IV lopressor increased secondary to hypertension - IV heparin HTN - may need to increase Metoprolol or Hydralazine IV -Continue Nitropaste and clonidine patch - will discuss with Cardiology Recent R Lung Adenocarcinoma - s/p resection of R upper lobe at [facility] CKD stage 3 -Renal function at baseline Hypokalemia -replace , monitor Hyperglycemia due to steroids - A1c 5.9 start ISS Glycemic control consult Anemia -Hemoglobin stable Anxiety -prn lorazepam DVT ppx - IV Heparin - SCDs FULL CODE Dispo pending will need SNF/Rehab Current Inpatient Medications: Current Inpatient Medications Medications (Trade) Dose Ordered Sig/Vicki Route Start Time Stop Time Status Last Admin Dose Admin Nitroglycerin (Nitrostat Tab) 0.4 mg UD PRN SL 11/21/17 05:00 12/21/17 04:59 Hydromorphone HCl (Dilaudid Inj) 0.5 mg Q3H PRN IV 11/21/17 05:00 12/05/17 04:59 11/23/17 17:42 0.5 MG Oxycodone/ Acetaminophen (Percocet 5-325mg Tab) 1 tab Q6H PRN PO 11/21/17 05:00 12/05/17 04:59 Prochlorperazine Edisylate 5 mg/ Syringe 5 ml @ 5 mls/min Q6H PRN IV 11/21/17 05:00 12/21/17 04:59 11/22/17 04:18 5 MLS/MIN Miscellaneous Information (Consult) 1 ea UD PRN N/A 11/21/17 09:00 12/21/17 08:59 Atorvastatin Calcium (Lipitor Tab) 40 mg DAILY PO 11/21/17 09:00 12/21/17 08:59 11/22/17 08:20 40 MG Finasteride (Proscar Tab) 5 mg QAM PO 11/21/17 09:00 12/21/17 08:59 11/22/17 08:17 5 MG Gabapentin (Neurontin Cap) 200 mg TID PO 11/21/17 09:00 12/21/17 08:59 11/21/17 21:02 200 MG Nefazodone HCl (serZONE TAB) 150 mg BID PO 11/21/17 09:00 12/21/17 08:59 11/22/17 09:34 150 MG Quetiapine Fumarate (seroQUEL TAB) 25 mg BID PO 11/21/17 09:00 12/21/17 08:59 11/22/17 08:21 25 MG Senna/Docusate Sodium (Senokot S Tab) 1 tab DAILY PRN PO 11/21/17 05:00 12/21/17 04:59 11/22/17 08:23 1 TAB Clopidogrel Bisulfate (plAVix TAB) 75 mg QAM PO 11/21/17 09:00 12/21/17 08:59 11/22/17 08:22 75 MG Paroxetine HCl (pAXil TAB) 20 mg DAILY PO 11/21/17 09:00 12/21/17 08:59 11/22/17 08:20 20 MG Tamsulosin HCl (Flomax Cap) 0.4 mg DAILY PO 11/21/17 09:00 12/21/17 08:59 11/22/17 08:20 0.4 MG Ipratropium [place] (Atrovent 0.02% 0.5MG/2.5ML Neb) 0.5 mg Q6R INH 11/21/17 09:00 12/21/17 08:59 11/27/17 14:13 0.5 MG Levalbuterol (Xopenex 1.25MG/ 0.5ML Neb) 1.25 mg Q6R INH 11/21/17 09:00 12/21/17 08:59 11/27/17 14:13 1.25 MG Ipratropium [place] (Atrovent 0.02% 0.5MG/2.5ML Neb) 0.5 mg Q4H PRN INH 11/21/17 06:15 12/21/17 06:14 11/26/17 17:20 0.5 MG Levalbuterol (Xopenex 1.25MG/ 0.5ML Neb) 1.25 mg Q4H PRN INH 11/21/17 06:15 12/21/17 06:14 11/26/17 17:20 1.25 MG Piperacillin Sod/ Tazobactam Sod 3.375 gm/Dextrose 115 ml @ 28.75 mls/ hr Q8H IV 11/21/17 10:00 11/28/17 09:59 11/27/17 10:01 28.75 MLS/HR Pantoprazole Sodium 40 mg/ Syringe 10 ml @ 5 mls/min DAILY@11 IV 11/22/17 11:00 12/22/17 10:59 11/27/17 11:34 5 MLS/MIN Famotidine 20 mg/ Syringe 5 ml @ 2.5 mls/min Q12 IV 11/22/17 11:00 12/22/17 10:59 11/27/17 08:34 2.5 MLS/MIN Acetaminophen (Tylenol Supp) 650 mg Q4H PRN [place] 11/23/17 09:45 12/23/17 09:44 Clonidine HCl (Mfdumaym-Jir-3 0.2mg/24hr Patch) 1 patch Q7D@0900 TD 11/23/17 12:00 12/23/17 11:59 11/23/17 14:21 1 PATCH Miscellaneous (Remove Clonidine Patch) 1 ea Q7D@0859 N/A 11/30/17 08:59 12/30/17 08:58 Miscellaneous Information (Check Clonidine Patch Placement) 1 ea QS N/A 11/23/17 16:00 12/23/17 15:59 11/27/17 15:19 1 EA Metoprolol Tartrate (Lopressor Iv) 2.5 mg Q6H PRN IV 11/23/17 11:00 12/23/17 10:59 11/26/17 03:57 2.5 MG Furosemide 20 mg/ Syringe 2 ml @ 4 mls/min DAILY IV 11/25/17 09:00 12/25/17 08:59 11/27/17 08:35 4 MLS/MIN Amiodarone HCL/ Dextrose 200 ml @ 16.7 mls/hr [id number] IV 11/24/17 20:43 12/24/17 20:42 11/27/17 08:30 16.7 MLS/HR Nitroglycerin (Nitroglycerin 2% Oint) 1 inch Q6H EXT 11/25/17 00:00 12/25/17 00:00 11/27/17 11:37 1 INCH Heparin Sodium/ Dextrose 500 ml @ 23 mls/hr [id number] IV 11/25/17 09:45 12/25/17 09:44 Future hold 11/26/17 15:24 29 MLS/HR Metoprolol Tartrate (Lopressor Iv) 10 mg Q6 IV. 11/26/17 12:00 12/24/17 15:59 11/27/17 11:40 10 MG Hydralazine HCl (HydrALAZINE INJ) 10 mg Q6 IV. 11/26/17 12:00 12/26/17 11:59 11/27/17 11:41 10 MG Methylprednisolone Sodium Succinate 20 mg/Syringe 0.32 ml @ 1.5 mls/min DAILY IV 11/27/17 09:00 12/23/17 08:59 11/27/17 08:35 1.5 MLS/MIN Miscellaneous Information (Pharmacy Tpn/ Ppn Consult Active) 1 ea UD PRN N/A 11/27/17 16:00 12/27/17 15:59 Lorazepam 0.5 mg/ Syringe 1 ml @ 1 mls/min Q8H PRN IV 11/26/17 16:30 12/25/17 20:14 Lorazepam (Ativan Inj) 0.5 mg Q8H PRN IV 11/26/17 17:00 12/25/17 19:59 11/27/17 11:49 0.5 MG Nutrition (Parenteral) 0 ml @ 0 mls/hr TODAY@1600 IV 11/27/17 16:00 11/28/17 15:59 Dextrose 1,000 ml @ 0 mls/hr Q0M PRN IV 11/27/17 16:00 12/27/17 15:59 Insulin Aspart (novoLOG ASPART) SLIDING SCALE If C... ACHS SC 11/27/17 16:15 12/27/17 16:14 UNV Glucose (Glucose 40% Gel) 15-30 GRAMS 15 GRAMS... UD PRN PO 11/27/17 16:15 12/27/17 16:14 UNV Glucose (Glucose Chew Tab) 4-8 Tablets 4 Tabl... UD PRN PO 11/27/17 16:15 12/27/17 16:14 UNV Dextrose (Dextrose 50% 50ML Syringe) 25-50ML 25ML FOR ... UD PRN IV 11/27/17 16:15 12/27/17 16:14 UNV Glucagon (Glucagon Inj) 1 mg UD PRN SQ 11/27/17 16:15 12/27/17 16:14 UNV Carbohydrates (Carbohydrates For Hypoglycemia) 15-30 GRAMS 15 grams if BSG 54-69... UD PRN PO 11/27/17 16:15 12/27/17 16:14 UNV Miscellaneous Information (Consult Glycemic Management Pharmacy) 1 ea ONE STAT N/A 11/27/17 16:08 11/27/17 16:09 UNV
[2017-11-27] MEDS ORDERED: PHARMACY GLYCEMIC MGMT CONSULT PRN (17:49)
[2017-11-27] MEDS: INSULIN ASPART 100 UNITS/ML 3 ML PEN SC SCH (18:00)
[2017-11-27] MEDS ORDERED: HydrALAZINE HCL 20 MG/ML VIAL IV. STA (18:55)
[2017-11-27] MEDS: NYSTATIN POWDER 15GM BTL EXT SCH (20:53)
[2017-11-28] VITALS (10 sets, daily range): BP systolic 159–184; BP diastolic 64–86; PULSE 60–70; TEMP 36.4–36.8; O2SAT 94–99
[2017-11-28] MEDS: METOPROLOL TARTRATE 1 MG/ML VIAL IV. SCH ×5 (00:26→22:08)
[2017-11-28] MEDS: NITROGLYCERIN 2% OINTMENT 30GM TUBE EXT SCH ×2 (00:27→05:46)
[2017-11-28] MEDS: HydrALAZINE HCL 20 MG/ML VIAL IV. SCH ×5 (00:27→22:06)
[2017-11-28] MEDS: CHECK CLONIDINE PATCH PLACEMENT SCH ×4 (00:28→22:20)
[2017-11-28] MEDS: PIPERACILL/TAZOBAC IV 3.375 GM in D5W 100ML IV SCH ×3 (02:16→22:06)
[2017-11-28] MEDS: IPRATROPIUM BROMIDE NEB SOLN 0.02% 2.5 ML VIAL INH SCH ×4 (02:33→19:28)
[2017-11-28] MEDS: LEVALBUTEROL 1.25MG/0.5ML NEB INH SCH ×4 (02:33→19:27)
[2017-11-28 04:47] LABS: EOS % 1.3 %; EOS ABS # 0.16 K/uL (0-0.5); HEMOGLOBIN 9.8 g/dL (14.0-18.0); IG# 0.07 K/uL (0.00-0.02); LYMPH % 10.1 %; LYMPH ABS # 1.22 K/uL (1.2-3.4); MEAN CELL VOLUME 88.1 fL (80-100); MEAN CORPUSCULAR HEMOGLOBIN 27.8 pg (25-34); MEAN CORPUSCULAR HGB CONC 31.6 g/dl (32-36); MEAN PLATELET VOLUME 11.2 fL (7.4-10.4); MONO ABS # 1.21 K/uL (0.11-0.59); NEUT ABS # 9.46 K/uL (1.4-6.5); PLATELET COUNT 243 K/uL (130-400); RED CELL DISTRIBUTION WIDTH CV 14.9 % (11.5-14.5); RED CELL DISTRIBUTION WIDTH SD 47.7 fL (36.4-46.3); WHITE BLOOD COUNT 12.12 K/uL (4.8-10.8)
[2017-11-28 05:13] LABS: CALCIUM 7.8 mg/dl (8.5-10.1); CREATININE 2.4 mg/dl (0.60-1.40); PHOSPHORUS 3.3 mg/dl (2.5-4.9); POTASSIUM 2.8 mmol/L (3.5-5.1)
[2017-11-28 05:25] LABS: PTT PATIENT 64.6 SECONDS (21.0-31.0)
[2017-11-28] MEDS: AMIODARONE / D5W 200 ML IV SCH ×2 (05:48→17:51)
[2017-11-28] MEDS: INSULIN ASPART 100 UNITS/ML 3 ML PEN SC SCH ×5 (06:00→23:46)
[2017-11-28] MEDS: NYSTATIN POWDER 15GM BTL EXT SCH ×2 (07:43→20:08)
[2017-11-28] MEDS: METHYLPREDNISOLONE IV 20 MG in SYRINGE 0 ML IV SCH (07:44)
[2017-11-28] MEDS: FUROSEMIDE INJ 20 MG in SYRINGE 0 ML IV SCH (07:44)
[2017-11-28] MEDS: PAROXETINE 20 MG TAB PO SCH (07:46)
[2017-11-28] MEDS: TAMSULOSIN HCL 0.4 MG CAP PO SCH (07:46)
[2017-11-28] MEDS: GABAPENTIN 100 MG CAP PO SCH ×3 (07:46→19:54)
[2017-11-28] MEDS: CLOPIDOGREL BISULFATE 75 MG TAB PO SCH (07:46)
[2017-11-28] MEDS: ATORVASTATIN 40 MG TAB PO SCH (07:46)
[2017-11-28] MEDS: NEFAZODONE HCL 100 MG PO SCH ×2 (07:47→19:54)
[2017-11-28] MEDS: FINASTERIDE 5 MG TAB PO SCH (07:47)
[2017-11-28] MEDS: QUETIAPINE FUMARATE 25 MG TAB PO SCH ×2 (07:47→19:54)
[2017-11-28] MEDS: FAMOTIDINE IV INJ 20 MG in SYRINGE 3 ML IV SCH ×2 (08:27→20:01)
[2017-11-28] MEDS: POTASSIUM CHLR 10 MEQ / WTR 100 ML IV SCH ×4 (08:30→11:55)
[2017-11-28] MEDS: HEPARIN 25,000 UNIT/500ML D5W 500 ML IV SCH (08:31)
--- NOTE | 2017-11-28 08:46 | Surgery Progress Note ---
Subjective Date of Service: Nov 28, 2017. Pt. denies SOB. No pain with drainage of Pleurx. Objective Vitals Date Time Temp Pulse Resp B/P (MAP) Pulse Ox O2 Delivery O2 Flow Rate FiO2 11/28/17 07:15 36.6 67 20 159/74 (102) 96 Ambu-Bag 2.0 11/28/17 07:10 68 16 97 Nasal Cannula 2.0 11/28/17 05:46 70 170/75 11/28/17 04:33 36.7 70 16 170/75 (106) 95 Nasal Cannula 2.0 11/28/17 00:26 65 155/71 11/27/17 23:41 36.6 64 17 155/71 (99) 97 CPAP 11/27/17 20:08 36.9 72 20 161/76 (104) 95 Nasal Cannula 1.0 11/27/17 20:00 Nasal Cannula 2.0 11/27/17 19:03 68 14 96 Nasal Cannula 2.0 11/27/17 15:33 36.8 66 16 173/77 (109) 93 Room Air 11/27/17 15:10 36.5 72 19 169/75 (106) 92 Nasal Cannula 1.0 11/27/17 14:14 66 14 95 Nasal Cannula 2.0 11/27/17 12:13 36.6 70 19 177/76 (109) 94 Nasal Cannula 1.0 11/27/17 11:40 83 11/27/17 10:08 70 177/77 (110) Physical Exam General: + well developed, + well nourished, No distress CV: + RRR Pulmonary: + pertinent finding (BS are decreased at bases R>L), No accessory muscle use, No respiratory distress Extremities: No calf tenderness Neurologic: + alert & oriented x 3 Drains / Tubes pleurex (drained for 50 cc today ) Assessment & Plan 77 year old male with right pleural effusion -pt. has undergone thoracentesis followed by pleurex catheter placement: -all culture are (-) -cytology (-) for malignancy -continue daily drainage of pleurex catheter -concern noted for aspiration with esophageal diverticulum as a potential contributing factor: -pt. to have PEG placed--tent. for 11/29/17 -will address esophageal issues after PEG placed and pt. has improved from current issues (a-fib, pneumonia)
--- NOTE | 2017-11-28 09:35 | Pharmacy Progress Note ---
Glycemic Control Intl Consult Date of Service Nov 28, 2017. Scope Glycemic Pharmacist consulted by Dr Forman on 11/27/17 for glycemic control and to write orders per [facility] inpatient glycemic control protocol Objective Weight (Kilograms): 91.600 Accuchecks BSG (last 24hrs): Test 11/27/17 11:26 11/27/17 18:20 11/28/17 00:37 11/28/17 04:16 Bedside Glucose 138 mg/dl (70-99) 140 mg/dl (70-99) 117 mg/dl (70-99) Random Glucose 109 mg/dl (70-99) Test 11/28/17 06:03 Bedside Glucose 117 mg/dl (70-99) Laboratory Data (last 24hrs) Test 11/27/17 13:55 11/27/17 16:58 11/28/17 04:16 Potassium Level 3.3 mmol/L 3.6 mmol/L 2.8 mmol/L Anion Gap 6.0 mmol/L BUN/Creatinine Ratio 11.6 Blood Urea Nitrogen 28 mg/dl Creatinine 2.40 mg/dl Sodium Level 137 mmol/L White Blood Count 12.12 K/uL Red Blood Count 3.52 M/uL Hemoglobin 9.8 g/dL Hematocrit 31.0 % Mean Corpuscular Volume 88.1 fL Mean Corpuscular Hemoglobin 27.8 pg Mean Corpuscular Hemoglobin Concent 31.6 g/dl Platelet Count 243 K/uL Mean Platelet Volume 11.2 fL Neutrophils (%) (Auto) 78.0 % Lymphocytes (%) (Auto) 10.1 % Monocytes (%) (Auto) 10.0 % Eosinophils (%) (Auto) 1.3 % Basophils (%) (Auto) 0.0 % Neutrophils # (Auto) 9.46 K/uL Lymphocytes # (Auto) 1.22 K/uL Monocytes # (Auto) 1.21 K/uL Eosinophils # (Auto) 0.16 K/uL Basophils # (Auto) 0.00 K/uL HbA1c Test 11/23/17 08:03 Hemoglobin A1c 5.9 % (4.5-5.6) H Recent Pertinent Medications Outpatient Anti-diabetic Regimen: * n/a * A1c = 5.9 % 11/23/17 The patient is currently receiving: * Basal insulin: Lantus 5 units every 24 hours - dose has been held , last dose was on 11/22 Risk Factors for Insulin Resistance: * Steroids: Solu-medrol 20mg IV daily * Infection: Zosyn - B/L Pneumonia * IVF: Heparin and Amiodarone drips * Recent Surgery: Thoracentesis and PleurX Cath placement * Diet: TPN, PEG Placement scheduled fro 11/29/17 Assessment & Plan ASSESSMENT: * 77 year old male admitted with respiratory failure, B/L Pneumonia, pleural effusion, s/p thoracentesis and PleurX Catheter * Started patient on Novolog CF and CR yesterday, patient has required 0 units of insulin, will discontinue carb ratio at this time as patient is not requiring any insulin, even with 100g dextrose/day in TPN * Will continue accuchecks as patient is under stress with B/L Pneumonia, AFib, TPN, and daily IV Solu-medrol PLAN FOR INPATIENT GLYCEMIC CONTROL: * No Basal insulin at this time * Correctional Insulin with NOVOLOG per scale ACHS or Q6hrs while NPO * Goal Range: Low 140 mg/dL - High 180 mg/dL * Correction Factor: 50 mg/dL/unit * Nutritional / Prandial insulin - None at this time * Please note that the plan above was derived based on current level of insulin resistance and hospital stress. These recommendations are appropriate for inpatient admission only. Plan of care upon discharge will need to be reassessed to avoid potential outpatient hypo/hyperglycemia. Thank you.
--- NOTE | 2017-11-28 11:43 | Cardiology Follow-Up ---
Subjective General Date of Service: Nov 28, 2017. Chief Complaint: Follow-up, atrial fibrillation Pt evaluation today including: conversation w/ patient, physical exam History of Present Illness The patient is a 77 year old male seen in follow up. Patient without complaints. Remains in SR on amiodarone gtt. BP has trended toward improvement with increase in IV hydralazine dose. Allergies Coded Allergies: Cephalexin (Verified Allergy, Intermediate, RASH, 11/25/17) Simvastatin (Verified Allergy, Unknown, [id number]-YE-LOHP INTERACTION WITH NEFAZODONE, 10/22/16) Lisinopril (Verified Adverse Reaction, Mild, COUGH, 11/25/17) Social History Smoking Status: Former Smoker Hx Tobacco Use In Past Year?: No (QUIT 10 YEARS AGO) Hx Alcohol Use - Type And Amou: No Hx Substance Use - Type And Am: No Physical Exam Vital Signs Last Vital Signs Documentation Date Time Temp Pulse Resp B/P (MAP) Pulse Ox O2 Delivery O2 Flow Rate FiO2 11/28/17 08:00 Nasal Cannula 2.0 11/28/17 07:15 36.6 67 20 159/74 (102) 96 11/27/17 01:40 40 Physical Exam Constitutional: Level of Distress: chronically ill ENMT: normal ENT inspection Neck: supple, trachea midline Lungs: Auscultation: pertinent finding (Lungs clear to auscultation) Cardiovascular: Heart Auscultation: RRR, II/ MIYA Abdomen: Inspection & Palpation: soft, non-distended Extremities: no edema Neurologic: Gait & Station: pertinent finding (No focal deficit) Assessment and Plan Assessment and Plan Impression: 77-year-old male 1. Paroxysmal atrial fibrillation with rapid ventricular response 2. Coronary heart disease, multiple percutaneous coronary interventions with at [facility] more recently in [place] within the last year 3. Stage IV chronic kidney disease, GFR in the range of 20 mL/min/m 4. Lung carcinoma status post right upper lobectomy, postop pleural effusion for which patient underwent thoracentesis and chest tube placement this admission 5. Bilateral aspiration pneumonia 6. Difficult to control hypertension 7. Moderate aortic valve stenosis 8. hypokalemia Plan: Continue IV metoprolol and IV amiodarone for rate/rhythm control. Continue unfractionated heparin infusion. Will defer timing of stopping the heparin infusion to GI prior to PEG tube. Most recent PTT this morning was at goal at 64.6. He is receiving his blood pressure medications intravenously as his oral medications are on hold due to aspiration. Continue clonidine patch, IV metoprolol, IV hydralazine, IV furosemide 20 mg daily. Discontinue nitroglycerin ointment in favor of nitroglycerin patch. He typically follows with [facility] cardiology/[place] and will plan outpatient follow-up accordingly. Laboratory Results Last 24 Hours Test 11/27/17 11:55 11/27/17 13:55 11/27/17 16:58 11/27/17 18:20 Activated Partial Thromboplast Time 54.8 SECONDS Partial Thromboplastin Ratio 2.1 Potassium Level 3.3 mmol/L 3.6 mmol/L Bedside Glucose 140 mg/dl Test 11/28/17 00:37 11/28/17 04:16 11/28/17 06:03 Bedside Glucose 117 mg/dl 117 mg/dl White Blood Count 12.12 K/uL Red Blood Count 3.52 M/uL Hemoglobin 9.8 g/dL Hematocrit 31.0 % Mean Corpuscular Volume 88.1 fL Mean Corpuscular Hemoglobin 27.8 pg Mean Corpuscular Hemoglobin Concent 31.6 g/dl Platelet Count 243 K/uL Mean Platelet Volume 11.2 fL Neutrophils (%) (Auto) 78.0 % Lymphocytes (%) (Auto) 10.1 % Monocytes (%) (Auto) 10.0 % Eosinophils (%) (Auto) 1.3 % Basophils (%) (Auto) 0.0 % Neutrophils # (Auto) 9.46 K/uL Lymphocytes # (Auto) 1.22 K/uL Monocytes # (Auto) 1.21 K/uL Eosinophils # (Auto) 0.16 K/uL Basophils # (Auto) 0.00 K/uL RDW Standard Deviation 47.7 fL RDW Coefficient of Variation 14.9 % Immature Granulocyte % (Auto) 0.6 % Immature Granulocyte # (Auto) 0.07 K/uL Activated Partial Thromboplast Time 64.6 SECONDS Partial Thromboplastin Ratio 2.5 Sodium Level 137 mmol/L Potassium Level 2.8 mmol/L Chloride Level 98 mmol/L Carbon Dioxide Level 33 mmol/L Anion Gap 6.0 mmol/L Blood Urea Nitrogen 28 mg/dl Creatinine 2.40 mg/dl Est Creatinine Clear Calc Drug Dose 28.9 ml/min Estimated GFR () 29.1 Estimated GFR (Non- 25.1 BUN/Creatinine Ratio 11.6 Random Glucose 109 mg/dl Calcium Level 7.8 mg/dl Phosphorus Level 3.3 mg/dl Magnesium Level 2.0 mg/dl
[2017-11-28] MEDS: PANTOprazole INJ 40 MG in SYRINGE 0 ML IV SCH (12:26)
[2017-11-28] MEDS: LORAZEPAM 2 MG/ML 1 ML VIAL IV PRN ×2 (13:18→22:06)
[2017-11-28] MEDS ORDERED: NURSING VERBAL MED ORDER ONE (14:00)
--- NOTE | 2017-11-28 15:24 | Pulmonology Progress Note ---
Pulmonary Progress Note Date of Service Nov 28, 2017. Attending Dr. Schultz Subjective Patient notes continued improvement and has minimal dyspnea with exertion at this time and notes none at rest Objective Patient is able sit up in bed interacting with family and myself with long conversation showing no signs of respiratory insufficiency such as tachypnea or accessory muscle use: PmHx: Reflux, adenocarcinoma of the lung/stage 1A (pTab, pN0,M0), aortic stenosis, BPH, CAD/mi/STENTS, colonic cancer, COPD/asthma, DJD, hematuria, hypercholesterolemia, hypertension, chronic kidney disease stage 5, GAURANG, osteoarthritis, panic disorder, seizure history, subacute bacterial endocarditis , Paroxysmal atrial fibrillation with RVR, CAD/multiple- PTCI (Stents), CKD )GFR : 20), aspiration pneumonia, moderate aortic valve stenosis PsHx: Right upper lobe lobectomy, appendectomy, colonoscopy, PTCA with stents, EGD, CABG Social history: Former smoker 40 pack-year history quit 2003, 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 Physical exam: Stable on 2 liters Respiratory: Mild rhonchi of the right hemithorax Cardiac: S1-S2 distant heart sounds but regular rate Abdomen: Positive bowel sounds soft nontender Extremities: Minimal pitting edema bilateral lower extremities/gravity dependent region Pleural Effusion: Thoracentesis right-sided 11/22/2017 o Transudative based off LDH criteria/pH: 7.37 o Volume: 1100ml of rust-colored fluid o Microbiology: Negative to date Right-sided IPC placement 11/24/17 o RBCs 266,000 o Microbiology: No significant growth to date o Volume: 900mL Right-sided IPC drainage 11/25/2017: 350 mL 11/26/2017: 200 mL 11/27/2017: 120 5 mL Labs ProBNP: [id number] CRP: >4.10 EKG performed 11/26/2017: Probable junction tachycardia with ectopic B, right bundle-branch block, abnormal T-wave consider in inferior infarction when compared to EKG 11/22/2017 Lung Cancer History: First diagnosed during a cardiac CT performed in [place] the patient had 2 DELMA placed 06/2017 CT chest 08/02/2017: Interval development 1.4 cm spiculated right upper lobe nodule, interval development of a left apical noncalcified 5 mm nodule previously 2 mm, stable 5 mm noncalcified RML, redemonstration of possible stricture in the distal esophagus with malignant etiology not excluded and proximal to the stricture there is eccentric dilation of the esophagus suggesting right lateral wall diverticulum, possible left lateral esophageal diverticulum at the thoracic inlet PET/CT: Hypermetabolic right upper lobe nodule, mildly FDG avid sub centimeter left apical nodule, small hypermetabolic left paratracheal lymph node nodule, there is uptake within the right hilum which corresponds to area of calcification on CT portion of the exam, increased FDG uptake with multiple left-sided ribs with no definite correspondence on CT abnormality--he has areas of uptake could represent prior trauma or possible malignancy, moderate wall thickening within the distal esophagus with dilation of the mid to distal esophagus--suggest direct visualization, Orders placed: Esophagram, MRI brain/noncontrast, bone scan, nuclear cardiac stress testing, PFTs Thoracic surgery notes: Procedure: Flexible bronchoscopy, EGD, right VATS (RUL wedge resection to lobectomy, RML-pneumoplexy, mediastinal lymphadenectomy) o Mediastinal lymph node stations: 7, 8, 9, 2, 3, 4, 11, 12, 13 o Bronchoscopy: Noted to have normal endoluminal anatomy o Right upper lobe: Invasive lung adenocarcinoma, moderately differentiated , acinar/cribriform patterns 1.6 cm, carcinoma does not invade visceral pleura, lymphovascular invasion not identified, parenchymal surgical margin is negative for carcinoma, lymphoid excisions all negative for tumor o Total number lymph nodes examined: 31 o Primary tumor 1A (pTab, pN0,M0) Pulmonary Medications 1. Zosyn IV: Day #8 2. Methylprednisolone 20 mg IV daily 3. Pantoprazole 40 mg daily 4. Famotidine 20 mg b.i.d. 5. Xopenex/Atrovent nebulizer Q 6 Assessment & Plan 77-year-old with complex PmHx: Recently diagnosed with stage I adenocarcinoma of the lung and admitted on 11/21/2017 for progressive respiratory insufficiency /hypoxemia: 1. Hypoxemia: Most likely combination of heart disease, primary lung disease/ COPD, deconditioning, renal insufficiency, aortic valve stenosis and aspiration. 2. COPD: Patient is responding well to current therapy and will decrease his steroid intake to 20 mg of prednisone daily. 3. Aspiration: Patient continues to be aspiration risk and should be continued on aspiration precautions. There is evaluation for possible esophageal intervention after patient is stable by Dr. Alec Cole. 4. Adenocarcinoma of the lung: Patient recently went under right upper lobe lobectomy for stage I adenocarcinoma for curative intent/resection. Patient will require follow-up based off NCCN guidelines requiring q.3 months imaging for the 1st year Q 6 month imaging for the 2nd year in yearly imaging after that. 5. Pleural effusion: Patient has gone under right-sided thoracentesis as well as right-sided IPC placement with approximately 2,680cc removed today. Patient' s daily evacuation 7 notably decreased with today's evacuation currently not reported but previous days only at 125 cc. This suggests the patient might be reaching his baseline fluid status and we could start switching him to every other day or every 3rd day evacuation. I will leave this up to CTS at this time. Data Medications: Current Inpatient Medications Medications (Trade) Dose Ordered Sig/Vicki Route Start Time Stop Time Status Last Admin Dose Admin Nitroglycerin (Nitrostat Tab) 0.4 mg UD PRN SL 11/21/17 05:00 12/21/17 04:59 Hydromorphone HCl (Dilaudid Inj) 0.5 mg Q3H PRN IV 11/21/17 05:00 12/05/17 04:59 11/23/17 17:42 0.5 MG Oxycodone/ Acetaminophen (Percocet 5-325mg Tab) 1 tab Q6H PRN PO 11/21/17 05:00 12/05/17 04:59 Prochlorperazine Edisylate 5 mg/ Syringe 5 ml @ 5 mls/min Q6H PRN IV 11/21/17 05:00 12/21/17 04:59 11/22/17 04:18 5 MLS/MIN Miscellaneous Information (Consult) 1 ea UD PRN N/A 11/21/17 09:00 12/21/17 08:59 Atorvastatin Calcium (Lipitor Tab) 40 mg DAILY PO 11/21/17 09:00 12/21/17 08:59 11/22/17 08:20 40 MG Finasteride (Proscar Tab) 5 mg QAM PO 11/21/17 09:00 12/21/17 08:59 11/22/17 08:17 5 MG Gabapentin (Neurontin Cap) 200 mg TID PO 11/21/17 09:00 12/21/17 08:59 11/21/17 21:02 200 MG Nefazodone HCl (serZONE TAB) 150 mg BID PO 11/21/17 09:00 12/21/17 08:59 11/22/17 09:34 150 MG Quetiapine Fumarate (seroQUEL TAB) 25 mg BID PO 11/21/17 09:00 12/21/17 08:59 11/22/17 08:21 25 MG Senna/Docusate Sodium (Senokot S Tab) 1 tab DAILY PRN PO 11/21/17 05:00 12/21/17 04:59 11/22/17 08:23 1 TAB Clopidogrel Bisulfate (plAVix TAB) 75 mg QAM PO 11/21/17 09:00 12/21/17 08:59 11/22/17 08:22 75 MG Paroxetine HCl (pAXil TAB) 20 mg DAILY PO 11/21/17 09:00 12/21/17 08:59 11/22/17 08:20 20 MG Tamsulosin HCl (Flomax Cap) 0.4 mg DAILY PO 11/21/17 09:00 12/21/17 08:59 11/22/17 08:20 0.4 MG Ipratropium [place] (Atrovent 0.02% 0.5MG/2.5ML Neb) 0.5 mg Q6R INH 11/21/17 09:00 12/21/17 08:59 11/28/17 07:07 0.5 MG Levalbuterol (Xopenex 1.25MG/ 0.5ML Neb) 1.25 mg Q6R INH 11/21/17 09:00 12/21/17 08:59 11/28/17 07:08 1.25 MG Ipratropium [place] (Atrovent 0.02% 0.5MG/2.5ML Neb) 0.5 mg Q4H PRN INH 11/21/17 06:15 12/21/17 06:14 11/26/17 17:20 0.5 MG Levalbuterol (Xopenex 1.25MG/ 0.5ML Neb) 1.25 mg Q4H PRN INH 11/21/17 06:15 12/21/17 06:14 11/26/17 17:20 1.25 MG Pantoprazole Sodium 40 mg/ Syringe 10 ml @ 5 mls/min DAILY@11 IV 11/22/17 11:00 12/22/17 10:59 11/28/17 12:26 5 MLS/MIN Famotidine 20 mg/ Syringe 5 ml @ 2.5 mls/min Q12 IV 11/22/17 11:00 12/22/17 10:59 11/28/17 08:27 2.5 MLS/MIN Acetaminophen (Tylenol Supp) 650 mg Q4H PRN IN 11/23/17 09:45 12/23/17 09:44 Clonidine HCl ([id number]-Qal-8 0.2mg/24hr Patch) 1 patch Q7D@0900 TD 11/23/17 12:00 12/23/17 11:59 11/23/17 14:21 1 PATCH Miscellaneous (Remove Clonidine Patch) 1 ea Q7D@0859 N/A 11/30/17 08:59 12/30/17 08:58 Miscellaneous Information (Check Clonidine Patch Placement) 1 ea QS N/A 11/23/17 16:00 12/23/17 15:59 11/28/17 07:43 1 EA Metoprolol Tartrate (Lopressor Iv) 2.5 mg Q6H PRN IV 11/23/17 11:00 12/23/17 10:59 11/26/17 03:57 2.5 MG Furosemide 20 mg/ Syringe 2 ml @ 4 mls/min DAILY IV 11/25/17 09:00 12/25/17 08:59 11/28/17 07:44 4 MLS/MIN Amiodarone HCL/ Dextrose 200 ml @ 16.7 mls/hr [id number] IV 11/24/17 20:43 12/24/17 20:42 11/28/17 05:48 16.7 MLS/HR Heparin Sodium/ Dextrose 500 ml @ 23 mls/hr [id number] IV 11/25/17 09:45 12/25/17 09:44 Future Hold 11/28/17 08:31 23 MLS/HR Metoprolol Tartrate (Lopressor Iv) 10 mg Q6 IV. 11/26/17 12:00 12/24/17 15:59 11/28/17 12:28 10 MG Methylprednisolone Sodium Succinate 20 mg/Syringe 0.32 ml @ 1.5 mls/min DAILY IV 11/27/17 09:00 12/23/17 08:59 11/28/17 07:44 1.5 MLS/MIN Miscellaneous Information (Pharmacy Tpn/ Ppn Consult Active) 1 ea UD PRN N/A 11/27/17 16:00 12/27/17 15:59 Lorazepam 0.5 mg/ Syringe 1 ml @ 1 mls/min Q8H PRN IV 11/26/17 16:30 12/25/17 20:14 Lorazepam (Ativan Inj) 0.5 mg Q8H PRN IV 11/26/17 17:00 12/25/17 19:59 11/28/17 13:18 0.5 MG Nutrition (Parenteral) 0 ml @ 0 mls/hr TODAY@1600 IV 11/27/17 16:00 11/28/17 15:59 11/27/17 16:53 0 MLS/HR Dextrose 1,000 ml @ 0 mls/hr Q0M PRN IV 11/27/17 16:00 12/27/17 15:59 Insulin Aspart (novoLOG ASPART) SLIDING SCALE If C... Q6 SC 11/27/17 18:00 12/27/17 17:59 Glucose (Glucose 40% Gel) 15-30 GRAMS 15 GRAMS... UD PRN PO 11/27/17 16:15 12/27/17 16:14 Glucose (Glucose Chew Tab) 4-8 Tablets 4 Tabl... UD PRN PO 11/27/17 16:15 12/27/17 16:14 Dextrose (Dextrose 50% 50ML Syringe) 25-50ML 25ML FOR ... UD PRN IV 11/27/17 16:15 12/27/17 16:14 Glucagon (Glucagon Inj) 1 mg UD PRN SQ 11/27/17 16:15 12/27/17 16:14 Carbohydrates (Carbohydrates For Hypoglycemia) 15-30 GRAMS 15 grams if BSG 54-69... UD PRN PO 11/27/17 16:15 12/27/17 16:14 Miscellaneous Information (Consult Glycemic Management Pharmacy) 1 ea UD PRN N/A 11/27/17 17:49 12/27/17 17:48 Nystatin (Mycostatin Powder) 1 appln BID EXT 7/28/18 21:00 12/27/17 20:59 11/28/17 07:43 1 APPLN Hydralazine HCl (HydrALAZINE INJ) 20 mg Q6 IV. 11/28/17 00:00 12/28/17 00:00 11/28/17 12:26 20 MG Heparin Sodium (Porcine) (Heparin 10 Unit/ ml 5 ml Flush) 5 ml PRN PRN FLUSH 11/28/17 00:45 12/28/17 00:44 Nutrition (Parenteral) 0 ml @ 0 mls/hr TODAY@1600 IV 11/28/17 16:00 11/29/17 15:59 Nitroglycerin (Nitro-Dur 0.4 Mg/Hr Patch) 1 patch QAM TD 11/29/17 09:00 12/29/17 08:59 Miscellaneous (Remove Nitro-Dur Patch) 1 ea DAILY@21 N/A 11/29/17 21:00 12/29/17 20:59 Piperacillin Sod/ Tazobactam Sod 3.375 gm/Dextrose 115 ml @ 28.75 mls/ hr Q8H IV 11/28/17 14:00 12/01/17 09:59 11/28/17 14:02 28.75 MLS/HR Miscellaneous Information (Pending Order) 1 ea 0500 ONCE N/A 11/29/17 05:00 11/29/17 05:01 I & O: 24-Hour Column 11/29/17 08:00 Intake Total 1447 ml Output Total 500 ml Balance 947 ml Vital Signs: Date Time Temp Pulse Resp B/P (MAP) Pulse Ox O2 Delivery O2 Flow Rate FiO2 11/28/17 14:00 160/70 (100) 11/28/17 12:31 36.8 70 18 184/86 (118) 94 Nasal Cannula 2.0 11/28/17 12:28 70 11/28/17 08:00 Nasal Cannula 2.0 11/28/17 07:15 36.6 67 20 159/74 (102) 96 Ambu-Bag 2.0 11/28/17 07:10 68 16 97 Nasal Cannula 2.0 11/28/17 05:46 70 170/75 11/28/17 04:33 36.7 70 16 170/75 (106) 95 Nasal Cannula 2.0 11/28/17 00:26 65 155/71 11/27/17 23:41 36.6 64 17 155/71 (99) 97 CPAP 11/27/17 20:08 36.9 72 20 161/76 (104) 95 Nasal Cannula 1.0 11/27/17 20:00 Nasal Cannula 2.0 11/27/17 19:03 68 14 96 Nasal Cannula 2.0 11/27/17 15:33 36.8 66 16 173/77 (109) 93 Room Air 11/27/17 15:10 36.5 72 19 169/75 (106) 92 Nasal Cannula 1.0 Laboratory Results: Last 24 Hours Test 11/27/17 16:58 11/27/17 18:20 11/28/17 00:37 11/28/17 04:16 Potassium Level 3.6 mmol/L 2.8 mmol/L Bedside Glucose 140 mg/dl 117 mg/dl White Blood Count 12.12 K/uL Red Blood Count 3.52 M/uL Hemoglobin 9.8 g/dL Hematocrit 31.0 % Mean Corpuscular Volume 88.1 fL Mean Corpuscular Hemoglobin 27.8 pg Mean Corpuscular Hemoglobin Concent 31.6 g/dl Platelet Count 243 K/uL Mean Platelet Volume 11.2 fL Neutrophils (%) (Auto) 78.0 % Lymphocytes (%) (Auto) 10.1 % Monocytes (%) (Auto) 10.0 % Eosinophils (%) (Auto) 1.3 % Basophils (%) (Auto) 0.0 % Neutrophils # (Auto) 9.46 K/uL Lymphocytes # (Auto) 1.22 K/uL Monocytes # (Auto) 1.21 K/uL Eosinophils # (Auto) 0.16 K/uL Basophils # (Auto) 0.00 K/uL RDW Standard Deviation 47.7 fL RDW Coefficient of Variation 14.9 % Immature Granulocyte % (Auto) 0.6 % Immature Granulocyte # (Auto) 0.07 K/uL Activated Partial Thromboplast Time 64.6 SECONDS Partial Thromboplastin Ratio 2.5 Sodium Level 137 mmol/L Chloride Level 98 mmol/L Carbon Dioxide Level 33 mmol/L Anion Gap 6.0 mmol/L Blood Urea Nitrogen 28 mg/dl Creatinine 2.40 mg/dl Est Creatinine Clear Calc Drug Dose 28.9 ml/min Estimated GFR () 29.1 Estimated GFR (Non- 25.1 BUN/Creatinine Ratio 11.6 Random Glucose 109 mg/dl Calcium Level 7.8 mg/dl Phosphorus Level 3.3 mg/dl Magnesium Level 2.0 mg/dl Test 11/28/17 06:03 11/28/17 12:30 11/28/17 14:46 Bedside Glucose 117 mg/dl 140 mg/dl
[2017-11-28] MEDS ORDERED: CUSTOM PERIPHERAL PN 1 BAG IV SCH (16:00)
--- NOTE | 2017-11-28 17:50 | Progress Note ---
Medicine Progress Note Date & Time of Visit: Nov 28, 2017 at 17:47. Subjective Seen resting in bed, comfortable Main complaint is lack of sleep States breathing is better, no coughing No chest pain No abdominal pain, nausea Denies other symptoms Objective Last 8 Hrs Date Time Temp Pulse Resp B/P (MAP) Pulse Ox O2 Delivery O2 Flow Rate FiO2 11/28/17 15:09 36.8 61 20 164/64 (97) 96 Nasal Cannula 2.0 11/28/17 14:00 160/70 (100) 11/28/17 12:31 36.8 70 18 184/86 (118) 94 Nasal Cannula 2.0 11/28/17 12:28 70 Physical Exam: General- oriented x 3, not in distress, speaks in sentences, no effort Eyes- anicteric Neck- no JVD Lungs- mild rales right base, clear on the left No wheezes noted Heart- normal rate, irregularly irregular rhythm; no murmurs Abdomen- normal bowel sounds, soft, nontender Extremities- no pretibial edema, no calf tenderness; peripheral pulses intact Neuro- alert, oriented x 3; no gross focal deficits Skin- warm & dry Laboratory Results: Last 24 Hours Test 11/27/17 18:20 11/28/17 00:37 11/28/17 04:16 11/28/17 06:03 Bedside Glucose 140 mg/dl 117 mg/dl 117 mg/dl White Blood Count 12.12 K/uL Red Blood Count 3.52 M/uL Hemoglobin 9.8 g/dL Hematocrit 31.0 % Mean Corpuscular Volume 88.1 fL Mean Corpuscular Hemoglobin 27.8 pg Mean Corpuscular Hemoglobin Concent 31.6 g/dl Platelet Count 243 K/uL Mean Platelet Volume 11.2 fL Neutrophils (%) (Auto) 78.0 % Lymphocytes (%) (Auto) 10.1 % Monocytes (%) (Auto) 10.0 % Eosinophils (%) (Auto) 1.3 % Basophils (%) (Auto) 0.0 % Neutrophils # (Auto) 9.46 K/uL Lymphocytes # (Auto) 1.22 K/uL Monocytes # (Auto) 1.21 K/uL Eosinophils # (Auto) 0.16 K/uL Basophils # (Auto) 0.00 K/uL RDW Standard Deviation 47.7 fL RDW Coefficient of Variation 14.9 % Immature Granulocyte % (Auto) 0.6 % Immature Granulocyte # (Auto) 0.07 K/uL Activated Partial Thromboplast Time 64.6 SECONDS Partial Thromboplastin Ratio 2.5 Sodium Level 137 mmol/L Potassium Level 2.8 mmol/L Chloride Level 98 mmol/L Carbon Dioxide Level 33 mmol/L Anion Gap 6.0 mmol/L Blood Urea Nitrogen 28 mg/dl Creatinine 2.40 mg/dl Est Creatinine Clear Calc Drug Dose 28.9 ml/min Estimated GFR () 29.1 Estimated GFR (Non- 25.1 BUN/Creatinine Ratio 11.6 Random Glucose 109 mg/dl Calcium Level 7.8 mg/dl Phosphorus Level 3.3 mg/dl Magnesium Level 2.0 mg/dl Test 11/28/17 12:30 11/28/17 14:46 Bedside Glucose 140 mg/dl Potassium Level 3.5 mmol/L Assessment & Plan Assessment and Plan 77-year-old male with significant past medical history of CAD status post stents ( x3 in 05/2017), chronic diastolic CHF, moderate aortic stenosis, hypertension, COPD, GAURANG on CPAP, right lung mass status post lobectomy secondary to adenocarcinoma of the lung at [facility], postoperative paroxysmal atrial fibrillation, esophageal diverticulum with recurrent aspiration pneumonia , CKD stage III who presented to [facility] with hypoxia suspicious for bilateral PNA secondary to aspiration, right pleural effusion. Acute Hypoxic Respiratory Failure multifactorial secondary to bilateral PNA,Pleural Effusion, DHF, COPD exacerbation -Improving Now on 2 L of nasal cannula - Continue IV Zosyn - IV solumedrol decreased to 20mg, nebulizer, O2 - Lasix 20mg iV daily Esophageal Diverticulum with Esophageal Dysmotility -Danial Aspiration -Continue NPO, necessary meds converted to IV. -To have PEG placed on Wednesday - PPN ordered R Loculated Pleural Effusion - s/p thoracentesis 11/22 1100cc removed, fluid analysis reviewed appears transudative. - Echo reviewed -s/p PleurX cath placed on 11/24 due to recurrent effusion - appreciate thoracic surgery/pulm input. COPD Exacerbation - Continue O2, IV methylprednisone, nebulizer treatments GAURANG on CPAP CAD - s/p multiple stents, most recent 05/2017 had three stents placed; total of 7 stents. - Given NPO status plavix and lipitor on hold until peg placed. - continue medical management of plavix, metoprolol, lipitor. Plavix to continue 1 year uninterrupted. Paroxysmal A. Fib Patient developed PAF status post right lung lobectomy at [facility] in which he was placed on amiodarone and Xarelto. He then presented to [facility] in which cardiology was consulted, Dr. Madrid, who recommended continuing amiodarone; however decreasing to daily at discharge. Further she recommended discontinuing atenolol and switching it to metoprolol as well as continuing CCB. Xarelto was transitioned to Eliquis secondary to renal dysfunction. - On Amio gtt, IV lopressor increased secondary to hypertension - IV heparin -to be held at 5 AM tomorrow for the PEG tube placement HTN -Hydralazine IV increased -Nitropaste change to nitro patch -Continue clonidine patch Recent R Lung Adenocarcinoma - s/p resection of R upper lobe at [facility] CKD stage 3 -Renal function at baseline Hypokalemia -replace , monitor Hyperglycemia due to steroids - A1c 5.9 Insulin sliding scale Glycemic control consult Anemia -Hemoglobin stable Anxiety -prn lorazepam DVT ppx - IV Heparin - SCDs FULL CODE Dispo pending will need SNF/Rehab when medically stable Current Inpatient Medications: Current Inpatient Medications Medications (Trade) Dose Ordered Sig/Vicki Route Start Time Stop Time Status Last Admin Dose Admin Nitroglycerin (Nitrostat Tab) 0.4 mg UD PRN SL 11/21/17 05:00 12/21/17 04:59 Hydromorphone HCl (Dilaudid Inj) 0.5 mg Q3H PRN IV 11/21/17 05:00 12/05/17 04:59 11/23/17 17:42 0.5 MG Oxycodone/ Acetaminophen (Percocet 5-325mg Tab) 1 tab Q6H PRN PO 11/21/17 05:00 12/05/17 04:59 Prochlorperazine Edisylate 5 mg/ Syringe 5 ml @ 5 mls/min Q6H PRN IV 11/21/17 05:00 12/21/17 04:59 11/22/17 04:18 5 MLS/MIN Miscellaneous Information (Consult) 1 ea UD PRN N/A 11/21/17 09:00 12/21/17 08:59 Atorvastatin Calcium (Lipitor Tab) 40 mg DAILY PO 11/21/17 09:00 12/21/17 08:59 11/22/17 08:20 40 MG Finasteride (Proscar Tab) 5 mg QAM PO 11/21/17 09:00 12/21/17 08:59 11/22/17 08:17 5 MG Gabapentin (Neurontin Cap) 200 mg TID PO 11/21/17 09:00 12/21/17 08:59 11/21/17 21:02 200 MG Nefazodone HCl (serZONE TAB) 150 mg BID PO 11/21/17 09:00 12/21/17 08:59 11/22/17 09:34 150 MG Quetiapine Fumarate (seroQUEL TAB) 25 mg BID PO 11/21/17 09:00 12/21/17 08:59 11/22/17 08:21 25 MG Senna/Docusate Sodium (Senokot S Tab) 1 tab DAILY PRN PO 11/21/17 05:00 12/21/17 04:59 11/22/17 08:23 1 TAB Clopidogrel Bisulfate (plAVix TAB) 75 mg QAM PO 11/21/17 09:00 12/21/17 08:59 11/22/17 08:22 75 MG Paroxetine HCl (pAXil TAB) 20 mg DAILY PO 11/21/17 09:00 12/21/17 08:59 11/22/17 08:20 20 MG Tamsulosin HCl (Flomax Cap) 0.4 mg DAILY PO 11/21/17 09:00 12/21/17 08:59 11/22/17 08:20 0.4 MG Ipratropium [place] (Atrovent 0.02% 0.5MG/2.5ML Neb) 0.5 mg Q6R INH 11/21/17 09:00 12/21/17 08:59 11/28/17 07:07 0.5 MG Levalbuterol (Xopenex 1.25MG/ 0.5ML Neb) 1.25 mg Q6R INH 11/21/17 09:00 12/21/17 08:59 11/28/17 07:08 1.25 MG Ipratropium [place] (Atrovent 0.02% 0.5MG/2.5ML Neb) 0.5 mg Q4H PRN INH 11/21/17 06:15 12/21/17 06:14 11/26/17 17:20 0.5 MG Levalbuterol (Xopenex 1.25MG/ 0.5ML Neb) 1.25 mg Q4H PRN INH 11/21/17 06:15 12/21/17 06:14 11/26/17 17:20 1.25 MG Pantoprazole Sodium 40 mg/ Syringe 10 ml @ 5 mls/min DAILY@11 IV 11/22/17 11:00 12/22/17 10:59 11/28/17 12:26 5 MLS/MIN Famotidine 20 mg/ Syringe 5 ml @ 2.5 mls/min Q12 IV 11/22/17 11:00 12/22/17 10:59 11/28/17 08:27 2.5 MLS/MIN Acetaminophen (Tylenol Supp) 650 mg Q4H PRN MA 11/23/17 09:45 12/23/17 09:44 Clonidine HCl (Zryqwsok-Jxf-1 0.2mg/24hr Patch) 1 patch Q7D@0900 TD 11/23/17 12:00 12/23/17 11:59 11/23/17 14:21 1 PATCH Miscellaneous (Remove Clonidine Patch) 1 ea Q7D@0859 N/A 11/30/17 08:59 12/30/17 08:58 Miscellaneous Information (Check Clonidine Patch Placement) 1 ea QS N/A 11/23/17 16:00 12/23/17 15:59 11/28/17 16:11 1 EA Metoprolol Tartrate (Lopressor Iv) 2.5 mg Q6H PRN IV 11/23/17 11:00 12/23/17 10:59 11/26/17 03:57 2.5 MG Furosemide 20 mg/ Syringe 2 ml @ 4 mls/min DAILY IV 11/25/17 09:00 12/25/17 08:59 11/28/17 07:44 4 MLS/MIN Amiodarone HCL/ Dextrose 200 ml @ 16.7 mls/hr [id number] IV 11/24/17 20:43 12/24/17 20:42 11/28/17 05:48 16.7 MLS/HR Heparin Sodium/ Dextrose 500 ml @ 23 mls/hr [id number] IV 11/25/17 09:45 12/25/17 09:44 Future Hold 11/28/17 08:31 23 MLS/HR Metoprolol Tartrate (Lopressor Iv) 10 mg Q6 IV. 11/26/17 12:00 12/24/17 15:59 11/28/17 12:28 10 MG Methylprednisolone Sodium Succinate 20 mg/Syringe 0.32 ml @ 1.5 mls/min DAILY IV 11/27/17 09:00 12/23/17 08:59 11/28/17 07:44 1.5 MLS/MIN Miscellaneous Information (Pharmacy Tpn/ Ppn Consult Active) 1 ea UD PRN N/A 11/27/17 16:00 12/27/17 15:59 Lorazepam 0.5 mg/ Syringe 1 ml @ 1 mls/min Q8H PRN IV 11/26/17 16:30 12/25/17 20:14 Lorazepam (Ativan Inj) 0.5 mg Q8H PRN IV 11/26/17 17:00 12/25/17 19:59 11/28/17 13:18 0.5 MG Dextrose 1,000 ml @ 0 mls/hr Q0M PRN IV 11/27/17 16:00 12/27/17 15:59 Insulin Aspart (novoLOG ASPART) SLIDING SCALE If C... Q6 SC 11/27/17 18:00 12/27/17 17:59 Glucose (Glucose 40% Gel) 15-30 GRAMS 15 GRAMS... UD PRN PO 11/27/17 16:15 12/27/17 16:14 Glucose (Glucose Chew Tab) 4-8 Tablets 4 Tabl... UD PRN PO 11/27/17 16:15 12/27/17 16:14 Dextrose (Dextrose 50% 50ML Syringe) 25-50ML 25ML FOR ... UD PRN IV 11/27/17 16:15 12/27/17 16:14 Glucagon (Glucagon Inj) 1 mg UD PRN SQ 11/27/17 16:15 12/27/17 16:14 Carbohydrates (Carbohydrates For Hypoglycemia) 15-30 GRAMS 15 grams if BSG 54-69... UD PRN PO 11/27/17 16:15 12/27/17 16:14 Miscellaneous Information (Consult Glycemic Management Pharmacy) 1 ea UD PRN N/A 11/27/17 17:49 12/27/17 17:48 Nystatin (Mycostatin Powder) 1 appln BID EXT 11/27/17 21:00 12/27/17 20:59 11/28/17 07:43 1 APPLN Hydralazine HCl (HydrALAZINE INJ) 20 mg Q6 IV. 11/28/17 00:00 12/28/17 00:00 11/28/17 12:26 20 MG Heparin Sodium (Porcine) (Heparin 10 Unit/ ml 5 ml Flush) 5 ml PRN PRN FLUSH 11/28/17 00:45 12/28/17 00:44 Nutrition (Parenteral) 0 ml @ 0 mls/hr TODAY@1600 IV 11/28/17 16:00 11/29/17 15:59 11/28/17 16:12 0 MLS/HR Nitroglycerin (Nitro-Dur 0.4 Mg/Hr Patch) 1 patch QAM TD 11/29/17 09:00 12/29/17 08:59 Miscellaneous (Remove Nitro-Dur Patch) 1 ea DAILY@21 N/A 11/29/17 21:00 12/29/17 20:59 Piperacillin Sod/ Tazobactam Sod 3.375 gm/Dextrose 115 ml @ 28.75 mls/ hr Q8H IV 11/28/17 14:00 12/01/17 09:59 11/28/17 14:02 28.75 MLS/HR Miscellaneous Information (Pending Order) 1 ea 0500 ONCE N/A 11/29/17 05:00 11/29/17 05:01
[2017-11-29] VITALS (12 sets, daily range): BP systolic 149–180; BP diastolic 66–83; PULSE 57–72; TEMP 36.3–36.8; O2SAT 94–98
[2017-11-29] MEDS: LEVALBUTEROL 1.25MG/0.5ML NEB INH SCH ×4 (01:46→19:13)
[2017-11-29] MEDS: IPRATROPIUM BROMIDE NEB SOLN 0.02% 2.5 ML VIAL INH SCH ×4 (01:46→19:13)
[2017-11-29 04:48] LABS: CALCIUM 7.8 mg/dl (8.5-10.1); CREATININE 2.26 mg/dl (0.60-1.40)
[2017-11-29 05:00] LABS: PTT PATIENT 74.6 SECONDS (21.0-31.0)
[2017-11-29] MEDS ORDERED: POTASSIUM CHLR 20 MEQ / WTR 100 MEQ IV SCH (05:00)
[2017-11-29] MEDS: HydrALAZINE HCL 20 MG/ML VIAL IV. SCH ×3 (05:27→17:55)
[2017-11-29] MEDS: METOPROLOL TARTRATE 1 MG/ML VIAL IV. SCH ×3 (05:27→17:59)
[2017-11-29] MEDS: INSULIN ASPART 100 UNITS/ML 3 ML PEN SC SCH ×3 (05:28→18:00)
[2017-11-29] MEDS: PIPERACILL/TAZOBAC IV 3.375 GM in D5W 100ML IV SCH ×3 (05:28→21:37)
[2017-11-29] MEDS: AMIODARONE / D5W 200 ML IV SCH ×2 (05:30→14:52)
[2017-11-29] MEDS: POTASSIUM CHLR 10 MEQ / WTR 100 ML IV SCH ×6 (07:29→17:55)
[2017-11-29] MEDS: METHYLPREDNISOLONE IV 20 MG in SYRINGE 0 ML IV SCH (08:39)
[2017-11-29] MEDS: FUROSEMIDE INJ 20 MG in SYRINGE 0 ML IV SCH (08:39)
[2017-11-29] MEDS: NYSTATIN POWDER 15GM BTL EXT SCH ×2 (08:40→20:33)
[2017-11-29] MEDS: FAMOTIDINE IV INJ 20 MG in SYRINGE 3 ML IV SCH ×2 (08:45→20:37)
[2017-11-29] MEDS: CHECK CLONIDINE PATCH PLACEMENT SCH ×2 (08:46→16:06)
[2017-11-29] MEDS: ATORVASTATIN 40 MG TAB PO SCH (09:00)
[2017-11-29] MEDS: NEFAZODONE HCL 100 MG PO SCH ×2 (09:00→20:34)
[2017-11-29] MEDS: TAMSULOSIN HCL 0.4 MG CAP PO SCH (09:00)
[2017-11-29] MEDS: FINASTERIDE 5 MG TAB PO SCH (09:00)
[2017-11-29] MEDS: GABAPENTIN 100 MG CAP PO SCH ×3 (09:00→20:34)
[2017-11-29] MEDS: QUETIAPINE FUMARATE 25 MG TAB PO SCH ×2 (09:00→20:34)
[2017-11-29] MEDS: CLOPIDOGREL BISULFATE 75 MG TAB PO SCH (09:00)
[2017-11-29] MEDS: PAROXETINE 20 MG TAB PO SCH (09:00)
--- NOTE | 2017-11-29 09:05 | Surgery Progress Note ---
Subjective Date of Service: Nov 29, 2017. Pt. denies worsening SOB. No pain with drainage of pleurx. Objective Vitals Date Time Temp Pulse Resp B/P (MAP) Pulse Ox O2 Delivery O2 Flow Rate FiO2 11/29/17 07:42 36.6 66 19 172/70 (104) 95 Nasal Cannula 2.0 11/29/17 07:12 66 18 97 Nasal Cannula 2.0 40 11/29/17 05:27 70 11/29/17 03:35 36.6 65 16 171/74 (106) 95 Nasal Cannula 2.0 11/29/17 01:52 57 98 40 11/29/17 01:46 57 18 98 BiPAP/CPAP 40 11/28/17 23:59 36.4 61 16 173/72 (105) 99 CPAP 40 11/28/17 22:13 60 98 40 11/28/17 22:08 70 11/28/17 20:00 Nasal Cannula 2.0 11/28/17 19:41 36.8 64 20 166/74 (104) 96 Nasal Cannula 2.0 11/28/17 19:29 62 16 97 Nasal Cannula 2.0 11/28/17 17:53 80 11/28/17 15:09 36.8 61 20 164/64 (97) 96 Nasal Cannula 2.0 11/28/17 14:00 160/70 (100) 11/28/17 12:31 36.8 70 18 184/86 (118) 94 Nasal Cannula 2.0 11/28/17 12:28 70 Physical Exam General: + well developed, + well nourished, No distress CV: + RRR Pulmonary: + pertinent finding (BS are decrease at bases R>?L), No accessory muscle use, No respiratory distress Abdomen: + non tender, + soft Neurologic: + alert & oriented x 3 Drains / Tubes pleurex (drained for 75 cc this am ) Assessment & Plan 77 year old male with right pleural effusion -pt. has undergone thoracentesis followed by pleurex catheter placement: -all culture are (-) -cytology (-) for malignancy -continue daily drainage of pleurex catheter -concern noted for aspiration with esophageal diverticulum as a potential contributing factor: -pt. to have PEG placed--tent. for 11/29/17 -will address esophageal issues after PEG placed and pt. has improved from current issues (a-fib, pneumonia)
[2017-11-29] MEDS: NITROGLYCERIN 0.4 MG/HR PATCH TD SCH (10:30)
--- NOTE | 2017-11-29 11:20 | Pulmonology Progress Note ---
Pulmonary Progress Note Date of Service Nov 29, 2017. Attending Dr. Schultz Subjective Patient sitting up in his chair eating his breakfast having full conversations with his showing no signs of respiratory insufficiency: Objective Patient sitting up in chair eating breakfast showing no signs of respiratory insufficiency such as tachypnea/accessory muscle use: He notes his overall respiratory status is greatly improved since his arrival and at this time notes some dyspnea on exertion otherwise within normal limits. 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 Physical exam: Stable on 2 liters Respiratory: Mild rhonchi of the right hemithorax Cardiac: S1-S2 distant heart sounds but regular rate Abdomen: Positive bowel sounds soft nontender Extremities: Minimal pitting edema bilateral lower extremities/gravity dependent region Pleural Effusion: Thoracentesis right-sided 11/22/2017 o Transudative based off LDH criteria/pH: 7.37 o Volume: 1100ml of rust-colored fluid o Microbiology: Negative to date Right-sided IPC placement 11/24/17 o RBCs 266,000 o Microbiology: No significant growth to date o Volume: 900mL Right-sided IPC drainage 11/25/2017: 350 mL 11/26/2017: 200 mL 11/27/2017: 125 mL 11/29/2017: 75 mL Labs ProBNP: [id number] CRP: >4.10 EKG performed 11/26/2017: Probable junction tachycardia with ectopic B, right bundle-branch block, abnormal T-wave consider in inferior infarction when compared to EKG 11/22/2017 Lung Cancer History: First diagnosed during a cardiac CT performed in [place] the patient had 2 DELMA placed 06/2017 CT chest 08/02/2017: Interval development 1.4 cm spiculated right upper lobe nodule, interval development of a left apical noncalcified 5 mm nodule previously 2 mm, stable 5 mm noncalcified RML, redemonstration of possible stricture in the distal esophagus with malignant etiology not excluded and proximal to the stricture there is eccentric dilation of the esophagus suggesting right lateral wall diverticulum, possible left lateral esophageal diverticulum at the thoracic inlet PET/CT: Hypermetabolic right upper lobe nodule, mildly FDG avid sub centimeter left apical nodule, small hypermetabolic left paratracheal lymph node nodule, there is uptake within the right hilum which corresponds to area of calcification on CT portion of the exam, increased FDG uptake with multiple left-sided ribs with no definite correspondence on CT abnormality--he has areas of uptake could represent prior trauma or possible malignancy, moderate wall thickening within the distal esophagus with dilation of the mid to distal esophagus--suggest direct visualization, Orders placed: Esophagram, MRI brain/noncontrast, bone scan, nuclear cardiac stress testing, PFTs Thoracic surgery notes: Procedure: Flexible bronchoscopy, EGD, right VATS (RUL wedge resection to lobectomy, RML-pneumoplexy, mediastinal lymphadenectomy) o Mediastinal lymph node stations: 7, 8, 9, 2, 3, 4, 11, 12, 13 o Bronchoscopy: Noted to have normal endoluminal anatomy o Right upper lobe: Invasive lung adenocarcinoma, moderately differentiated , acinar/cribriform patterns 1.6 cm, carcinoma does not invade visceral pleura, lymphovascular invasion not identified, parenchymal surgical margin is negative for carcinoma, lymphoid excisions all negative for tumor o Total number lymph nodes examined: 31 o Primary tumor 1A (pTab, pN0,M0) Pulmonary Medications 1. Zosyn IV: Day #8 2. Methylprednisolone 20 mg IV daily 3. Pantoprazole 40 mg daily 4. Famotidine 20 mg b.i.d. 5. Xopenex/Atrovent nebulizer Q 6 Assessment & Plan 77-year-old with complex PmHx: Recently diagnosed with stage I adenocarcinoma of the lung and admitted on 11/21/2017 for progressive respiratory insufficiency /hypoxemia: 1. Hypoxemia: Most likely combination of heart disease, primary lung disease/ COPD, deconditioning, renal insufficiency, aortic valve stenosis and aspiration but has notably greatly improved and stable on 2 L. 2. COPD: Patient is responding well to current therapy and will decrease his steroid intake to 20 mg of prednisone daily. Suggest we slowly taper down over the next 14 days. 3. Aspiration: Patient continues to be aspiration risk and should be continued on aspiration precautions. There is evaluation for possible esophageal intervention after patient is stable by Dr. Alec Cole. 4. Adenocarcinoma of the lung: Patient recently went under right upper lobe lobectomy for stage I adenocarcinoma for curative intent/resection. Patient will require follow-up based off NCCN guidelines requiring q.3 months imaging for the 1st year Q 6 month imaging for the 2nd year in yearly imaging after that. 5. Pleural Effusion: Patient has gone under right-sided thoracentesis as well as right-sided IPC placement with approximately 2,755cc removed today. Patient' s daily evacuation 7 notably decreased with today's evacuation currently not reported but previous days only at 75cc. This suggests the patient might be reaching his baseline fluid status and we could start switching him to every other day or every 3rd day evacuation. I will leave this up to CTS at this time. At this time pulmonary will sign off but continue to monitor. Please contact me if any acute changes are noted. Data Medications: Current Inpatient Medications Medications (Trade) Dose Ordered Sig/Vicki Route Start Time Stop Time Status Last Admin Dose Admin Nitroglycerin (Nitrostat Tab) 0.4 mg UD PRN SL 11/21/17 05:00 12/21/17 04:59 Hydromorphone HCl (Dilaudid Inj) 0.5 mg Q3H PRN IV 11/21/17 05:00 12/05/17 04:59 11/23/17 17:42 0.5 MG Oxycodone/ Acetaminophen (Percocet 5-325mg Tab) 1 tab Q6H PRN PO 11/21/17 05:00 12/05/17 04:59 Prochlorperazine Edisylate 5 mg/ Syringe 5 ml @ 5 mls/min Q6H PRN IV 11/21/17 05:00 12/21/17 04:59 11/22/17 04:18 5 MLS/MIN Miscellaneous Information (Consult) 1 ea UD PRN N/A 11/21/17 09:00 12/21/17 08:59 Atorvastatin Calcium (Lipitor Tab) 40 mg DAILY PO 11/21/17 09:00 12/21/17 08:59 11/22/17 08:20 40 MG Finasteride (Proscar Tab) 5 mg QAM PO 11/21/17 09:00 12/21/17 08:59 11/22/17 08:17 5 MG Gabapentin (Neurontin Cap) 200 mg TID PO 11/21/17 09:00 12/21/17 08:59 11/21/17 21:02 200 MG Nefazodone HCl (serZONE TAB) 150 mg BID PO 11/21/17 09:00 12/21/17 08:59 11/22/17 09:34 150 MG Quetiapine Fumarate (seroQUEL TAB) 25 mg BID PO 11/21/17 09:00 12/21/17 08:59 11/22/17 08:21 25 MG Senna/Docusate Sodium (Senokot S Tab) 1 tab DAILY PRN PO 11/21/17 05:00 12/21/17 04:59 11/22/17 08:23 1 TAB Clopidogrel Bisulfate (plAVix TAB) 75 mg QAM PO 11/21/17 09:00 12/21/17 08:59 11/22/17 08:22 75 MG Paroxetine HCl (pAXil TAB) 20 mg DAILY PO 11/21/17 09:00 12/21/17 08:59 11/22/17 08:20 20 MG Tamsulosin HCl (Flomax Cap) 0.4 mg DAILY PO 11/21/17 09:00 12/21/17 08:59 11/22/17 08:20 0.4 MG Ipratropium Mchenry (Atrovent 0.02% 0.5MG/2.5ML Neb) 0.5 mg Q6R INH 11/21/17 09:00 12/21/17 08:59 11/29/17 07:11 0.5 MG Levalbuterol (Xopenex 1.25MG/ 0.5ML Neb) 1.25 mg Q6R INH 11/21/17 09:00 12/21/17 08:59 11/29/17 07:12 1.25 MG Ipratropium Mchenry (Atrovent 0.02% 0.5MG/2.5ML Neb) 0.5 mg Q4H PRN INH 11/21/17 06:15 12/21/17 06:14 11/26/17 17:20 0.5 MG Levalbuterol (Xopenex 1.25MG/ 0.5ML Neb) 1.25 mg Q4H PRN INH 11/21/17 06:15 12/21/17 06:14 11/26/17 17:20 1.25 MG Pantoprazole Sodium 40 mg/ Syringe 10 ml @ 5 mls/min DAILY@11 IV 11/22/17 11:00 12/22/17 10:59 11/28/17 12:26 5 MLS/MIN Famotidine 20 mg/ Syringe 5 ml @ 2.5 mls/min Q12 IV 11/22/17 11:00 12/22/17 10:59 11/29/17 08:45 2.5 MLS/MIN Acetaminophen (Tylenol Supp) 650 mg Q4H PRN NE 11/23/17 09:45 12/23/17 09:44 Clonidine HCl (Xseahazt-Yda-4 0.2mg/24hr Patch) 1 patch Q7D@0900 TD 11/23/17 12:00 12/23/17 11:59 11/23/17 14:21 1 PATCH Miscellaneous (Remove Clonidine Patch) 1 ea Q7D@0859 N/A 11/30/17 08:59 12/30/17 08:58 Miscellaneous Information (Check Clonidine Patch Placement) 1 ea QS N/A 11/23/17 16:00 12/23/17 15:59 11/29/17 08:46 1 EA Metoprolol Tartrate (Lopressor Iv) 2.5 mg Q6H PRN IV 11/23/17 11:00 12/23/17 10:59 11/26/17 03:57 2.5 MG Furosemide 20 mg/ Syringe 2 ml @ 4 mls/min DAILY IV 11/25/17 09:00 12/25/17 08:59 11/29/17 08:39 4 MLS/MIN Amiodarone HCL/ Dextrose 200 ml @ 16.7 mls/hr [id number] IV 11/24/17 20:43 12/24/17 20:42 11/29/17 05:30 16.7 MLS/HR Heparin Sodium/ Dextrose 500 ml @ 23 mls/hr [id number] IV 11/25/17 09:45 12/25/17 09:44 Future Hold 11/28/17 08:31 23 MLS/HR Metoprolol Tartrate (Lopressor Iv) 10 mg Q6 IV. 11/26/17 12:00 12/24/17 15:59 11/29/17 05:27 10 MG Methylprednisolone Sodium Succinate 20 mg/Syringe 0.32 ml @ 1.5 mls/min DAILY IV 11/27/17 09:00 12/23/17 08:59 11/29/17 08:39 1.5 MLS/MIN Miscellaneous Information (Pharmacy Tpn/ Ppn Consult Active) 1 ea UD PRN N/A 11/27/17 16:00 12/27/17 15:59 Lorazepam 0.5 mg/ Syringe 1 ml @ 1 mls/min Q8H PRN IV 11/26/17 16:30 12/25/17 20:14 Lorazepam (Ativan Inj) 0.5 mg Q8H PRN IV 11/26/17 17:00 12/25/17 19:59 11/28/17 22:06 0.5 MG Dextrose 1,000 ml @ 0 mls/hr Q0M PRN IV 11/27/17 16:00 12/27/17 15:59 Insulin Aspart (novoLOG ASPART) SLIDING SCALE If C... Q6 SC 11/27/17 18:00 12/27/17 17:59 Glucose (Glucose 40% Gel) 15-30 GRAMS 15 GRAMS... UD PRN PO 11/27/17 16:15 12/27/17 16:14 Glucose (Glucose Chew Tab) 4-8 Tablets 4 Tabl... UD PRN PO 11/27/17 16:15 12/27/17 16:14 Dextrose (Dextrose 50% 50ML Syringe) 25-50ML 25ML FOR ... UD PRN IV 11/27/17 16:15 12/27/17 16:14 Glucagon (Glucagon Inj) 1 mg UD PRN SQ 11/27/17 16:15 12/27/17 16:14 Carbohydrates (Carbohydrates For Hypoglycemia) 15-30 GRAMS 15 grams if BSG 54-69... UD PRN PO 11/27/17 16:15 12/27/17 16:14 Miscellaneous Information (Consult Glycemic Management Pharmacy) 1 ea UD PRN N/A 11/27/17 17:49 12/27/17 17:48 Nystatin (Mycostatin Powder) 1 appln BID EXT 11/27/17 21:00 12/27/17 20:59 11/29/17 08:40 1 APPLN Hydralazine HCl (HydrALAZINE INJ) 20 mg Q6 IV. 11/28/17 00:00 12/28/17 00:00 11/29/17 05:27 20 MG Heparin Sodium (Porcine) (Heparin 10 Unit/ ml 5 ml Flush) 5 ml PRN PRN FLUSH 11/28/17 00:45 12/28/17 00:44 Nutrition (Parenteral) 0 ml @ 0 mls/hr TODAY@1600 IV 11/28/17 16:00 11/29/17 15:59 11/28/17 16:12 0 MLS/HR Nitroglycerin (Nitro-Dur 0.4 Mg/Hr Patch) 1 patch QAM TD 11/29/17 09:00 12/29/17 08:59 11/29/17 10:30 1 PATCH Miscellaneous (Remove Nitro-Dur Patch) 1 ea DAILY@21 N/A 11/29/17 21:00 12/29/17 20:59 Piperacillin Sod/ Tazobactam Sod 3.375 gm/Dextrose 115 ml @ 28.75 mls/ hr Q8H IV 11/28/17 14:00 12/01/17 09:59 11/29/17 05:28 28.75 MLS/HR Potassium Chloride 100 ml @ 100 mls/hr Q1H IV 11/29/17 06:45 11/29/17 12:44 11/29/17 09:42 100 MLS/HR Vital Signs: Date Time Temp Pulse Resp B/P (MAP) Pulse Ox O2 Delivery O2 Flow Rate FiO2 11/29/17 07:42 36.6 66 19 172/70 (104) 95 Nasal Cannula 2.0 11/29/17 07:12 66 18 97 Nasal Cannula 2.0 40 11/29/17 05:27 70 11/29/17 03:35 36.6 65 16 171/74 (106) 95 Nasal Cannula 2.0 11/29/17 01:52 57 98 40 11/29/17 01:46 57 18 98 BiPAP/CPAP 40 11/28/17 23:59 36.4 61 16 173/72 (105) 99 CPAP 40 11/28/17 22:13 60 98 40 11/28/17 22:08 70 11/28/17 20:00 Nasal Cannula 2.0 11/28/17 19:41 36.8 64 20 166/74 (104) 96 Nasal Cannula 2.0 11/28/17 19:29 62 16 97 Nasal Cannula 2.0 11/28/17 17:53 80 11/28/17 15:09 36.8 61 20 164/64 (97) 96 Nasal Cannula 2.0 11/28/17 14:00 160/70 (100) 11/28/17 12:31 36.8 70 18 184/86 (118) 94 Nasal Cannula 2.0 11/28/17 12:28 70 Laboratory Results: Last 24 Hours Test 11/28/17 12:30 11/28/17 14:46 11/28/17 17:53 11/28/17 23:32 Bedside Glucose 140 mg/dl 127 mg/dl 119 mg/dl Potassium Level 3.5 mmol/L Test 11/29/17 04:23 11/29/17 05:28 Activated Partial Thromboplast Time 74.6 SECONDS Partial Thromboplastin Ratio 2.9 Sodium Level 134 mmol/L Potassium Level 3.0 mmol/L Chloride Level 97 mmol/L Carbon Dioxide Level 31 mmol/L Anion Gap 6.0 mmol/L Blood Urea Nitrogen 28 mg/dl Creatinine 2.26 mg/dl Est Creatinine Clear Calc Drug Dose 30.6 ml/min Estimated GFR () 31.3 Estimated GFR (Non- 27.0 BUN/Creatinine Ratio 12.2 Random Glucose 113 mg/dl Calcium Level 7.8 mg/dl Phosphorus Level 4.0 mg/dl Magnesium Level 1.9 mg/dl Bedside Glucose 109 mg/dl
[2017-11-29] MEDS: PANTOprazole INJ 40 MG in SYRINGE 0 ML IV SCH (11:39)
--- NOTE | 2017-11-29 12:34 | Cardiology Follow-Up ---
Subjective General Date of Service: Nov 29, 2017. Chief Complaint: Follow-up, atrial fibrillation Pt evaluation today including: conversation w/ patient, physical exam History of Present Illness The patient is a 77 year old male seen in follow up. SR noted on telemetry . UF heparin held since 6 am this morning. 75 Ml output from pleural catheter noted this am. Allergies Coded Allergies: Cephalexin (Verified Allergy, Intermediate, RASH, 11/25/17) Simvastatin (Verified Allergy, Unknown, [id number] INTERACTION WITH NEFAZODONE, 10/22/16) Lisinopril (Verified Adverse Reaction, Mild, COUGH, 11/25/17) Social History Smoking Status: Former Smoker Hx Tobacco Use In Past Year?: No (QUIT 10 YEARS AGO) Hx Alcohol Use - Type And Amou: No Hx Substance Use - Type And Am: No Physical Exam Vital Signs Last Vital Signs Documentation Date Time Temp Pulse Resp B/P (MAP) Pulse Ox O2 Delivery O2 Flow Rate FiO2 11/29/17 11:54 36.5 72 19 180/83 (115) 96 Nasal Cannula 2.0 11/29/17 07:12 40 Physical Exam Constitutional: Level of Distress: chronically ill ENMT: normal ENT inspection Neck: supple, trachea midline Lungs: Auscultation: pertinent finding (Decreased BS at right base) Cardiovascular: Heart Auscultation: RRR, II/ MIYA Abdomen: Inspection & Palpation: soft, non-distended Extremities: no edema Neurologic: Gait & Station: pertinent finding (No focal deficit) Assessment and Plan Assessment and Plan Impression: 77-year-old male 1. Paroxysmal atrial fibrillation with rapid ventricular response 2. Coronary heart disease, multiple percutaneous coronary interventions with at [facility] more recently in [place] within the last year 3. Stage IV chronic kidney disease, GFR in the range of 20 mL/min/m 4. Lung carcinoma status post right upper lobectomy, postop pleural effusion for which patient underwent thoracentesis and chest tube placement this admission 5. Bilateral aspiration pneumonia 6. Difficult to control hypertension 7. Moderate aortic valve stenosis 8. hypokalemia Plan: Continue IV metoprolol and IV amiodarone for rate/rhythm control. Continue unfractionated heparin infusion. Will defer timing of stopping the heparin infusion to GI prior to PEG tube. Continue IV medication/ topical meds for HTN. Stable for PEG tube from cardiac standpoint. Elevated BP this am, provides some degree of cushion to allow administration of sedation. He typically follows with [facility] cardiology/[place] and will plan outpatient follow-up accordingly. Laboratory Results Last 24 Hours Test 11/28/17 14:46 11/28/17 17:53 11/28/17 23:32 11/29/17 04:23 Potassium Level 3.5 mmol/L 3.0 mmol/L Bedside Glucose 127 mg/dl 119 mg/dl Activated Partial Thromboplast Time 74.6 SECONDS Partial Thromboplastin Ratio 2.9 Sodium Level 134 mmol/L Chloride Level 97 mmol/L Carbon Dioxide Level 31 mmol/L Anion Gap 6.0 mmol/L Blood Urea Nitrogen 28 mg/dl Creatinine 2.26 mg/dl Est Creatinine Clear Calc Drug Dose 30.6 ml/min Estimated GFR () 31.3 Estimated GFR (Non- 27.0 BUN/Creatinine Ratio 12.2 Random Glucose 113 mg/dl Calcium Level 7.8 mg/dl Phosphorus Level 4.0 mg/dl Magnesium Level 1.9 mg/dl Test 11/29/17 05:28 Bedside Glucose 109 mg/dl
[2017-11-29] MEDS: LORAZEPAM 2 MG/ML 1 ML VIAL IV PRN ×2 (13:55→23:26)
--- NOTE | 2017-11-29 14:13 | Gastroenterology Progress Note ---
Progress Note Date of Service: Nov 29, 2017 Subjective Pt evaluation today including: conversation w/ patient, physical exam, chart review, lab review, review of studies, review of inpatient medication list Mr. Juárez is a 77 yr old male with esophageal diverticula, recurrent aspiration pneumonia. GI is asked to provide PEG tube placement. Review of Systems Constitutional: No fever Respiratory: + cough Cardiac: No chest pain Abdomen: No pain, No nausea, No vomiting, No diarrhea, No constipation Male : No dysuria Neuro: No memory loss Psych: + anxiety Medications Current Inpatient Medications Medications (Trade) Dose Ordered Sig/Vicki Route Start Time Stop Time Status Last Admin Dose Admin Nitroglycerin (Nitrostat Tab) 0.4 mg UD PRN SL 11/21/17 05:00 12/21/17 04:59 Hydromorphone HCl (Dilaudid Inj) 0.5 mg Q3H PRN IV 11/21/17 05:00 12/05/17 04:59 11/23/17 17:42 0.5 MG Oxycodone/ Acetaminophen (Percocet 5-325mg Tab) 1 tab Q6H PRN PO 11/21/17 05:00 12/05/17 04:59 Prochlorperazine Edisylate 5 mg/ Syringe 5 ml @ 5 mls/min Q6H PRN IV 11/21/17 05:00 12/21/17 04:59 11/22/17 04:18 5 MLS/MIN Miscellaneous Information (Consult) 1 ea UD PRN N/A 11/21/17 09:00 12/21/17 08:59 Atorvastatin Calcium (Lipitor Tab) 40 mg DAILY PO 11/21/17 09:00 12/21/17 08:59 11/22/17 08:20 40 MG Finasteride (Proscar Tab) 5 mg QAM PO 11/21/17 09:00 12/21/17 08:59 11/22/17 08:17 5 MG Gabapentin (Neurontin Cap) 200 mg TID PO 11/21/17 09:00 12/21/17 08:59 11/21/17 21:02 200 MG Nefazodone HCl (serZONE TAB) 150 mg BID PO 11/21/17 09:00 12/21/17 08:59 11/22/17 09:34 150 MG Quetiapine Fumarate (seroQUEL TAB) 25 mg BID PO 11/21/17 09:00 12/21/17 08:59 11/22/17 08:21 25 MG Senna/Docusate Sodium (Senokot S Tab) 1 tab DAILY PRN PO 11/21/17 05:00 12/21/17 04:59 11/22/17 08:23 1 TAB Clopidogrel Bisulfate (plAVix TAB) 75 mg QAM PO 11/21/17 09:00 12/21/17 08:59 11/22/17 08:22 75 MG Paroxetine HCl (pAXil TAB) 20 mg DAILY PO 11/21/17 09:00 12/21/17 08:59 11/22/17 08:20 20 MG Tamsulosin HCl (Flomax Cap) 0.4 mg DAILY PO 11/21/17 09:00 12/21/17 08:59 11/22/17 08:20 0.4 MG Ipratropium [place] (Atrovent 0.02% 0.5MG/2.5ML Neb) 0.5 mg Q6R INH 11/21/17 09:00 12/21/17 08:59 11/29/17 07:11 0.5 MG Levalbuterol (Xopenex 1.25MG/ 0.5ML Neb) 1.25 mg Q6R INH 11/21/17 09:00 12/21/17 08:59 11/29/17 07:12 1.25 MG Ipratropium [place] (Atrovent 0.02% 0.5MG/2.5ML Neb) 0.5 mg Q4H PRN INH 11/21/17 06:15 12/21/17 06:14 11/26/17 17:20 0.5 MG Levalbuterol (Xopenex 1.25MG/ 0.5ML Neb) 1.25 mg Q4H PRN INH 11/21/17 06:15 12/21/17 06:14 11/26/17 17:20 1.25 MG Pantoprazole Sodium 40 mg/ Syringe 10 ml @ 5 mls/min DAILY@11 IV 11/22/17 11:00 12/22/17 10:59 11/29/17 11:39 5 MLS/MIN Famotidine 20 mg/ Syringe 5 ml @ 2.5 mls/min Q12 IV 11/22/17 11:00 12/22/17 10:59 11/29/17 08:45 2.5 MLS/MIN Acetaminophen (Tylenol Supp) 650 mg Q4H PRN [place] 11/23/17 09:45 12/23/17 09:44 Clonidine HCl ([id number]-9 0.2mg/24hr Patch) 1 patch Q7D@0900 TD 11/23/17 12:00 12/23/17 11:59 11/23/17 14:21 1 PATCH Miscellaneous (Remove Clonidine Patch) 1 ea Q7D@0859 N/A 11/30/17 08:59 12/30/17 08:58 Miscellaneous Information (Check Clonidine Patch Placement) 1 ea QS N/A 11/23/17 16:00 12/23/17 15:59 11/29/17 08:46 1 EA Metoprolol Tartrate (Lopressor Iv) 2.5 mg Q6H PRN IV 11/23/17 11:00 12/23/17 10:59 11/26/17 03:57 2.5 MG Furosemide 20 mg/ Syringe 2 ml @ 4 mls/min DAILY IV 11/25/17 09:00 12/25/17 08:59 11/29/17 08:39 4 MLS/MIN Amiodarone HCL/ Dextrose 200 ml @ 16.7 mls/hr [id number] IV 11/24/17 20:43 12/24/17 20:42 11/29/17 05:30 16.7 MLS/HR Heparin Sodium/ Dextrose 500 ml @ 23 mls/hr [id number] IV 11/25/17 09:45 12/25/17 09:44 Future Hold 11/28/17 08:31 23 MLS/HR Metoprolol Tartrate (Lopressor Iv) 10 mg Q6 IV. 11/26/17 12:00 12/24/17 15:59 11/29/17 11:41 10 MG Methylprednisolone Sodium Succinate 20 mg/Syringe 0.32 ml @ 1.5 mls/min DAILY IV 11/27/17 09:00 12/23/17 08:59 11/29/17 08:39 1.5 MLS/MIN Miscellaneous Information (Pharmacy Tpn/ Ppn Consult Active) 1 ea UD PRN N/A 11/27/17 16:00 12/27/17 15:59 Lorazepam 0.5 mg/ Syringe 1 ml @ 1 mls/min Q8H PRN IV 11/26/17 16:30 12/25/17 20:14 Lorazepam (Ativan Inj) 0.5 mg Q8H PRN IV 11/26/17 17:00 12/25/17 19:59 11/29/17 13:55 0.5 MG Dextrose 1,000 ml @ 0 mls/hr Q0M PRN IV 11/27/17 16:00 12/27/17 15:59 Insulin Aspart (novoLOG ASPART) SLIDING SCALE If C... Q6 SC 11/27/17 18:00 12/27/17 17:59 Glucose (Glucose 40% Gel) 15-30 GRAMS 15 GRAMS... UD PRN PO 11/27/17 16:15 12/27/17 16:14 Glucose (Glucose Chew Tab) 4-8 Tablets 4 Tabl... UD PRN PO 11/27/17 16:15 12/27/17 16:14 Dextrose (Dextrose 50% 50ML Syringe) 25-50ML 25ML FOR ... UD PRN IV 11/27/17 16:15 12/27/17 16:14 Glucagon (Glucagon Inj) 1 mg UD PRN SQ 11/27/17 16:15 12/27/17 16:14 Carbohydrates (Carbohydrates For Hypoglycemia) 15-30 GRAMS 15 grams if BSG 54-69... UD PRN PO 11/27/17 16:15 12/27/17 16:14 Miscellaneous Information (Consult Glycemic Management Pharmacy) 1 ea UD PRN N/A 11/27/17 17:49 12/27/17 17:48 Nystatin (Mycostatin Powder) 1 appln BID EXT 11/27/17 21:00 12/27/17 20:59 11/29/17 08:40 1 APPLN Hydralazine HCl (HydrALAZINE INJ) 20 mg Q6 IV. 11/28/17 00:00 12/28/17 00:00 11/29/17 11:40 20 MG Heparin Sodium (Porcine) (Heparin 10 Unit/ ml 5 ml Flush) 5 ml PRN PRN FLUSH 11/28/17 00:45 12/28/17 00:44 Nutrition (Parenteral) 0 ml @ 0 mls/hr TODAY@1600 IV 11/28/17 16:00 11/29/17 15:59 11/28/17 16:12 0 MLS/HR Nitroglycerin (Nitro-Dur 0.4 Mg/Hr Patch) 1 patch QAM TD 11/29/17 09:00 12/29/17 08:59 11/29/17 10:30 1 PATCH Miscellaneous (Remove Nitro-Dur Patch) 1 ea DAILY@21 N/A 11/29/17 21:00 12/29/17 20:59 Piperacillin Sod/ Tazobactam Sod 3.375 gm/Dextrose 115 ml @ 28.75 mls/ hr Q8H IV 11/28/17 14:00 12/01/17 09:59 11/29/17 05:28 28.75 MLS/HR Nutrition (Parenteral) 0 ml @ 0 mls/hr TODAY@1600 IV 11/29/17 16:00 11/30/17 15:59 Objective Vital Signs Date Time Temp Pulse Resp B/P (MAP) Pulse Ox O2 Delivery O2 Flow Rate FiO2 11/29/17 11:54 36.5 72 19 180/83 (115) 96 Nasal Cannula 2.0 11/29/17 11:41 66 172/70 11/29/17 07:42 36.6 66 19 172/70 (104) 95 Nasal Cannula 2.0 11/29/17 07:12 66 18 97 Nasal Cannula 2.0 40 11/29/17 05:27 70 11/29/17 03:35 36.6 65 16 171/74 (106) 95 Nasal Cannula 2.0 11/29/17 01:52 57 98 40 11/29/17 01:46 57 18 98 BiPAP/CPAP 40 11/28/17 23:59 36.4 61 16 173/72 (105) 99 CPAP 40 11/28/17 22:13 60 98 40 11/28/17 22:08 70 11/28/17 20:00 Nasal Cannula 2.0 11/28/17 19:41 36.8 64 20 166/74 (104) 96 Nasal Cannula 2.0 11/28/17 19:29 62 16 97 Nasal Cannula 2.0 11/28/17 17:53 80 7/29/18 15:09 36.8 61 20 164/64 (97) 96 Nasal Cannula 2.0 Physical Exam General Appearance: no apparent distress Neck: supple, thyroid normal, no JVD Respiratory/Chest: + rhonchi (that cleared with strong cough, lungs otherwise clear though deminished at the bases) Cardiovascular: regular rate, rhythm (HR 90's, irregular rhythm), no JVD, no murmur Abdomen: non tender, soft Neurologic/Psych: alert, normal mood/affect, oriented x 3 Skin: normal color, no jaundice Laboratory Results Last 24 Hours Test 11/28/17 14:46 11/28/17 17:53 11/28/17 23:32 11/29/17 04:23 Potassium Level 3.5 mmol/L 3.0 mmol/L Bedside Glucose 127 mg/dl 119 mg/dl Activated Partial Thromboplast Time 74.6 SECONDS Partial Thromboplastin Ratio 2.9 Sodium Level 134 mmol/L Chloride Level 97 mmol/L Carbon Dioxide Level 31 mmol/L Anion Gap 6.0 mmol/L Blood Urea Nitrogen 28 mg/dl Creatinine 2.26 mg/dl Est Creatinine Clear Calc Drug Dose 30.6 ml/min Estimated GFR () 31.3 Estimated GFR (Non- 27.0 BUN/Creatinine Ratio 12.2 Random Glucose 113 mg/dl Calcium Level 7.8 mg/dl Phosphorus Level 4.0 mg/dl Magnesium Level 1.9 mg/dl Test 11/29/17 05:28 11/29/17 11:30 Bedside Glucose 109 mg/dl 147 mg/dl Assessment and Plan Mr. Juárez is a 77 yr old male with recurrent aspiration pneumonia. His esophageal diverticulum may be contributing to this. With his lung disease and other comorbidities he is at high risk for aspiration from gastric reflux. The risk of this would not be decreased with placement and feedings through a PEG. The risk may be improve if a J tube were surgically placed. Discussed with the pt, who would like to consider J tube placement and with Dr. Forman who will consult surgery. GI will watch peripherally. I have personally seen and examined the patient with YANA Blue. Her note reflects my exam and findings. I agree with her impression and plan. I had extensive conversation with patient and . PEG would not decrease risk of aspiration and in fact the literature supports higher risk of morbidity when PEG is used to prevent aspiration. If patient needs alternative feeding option to prevent aspiration, we suggest consulting surgery to consider J tube placement. Jamil Rudolph M.D.
[2017-11-29] MEDS ORDERED: CUSTOM PERIPHERAL PN 1 BAG IV SCH (16:00)
[2017-11-29] MEDS ORDERED: CUSTOM CENTRAL PN 1 BAG IV SCH (16:00)
--- NOTE | 2017-11-29 16:26 | Surgery Consultation ---
Consultation Date of Consultation: Nov 29, 2017. Attending Physician: New Forman MD Reason for Consultation: J-tube placement History of Present Illness Salvador is a pleasant 77-year-old male who presented to the emergency room on with complaint of shortness of breath and hypoxemia. Patient has significant medical history including a recent right upper lung lobectomy on 11/02 at [facility] in [place] for lung cancer. Presumably he had a low stage cancer and will not require chemotherapy or radiation per records. Patient states that he was doing well after surgery and unfortunately developed aspiration pneumonia bilaterally. He was admitted to [facility] from -11/18 and was discharged to [facility] for rehabilitation on Augmentin prescription for aspiration pneumonia. He then presented to our hospital with again complaint of shortness of breath and hypoxemia after an episode of emesis. He also has a history of esophageal dysmotility, dysphagia, and esophageal diverticulum at least 5 cm in size. Patient refused resection of the esophageal diverticulum in 2007 per note. Patient was supposed to have surgery for the esophageal diverticulum during his lung surgery however this was deferred due to length of surgery in [place]. Patient states at baseline he will have some difficulty swallowing when he is "gulping" liquids. Denies of any trouble swallowing or eating on a routine basis. Our services were consulted for placement of jejunostomy tube as patient was originally planned to have a PEG tube placement however this has been deferred due to risk of aspiration. Patient has been started on TPN and has been n.p.o. for the past 7 days. As of note patient has extensive medical history including chronic diastolic heart failure, coronary artery disease status post stenting 7 with last stents placed little less than a year ago, Atrial fibrillation, moderate aortic stenosis, hypertension, COPD, sleep apnea on CPAP, history of seizures, chronic anemia in those described above. Patient states he has not had any abdominal surgeries in the past but CT scan showing evidence of appendectomy. Denies of any abdominal pain. Denies of any difficulties with his bowel movements, diarrhea, constipation, blood in the stools. Denies of any chest pain or shortness of breath at this time. He would just like to have this J-tube placed in order to get through this current hospitalization and feel better. Past Medical/Surgical History Past Medical History: As stated above in HPI Past Surgical History: Right upper lobe lobectomy Appendectomy Cardiac catheterization, cardiac stent placement x 7 Family History FHx: cancer Social History Smoking Status: Former Smoker Marital Status: Housing Status: lives with significant other Occupation Status: retired Allergies Coded Allergies: Cephalexin (Verified Allergy, Intermediate, RASH, 11/25/17) Simvastatin (Verified Allergy, Unknown, [id number] INTERACTION WITH NEFAZODONE, 10/22/16) Lisinopril (Verified Adverse Reaction, Mild, COUGH, 11/25/17) Home Medications Scheduled Amiodarone Hcl (Cordarone), 200 MG PO BID Amoxicillin & Pot Clavulanate (Augmentin 875-125 mg), 1 TAB PO BID Apixaban (Eliquis), 2.5 MG PO BID Atenolol (Tenormin), 12.5 MG PO QAM Atorvastatin (Lipitor), 40 MG PO DAILY Clonidine HCl (Clonidine HCl), 0.1 MG PO BID Clopidogrel (Plavix), 75 MG PO QAM Diltiazem Hcl Coated Beads (Cardizem Cd), 120 MG PO DAILY Docusate Sodium (Docusate Sodium), 100 MG PO BID Famotidine (Pepcid), 20 MG PO DAILY Finasteride (Proscar), 5 MG PO QAM Furosemide (Lasix), 40 MG PO QAM Gabapentin (Neurontin), 300 MG PO TID Losartan Potassium (Cozaar), 50 MG PO BID Metoclopramide Hcl (Metoclopramide Hcl), 5 MG PO ACHS Metoprolol Tartrate (Lopressor) (Lopressor), 25 MG PO BID Nefazodone (Serzone), 150 MG PO BID Nitroglycerin (Nitrostat), 0.4 MG UT PRN Paroxetine (Paxil), 20 MG PO DAILY Polyethylene Glycol 3350 (Miralax), 17 GM PO DAILY Quetiapine Fumarate (Seroquel), 25 MG PO BID Tamsulosin Hcl (Flomax), 0.4 MG PO DAILY Scheduled PRN Acetaminophen (Tylenol), 650 MG PO Q6H PRN for Pain or Fever Albuterol Sulfate (Proair Respiclick), 2 PUFFS INH [id number] PRN for SOB/ Wheezing Lorazepam (Ativan), 0.5 MG PO BID PRN for Anxiety Oxycodone Ir (Roxicodone Ir), 5 MG PO Q4H PRN for Severe Pain Sennosides-Docusate Sodium (Senna Plus), 1 TAB PO DAILY PRN for Constipation Current Inpatient Medications Current Inpatient Medications Medications (Trade) Dose Ordered Sig/Vicki Route Start Time Stop Time Status Last Admin Dose Admin Nitroglycerin (Nitrostat Tab) 0.4 mg UD PRN SL 11/21/17 05:00 12/21/17 04:59 Hydromorphone HCl (Dilaudid Inj) 0.5 mg Q3H PRN IV 11/21/17 05:00 12/05/17 04:59 11/23/17 17:42 0.5 MG Oxycodone/ Acetaminophen (Percocet 5-325mg Tab) 1 tab Q6H PRN PO 11/21/17 05:00 12/05/17 04:59 Prochlorperazine Edisylate 5 mg/ Syringe 5 ml @ 5 mls/min Q6H PRN IV 11/21/17 05:00 12/21/17 04:59 11/22/17 04:18 5 MLS/MIN Miscellaneous Information (Consult) 1 ea UD PRN N/A 11/21/17 09:00 12/21/17 08:59 Atorvastatin Calcium (Lipitor Tab) 40 mg DAILY PO 11/21/17 09:00 12/21/17 08:59 11/22/17 08:20 40 MG Finasteride (Proscar Tab) 5 mg QAM PO 11/21/17 09:00 12/21/17 08:59 11/22/17 08:17 5 MG Gabapentin (Neurontin Cap) 200 mg TID PO 11/21/17 09:00 12/21/17 08:59 11/21/17 21:02 200 MG Nefazodone HCl (serZONE TAB) 150 mg BID PO 11/21/17 09:00 12/21/17 08:59 11/22/17 09:34 150 MG Quetiapine Fumarate (seroQUEL TAB) 25 mg BID PO 11/21/17 09:00 12/21/17 08:59 11/22/17 08:21 25 MG Senna/Docusate Sodium (Senokot S Tab) 1 tab DAILY PRN PO 11/21/17 05:00 12/21/17 04:59 11/22/17 08:23 1 TAB Clopidogrel Bisulfate (plAVix TAB) 75 mg QAM PO 11/21/17 09:00 12/21/17 08:59 Future Hold 11/22/17 08:22 75 MG Paroxetine HCl (pAXil TAB) 20 mg DAILY PO 11/21/17 09:00 12/21/17 08:59 11/22/17 08:20 20 MG Tamsulosin HCl (Flomax Cap) 0.4 mg DAILY PO 11/21/17 09:00 12/21/17 08:59 11/22/17 08:20 0.4 MG Ipratropium [place] (Atrovent 0.02% 0.5MG/2.5ML Neb) 0.5 mg Q6R INH 11/21/17 09:00 12/21/17 08:59 11/29/17 14:13 0.5 MG Levalbuterol (Xopenex 1.25MG/ 0.5ML Neb) 1.25 mg Q6R INH 11/21/17 09:00 12/21/17 08:59 11/29/17 14:13 1.25 MG Ipratropium [place] (Atrovent 0.02% 0.5MG/2.5ML Neb) 0.5 mg Q4H PRN INH 11/21/17 06:15 12/21/17 06:14 11/26/17 17:20 0.5 MG Levalbuterol (Xopenex 1.25MG/ 0.5ML Neb) 1.25 mg Q4H PRN INH 11/21/17 06:15 12/21/17 06:14 11/26/17 17:20 1.25 MG Pantoprazole Sodium 40 mg/ Syringe 10 ml @ 5 mls/min DAILY@11 IV 11/22/17 11:00 12/22/17 10:59 11/29/17 11:39 5 MLS/MIN Famotidine 20 mg/ Syringe 5 ml @ 2.5 mls/min Q12 IV 11/22/17 11:00 12/22/17 10:59 11/29/17 08:45 2.5 MLS/MIN Acetaminophen (Tylenol Supp) 650 mg Q4H PRN [place] 11/23/17 09:45 12/23/17 09:44 Clonidine HCl (Jteyhluv-Iwq-6 0.2mg/24hr Patch) 1 patch Q7D@0900 TD 11/23/17 12:00 12/23/17 11:59 11/23/17 14:21 1 PATCH Miscellaneous (Remove Clonidine Patch) 1 ea Q7D@0859 N/A 11/30/17 08:59 12/30/17 08:58 Miscellaneous Information (Check Clonidine Patch Placement) 1 ea QS N/A 11/23/17 16:00 12/23/17 15:59 11/29/17 16:06 1 EA Metoprolol Tartrate (Lopressor Iv) 2.5 mg Q6H PRN IV 11/23/17 11:00 12/23/17 10:59 11/26/17 03:57 2.5 MG Furosemide 20 mg/ Syringe 2 ml @ 4 mls/min DAILY IV 11/25/17 09:00 12/25/17 08:59 11/29/17 08:39 4 MLS/MIN Amiodarone HCL/ Dextrose 200 ml @ 16.7 mls/hr [id number] IV 11/24/17 20:43 12/24/17 20:42 11/29/17 14:52 16.7 MLS/HR Heparin Sodium/ Dextrose 500 ml @ 23 mls/hr [id number] IV 11/25/17 09:45 12/25/17 09:44 Future Hold 11/28/17 08:31 23 MLS/HR Metoprolol Tartrate (Lopressor Iv) 10 mg Q6 IV. 11/26/17 12:00 12/24/17 15:59 11/29/17 11:41 10 MG Methylprednisolone Sodium Succinate 20 mg/Syringe 0.32 ml @ 1.5 mls/min DAILY IV 11/27/17 09:00 12/23/17 08:59 11/29/17 08:39 1.5 MLS/MIN Miscellaneous Information (Pharmacy Tpn/ Ppn Consult Active) 1 ea UD PRN N/A 11/27/17 16:00 12/27/17 15:59 Lorazepam 0.5 mg/ Syringe 1 ml @ 1 mls/min Q8H PRN IV 11/26/17 16:30 12/25/17 20:14 Lorazepam (Ativan Inj) 0.5 mg Q8H PRN IV 11/26/17 17:00 12/25/17 19:59 11/29/17 13:55 0.5 MG Dextrose 1,000 ml @ 0 mls/hr Q0M PRN IV 11/27/17 16:00 12/27/17 15:59 Insulin Aspart (novoLOG ASPART) SLIDING SCALE If C... Q6 SC 11/27/17 18:00 12/27/17 17:59 Glucose (Glucose 40% Gel) 15-30 GRAMS 15 GRAMS... UD PRN PO 11/27/17 16:15 12/27/17 16:14 Glucose (Glucose Chew Tab) 4-8 Tablets 4 Tabl... UD PRN PO 11/27/17 16:15 12/27/17 16:14 Dextrose (Dextrose 50% 50ML Syringe) 25-50ML 25ML FOR ... UD PRN IV 11/27/17 16:15 12/27/17 16:14 Glucagon (Glucagon Inj) 1 mg UD PRN SQ 11/27/17 16:15 12/27/17 16:14 Carbohydrates (Carbohydrates For Hypoglycemia) 15-30 GRAMS 15 grams if BSG 54-69... UD PRN PO 11/27/17 16:15 12/27/17 16:14 Miscellaneous Information (Consult Glycemic Management Pharmacy) 1 ea UD PRN N/A 11/27/17 17:49 12/27/17 17:48 Nystatin (Mycostatin Powder) 1 appln BID EXT 11/27/17 21:00 12/27/17 20:59 11/29/17 08:40 1 APPLN Hydralazine HCl (HydrALAZINE INJ) 20 mg Q6 IV. 11/28/17 00:00 12/28/17 00:00 11/29/17 11:40 20 MG Heparin Sodium (Porcine) (Heparin 10 Unit/ ml 5 ml Flush) 5 ml PRN PRN FLUSH 11/28/17 00:45 12/28/17 00:44 Nitroglycerin (Nitro-Dur 0.4 Mg/Hr Patch) 1 patch QAM TD 11/29/17 09:00 12/29/17 08:59 11/29/17 10:30 1 PATCH Miscellaneous (Remove Nitro-Dur Patch) 1 ea DAILY@21 N/A 11/29/17 21:00 12/29/17 20:59 Piperacillin Sod/ Tazobactam Sod 3.375 gm/Dextrose 115 ml @ 28.75 mls/ hr Q8H IV 11/28/17 14:00 12/01/17 09:59 11/29/17 14:53 28.75 MLS/HR Nutrition (Parenteral) 0 ml @ 0 mls/hr TODAY@1600 IV 11/29/17 16:00 11/30/17 15:59 Miscellaneous (Stop Order) 1 ea ONE ONCE N/A 11/30/17 00:00 11/30/17 00:01 Review of Systems Constitutional: No fever, No chills, No sweats Respiratory: + cough, + shortness of breath Cardiovascular: No chest pain Abdomen: No pain, No nausea, No vomiting, No diarrhea, No constipation, No GI bleeding Endocrine: + fatigue Hematologic / Lymphatic: No abnormal bleeding/bruising Integumentary: No rash Physical Exam Date Time Temp Pulse Resp B/P (MAP) Pulse Ox O2 Delivery O2 Flow Rate FiO2 11/29/17 15:37 36.3 69 22 173/66 (101) 95 Nasal Cannula 3.0 11/29/17 14:14 69 18 97 Nasal Cannula 2.0 11/29/17 11:54 36.5 72 19 180/83 (115) 96 Nasal Cannula 2.0 11/29/17 11:41 66 172/70 11/29/17 08:00 Room Air 11/29/17 07:42 36.6 66 19 172/70 (104) 95 Nasal Cannula 2.0 11/29/17 07:12 66 18 97 Nasal Cannula 2.0 40 11/29/17 05:27 70 11/29/17 03:35 36.6 65 16 171/74 (106) 95 Nasal Cannula 2.0 11/29/17 01:52 57 98 40 11/29/17 01:46 57 18 98 BiPAP/CPAP 40 11/28/17 23:59 36.4 61 16 173/72 (105) 99 CPAP 40 11/28/17 22:13 60 98 40 11/28/17 22:08 70 11/28/17 20:00 Nasal Cannula 2.0 11/28/17 19:41 36.8 64 20 166/74 (104) 96 Nasal Cannula 2.0 11/28/17 19:29 62 16 97 Nasal Cannula 2.0 11/28/17 17:53 80 General Appearance: WD/WN, no apparent distress Head: normocephalic, atraumatic Eyes: sclerae normal ENT: hearing grossly normal (with hearing aids) Neck: trachea midline Respiratory/Chest: no respiratory distress, no accessory muscle use, + wheezing (expiratory, both lung peck), + pertinent finding (right sided pleurx catheter present) Cardiovascular: regular rate, rhythm, + systolic murmur Abdomen/GI: normal bowel sounds, non tender, soft, no organomegaly, no pulsatile mass Back: normal inspection (two dressings present on right side of back (site of Thoracentesis)) Extremities/Musculoskelatal: normal inspection, no pedal edema Neurologic/Psych: alert, normal mood/affect, oriented x 3 Skin: normal color, warm/dry, no rash Laboratory Results Last 24 Hours Test 11/28/17 17:53 11/28/17 23:32 11/29/17 04:23 11/29/17 05:28 Bedside Glucose 127 mg/dl 119 mg/dl 109 mg/dl Activated Partial Thromboplast Time 74.6 SECONDS Partial Thromboplastin Ratio 2.9 Sodium Level 134 mmol/L Potassium Level 3.0 mmol/L Chloride Level 97 mmol/L Carbon Dioxide Level 31 mmol/L Anion Gap 6.0 mmol/L Blood Urea Nitrogen 28 mg/dl Creatinine 2.26 mg/dl Est Creatinine Clear Calc Drug Dose 30.6 ml/min Estimated GFR () 31.3 Estimated GFR (Non- 27.0 BUN/Creatinine Ratio 12.2 Random Glucose 113 mg/dl Calcium Level 7.8 mg/dl Phosphorus Level 4.0 mg/dl Magnesium Level 1.9 mg/dl Test 11/29/17 11:30 11/29/17 15:41 Bedside Glucose 147 mg/dl Assessment & Plan 77-year-old male who presented to the emergency room with shortness of breath and hypoxemia after an episode of emesis. Recent right upper lobe lobectomy for right lung cancer at [facility] in [place] on 11/02/2017. Extensive medical history including coronary artery disease status post stent placement 7, COPD, sleep apnea on CPAP, congestive heart failure, chronic anemia, atrial fibrillation, esophageal dysmotility, esophageal diverticulum, and recurrent aspiration pneumonia. Given risk of recurrent aspiration pneumonia patient was originally scheduled for PEG tube placement however this has been deferred due to risk of aspiration with PEG tubes. Our services consulted for placement of a jejunostomy tube. Abdomen is soft, nontender, nondistended. Patient currently on 2 L of oxygen via nasal cannula. Currently receiving TPN. Pleurx catheter still draining. Plan: Discussed with patient indication for our surgical consultation for placement of jejunostomy tube given risk of recurrent aspiration and recurrent aspiration pneumonia. Given his multiple comorbidities and recent right upper lobe lobectomy about 3 weeks ago, patient is at increased risk for any surgical intervention. Patient is persistent that he would like to have a J-tube placed and understands the risks. is not present at the bedside. She will be present tomorrow morning. Will discuss the surgical procedure and risks of a jejunostomy tube placement with and patient tomorrow morning. Will obtain informed consent at that time. Resume heparin drip today and hold at midnight. Continue to keep patient NPO Continue TPN, IV antibiotics Continue current medical management Dr. Macdonald has seen and examined patient agrees with above.
[2017-11-29] MEDS: HEPARIN 25,000 UNIT/500ML D5W 500 ML IV SCH (16:42)
[2017-11-29 18:07] LABS: PTT PATIENT 33.4 SECONDS (21.0-31.0)
--- NOTE | 2017-11-29 19:04 | Progress Note ---
Medicine Progress Note Date & Time of Visit: Nov 29, 2017 at 18:59. Subjective Seen resting in bed, sleeping but easily awakened, not in distress Frustrated because PEG tube placement was canceled today Denies shortness of breath, cough, chest pain States he feels fine No other symptoms Objective Last 8 Hrs Date Time Temp Pulse Resp B/P (MAP) Pulse Ox O2 Delivery O2 Flow Rate FiO2 11/29/17 17:59 76 189/82 11/29/17 15:37 36.3 69 22 173/66 (101) 95 Nasal Cannula 3.0 11/29/17 14:14 69 18 97 Nasal Cannula 2.0 11/29/17 11:54 36.5 72 19 180/83 (115) 96 Nasal Cannula 2.0 11/29/17 11:41 66 172/70 Physical Exam: General- oriented x 3, not in distress, speaks in sentences, no effort Eyes- anicteric Neck- no JVD Lungs-clear breath sounds bilaterally, no wheezing Heart- normal rate, irregularly irregular rhythm; no murmurs Abdomen- normal bowel sounds, soft, nontender Extremities- no pretibial edema, no calf tenderness; peripheral pulses intact Neuro- alert, oriented x 3; no gross focal deficits Skin- warm & dry Laboratory Results: Last 24 Hours Test 11/28/17 23:32 11/29/17 04:23 11/29/17 05:28 11/29/17 11:30 Bedside Glucose 119 mg/dl 109 mg/dl 147 mg/dl Activated Partial Thromboplast Time 74.6 SECONDS Partial Thromboplastin Ratio 2.9 Sodium Level 134 mmol/L Potassium Level 3.0 mmol/L Chloride Level 97 mmol/L Carbon Dioxide Level 31 mmol/L Anion Gap 6.0 mmol/L Blood Urea Nitrogen 28 mg/dl Creatinine 2.26 mg/dl Est Creatinine Clear Calc Drug Dose 30.6 ml/min Estimated GFR () 31.3 Estimated GFR (Non- 27.0 BUN/Creatinine Ratio 12.2 Random Glucose 113 mg/dl Calcium Level 7.8 mg/dl Phosphorus Level 4.0 mg/dl Magnesium Level 1.9 mg/dl Test 11/29/17 15:41 11/29/17 16:31 11/29/17 17:24 Bedside Glucose 129 mg/dl Activated Partial Thromboplast Time 33.4 SECONDS Partial Thromboplastin Ratio 1.3 Assessment & Plan Assessment and Plan 77-year-old male with significant past medical history of CAD status post stents ( x3 in 05/2017), chronic diastolic CHF, moderate aortic stenosis, hypertension, COPD, GAURANG on CPAP, right lung mass status post lobectomy secondary to adenocarcinoma of the lung at [facility], postoperative paroxysmal atrial fibrillation, esophageal diverticulum with recurrent aspiration pneumonia , CKD stage III who presented to [facility] with hypoxia suspicious for bilateral PNA secondary to aspiration, right pleural effusion. Acute Hypoxic Respiratory Failure multifactorial secondary to bilateral PNA,Pleural Effusion, DHF, COPD exacerbation -Improving Now on 2 L of nasal cannula - Continue IV Zosyn - IV solumedrol decreased to 20mg, nebulizer, O2 - Lasix 20mg iV daily Stable overall- Esophageal Diverticulum with Esophageal Dysmotility -Danial Aspiration - -Per GI recommendations, J-tube insertion is recommended to lower risk of aspiration further General surgery consulted continue PPI Continue NPO, necessary meds converted to IV. -Continue TPN R Loculated Pleural Effusion - s/p thoracentesis 11/22 1100cc removed, fluid analysis reviewed appears transudative. - Echo reviewed -s/p PleurX cath placed on 11/24 due to recurrent effusion - appreciate thoracic surgery/pulm input. COPD Exacerbation - Continue O2, IV methylprednisone, nebulizer treatments GAURANG on CPAP CAD - s/p multiple stents, most recent 05/2017 had three stents placed; total of 7 stents. - Given NPO status plavix and lipitor on hold until peg placed. - continue medical management of plavix, metoprolol, lipitor. Plavix to continue 1 year uninterrupted. Paroxysmal A. Fib Patient developed PAF status post right lung lobectomy at [facility] in which he was placed on amiodarone and Xarelto. He then presented to [facility] in which cardiology was consulted, Dr. Madrid, who recommended continuing amiodarone; however decreasing to daily at discharge. Further she recommended discontinuing atenolol and switching it to metoprolol as well as continuing CCB. Xarelto was transitioned to Eliquis secondary to renal dysfunction. - On Amio gtt, IV lopressor increased secondary to hypertension - IV heparin -to be held tonight until midnight in anticipation j-tube placement tomorrow HTN -Hydralazine IV increased -Nitropaste change to nitro patch -Continue clonidine patch Monitor Recent R Lung Adenocarcinoma - s/p resection of R upper lobe at [facility] CKD stage 3 -Renal function at baseline Hypokalemia -replace , monitor Hyperglycemia due to steroids - A1c 5.9 Insulin sliding scale Glycemic control consult Anemia -Hemoglobin stable Anxiety -prn lorazepam DVT ppx - IV Heparin - SCDs FULL CODE Dispo pending will need SNF/Rehab when medically stable Current Inpatient Medications: Current Inpatient Medications Medications (Trade) Dose Ordered Sig/Vicki Route Start Time Stop Time Status Last Admin Dose Admin Nitroglycerin (Nitrostat Tab) 0.4 mg UD PRN SL 11/21/17 05:00 12/21/17 04:59 Hydromorphone HCl (Dilaudid Inj) 0.5 mg Q3H PRN IV 11/21/17 05:00 12/05/17 04:59 11/23/17 17:42 0.5 MG Oxycodone/ Acetaminophen (Percocet 5-325mg Tab) 1 tab Q6H PRN PO 11/21/17 05:00 12/05/17 04:59 Prochlorperazine Edisylate 5 mg/ Syringe 5 ml @ 5 mls/min Q6H PRN IV 11/21/17 05:00 12/21/17 04:59 11/22/17 04:18 5 MLS/MIN Miscellaneous Information (Consult) 1 ea UD PRN N/A 11/21/17 09:00 12/21/17 08:59 Atorvastatin Calcium (Lipitor Tab) 40 mg DAILY PO 11/21/17 09:00 12/21/17 08:59 11/22/17 08:20 40 MG Finasteride (Proscar Tab) 5 mg QAM PO 11/21/17 09:00 12/21/17 08:59 11/22/17 08:17 5 MG Gabapentin (Neurontin Cap) 200 mg TID PO 11/21/17 09:00 12/21/17 08:59 11/21/17 21:02 200 MG Nefazodone HCl (serZONE TAB) 150 mg BID PO 11/21/17 09:00 12/21/17 08:59 11/22/17 09:34 150 MG Quetiapine Fumarate (seroQUEL TAB) 25 mg BID PO 11/21/17 09:00 12/21/17 08:59 11/22/17 08:21 25 MG Senna/Docusate Sodium (Senokot S Tab) 1 tab DAILY PRN PO 11/21/17 05:00 12/21/17 04:59 11/22/17 08:23 1 TAB Clopidogrel Bisulfate (plAVix TAB) 75 mg QAM PO 11/21/17 09:00 12/21/17 08:59 Future Hold 11/22/17 08:22 75 MG Paroxetine HCl (pAXil TAB) 20 mg DAILY PO 11/21/17 09:00 12/21/17 08:59 11/22/17 08:20 20 MG Tamsulosin HCl (Flomax Cap) 0.4 mg DAILY PO 11/21/17 09:00 12/21/17 08:59 11/22/17 08:20 0.4 MG Ipratropium [place] (Atrovent 0.02% 0.5MG/2.5ML Neb) 0.5 mg Q6R INH 11/21/17 09:00 12/21/17 08:59 11/29/17 14:13 0.5 MG Levalbuterol (Xopenex 1.25MG/ 0.5ML Neb) 1.25 mg Q6R INH 11/21/17 09:00 12/21/17 08:59 11/29/17 14:13 1.25 MG Ipratropium [place] (Atrovent 0.02% 0.5MG/2.5ML Neb) 0.5 mg Q4H PRN INH 11/21/17 06:15 12/21/17 06:14 11/26/17 17:20 0.5 MG Levalbuterol (Xopenex 1.25MG/ 0.5ML Neb) 1.25 mg Q4H PRN INH 11/21/17 06:15 12/21/17 06:14 11/26/17 17:20 1.25 MG Pantoprazole Sodium 40 mg/ Syringe 10 ml @ 5 mls/min DAILY@11 IV 11/22/17 11:00 12/22/17 10:59 11/29/17 11:39 5 MLS/MIN Famotidine 20 mg/ Syringe 5 ml @ 2.5 mls/min Q12 IV 11/22/17 11:00 12/22/17 10:59 11/29/17 08:45 2.5 MLS/MIN Acetaminophen (Tylenol Supp) 650 mg Q4H PRN [place] 11/23/17 09:45 12/23/17 09:44 Clonidine HCl (Oxushqlv-Ssb-5 0.2mg/24hr Patch) 1 patch Q7D@0900 TD 11/23/17 12:00 12/23/17 11:59 11/23/17 14:21 1 PATCH Miscellaneous (Remove Clonidine Patch) 1 ea Q7D@0859 N/A 11/30/17 08:59 12/30/17 08:58 Miscellaneous Information (Check Clonidine Patch Placement) 1 ea QS N/A 11/23/17 16:00 12/23/17 15:59 11/29/17 16:06 1 EA Metoprolol Tartrate (Lopressor Iv) 2.5 mg Q6H PRN IV 11/23/17 11:00 12/23/17 10:59 11/26/17 03:57 2.5 MG Furosemide 20 mg/ Syringe 2 ml @ 4 mls/min DAILY IV 11/25/17 09:00 12/25/17 08:59 11/29/17 08:39 4 MLS/MIN Amiodarone HCL/ Dextrose 200 ml @ 16.7 mls/hr [id number] IV 11/24/17 20:43 12/24/17 20:42 11/29/17 14:52 16.7 MLS/HR Heparin Sodium/ Dextrose 500 ml @ 23 mls/hr [id number] IV 11/25/17 09:45 12/25/17 09:44 Future Hold 11/29/17 16:42 23 MLS/HR Metoprolol Tartrate (Lopressor Iv) 10 mg Q6 IV. 11/26/17 12:00 12/24/17 15:59 11/29/17 17:59 10 MG Methylprednisolone Sodium Succinate 20 mg/Syringe 0.32 ml @ 1.5 mls/min DAILY IV 11/27/17 09:00 12/23/17 08:59 11/29/17 08:39 1.5 MLS/MIN Miscellaneous Information (Pharmacy Tpn/ Ppn Consult Active) 1 ea UD PRN N/A 11/27/17 16:00 12/27/17 15:59 Lorazepam 0.5 mg/ Syringe 1 ml @ 1 mls/min Q8H PRN IV 11/26/17 16:30 12/25/17 20:14 Lorazepam (Ativan Inj) 0.5 mg Q8H PRN IV 11/26/17 17:00 12/25/17 19:59 11/29/17 13:55 0.5 MG Dextrose 1,000 ml @ 0 mls/hr Q0M PRN IV 11/27/17 16:00 12/27/17 15:59 Insulin Aspart (novoLOG ASPART) SLIDING SCALE If C... Q6 SC 11/27/17 18:00 12/27/17 17:59 Glucose (Glucose 40% Gel) 15-30 GRAMS 15 GRAMS... UD PRN PO 11/27/17 16:15 12/27/17 16:14 Glucose (Glucose Chew Tab) 4-8 Tablets 4 Tabl... UD PRN PO 11/27/17 16:15 12/27/17 16:14 Dextrose (Dextrose 50% 50ML Syringe) 25-50ML 25ML FOR ... UD PRN IV 11/27/17 16:15 12/27/17 16:14 Glucagon (Glucagon Inj) 1 mg UD PRN SQ 11/27/17 16:15 12/27/17 16:14 Carbohydrates (Carbohydrates For Hypoglycemia) 15-30 GRAMS 15 grams if BSG 54-69... UD PRN PO 11/27/17 16:15 12/27/17 16:14 Miscellaneous Information (Consult Glycemic Management Pharmacy) 1 ea UD PRN N/A 11/27/17 17:49 12/27/17 17:48 Nystatin (Mycostatin Powder) 1 appln BID EXT 11/27/17 21:00 12/27/17 20:59 11/29/17 08:40 1 APPLN Hydralazine HCl (HydrALAZINE INJ) 20 mg Q6 IV. 11/28/17 00:00 12/28/17 00:00 11/29/17 17:55 20 MG Heparin Sodium (Porcine) (Heparin 10 Unit/ ml 5 ml Flush) 5 ml PRN PRN FLUSH 11/28/17 00:45 12/28/17 00:44 Nitroglycerin (Nitro-Dur 0.4 Mg/Hr Patch) 1 patch QAM TD 11/29/17 09:00 12/29/17 08:59 11/29/17 10:30 1 PATCH Miscellaneous (Remove Nitro-Dur Patch) 1 ea DAILY@21 N/A 11/29/17 21:00 12/29/17 20:59 Piperacillin Sod/ Tazobactam Sod 3.375 gm/Dextrose 115 ml @ 28.75 mls/ hr Q8H IV 11/28/17 14:00 12/01/17 09:59 11/29/17 14:53 28.75 MLS/HR Nutrition (Parenteral) 0 ml @ 0 mls/hr TODAY@1600 IV 11/29/17 16:00 11/30/17 15:59 11/29/17 16:33 0 MLS/HR Miscellaneous (Stop Order) 1 ea ONE ONCE N/A 11/30/17 00:00 11/30/17 00:01
[2017-11-29 22:24] LABS: PTT PATIENT 44.3 SECONDS (21.0-31.0)
[2017-11-30] VITALS (12 sets, daily range): BP systolic 105–179; BP diastolic 51–73; PULSE 58–82; TEMP 36.5–36.9; O2SAT 92–100
[2017-11-30] MEDS ORDERED: HOLD HEPARIN DRIP ONE
[2017-11-30] MEDS: METOPROLOL TARTRATE 1 MG/ML VIAL IV. SCH ×5 (00:14→23:52)
[2017-11-30] MEDS: HydrALAZINE HCL 20 MG/ML VIAL IV. SCH ×5 (00:14→23:51)
[2017-11-30] MEDS: AMIODARONE / D5W 200 ML IV SCH ×3 (01:59→21:11)
[2017-11-30] MEDS: LEVALBUTEROL 1.25MG/0.5ML NEB INH SCH ×4 (02:14→18:58)
[2017-11-30] MEDS: IPRATROPIUM BROMIDE NEB SOLN 0.02% 2.5 ML VIAL INH SCH ×4 (02:15→18:58)
[2017-11-30 04:26] LABS: HEMOGLOBIN 9.7 g/dL (14.0-18.0); MEAN CELL VOLUME 87.5 fL (80-100); MEAN CORPUSCULAR HEMOGLOBIN 28.3 pg (25-34); MEAN CORPUSCULAR HGB CONC 32.3 g/dl (32-36); MEAN PLATELET VOLUME 10.9 fL (7.4-10.4); NUCLEATED RED BLOOD CELL ABS 0.08 K/uL (0-0); PLATELET COUNT 206 K/uL (130-400); RED CELL DISTRIBUTION WIDTH CV 15.1 % (11.5-14.5); RED CELL DISTRIBUTION WIDTH SD 48.4 fL (36.4-46.3); WHITE BLOOD COUNT 11.83 K/uL (4.8-10.8)
[2017-11-30 04:36] LABS: PTT PATIENT 27.5 SECONDS (21.0-31.0)
[2017-11-30 04:44] LABS: CALCIUM 7.8 mg/dl (8.5-10.1); CREATININE 2.34 mg/dl (0.60-1.40); PHOSPHORUS 3.1 mg/dl (2.5-4.9); POTASSIUM 3.9 mmol/L (3.5-5.1)
[2017-11-30] MEDS: INSULIN ASPART 100 UNITS/ML 3 ML PEN SC SCH ×2 (06:42)
[2017-11-30] MEDS: PIPERACILL/TAZOBAC IV 3.375 GM in D5W 100ML IV SCH ×3 (06:43→21:09)
[2017-11-30] MEDS: METHYLPREDNISOLONE IV 20 MG in SYRINGE 0 ML IV SCH (08:06)
[2017-11-30] MEDS: FUROSEMIDE INJ 20 MG in SYRINGE 0 ML IV SCH (08:06)
[2017-11-30] MEDS: NYSTATIN POWDER 15GM BTL EXT SCH ×2 (08:07→21:03)
[2017-11-30] MEDS: NITROGLYCERIN 0.4 MG/HR PATCH TD SCH (08:08)
[2017-11-30] MEDS: CHECK CLONIDINE PATCH PLACEMENT SCH ×4 (08:08→23:52)
[2017-11-30] MEDS: CLONIDINE HCL 0.2 MG/24 HR TRANSDERM SYS TD SCH (08:08)
[2017-11-30] MEDS: FAMOTIDINE IV INJ 20 MG in SYRINGE 3 ML IV SCH ×2 (08:14→21:09)
--- NOTE | 2017-11-30 08:17 | Surgery Progress Note ---
Subjective Date of Service: Nov 30, 2017. Pt. denies CP. Minimal discomfort when draining pleurx. No SOB. Objective Vitals Date Time Temp Pulse Resp B/P (MAP) Pulse Ox O2 Delivery O2 Flow Rate FiO2 11/30/17 08:02 36.7 64 16 160/51 (87) 93 Room Air 11/30/17 07:35 67 16 92 Nasal Cannula 1.0 11/30/17 06:42 72 182/73 11/30/17 04:47 36.8 67 16 166/73 (104) 96 Nasal Cannula 2.0 11/30/17 02:15 58 16 93 Nasal Cannula 1.0 11/30/17 00:14 72 11/30/17 00:06 36.9 66 18 179/70 (106) 100 BiPAP 11/29/17 23:20 Nasal Cannula 2.0 BiPAP 11/29/17 21:58 69 98 40 11/29/17 19:21 36.8 67 20 149/73 (98) 94 Nasal Cannula 1.0 11/29/17 19:13 68 18 94 Nasal Cannula 1.0 11/29/17 17:59 76 189/82 11/29/17 16:00 95 Nasal Cannula 2.0 11/29/17 15:37 36.3 69 22 173/66 (101) 95 Nasal Cannula 3.0 11/29/17 14:14 69 18 97 Nasal Cannula 2.0 11/29/17 11:54 36.5 72 19 180/83 (115) 96 Nasal Cannula 2.0 11/29/17 11:41 66 172/70 Physical Exam General: + well developed, + well nourished CV: + RRR Pulmonary: + pertinent finding (decreased BS at bases but aeration improvement from prior exams), No accessory muscle use, No respiratory distress Abdomen: + non tender, + soft Neurologic: + alert & oriented x 3 Drains / Tubes pleurex (drained for 100 cc today ) Assessment & Plan 77 year old male with right pleural effusion -pt. has undergone thoracentesis followed by pleurex catheter placement: -all culture are (-) -cytology (-) for malignancy -continue daily drainage of pleurex catheter -concern noted for aspiration with esophageal diverticulum as a potential contributing factor: -plan is now for J-tube placement by general surgery tent. today -will address esophageal issues after J-tube placed and pt. has improved from current issues (a-fib, pneumonia)
[2017-11-30] MEDS: FINASTERIDE 5 MG TAB PO SCH (09:00)
[2017-11-30] MEDS: ATORVASTATIN 40 MG TAB PO SCH (09:00)
[2017-11-30] MEDS: TAMSULOSIN HCL 0.4 MG CAP PO SCH (09:00)
[2017-11-30] MEDS: QUETIAPINE FUMARATE 25 MG TAB PO SCH ×2 (09:00→21:00)
[2017-11-30] MEDS: GABAPENTIN 100 MG CAP PO SCH ×3 (09:00→21:00)
[2017-11-30] MEDS: PAROXETINE 20 MG TAB PO SCH (09:00)
[2017-11-30] MEDS: NEFAZODONE HCL 100 MG PO SCH ×2 (09:00→21:00)
[2017-11-30] MEDS ORDERED: PROPOFOL IV EMULSION 10 MG/ML 20 ML VIAL ONE (09:04)
[2017-11-30] MEDS ORDERED: LIDOCAINE HCL 2% 2 ML VIAL (20MG/ML) ONE (09:04)
[2017-11-30] MEDS ORDERED: MIDAZOLAM HCL 1 MG/ML 2ML VIAL ONE (09:04)
[2017-11-30] MEDS ORDERED: FENTANYL CITRATE INJ 50 MCG/1 ML 2 ML VIAL ONE (09:04)
[2017-11-30] MEDS ORDERED: NURSING VERBAL MED ORDER ONE ×2 (09:30→18:45)
--- NOTE | 2017-11-30 10:22 | Surgery Progress Note ---
Surgery Progress Note Date of Service Nov 30, 2017. Subjective Post OP Day: HD # 9 Salvador is ready for his j-tube placement today no complaints feeling stressed and anxious at times present at bedside Objective Vital Signs: Date Time Temp Pulse Resp B/P (MAP) Pulse Ox O2 Delivery O2 Flow Rate FiO2 11/30/17 08:02 36.7 64 16 160/51 (87) 93 Room Air 11/30/17 07:35 67 16 92 Nasal Cannula 1.0 11/30/17 06:42 72 182/73 11/30/17 04:47 36.8 67 16 166/73 (104) 96 Nasal Cannula 2.0 11/30/17 02:15 58 16 93 Nasal Cannula 1.0 11/30/17 00:14 72 11/30/17 00:06 36.9 66 18 179/70 (106) 100 BiPAP 11/29/17 23:20 Nasal Cannula 2.0 BiPAP 11/29/17 21:58 69 98 40 11/29/17 19:21 36.8 67 20 149/73 (98) 94 Nasal Cannula 1.0 11/29/17 19:13 68 18 94 Nasal Cannula 1.0 11/29/17 17:59 76 189/82 11/29/17 16:00 95 Nasal Cannula 2.0 11/29/17 15:37 36.3 69 22 173/66 (101) 95 Nasal Cannula 3.0 11/29/17 14:14 69 18 97 Nasal Cannula 2.0 11/29/17 11:54 36.5 72 19 180/83 (115) 96 Nasal Cannula 2.0 11/29/17 11:41 66 172/70 General Appearance: WD/WN, no apparent distress Head: normocephalic, atraumatic Neck: trachea midline Respiratory/Chest: no respiratory distress, no accessory muscle use Abdomen: non tender, non distended, soft, no organomegaly, no pulsatile mass Laboratory Results: Results Past 24 Hours Test 11/29/17 11:30 11/29/17 16:31 11/29/17 17:24 11/29/17 21:59 Range/Units Bedside Glucose 147 129 70-99 mg/dl Activated Partial Thromboplast Time 33.4 44.3 21.0-31.0 SECONDS Partial Thromboplastin Ratio 1.3 1.7 Potassium Level 3.8 3.5-5.1 mmol/L Test 11/30/17 00:14 11/30/17 04:16 11/30/17 06:37 Range/Units Bedside Glucose 123 103 70-99 mg/dl White Blood Count 11.83 4.8-10.8 K/uL Red Blood Count 3.43 4.7-6.1 M/uL Hemoglobin 9.7 14.0-18.0 g/dL Hematocrit 30.0 42-52 % Mean Corpuscular Volume 87.5 80-100 fL Mean Corpuscular Hemoglobin 28.3 25-34 pg Mean Corpuscular Hemoglobin Concent 32.3 32-36 g/dl RDW Standard Deviation 48.4 36.4-46.3 fL RDW Coefficient of Variation 15.1 11.5-14.5 % Platelet Count 206 130-400 K/uL Mean Platelet Volume 10.9 7.4-10.4 fL Nucleated RBC Absolute Count (auto) 0.08 0-0 K/uL Nucleated Red Blood Cells % 0.7 % Activated Partial Thromboplast Time 27.5 21.0-31.0 SECONDS Partial Thromboplastin Ratio 1.1 Sodium Level 135 136-145 mmol/L Potassium Level 3.9 3.5-5.1 mmol/L Chloride Level 100 98-107 mmol/L Carbon Dioxide Level 29 21-32 mmol/L Anion Gap 6.0 3-11 mmol/L Blood Urea Nitrogen 28 7-18 mg/dl Creatinine 2.34 0.60-1.40 mg/dl Est Creatinine Clear Calc Drug Dose 29.7 ml/min Estimated GFR () 30.0 Estimated GFR (Non- 25.9 BUN/Creatinine Ratio 11.8 10-20 Random Glucose 99 70-99 mg/dl Calcium Level 7.8 8.5-10.1 mg/dl Phosphorus Level 3.1 2.5-4.9 mg/dl Magnesium Level 2.2 1.8-2.4 mg/dl Assessment & Plan 77 year-old male with extensive comorbidities including CAD with coronary stent placement x 7 with recent being in May, CHF, moderate aortic valve stenosis , COPD, Sleep apnea on CPAP, remote history of lung cancer s/p right upper lobe lobectomy at [facility] in [place] on 11/02/2017, esophageal diverticulum and possible esophageal achalasia, recurrent aspiration pneumonia who presented to hospital with hypoxia and SOB s/p episode of emesis. Recently diagnosed with aspiration pneumonia at [facility]. Original plan for PEG tube placement however given risk of continued aspiration with PEG tube a jejunostomy tube was recommended. Patient originally scheduled for j-tube placement today by Dr. Macdonald. However, after lengthy discussion with this morning and the patient our recommendation would be for transfer back to [facility] for further evaluation and management of esophageal diverticulum as this is going to continue to cause patient to aspirate. Patient's stated that when he was admitted to [facility] his thoracic surgeon from [facility] ( Dr. Faustin) recommended patient be transferred back to their facility in order to manage his esophageal diverticulum however patient wanted to stay locally. Given patients moderate cardiothoracic comorbidities including CAD with multiple coronary stents, CHF, moderate aortic stenosis, COPD, and recent history of right upper lobe lobectomy, he is at increased risk of jejunostomy placement given need for general anesthesia and our services recommend transfer to tertiary facility where there is cardiothoracic specialities available in case there is a need intraoperatively for their services. He would be at the same facility where he recently had his right upper lobectomy and they have all of his records available in regards to his esophageal diverticulum. Dr. Macdonald has extensively discussed his recommendations with patient's and the patient was informed by myself as he was hard of hearing. Patient and his are agreeable to see if patient could be transfered back to [facility] for further evaluation and management. Dr. Macdonald has discussed his recommendations with Hospitalist Dr. Forman.
[2017-11-30] MEDS: LORAZEPAM 2 MG/ML 1 ML VIAL IV PRN (10:36)
[2017-11-30] MEDS: PANTOprazole INJ 40 MG in SYRINGE 0 ML IV SCH (13:54)
--- NOTE | 2017-11-30 14:03 | Pharmacy Progress Note ---
Pharmacy Glycemic Sign Off Nt Date of Service Nov 30, 2017. Assessment & Plan ASSESSMENT: * Pharmacy was consulted by Dr Forman on 11/27/17 for glycemic control and to write orders per [facility] inpatient glycemic control protocol. * Major changes made by pharmacy to antidiabetic regimen include: * Initiated Novolog insulin with CF only * Patient has been receiving/requiring 0 units of insulin per day for adequate glycemic control * BSGs ranging 109 - 147 mg/dl * No adjustments to regimen have been made * Do not anticipate further changes in patient status that would quickly deteriorate glycemic control (i.e. patient to be NPO for upcoming procedure, steroids tapering, starting tube feedings, etc). * Please see recommendations for outpatient antidiabetic regimen below. PLAN FOR INPATIENT GLYCEMIC CONTROL: * d/c Novolog * A1c added to discharge instructions to be communicated to PCP * Pharmacy is signing off of glycemic consult (spoke with Dr. Forman) and will no longer be making adjustments to inpatient regimen. Please feel free to re-consult if needed. Thank you. DISCHARGE RECOMMENDATIONS: * A1c 5.9 % on 11/23/17 * This is indicative of pre-diabetes * Lifestyle modification is warranted to slow/prevent progression to diabetes
[2017-11-30] MEDS ORDERED: CUSTOM CENTRAL PN 1 BAG IV SCH (16:00)
[2017-11-30 16:30] LABS: PTT PATIENT 54.4 SECONDS (21.0-31.0)
[2017-11-30] MEDS ORDERED: LORAZEPAM 2 MG/ML 1 ML VIAL IV SCH (21:00)
[2017-11-30] MEDS: HEPARIN 25,000 UNIT/500ML D5W 500 ML IV SCH (21:12)
--- NOTE | 2017-11-30 21:39 | Progress Note ---
Medicine Progress Note Date & Time of Visit: Nov 30, 2017 at 21:39. Subjective Seen resting in bed, comfortable Eager to have J tube placement performed Denies symptoms at the bedside Objective Last 8 Hrs Date Time Temp Pulse Resp B/P (MAP) Pulse Ox O2 Delivery O2 Flow Rate FiO2 11/30/17 18:58 61 16 98 Nasal Cannula 1.5 11/30/17 18:49 36.5 63 19 172/70 (104) 96 Nasal Cannula 2.0 11/30/17 18:28 70 151/64 11/30/17 15:48 36.9 70 18 151/64 (93) 96 Nasal Cannula 2.0 11/30/17 14:15 73 16 97 Nasal Cannula 1.5 11/30/17 13:54 82 105/67 Physical Exam: General- oriented x 3, not in distress, speaks in sentences, no effort Eyes- anicteric Neck- no JVD Lungs-clear BS bilaterally, no rales, crackles Heart- normal rate, irregularly irregular rhythm; no murmurs Abdomen- normal bowel sounds, soft, nontender Extremities- no pretibial edema, no calf tenderness Neuro- alert, oriented x 3; no gross focal deficits Skin- warm & dry Laboratory Results: Last 24 Hours Test 11/29/17 21:59 11/30/17 00:14 11/30/17 04:16 11/30/17 06:37 Activated Partial Thromboplast Time 44.3 SECONDS 27.5 SECONDS Partial Thromboplastin Ratio 1.7 1.1 Potassium Level 3.8 mmol/L 3.9 mmol/L Bedside Glucose 123 mg/dl 103 mg/dl White Blood Count 11.83 K/uL Red Blood Count 3.43 M/uL Hemoglobin 9.7 g/dL Hematocrit 30.0 % Mean Corpuscular Volume 87.5 fL Mean Corpuscular Hemoglobin 28.3 pg Mean Corpuscular Hemoglobin Concent 32.3 g/dl RDW Standard Deviation 48.4 fL RDW Coefficient of Variation 15.1 % Platelet Count 206 K/uL Mean Platelet Volume 10.9 fL Nucleated RBC Absolute Count (auto) 0.08 K/uL Nucleated Red Blood Cells % 0.7 % Sodium Level 135 mmol/L Chloride Level 100 mmol/L Carbon Dioxide Level 29 mmol/L Anion Gap 6.0 mmol/L Blood Urea Nitrogen 28 mg/dl Creatinine 2.34 mg/dl Est Creatinine Clear Calc Drug Dose 29.7 ml/min Estimated GFR () 30.0 Estimated GFR (Non- 25.9 BUN/Creatinine Ratio 11.8 Random Glucose 99 mg/dl Calcium Level 7.8 mg/dl Phosphorus Level 3.1 mg/dl Magnesium Level 2.2 mg/dl Test 11/30/17 15:40 11/30/17 16:20 11/30/17 20:26 Activated Partial Thromboplast Time 54.4 SECONDS Partial Thromboplastin Ratio 2.1 Bedside Glucose 147 mg/dl 124 mg/dl Assessment & Plan Assessment and Plan 77-year-old male with significant past medical history of CAD status post stents ( x3 in 05/2017), chronic diastolic CHF, moderate aortic stenosis, hypertension, COPD, GAURANG on CPAP, right lung mass status post lobectomy secondary to adenocarcinoma of the lung at [place], postoperative paroxysmal atrial fibrillation, esophageal diverticulum with recurrent aspiration pneumonia , CKD stage III who presented to [facility] with hypoxia suspicious for bilateral PNA secondary to aspiration, right pleural effusion. Acute Hypoxic Respiratory Failure multifactorial secondary to bilateral PNA,Pleural Effusion, DHF, COPD exacerbation -Improving Now on 2 L of nasal cannula - Continue IV Zosyn - IV solumedrol decreased to 20mg, nebulizer, O2 - Lasix 20mg iV daily Stable overall- Esophageal Diverticulum with Esophageal Dysmotility -Danial Aspiration -Per GI recommendations, J-tube insertion is recommended to lower risk of aspiration further General surgery consulted--patient be evaluated today, recommended transfer to [facility] for definitive management esophageal diverticulum and esophageal dysmotility Continue NPO, necessary meds converted to IV. -Continue TPN R Loculated Pleural Effusion - s/p thoracentesis 11/22 1100cc removed, fluid analysis reviewed appears transudative. - Echo reviewed -s/p PleurX cath placed on 11/24 due to recurrent effusion - appreciate thoracic surgery/pulm input. COPD Exacerbation - Continue O2, IV methylprednisone, nebulizer treatments GAURANG on CPAP CAD - s/p multiple stents, most recent 05/2017 had three stents placed; total of 7 stents. - Given NPO status plavix and lipitor on hold until peg placed. - continue medical management of plavix, metoprolol, lipitor. Plavix to continue 1 year uninterrupted. Paroxysmal A. Fib Patient developed PAF status post right lung lobectomy at [facility] in which he was placed on amiodarone and Xarelto. He then presented to [facility] in which cardiology was consulted, Dr. Madrid, who recommended continuing amiodarone; however decreasing to daily at discharge. Further she recommended discontinuing atenolol and switching it to metoprolol as well as continuing CCB. Xarelto was transitioned to Eliquis secondary to renal dysfunction. - On Amio gtt, IV lopressor increased secondary to hypertension - IV heparin -to be held tonight until midnight in anticipation j-tube placement tomorrow HTN -Hydralazine IV increased -Nitropaste change to nitro patch -Continue clonidine patch Monitor Recent R Lung Adenocarcinoma - s/p resection of R upper lobe at [facility] CKD stage 3 -Renal function at baseline Hypokalemia -replace , monitor Hyperglycemia due to steroids - A1c 5.9 Insulin sliding scale Glycemic control consult Anemia -Hemoglobin stable Anxiety -prn lorazepam DVT ppx - IV Heparin - SCDs FULL CODE Dispo Plan to transfer tomorrow to [facility] in [place] Discussed with patient and family, they are agreeable with this plan Current Inpatient Medications: Current Inpatient Medications Medications (Trade) Dose Ordered Sig/Vicki Route Start Time Stop Time Status Last Admin Dose Admin Nitroglycerin (Nitrostat Tab) 0.4 mg UD PRN SL 11/21/17 05:00 12/21/17 04:59 Hydromorphone HCl (Dilaudid Inj) 0.5 mg Q3H PRN IV 11/21/17 05:00 12/05/17 04:59 11/23/17 17:42 0.5 MG Oxycodone/ Acetaminophen (Percocet 5-325mg Tab) 1 tab Q6H PRN PO 11/21/17 05:00 12/05/17 04:59 Prochlorperazine Edisylate 5 mg/ Syringe 5 ml @ 5 mls/min Q6H PRN IV 11/21/17 05:00 12/21/17 04:59 11/22/17 04:18 5 MLS/MIN Miscellaneous Information (Consult) 1 ea UD PRN N/A 11/21/17 09:00 12/21/17 08:59 Atorvastatin Calcium (Lipitor Tab) 40 mg DAILY PO 11/21/17 09:00 12/21/17 08:59 11/22/17 08:20 40 MG Finasteride (Proscar Tab) 5 mg QAM PO 11/21/17 09:00 12/21/17 08:59 11/22/17 08:17 5 MG Gabapentin (Neurontin Cap) 200 mg TID PO 11/21/17 09:00 12/21/17 08:59 11/21/17 21:02 200 MG Nefazodone HCl (serZONE TAB) 150 mg BID PO 11/21/17 09:00 12/21/17 08:59 11/22/17 09:34 150 MG Quetiapine Fumarate (seroQUEL TAB) 25 mg BID PO 11/21/17 09:00 12/21/17 08:59 11/22/17 08:21 25 MG Senna/Docusate Sodium (Senokot S Tab) 1 tab DAILY PRN PO 11/21/17 05:00 12/21/17 04:59 11/22/17 08:23 1 TAB Clopidogrel Bisulfate (plAVix TAB) 75 mg QAM PO 11/21/17 09:00 12/21/17 08:59 Future Hold 11/22/17 08:22 75 MG Paroxetine HCl (pAXil TAB) 20 mg DAILY PO 11/21/17 09:00 12/21/17 08:59 11/22/17 08:20 20 MG Tamsulosin HCl (Flomax Cap) 0.4 mg DAILY PO 11/21/17 09:00 12/21/17 08:59 11/22/17 08:20 0.4 MG Ipratropium [place] (Atrovent 0.02% 0.5MG/2.5ML Neb) 0.5 mg Q6R INH 11/21/17 09:00 12/21/17 08:59 11/30/17 18:58 0.5 MG Levalbuterol (Xopenex 1.25MG/ 0.5ML Neb) 1.25 mg Q6R INH 11/21/17 09:00 12/21/17 08:59 11/30/17 18:58 1.25 MG Ipratropium [place] (Atrovent 0.02% 0.5MG/2.5ML Neb) 0.5 mg Q4H PRN INH 11/21/17 06:15 12/21/17 06:14 11/26/17 17:20 0.5 MG Levalbuterol (Xopenex 1.25MG/ 0.5ML Neb) 1.25 mg Q4H PRN INH 11/21/17 06:15 12/21/17 06:14 11/26/17 17:20 1.25 MG Pantoprazole Sodium 40 mg/ Syringe 10 ml @ 5 mls/min DAILY@11 IV 11/22/17 11:00 12/22/17 10:59 11/30/17 13:54 5 MLS/MIN Famotidine 20 mg/ Syringe 5 ml @ 2.5 mls/min Q12 IV 11/22/17 11:00 12/22/17 10:59 11/30/17 21:09 2.5 MLS/MIN Acetaminophen (Tylenol Supp) 650 mg Q4H PRN AR 11/23/17 09:45 12/23/17 09:44 Clonidine HCl (Iegqrwxa-Nmt-6 0.2mg/24hr Patch) 1 patch Q7D@0900 TD 11/23/17 12:00 12/23/17 11:59 11/30/17 08:08 1 PATCH Miscellaneous (Remove Clonidine Patch) 1 ea Q7D@0859 N/A 11/30/17 08:59 12/30/17 08:58 11/30/17 08:08 1 EA Miscellaneous Information (Check Clonidine Patch Placement) 1 ea QS N/A 11/23/17 16:00 12/23/17 15:59 11/30/17 16:38 1 EA Metoprolol Tartrate (Lopressor Iv) 2.5 mg Q6H PRN IV 11/23/17 11:00 12/23/17 10:59 11/26/17 03:57 2.5 MG Furosemide 20 mg/ Syringe 2 ml @ 4 mls/min DAILY IV 11/25/17 09:00 12/25/17 08:59 11/30/17 08:06 4 MLS/MIN Amiodarone HCL/ Dextrose 200 ml @ 16.7 mls/hr [id number] IV 11/24/17 20:43 12/24/17 20:42 11/30/17 21:11 16.7 MLS/HR Heparin Sodium/ Dextrose 500 ml @ 23 mls/hr [id number] IV 11/25/17 09:45 12/25/17 09:44 Future hold 11/30/17 21:12 23 MLS/HR Metoprolol Tartrate (Lopressor Iv) 10 mg Q6 IV. 11/26/17 12:00 12/24/17 15:59 11/30/17 18:28 10 MG Methylprednisolone Sodium Succinate 20 mg/Syringe 0.32 ml @ 1.5 mls/min DAILY IV 11/27/17 09:00 12/23/17 08:59 11/30/17 08:06 1.5 MLS/MIN Miscellaneous Information (Pharmacy Tpn/ Ppn Consult Active) 1 ea UD PRN N/A 11/27/17 16:00 12/27/17 15:59 Lorazepam 0.5 mg/ Syringe 1 ml @ 1 mls/min Q8H PRN IV 11/26/17 16:30 12/25/17 20:14 Lorazepam (Ativan Inj) 0.5 mg Q8H PRN IV 11/26/17 17:00 12/25/17 19:59 11/30/17 10:36 0.5 MG Dextrose 1,000 ml @ 0 mls/hr Q0M PRN IV 11/27/17 16:00 12/27/17 15:59 Glucose (Glucose 40% Gel) 15-30 GRAMS 15 GRAMS... UD PRN PO 11/27/17 16:15 12/27/17 16:14 Glucose (Glucose Chew Tab) 4-8 Tablets 4 Tabl... UD PRN PO 11/27/17 16:15 12/27/17 16:14 Dextrose (Dextrose 50% 50ML Syringe) 25-50ML 25ML FOR ... UD PRN IV 11/27/17 16:15 12/27/17 16:14 Glucagon (Glucagon Inj) 1 mg UD PRN SQ 11/27/17 16:15 12/27/17 16:14 Carbohydrates (Carbohydrates For Hypoglycemia) 15-30 GRAMS 15 grams if BSG 54-69... UD PRN PO 11/27/17 16:15 12/27/17 16:14 Nystatin (Mycostatin Powder) 1 appln BID EXT 11/27/17 21:00 12/27/17 20:59 11/30/17 21:03 1 APPLN Hydralazine HCl (HydrALAZINE INJ) 20 mg Q6 IV. 11/28/17 00:00 12/28/17 00:00 11/30/17 18:28 20 MG Heparin Sodium (Porcine) (Heparin 10 Unit/ ml 5 ml Flush) 5 ml PRN PRN FLUSH 11/28/17 00:45 12/28/17 00:44 Nitroglycerin (Nitro-Dur 0.4 Mg/Hr Patch) 1 patch QAM TD 11/29/17 09:00 12/29/17 08:59 11/30/17 08:08 1 PATCH Miscellaneous (Remove Nitro-Dur Patch) 1 ea DAILY@21 N/A 11/29/17 21:00 12/29/17 20:59 11/30/17 21:02 1 EA Piperacillin Sod/ Tazobactam Sod 3.375 gm/Dextrose 115 ml @ 28.75 mls/ hr Q8H IV 11/28/17 14:00 12/01/17 09:59 11/30/17 21:09 28.75 MLS/HR Nutrition (Parenteral) 0 ml @ 0 mls/hr TODAY@1600 IV 11/30/17 16:00 12/01/17 15:59 11/30/17 16:38 0 MLS/HR
[2017-12-01] MEDS: IPRATROPIUM BROMIDE NEB SOLN 0.02% 2.5 ML VIAL INH SCH ×2 (01:53→07:07)
[2017-12-01] MEDS: LEVALBUTEROL 1.25MG/0.5ML NEB INH SCH ×2 (01:53→07:07)
[2017-12-01 03:50] VITALS: BP 176/75; PULSE 64; TEMP 36.4; O2SAT 97
[2017-12-01 04:48] LABS: BASO % 0.1 %; BASO ABS # 0.01 K/uL (0-0.2); EOS % 1.4 %; EOS ABS # 0.19 K/uL (0-0.5); HEMATOCRIT 31.5 % (42-52); HEMOGLOBIN 10.1 g/dL (14.0-18.0); IG# 0.12 K/uL (0.00-0.02); LYMPH % 9.6 %; LYMPH ABS # 1.34 K/uL (1.2-3.4); MEAN CELL VOLUME 87.5 fL (80-100); MEAN CORPUSCULAR HEMOGLOBIN 28.1 pg (25-34); MEAN CORPUSCULAR HGB CONC 32.1 g/dl (32-36); MEAN PLATELET VOLUME 11.5 fL (7.4-10.4); MONO % 8.5 %; MONO ABS # 1.19 K/uL (0.11-0.59); NEUT % 79.5 %; NEUT ABS # 11.15 K/uL (1.4-6.5); PLATELET COUNT 191 K/uL (130-400); RED CELL DISTRIBUTION WIDTH CV 15.4 % (11.5-14.5); RED CELL DISTRIBUTION WIDTH SD 50.2 fL (36.4-46.3)
[2017-12-01 05:27] LABS: PTT PATIENT 87.1 SECONDS (21.0-31.0)
[2017-12-01] MEDS: PIPERACILL/TAZOBAC IV 3.375 GM in D5W 100ML IV SCH (05:44)
[2017-12-01] MEDS: METOPROLOL TARTRATE 1 MG/ML VIAL IV. SCH (05:45)
[2017-12-01] MEDS: HydrALAZINE HCL 20 MG/ML VIAL IV. SCH (05:46)
[2017-12-01 07:07] VITALS: PULSE 65; O2SAT 98
[2017-12-01 07:08] VITALS: BP 176/76; PULSE 64; TEMP 36.8; O2SAT 97
--- NOTE | 2017-12-01 07:57 | Surgery Progress Note ---
Subjective Date of Service: Dec 01, 2017. Pt. denies SOB. No shakes, chills,fevers. Objective Vitals Date Time Temp Pulse Resp B/P (MAP) Pulse Ox O2 Delivery O2 Flow Rate FiO2 12/01/17 07:08 36.8 64 18 176/76 (109) 97 Nasal Cannula 2.0 12/01/17 07:07 65 16 98 Nasal Cannula 2.0 12/01/17 05:45 75 176/74 12/01/17 03:50 36.4 64 18 176/75 (108) 97 Nasal Cannula 2.0 11/30/17 23:52 61 144/66 11/30/17 22:49 36.6 61 20 144/66 (92) 99 Nasal Cannula 2.0 11/30/17 20:00 98 Nasal Cannula 2.0 11/30/17 18:58 61 16 98 Nasal Cannula 1.5 11/30/17 18:49 36.5 63 19 172/70 (104) 96 Nasal Cannula 2.0 11/30/17 18:28 70 151/64 11/30/17 15:48 36.9 70 18 151/64 (93) 96 Nasal Cannula 2.0 11/30/17 14:15 73 16 97 Nasal Cannula 1.5 11/30/17 13:54 82 105/67 11/30/17 11:59 36.7 82 16 105/67 (80) 95 Room Air 11/30/17 08:02 36.7 64 16 160/51 (87) 93 Room Air Physical Exam General: + well developed, + well nourished, No distress CV: + RRR Pulmonary: + pertinent finding (decreased BS at bases), No accessory muscle use, No respiratory distress Neurologic: + alert & oriented x 3 Assessment & Plan 77 year old male with right pleural effusion -pt. has undergone thoracentesis followed by pleurex catheter placement: -all culture are (-) -cytology (-) for malignancy -continue daily drainage of pleurex catheter -concern noted for aspiration with esophageal diverticulum as a potential contributing factor: -plan was for J-tube placement by general surgery, however pt. was felt to be high risk due to numerous comorbidities -current plan is to transfer to [place] -pt. can follow-up with Dr. Cole upon return to [place] if needed
[2017-12-01 08:00] VITALS: O2SAT 97
[2017-12-01] MEDS: CHECK CLONIDINE PATCH PLACEMENT SCH (08:17)
[2017-12-01] MEDS: METHYLPREDNISOLONE IV 20 MG in SYRINGE 0 ML IV SCH (08:18)
[2017-12-01] MEDS: NYSTATIN POWDER 15GM BTL EXT SCH (08:18)
[2017-12-01] MEDS: FUROSEMIDE INJ 20 MG in SYRINGE 0 ML IV SCH (08:19)
[2017-12-01] MEDS: ATORVASTATIN 40 MG TAB PO SCH (08:19)
[2017-12-01] MEDS: GABAPENTIN 100 MG CAP PO SCH (08:19)
[2017-12-01] MEDS: TAMSULOSIN HCL 0.4 MG CAP PO SCH (08:19)
[2017-12-01] MEDS: FINASTERIDE 5 MG TAB PO SCH (08:20)
[2017-12-01] MEDS: PAROXETINE 20 MG TAB PO SCH (08:20)
[2017-12-01] MEDS: NEFAZODONE HCL 100 MG PO SCH (08:20)
[2017-12-01] MEDS: QUETIAPINE FUMARATE 25 MG TAB PO SCH (08:20)
[2017-12-01] MEDS: NITROGLYCERIN 0.4 MG/HR PATCH TD SCH (08:22)
[2017-12-01] MEDS ORDERED: XPNINS1255 INH (09:04)
[2017-12-01] MEDS ORDERED: ATRINS INH (09:04)
--- NOTE | 2017-12-01 09:08 | Discharge Instructions ---
Discharge Instructions Date of Service Dec 01, 2017. Admission Reason for Admission: Respiratory Failure, Acute Discharge Discharge Diagnosis / Problem: ACUTE RESPIRATORY FAILURE, ASPIRATION PNEUMONIA , PLEURAL EFFUSION Discharge Goals Goal(s): Diagnostic testing, Therapeutic intervention Activity Recommendations Activity Level: Assistance Required Therapies: Physical Therapy, Occupational Therapy . Additional Information Patient informed of condition: Yes Advance Directives: No (UNKNOWN) DNR: No (PATIENT IS FULL CODE) Level of Care: Other ([facility]) Communicable Disease: No Prognosis: Other (GUARDED) Oxygen at (LPM): 2 LITERS [place] Instructions / Follow-Up Instructions / Follow-Up PLEASE REFER TO SEPARATE MEDICAL RECONCILIATION SHEET FOR UPDATED INPATIENT MEDICATION LIST. PLEASE REFER TO ACCOMPANYING DISCHARGE SUMMARY FOR FURTHER DETAILS. Current Hospital Diet Patient's current hospital diet: Clear Liquid Diet Discharge Diet Recommended Diet: N/A (NPO) Procedures Procedures Performed: PLEUREX CATH INSERTION, THORACENTESIS Pending Studies Studies pending at discharge: yes List of pending studies: FURTHER MANAGEMENT IN [facility] Physician Orders On Transfer Special Precautions: PLEASE REFER TO SEPARATE MEDICAL RECONCILIATION SHEET FOR UPDATED INPATIENT MEDICATION LIST. PLEASE REFER TO ACCOMPANYING DISCHARGE SUMMARY FOR FURTHER DETAILS. Laboratory Results Hemoglobin A1c Test 11/23/17 08:03 Range/Units Estimated Average Glucose 123 mg/dl Hemoglobin A1c 5.9 H 4.5-5.6 % Lipid Panel Test 11/27/17 04:28 Range/Units Triglycerides Level 132 0-150 mg/dl Medical Emergencies . Who to Call and When: Medical Emergencies: If at any time you feel your situation is an emergency, please call 911 immediately. . Non-Emergent Contact Non-Emergency issues call your: Primary Care Provider, Surgeon Call Non-Emergent contact if: you have a fever, your pain is not controlled, your pain is worsening, your pain is unusual for you, wound has increased drainage, wound has increased redness, wound has increased pain, you have any medication questions . . "Provider Documentation" section prepared by [place]. . Core Measure Problem Core Measures: None
--- NOTE | 2017-12-01 09:16 | Discharge Summary ---
Discharge Summary Date of Service Dec 01, 2017. Discharge Summary Admission Date: Nov 21, 2017 at 04:44 Discharge Date: Dec 01, 2017 Principal Diagnosis: Acute Hypoxic Respiratory Failure multifactorial secondary to bilateral PNA- Secondary to Aspiration,Pleural Effusion, Diastolic CHF, COPD exacerbation Secondary Diagnoses/Problems: Please refer to hospital course below. Procedures: Thoracentesis Right 11/22, Pleurex Catheter Insertion Right 11/24 Consultations: Pulmonary, Cardio Thoracic Surgery, Cardiology Pending Studies/Follow-Up: Please refer to separate medical reconciliation sheet for updated inpatient medication list. Please refer to hospital course below. Medication Reconciliation New Medications: Ipratropium [place] (Ipratropium [place]) 0.5 Mg/2.5 Ml Nebu 0.5 MG INH Q6R for 10 Days Levalbuterol (Levalbuterol) 1.25 Mg/0.5 Ml Nebu 1.25 MG INH Q6R for 10 Days Discontinued Medications: Acetaminophen (Tylenol) 325 Mg Tab 650 MG PO Q6H PRN for Pain or Fever, TAB Albuterol Sulfate (Proair Respiclick) 108 Mcg/Act Aer 2 PUFFS INH [id number] PRN for SOB/Wheezing Amiodarone Hcl (Cordarone) 200 Mg Tab 200 MG PO BID, TAB Amoxicillin & Pot Clavulanate (Augmentin 875-125 mg) 1 Tab Tab 1 TAB PO BID for 5 Days, #10 TAB BEGIN 11/18/17, END 11/23/17. Apixaban (Eliquis) 2.5 Mg Tab 2.5 MG PO BID, TAB Atenolol (Tenormin) 25 Mg Tab 12.5 MG PO QAM 1/2 TABLET DOSE Atorvastatin (Lipitor) 40 Mg Tab 40 MG PO DAILY Clonidine HCl (Clonidine HCl) 0.1 Mg Tab 0.1 MG PO BID Clopidogrel (Plavix) 75 Mg Tab 75 MG PO QAM Diltiazem Hcl Coated Beads (Cardizem Cd) 120 Mg Cap 120 MG PO DAILY Docusate Sodium (Docusate Sodium) 100 Mg Cap 100 MG PO BID, CAP Famotidine (Pepcid) 20 Mg Tab 20 MG PO DAILY, TAB Finasteride (Proscar) 5 Mg Tab 5 MG PO QAM Furosemide (Lasix) 20 Mg Tab 40 MG PO QAM Gabapentin (Neurontin) 300 Mg Cap 300 MG PO TID, CAP Lorazepam (Ativan) 0.5 Mg Tab 0.5 MG PO BID PRN for Anxiety Losartan Potassium (Cozaar) 50 Mg Tab 50 MG PO BID for 30 Days, #60 TAB Metoclopramide Hcl (Metoclopramide Hcl) 5 Mg Tab 5 MG PO ACHS Metoprolol Tartrate (Lopressor) (Lopressor) 25 Mg Tab 25 MG PO BID, TAB Nefazodone (Serzone) 150 Mg Tab 150 MG PO BID Nitroglycerin (Nitrostat) 0.4 Mg Tab 0.4 MG UT PRN, BTL NEEDED FOR CHEST PAIN : ONE TABLET UNDER THE TONGUE EVERY 5 MINUTES UP TO 3 DOSES. Oxycodone Ir (Roxicodone Ir) 5 Mg Tab 5 MG PO Q4H PRN for Severe Pain, TAB Paroxetine (Paxil) 20 Mg Tab 20 MG PO DAILY, TAB Polyethylene Glycol 3350 (Miralax) 1 Pow 17 GM PO DAILY Quetiapine Fumarate (Seroquel) 25 Mg Tab 25 MG PO BID Sennosides-Docusate Sodium (Senna Plus) 1 Tab Tab 1 TAB PO DAILY PRN for Constipation Tamsulosin Hcl (Flomax) 0.4 Mg Cap 0.4 MG PO DAILY, CAP Admission Information HPI (per Admitting provider): DATE OF ADMISSION: 11/21/2017 PRIMARY CARE PHYSICIAN: Dr. Coronel. CHIEF COMPLAINT: Shortness of breath and hypoxemia. HISTORY OF PRESENT ILLNESS: History obtained from patient, and records. Medical history significant for chronic diastolic heart failure (EF of 55% on TTE 10/2017), CAD status post stenting, PAF on Eliquis, moderate aortic stenosis, HTN COPD, past tobacco abuse, sleep apnea on CPAP, history of seizures as per records, chronic anemia (baseline preop hemoglobin 12 -13), lung mass R (possible malignancy) status post recent lobectomy ([place], 2017), recent bout of aspiration pneumonitis on Augmentin, esophageal achalasia/diverticula as per records. Patient admitted at [facility] from 11/02-01/2018 for a right upper lobe pulmonary nodule (possible malignancy) malignancy and esophageal diverticula sp right video-assisted thorascopic lung resection as well as endoscopy for a possible diverticular resection. Esophageal procedure deferred as per secondary to length of surgery - to be done at a later date as per . Postop, patient went into atrial fibrillation. Discharged on Amiodarone and Xarelto. Patient subsequently discharged home to [place], [place] w/ scheduled follow-up with surgeon last week of the month. Poor appetite upon returning to home from [place]. [facility] ER visit for possible prostatitis/epididymitis sp antibiotic Rx. Patient admitted at [facility] from 11/12- for cough symptoms productive of brown sputum. CT of the chest without contrast showed right upper lobe lobectomy, bilateral consolidation, predominantly each lobe, also right middle lobe, right upper lobe. Seen by Pulmonology. Concern for reflux aspiration. Patient underwent bronchoscopy which showed copious mucopurulent secretions found throughout the tracheobronchial tree, bronchial toileting done. Patient also referred to GI for swallowing/dysphagia -mostly to pills as per records and choking with liquids on occasion. UGI series showed extensive esophageal diverticular disease with absent reverse peristalsis, large diverticulum measuring approximately 5 cm located at junction of middle and lower thirds of the esophagus, appears to be pulsion diverticulum. No esophageal stricture seen on UGI series. Stomach, duodenum, and proximal bowel appeared normal. Ultrasound showed cholelithiasis, intraabdominal sludge. Symptoms attributed by GI to known history of esophageal diverticulum and motility disorder for which patient refused resection in 2007 as per note. Patient encouraged to eat slowly, chew his food well. As per note, patient did not want invasive testing. Surgery not recommended/conservative management of functional swallowing issues as per GI recommendations. Patient discharged to [facility] 2 days ago on Augmentin prescription for aspiration pneumonia. Patient Xarelto for A. fib also switched to Eliquis prior to discharge due to renal function. Poor appetite, loose nonbloody stools, some achy abdominal discomfort, persistent nausea at [facility] . Last night, patient had an episode of emesis, subsequently noted to be hypoxemic, 80s, on nasal cannula, coughing up large amount of clear sputum. Increased shortness of breath. Patient denies chest pain. Patient brought to the Emergency Room. O2 sats noted to be 70s. BiPAP started. Given Vancomycin and Zosyn at the ER. Physical Exam (per Admitting): VITAL SIGNS: Blood pressure 209/94, later 150/84, pulse rate 83, RR 23, temperature 36.9, saturation 70% on room air, later 86%, 90% on BiPAP. GENERAL: Noted to be comfortable, hard of hearing, obese, minimal respiratory distress. SKIN: Pallor, warm. HEENT: Pale palpebral conjunctivae. No ptosis. Dry oral mucosa. BiPAP in place. NECK: Supple, nontender. CHEST: Expiratory wheeze, rhonchi. No chest wall tenderness. HEART: Regular rate and rhythm. Systolic murmur. ABDOMEN: Some distention, central abdominal tenderness. EXTREMITIES: No LE edema/tenderness. No other gross deformity. NEUROLOGIC: No gross focality except for mild hearing impairment. Hospital Course Assessment and Plan 77-year-old male with significant past medical history of CAD status post stents ( x3 in 05/2017), chronic diastolic CHF, moderate aortic stenosis, hypertension, COPD, GAURANG on CPAP, right lung mass status post lobectomy secondary to adenocarcinoma of the lung at [place], postoperative paroxysmal atrial fibrillation, esophageal diverticulum with recurrent aspiration pneumonia , CKD stage III who presented to [facility] with hypoxia suspicious for bilateral PNA secondary to aspiration, right pleural effusion. Acute Hypoxic Respiratory Failure multifactorial secondary to bilateral PNA- Aspiration,Pleural Effusion, Diastolic HF, COPD exacerbation - able to weaned off Bipap, now on 2-3 L O2 via Nasal cannula - treated with IV Zosyn since admission, Solumedrol taper, Nebs - s/p Right Thoracentesis 11/21, then Pleurex cath insertion 11/24 -all cultures are (-) -cytology (-) for malignancy -continue daily drainage of pleurex catheter - Lasix 20mg IV daily - Pulmonary, Thoracic Surgery, Cardiology SVC consulted Esophageal Diverticulum with Esophageal Dysmotility - with Danial Aspiration - Initial plan was for PEG tube placement- patient had to be stabilized: was in Acute Hypoxic Respiratory Failure, A fib in RVR, Hypertensive- resolved - Per GI recommendations, J-tube insertion is preferred over PEG tube to lessen risk of aspiration further - General surgery consulted-- recommended transfer to [facility] for definitive management esophageal diverticulum and esophageal dysmotility - Continue NPO, necessary meds converted to IV. all usual PO meds on hold- please review - Continue TPN - discussed case with AQUILES Nicholas from [facility]- accepted under Dr. Tho Badillo : Thoracic Surgeon CAD - s/p multiple stents, most recent 05/2017 had three stents placed; total of 7 stents. - Given NPO status plavix and lipitor on hold until peg placed. - usually on plavix, metoprolol, lipitor. Plavix to continue 1 year uninterrupted. Paroxysmal A. Fib - Patient developed PAF status post right lung lobectomy at [facility] in which he was placed on amiodarone and Xarelto. He then presented to [facility] in which cardiology was consulted, Dr. Madrid, who recommended continuing amiodarone; however decreasing to daily at discharge. Further she recommended discontinuing atenolol and switching it to metoprolol as well as continuing CCB. Xarelto was transitioned to Eliquis secondary to renal dysfunction. - patient developed A fib in RVR while off usual PO meds - started on Amio gtt, IV lopressor - IV heparin - HR controlled HTN - off usual PO meds in light of NPO status - Hydralazine IV , Metoprolol IV -Nitropaste - clonidine patch - monitor Recent R Lung Adenocarcinoma - s/p resection of R upper lobe at [facility] CKD stage 3 -Renal function at baseline Hypokalemia -replace , monitor Hyperglycemia due to steroids - A1c 5.9 Insulin sliding scale Glycemic control consult Anemia -Hemoglobin stable Anxiety -prn lorazepam DVT ppx - IV Heparin - SCDs FULL CODE Dispo transfer to [facility] in [place] Discussed with patient and family, they are agreeable with this plan Total time spent on discharge = 60 minutes This includes examination of the patient, discharge planning, medication reconciliation, and communication with other providers. Discharge Instructions Discharge Instructions Date of Service Dec 01, 2017. Admission Reason for Admission: Respiratory Failure, Acute Discharge Discharge Diagnosis / Problem: ACUTE RESPIRATORY FAILURE, ASPIRATION PNEUMONIA , PLEURAL EFFUSION Discharge Goals Goal(s): Diagnostic testing, Therapeutic intervention Activity Recommendations Activity Level: Assistance Required Therapies: Physical Therapy, Occupational Therapy . Additional Information Patient informed of condition: Yes Advance Directives: No (UNKNOWN) DNR: No (PATIENT IS FULL CODE) Level of Care: Other ([facility]) Communicable Disease: No Prognosis: Other (GUARDED) Oxygen at (LPM): 2 LITERS [place] Instructions / Follow-Up Instructions / Follow-Up PLEASE REFER TO SEPARATE MEDICAL RECONCILIATION SHEET FOR UPDATED INPATIENT MEDICATION LIST. PLEASE REFER TO ACCOMPANYING DISCHARGE SUMMARY FOR FURTHER DETAILS. Current Hospital Diet Patient's current hospital diet: Clear Liquid Diet Discharge Diet Recommended Diet: N/A (NPO) Procedures Procedures Performed: PLEUREX CATH INSERTION, THORACENTESIS Pending Studies Studies pending at discharge: yes List of pending studies: FURTHER MANAGEMENT IN [facility] IN [place] Physician Orders On Transfer Special Precautions: PLEASE REFER TO SEPARATE MEDICAL RECONCILIATION SHEET FOR UPDATED INPATIENT MEDICATION LIST. PLEASE REFER TO ACCOMPANYING DISCHARGE SUMMARY FOR FURTHER DETAILS. Laboratory Results Hemoglobin A1c Test 11/23/17 08:03 Range/Units Estimated Average Glucose 123 mg/dl Hemoglobin A1c 5.9 H 4.5-5.6 % Lipid Panel Test 11/27/17 04:28 Range/Units Triglycerides Level 132 0-150 mg/dl Medical Emergencies . Who to Call and When: Medical Emergencies: If at any time you feel your situation is an emergency, please call 911 immediately. . Non-Emergent Contact Non-Emergency issues call your: Primary Care Provider, Surgeon Call Non-Emergent contact if: you have a fever, your pain is not controlled, your pain is worsening, your pain is unusual for you, wound has increased drainage, wound has increased redness, wound has increased pain, you have any medication questions . . "Provider Documentation" section prepared by [place]. . Core Measure Problem Core Measures: None
[2017-12-01] MEDS: FAMOTIDINE IV INJ 20 MG in SYRINGE 3 ML IV SCH (09:53)
[2017-12-01 09:54] VITALS: BP 176/76; PULSE 64; TEMP 36.8; O2SAT 97
[2017-12-01] MEDS: AMIODARONE / D5W 200 ML IV SCH (10:02)
== END 2017-12-01 11:34 | disposition short-term general hospital (02) | DRG 177 ==
LOC: EDBD 02:21 → C.EDB 02:22 → C.2T 04:44 → ENRESERV 04:53 → C.2T 11-28 11:57
PROVIDERS: ADMIT Family Medicine; ATTEND Internal Medicine
PROC: 0W993ZZ Drainage of Right Pleural Cavity, Percutaneous Approach (ICD-10-PCS; 2017-11-22)
PROC: 0W9930Z Drainage of Right Pleural Cavity with Drainage Device, Percutaneous Approach (ICD-10-PCS; 2017-11-24)
PROC: 02HV33Z Insertion of Infusion Device into Superior Vena Cava, Percutaneous Approach (ICD-10-PCS; principal; 2017-11-27)
DX: J69.0 Pneumonitis due to inhalation of food and vomit (principal); J96.01 Acute respiratory failure with hypoxia; J44.1 Chronic obstructive pulmonary disease with (acute) exacerbation; J90 Pleural effusion, not elsewhere classified; Z88.1 Allergy status to other antibiotic agents; I25.10 Atherosclerotic heart disease of native coronary artery without angina pectoris; I13.0 Hypertensive heart and chronic kidney disease with heart failure and stage 1 through stage 4 chronic kidney disease, or unspecified chronic kidney disease; N18.3 Chronic kidney disease, stage 3 (moderate); Z90.2 Acquired absence of lung [part of]; Z88.8 Allergy status to other drugs, medicaments and biological substances; Z95.5 Presence of coronary angioplasty implant and graft; I50.32 Chronic diastolic (congestive) heart failure; Z79.01 Long term (current) use of anticoagulants; I35.0 Nonrheumatic aortic (valve) stenosis; Z87.891 Personal history of nicotine dependence; K22.0 Achalasia of cardia; Z80.1 Family history of malignant neoplasm of trachea, bronchus and lung; K22.5 Diverticulum of esophagus, acquired; Z85.118 Personal history of other malignant neoplasm of bronchus and lung; R73.9 Hyperglycemia, unspecified; T38.0X5A Adverse effect of glucocorticoids and synthetic analogues, initial encounter; Y92.239 Unspecified place in hospital as the place of occurrence of the external cause; E87.6 Hypokalemia; D64.9 Anemia, unspecified; G47.33 Obstructive sleep apnea (adult) (pediatric)